=== PATIENT | male | born 1940 | race Caucasian/White ===

== ENCOUNTER 2016-10-11 18:27 | Inpatient (IN) | payer MEDICARE ==
[~2016-10-11] VITALS: Ht 177.8 cm; Wt 103.2 kg
[~2016-10-11 18:27] MED LIST: AMLO5TAB2 PO; ATOR80TA77 PO; CALC0.257 PO; CITA40TA PO; COLC0.6C3 PO; FERR325C PO; FRSM80T PO; HYDR-3825 PO; HYDR-3940 PO; INSU100V7 SUBQ; ISOS30TA4 PO; METO25TA6 PO; NITR0.4T6 SL; POTA20TA16 PO; WARF5TAB PO
[2016-10-11] MEDS ORDERED: Ondansetron 2 mg/mL 2 mL Inj ONE ×3 (18:39→22:52)
[2016-10-11] MEDS ORDERED: HYDROmorphone 0.5 mg/0.5 mL iSecure Syringe ONE (18:40)
--- NOTE | 2016-10-11 18:42 | ED.REPORT ---
HPI-General Illness Date of Service Oct 11, 2016 ED Provider: Dr. Lynette Clemente M.D. A 75 year old male with a medical history including CHF, diabetes, hypertension , stroke, stage 4 kidney failure, and atrial fibrillation on Coumadin s/p umbilical hernia repair presents to the ED via EMS with severe upper abdominal pain onset four hours prior to arrival. The pain radiates to either side and around to his back. The patient also reports shortness of breath, shakiness, and vomiting secondary to his pain. He was given 200mcg Fentanyl and 4mg Morphine en route. The patient is not on dialysis. Nursing Notes Stated Complaint: UPPER ABDOMINAL PAIN Chief Complaint: Male Abdominal Pain Nursing Notes Reviewed: Yes Allergies: Coded Allergies: Sulfa (Sulfonamide Antibiotics) (Verified Allergy, Unknown, 07/02/16) spironolactone (Verified Allergy, Unknown, 07/02/16) bruising/skin discoloration of chest Scheduled Amlodipine (Amlodipine) 5 Mg Tablet 10 MG PO DAILY Atorvastatin Calcium (Atorvastatin Calcium) 80 Mg Tablet 80 MG PO DAILY Calcitriol (Rocaltrol) 0.25 Mcg Capsule 0.5 MCG PO every other day Citalopram Hydrobromide (Celexa) 40 Mg Tablet 40 MG PO HS Colchicine (Colchicine) 0.6 Mg Capsule 0.6 MG PO every 3 days Ferrous Sulfate (Iron) 325 Mg Capsule.er 325 MG PO TID Furosemide (Furosemide) 80 Mg Tab 80 MG PO BID Hydralazine (Hydralazine) 50 Mg Tablet 50 MG PO TID Insulin Glargine (Lantus U100 Insulin Vial) 100 Unit/Ml Vial 40 UNIT SUBQ AM Isosorbide MN ER (Isosorbide MN ER) 30 Mg Tab.er.24h 90 MG PO DAILY Metoprolol Tartrate (Metoprolol Tartrate) 25 Mg Tablet 12.5 MG PO BID Potassium Chloride (Potassium Chloride) 20 Meq Tab.er.prt 20 MEQ PO DAILYWM Warfarin Sodium (Coumadin) 5 Mg Tablet 5 MG PO DAILY@17 Scheduled PRN Nitroglycerin SL (Nitroglycerin SL) 0.4 Mg Tab.subl 0.4 MG SL PRN PRN PRN For Chest Pain General Time Seen by MD: 18:41 Chief Complaint Abdominal pain Hx Obtained From: Patient Arrived By: Ambulance Sudden in Onset?: Yes Onset Occurred: 1 - 4 hours ago Symptom Duration: Since onset Location: : Abdomen Quality: Painful Severity: Current: Moderate Severity: Maximum: Severe Associated with: Reports: Shortness of breath, Vomiting, Denies: Fever Pertinent Negative: Relieved by nothing Context Related History: Reports Diabetes mellitus Recent Healthcare: No recent doctor visit Past Medical History Past Medical History Alcoholism Stage 4 kidney failure, not on dialysis yet 10/2016 Pneumonia Gastrointestinal bleed Hypoglycemic seizure Sleep apnea Left eye blindness Reports: Congestive heart failure, Diabetes mellitus, Hypertension, Stroke Reports: Atrial fibrillation Past Surgical History R upper arm fistula umbilical hernia repair colonoscopyX2 Left tear duct cauterized for dry eye Reports: Cataract surgery Smoking History Former Smoker Social History Alcohol Use: In recovery Other Social History: Ambulatory Status Independent Review of Systems Full Review of Systems Constitutional: Denies: Fever Respiratory: Reports: Shortness of breath GI: Reports: Abdominal pain (Upper), Vomiting Musculoskeletal: Reports: Back pain Neurologic: Reports: Shaking Complete sys rev & neg: except as marked. Physical Exam Vital Signs Vital Signs Date Time Temp Pulse Resp B/P Pulse Ox O2 Delivery O2 Flow Rate FiO2 10/11/16 22:32 82 16 142/36 99 Nasal Cannula 4 10/11/16 20:00 36.4 72 23 144/64 99 Room Air 10/11/16 18:48 36.3 62 20 173/73 100 Room Air Initial VS: Reviewed Head / Eyes: Atraumatic, Normocephalic ENT: Conjunctiva normal, No scleral icterus Neck: Supple, Full range of motion Neurologic: Alert, Oriented, Nonfocal Psychiatric: Mood/affect normal, Behavior normal, Normal thought content General/Constitutional: Awake, Alert Distress / Hydration: Positive: Distress severe Appearance / Presentation: Positive: In pain (Severely, despite being given 200mcg Fentanyl and 4mg Morphine en route), Pale Respiratory / Chest: Breath sounds NL, Breath sounds = bilat, No respiratory distress Tachypneic Cardiovascular: Heart rate NL, Regular rhythm, Heart sounds NL, No murmurs Abdomen: Atraumatic Tenderness/Guarding/Rebound: Positive: Tender LUQ... (Worst), Tender RUQ... ( Worst), Tender diffuse (Significantly) Bowel Sounds / Distention: Positive: Distention moderate Tympanitic and peritoneal signs Interpretation & Diagnostics Lab Results Interpretation Result Diagram: 10/13/1644910/13/16449 Test 10/11/16 04:50 10/11/16 19:10 10/11/16 19:14 Hemoglobin A1c 5.9% (4.8-5.6) Pro-B-Type Natriuretic Peptide 4360pg/mL (0-376) Prealbumin 28mg/dL (20-40) Urine Color Yellow (YELLOW) Urine Appearance Clear (CLEAR,HAZY) Urine pH 7.0 (5.0-8.0) Urine Specific May 1.025 (1.003-1.035) Urine Protein 100mg/dL (NEG,TRACE) Urine Glucose (UA) Negativemg/dL (NEGATIVE) Urine Ketones Negativemg/dL (NEGATIVE) Urine Occult Blood Trace (NEGATIVE) Urine Nitrite Negative (NEGATIVE) Urine Bilirubin Negative (NEGATIVE) Urine Urobilinogen Normalmg/dL (NORMAL) Urine Leukocyte Esterase Negative (NEGATIVE) Urine RBC 0-2/hpf (0-2) Urine WBC 0-5/hpf (0-5) Urine Epithelial Cells Occasional/hpf (NONE-MOD) Urine Crystals None seen (NONE SEEN) Urine Bacteria None/hpf (NONE-FEW) Urine Hyaline Casts Rare/lpf (NONE) Urine Granular Casts None seen (NONE SEEN) Urine Waxy Casts None seen (NONE SEEN) Urine Red Blood Cell Casts None seen (NONE SEEN) Urine White Blood Cell Casts None seen (NONE SEEN) Urine Mucus None seen (None Seen) Urine Trichomonas None seen (NONE SEEN) Urine Yeast None (NONE SEEN) Urinalysis Comment None Urine Culture Reflexed Not indicated ECG Interpretation ECG Interpretation: Atrial fibrillation new from 06/28/16 Rate 68 Prolonged QT interval Time: 19:06 Interpreted by: ED physician X-Ray Chest Interpretation Chest Xray Interpretation: IMPRESSION: 1. Moderate cardiomegaly as before, without pulmonary edema to suggest diana congestive heart failure. 2. Persistent trace basal right pleural effusion versus basal pleural thickening. Dictated by: Matthias Roach M.D. on 10/11/2016 at 20:14 View: Portable, 1 view Interpretation / Wet Read by: Interpret - Radiologist Chest Xray Interpretation: Central line in place View: Portable, 1 view Interpretation / Wet Read by: Wet read ED physician CT Abd / Pelvis Interpretation IMPRESSION: 1. Constellation of findings suspicious for a closed-loop mid small bowel obstruction, secondary to localized volvulus or internal hernia. Mesenteric fat stranding as well as patchy small bowel wall thickening would be concerning for evolving bowel ischemia. 2. Small right and trace left mobile dependent pleural effusions are of uncertain etiology. 3. 1.4 cm partially exophytic anteromedial right renal cortical lesion is too dense to represent a simple cyst, and may therefore represent complex cyst versus solid mass. When clinically feasible, consider further evaluation with renal ultrasound, or pre- and post-contrast renal protocol CT or MRI to distinguish between these possibilities. Dictated by: Matthias Roach M.D. on 10/11/2016 at 20:32 Study type: Abdominal CT no contrast Interpretation / Wet Read by: Interpret - Radiologist Procedures Central Line Placement Time: 21:55 Procedure Performed by: ED physician Consent / Setup / Site Prep: Consent from patient, Time-out performed, Needle aspirate performed, Oxygen administered, Pulse oximeter applied, bus driver/monitor applied, Hand hygiene observed, Standard surgical scrub, Sterile drapes applied, Position Trendelenburg Skin Preparation Agent: Hibiclens - Chlorhexidine Local Anesthesia: Lidocaine 1% Procedural Sedation/Analgesia: Analgesia: Dilaudid Side / Location / Ultrasound: Internal jugular right, Ultrasound assisted Catheter / Lumen / Technique: Triple lumen, Seldinger technique, Good blood return, Secured w catheter device Post-Procedure / Complications: CXR neg for pneumothorax, Condition improved , Tolerated procedure well, Patient stable Re-Eval/Medical Decision Med Decision/Clinical Course presents with severe abd pain, 4 hr onset with clinical exam consistent with an acute surgical abdomen. STEMI, dissection and AAA were all entertained as diagnoses with severity of presenting exam. central line placed for monitoring and venous access Dr Rosales contacted after CT exam, to OR Source of Hx: Old records Time of Eval: 21:20 Patient Status: Condition improved, Pain improved Re-Evaluation/Progress Note: Discussed with patient and his CT, x-ray, and lab results, diagnosis, and plan for central line placement then admit. Patient agrees with plan for care and all questions were addressed. Time of Eval: 21:55 Patient Status: Condition improved Re-Evaluation/Progress Note: Performed central line placement. Consultation #1: Referral / Consult Name: Dada Rosales MD Consulted With: Trauma surgeon Call Returned at: 20:50 Mountain Bike Guide: Agrees with eval, Agrees with plan Note: Recommends checking INR and admitting to hospitalist Consultation #2: Referral / Consult Name: Dada Rosales MD Consulted With: Trauma surgeon Call Returned at: 22:20 Mountain Bike Guide: Will see patient, Agrees with eval, Agrees with plan, Accepts admit Counseled Regarding: Diagnosis, Lab results, Need for admission Discharge & Departure Primary Impression: Acute abdomen Disposition: ADMITTED TO HOSPITAL Discharge Condition All VS Reviewed: Yes Condition: Stable Referrals: Bacilio Eckert DO (PCP) Crit Care Except Billable Proc Time Spent: 30-74 minutes Services Performed: Patient management by me, Time spent at bedside, Reviewing test results, Reviewing imaging, Discussing patient care, Documentation in record, Time with fam/surrogate Scribe Attestation Portions of this note were transcribed by Carol Scott. I, Dr. Clemente, personally performed the history, physical exam, and medical decision-making; I reviewed and confirmed the accuracy of the information in the transcribed note. Signed by: Dari Alves, 10/12/2016, 00:02 copies to: Bacilio Eckert Shawna L MD Oct 11, 2016 18:42 CAROL SCOTT Oct 11, 2016 18:55 None seen (None Seen) Urine Trichomonas None seen (NONE SEEN) Urine Yeast None (NONE SEEN) Urinalysis Comment None Urine Culture Reflexed Not indicated Prothrombin Time 18.0sec (8.1-12.5) Prothromb Time International Ratio 1.66ratio ECG Interpretation ECG Interpretation: Atrial fibrillation new from 06/28/16 Rate 68 Prolonged QT interval Time: 19:06 Interpreted by: ED physician X-Ray Chest Interpretation Chest Xray Interpretation: IMPRESSION: 1. Moderate cardiomegaly as before, without pulmonary edema to suggest diana congestive heart failure. 2. Persistent trace basal right pleural effusion versus basal pleural thickening. Dictated by: Matthias Roach M.D. on 10/11/2016 at 20:14 View: Portable, 1 view Interpretation / Wet Read by: Interpret - Radiologist Chest Xray Interpretation: Central line in place View: Portable, 1 view Interpretation / Wet Read by: Wet read ED physician CT Abd / Pelvis Interpretation IMPRESSION: 1. Constellation of findings suspicious for a closed-loop mid small bowel obstruction, secondary to localized volvulus or internal hernia. Mesenteric fat stranding as well as patchy small bowel wall thickening would be concerning for evolving bowel ischemia. 2. Small right and trace left mobile dependent pleural effusions are of uncertain etiology. 3. 1.4 cm partially exophytic anteromedial right renal cortical lesion is too dense to represent a simple cyst, and may therefore represent complex cyst versus solid mass. When clinically feasible, consider further evaluation with renal ultrasound, or pre- and post-contrast renal protocol CT or MRI to distinguish between these possibilities. Dictated by: Matthias Roach M.D. on 10/11/2016 at 20:32 Study type: Abdominal CT no contrast Interpretation / Wet Read by: Interpret - Radiologist Procedures Central Line Placement Time: 21:55 Procedure Performed by: ED physician Consent / Setup / Site Prep: Consent from patient, Time-out performed, Needle aspirate performed, Oxygen administered, Pulse oximeter applied, bus driver/monitor applied, Hand hygiene observed, Standard surgical scrub, Sterile drapes applied, Position Trendelenburg Skin Preparation Agent: Hibiclens - Chlorhexidine Local Anesthesia: Lidocaine 1% Procedural Sedation/Analgesia: Analgesia: Dilaudid Side / Location / Ultrasound: Internal jugular right, Ultrasound assisted Catheter / Lumen / Technique: Triple lumen, Seldinger technique, Good blood return, Secured w catheter device Post-Procedure / Complications: CXR neg for pneumothorax, Condition improved , Tolerated procedure well, Patient stable Re-Eval/Medical Decision Source of Hx: Old records Time of Eval: 21:20 Patient Status: Condition improved, Pain improved Re-Evaluation/Progress Note: Discussed with patient and his CT, x-ray, and lab results, diagnosis, and plan for central line placement then admit. Patient agrees with plan for care and all questions were addressed. Time of Eval: 21:55 Patient Status: Condition improved Re-Evaluation/Progress Note: Performed central line placement. Consultation #1: Referral / Consult Name: Dada Rosales MD Consulted With: Trauma surgeon Call Returned at: 20:50 Mountain Bike Guide: Agrees with eval, Agrees with plan Note: Recommends checking INR and admitting to hospitalist Consultation #2: Referral / Consult Name: Dada Rosales MD Consulted With: Trauma surgeon Call Returned at: 22:20 Mountain Bike Guide: Will see patient, Agrees with eval, Agrees with plan, Accepts admit Counseled Regarding: Diagnosis, Lab results, Need for admission Discharge & Departure Primary Impression: Acute abdomen Disposition: ADMITTED TO HOSPITAL Discharge Condition All VS Reviewed: Yes Condition: Stable Referrals: PicsarithaBacilio DO (PCP) Crit Care Except Billable Proc Time Spent: 30-74 minutes Services Performed: Patient management by me, Time spent at bedside, Reviewing test results, Reviewing imaging, Discussing patient care, Documentation in record, Time with fam/surrogate Scribe Attestation Portions of this note were transcribed by Carol Scott. I, Dr. Clemente, personally performed the history, physical exam, and medical decision-making; I reviewed and confirmed the accuracy of the information in the transcribed note. Signed by: Dari Alves, 10/12/2016, 00:02 copies to: Bacilio Eckert Shawna L MD Oct 11, 2016 18:42 CAROL SCOTT Oct 11, 2016 18:55
[2016-10-11 18:48] VITALS: BP 173/73; PULSE 62; RESP 20; O2SAT 100
[2016-10-11] MEDS ORDERED: Ondansetron 2 mg/mL 2 mL Inj IVPUSH PRN ×2 (18:50→23:15)
[2016-10-11] MEDS ORDERED: HYDROmorphone 1 mg/mL Inj IVPUSH ONE ×2 (18:50→21:30)
[2016-10-11] MEDS ORDERED: HYDROmorphone 0.5 mg/0.5 mL iSecure Syringe IVPUSH PRN (18:50)
[2016-10-11 19:20] LABS: BASOPHILS % (AUTO) 0.2 % (0-3); EOSINOPHILS % (AUTO) 1.3 % (0-5); MONOCYTES % (AUTO) 4.9 % (4-12); Mean Corpuscular Hemoglobin 26.9 pg (27.0-35.0); Mean Corpuscular Volume 83.3 fL (81-100); NEUTROPHILS % (AUTO) 80.2 % (40-74); Platelet Count 152 bil/L (150-400)
[2016-10-11] MEDS: HYDROmorphone 1 mg/mL Inj IVPUSH PRN ×2 (19:21→20:01)
[2016-10-11 20:00] VITALS: BP 144/64; PULSE 72; RESP 23; O2SAT 99
[2016-10-11 20:01] LABS: TROPONIN T < 0.010 ug/L (0.0-0.011)
--- NOTE | 2016-10-11 20:16 | DRSVH ---
PROCEDURE: X-RAY CHEST ONE VIEW, PORTABLE ([id number]) INDICATIONS: 75 year-old male with chest pain. TECHNIQUE: One view of the chest was acquired. COMPARISON: [facility], CR, XR CHEST 1VW (PORTABLE), 06/28/2016, 11:48. [facility], CR, XR CHEST 2VW, 03/12/2016, 10:54. [facility], CR, CHEST 2VW, 01/27/2015, 10:5 7. FINDINGS: Surgical changes and devices: None. Lungs and pleura: There is persistent blunting of the right costophrenic angle. No pneumothorax. Lung s are clear. Mediastinum: Mediastinal contours appear normal. Moderate cardiomegaly is unchanged. Bones and chest wall: No suspicious bony lesions. Overlying soft tissues appear unremarkable. IMPRESSION: 1. Moderate cardiomegaly as before, without pulmonary edema to suggest diana congestive heart failure . 2. Persistent trace basal right pleural effusion versus basal pleural thickening. Dictated by: Matthias Roach M.D. on 10/11/2016 at 20:14 Approved by: Matthias Roach M.D. on 10/11/2016 at 20:14
--- NOTE | 2016-10-11 20:34 | DRSVH ---
PROCEDURE: CT ABDOMEN AND PELVIS WITHOUT CONTRAST ([id number]) INDICATIONS: 75-year-old male with acute abdominal pain. TECHNIQUE: Intravenous contrast was not administered, due to renal insufficiency. After the administration of or al contrast, 5 mm thick sections acquired from the diaphragms to the symphysis. 5 mm coronal and sag ittal reformats were performed. For radiation dose reduction, the following was used: automated exp osure control, adjustment of mA and/or kV according to patient size. COMPARISON: None. FINDINGS: Image quality: Excellent. ABDOMEN: Lung bases: Small right and trace left mobile dependent pleural effusions are present. There is mild cardiomegaly. Solid organs: Liver and spleen are normal in size. Gallbladder wall thickness is normal. Pancreas is normal in size, with moderate fatty atrophy. No adrenal nodules. Both kidneys are normal in size , without hydronephrosis or nephrolithiasis. On axial image 42, 1.4 cm partially exophytic anteromedi al right renal cortical lesion measures 35 Hounsfield units and noncontrast density, greater than exp ected for a cyst. Peritoneum and bowel: Several loops of moderately dilated small bowel are present, with correspondin g localized mesenteric fat stranding and patchy wall thickening. No pneumatosis. Distal small bowel l oops are decompressed, and proximal small bowel loops are also normal in caliber. Stool filled colon loops appear normal in caliber, with scattered descending and sigmoid colon diverticulosis. There is trace free pelvic fluid. No pneumoperitoneum. Nodes and vessels: No retroperitoneal or mesenteric adenopathy by size criteria. Aorta and inferior vena cava are normal in size, with moderate aortoiliac atherosclerosis. Miscellaneous: No ventral hernias. PELVIS: Genitourinary: Bladder wall thickness is normal. Prostate gland is normal in size. Miscellaneous: No inguinal hernias or adenopathy. Bones: No suspicious bony lesions. No vertebral body compression fractures. There is lower thoracic spine disc degeneration. IMPRESSION: 1. Constellation of findings suspicious for a closed-loop mid small bowel obstruction, secondary to l ocalized volvulus or internal hernia. Mesenteric fat stranding as well as patchy small bowel wall thi ckening would be concerning for evolving bowel ischemia. 2. Small right and trace left mobile dependent pleural effusions are of uncertain etiology. 3. 1.4 cm partially exophytic anteromedial right renal cortical lesion is too dense to represent a si mple cyst, and may therefore represent complex cyst versus solid mass. When clinically feasible, cons ider further evaluation with renal ultrasound, or pre- and post-contrast renal protocol CT or MRI to distinguish between these possibilities. Dictated by: Matthias Roach M.D. on 10/11/2016 at 20:32 Approved by: Matthias Roach M.D. on 10/11/2016 at 20:32
[2016-10-11] MEDS ORDERED: Phytonadione (Adult) 10 mg/1 mL Inj PO ONE (20:55)
[2016-10-11 21:27] LABS: APPEARANCE,URINE CLEAR (CLEAR,HAZY); COLOR,URINE YELLOW (YELLOW); OCCULT BLOOD,URINE TRACE (NEGATIVE); UROBILINOGEN,URINE NORMAL (NORMAL)
[2016-10-11] MEDS ORDERED: HYDROmorphone 1 mg/mL Inj IVPUSH PRN ×2 (21:30→23:15)
[2016-10-11 21:44] LABS: INR 1.66 ratio
[2016-10-11 22:32] VITALS: BP 142/36; PULSE 82; RESP 16; O2SAT 99
[2016-10-11] MEDS ORDERED: 0.9% Sodium Chloride 250 ML ONE (22:44)
[2016-10-11] MEDS ORDERED: Phenylephrine 10,000 mCg/mL Inj ONE (22:52)
[2016-10-11] MEDS ORDERED: EPHEDrine/NS 5 mg/mL 5 mL Syringe ONE (22:52)
[2016-10-11] MEDS ORDERED: Lidocaine PF 1% 30 mL Inj ONE (22:52)
[2016-10-11] MEDS ORDERED: Propofol 10,000 mCg/mL 20 mL Inj ONE (22:52)
[2016-10-11] MEDS ORDERED: Phenylephrine/NS 100 mCg/mL 10 mL Syringe IVPUSH ONE (22:52)
[2016-10-11] MEDS ORDERED: Succinylcholine Chloride 20 mg/mL 5 mL Inj ONE (22:52)
[2016-10-11] MEDS ORDERED: Cisatracurium 2,000 mCg/mL 10 mL Inj ONE (22:52)
[2016-10-11] MEDS ORDERED: 0.9% Sodium Chloride 500 mL Bag ONE (22:52)
--- NOTE | 2016-10-11 22:58 | PCM.HPANE ---
Patient Data Surgeon Admitting Provider: Attending Provider: Primary Care Physician:Jaya Flores MD Other Provider: Reason for Visit Upper Abdominal Pain Ht/WT & BMI Height (Feet): 5 Height (Inches): 10 Weight (Kilograms): 100 Body Mass Index Allergies Coded Allergies: Sulfa (Sulfonamide Antibiotics) (Verified Allergy, Unknown, 07/02/16) spironolactone (Verified Allergy, Unknown, 07/02/16) bruising/skin discoloration of chest Past Anesthesia History Anesthesia History: Denies:: Abnormal Airway, Anesthesia Reactions, Difficult Intubation, Fam Anesthesia Reaction, Fam Malignant Hypertherm, Malignant Hyperthermia Diabetes History Hx Diabetes?: Yes MRSA MRSA: Yes (positive nasal) Medications Blood Thinner: Aspirin Active Scripts Hydrocodone-Acetaminophen 7.5-325 mg 1 Each Tablet1 Tablet PO Q4H PRN For Pain # 20 TABLET Ref 0 Prov:Susan Ferrari MD 07/02/16 Potassium Chloride 20 Meq Tab.er.prt20 Meq PO DAILYWM #30 Prov:Sohan Rodrigues MD 07/02/16 Furosemide 80 Mg Tab80 Mg PO BID #60 TAB Prov:Sohan Rodrigues MD 07/02/16 Amlodipine 5 Mg Psvxbf97 Mg PO DAILY #30 TABLET Prov:Sohan Rodrigues MD 07/02/16 Hydrocodone-Acetaminophen 7.5-325 mg 1 Each Tablet1 Tablet PO Q6H PRN For Pain # 20 TABLET Ref 0 Prov:Susan Ferrari MD 06/21/16 Warfarin Sodium (Coumadin)5 Mg Tablet5 Mg PO DAILY@17 #14 TABLET Ref 0 Prov:Betty Roberson DO 02/04/16 Reported Medications Colchicine 0.6 Mg Capsule0.6 Mg PO every 3 days #30 06/28/16 Ferrous Sulfate (Iron)325 Mg Capsule.er325 Mg PO TID 06/28/16 Calcitriol (Rocaltrol)0.25 Mcg Capsule0.5 Mcg PO every other day 06/28/16 Metoprolol Tartrate 25 Mg Lmeeeu63.5 Mg PO BID 30 Days Ref 0 03/05/16 Hydralazine 50 Mg Kntpip64 Mg PO TID Ref 0 02/01/16 Isosorbide MN ER 30 Mg Tab.er.24h90 Mg PO DAILY 06/25/15 Citalopram Hydrobromide (Celexa)40 Mg Vnxupl43 Mg PO HS 30 Days Ref 0 04/17/15 Insulin Glargine (Lantus U100 Insulin Vial)100 Unit/Ml Vial40 Unit SUBQ AM #1 VIAL Ref 0 09/22/14 Atorvastatin Calcium 80 Mg Fpszjs90 Mg PO DAILY 30 Days Ref 0 09/22/14 Nitroglycerin SL 0.4 Mg Tab.subl0.4 Mg SL PRN PRN For Chest Pain 07/02/14 Last Time Dose Received took amlodipine, isosorbide, hydralazine, iron, metoprolol and lantus Usually takes 40 u lantus q am. Took this am History History of ENT Problems?: Yes HEENT History: Positive for:: Cataracts (s/p extraction bilaterally) Denies:: Abnormal Airway Difficult Intubation Dysphagia Hearing Problem Sinus Problem Hx of Heart Problems?: Yes Cardiovascular History: Positive for:: Chest Pain Congestive Heart Failure Edema Hypertension Irregular Heartbeat (a fib) Denies:: AICD Atrial Fibrillation Cardiac Surgery Heart Murmur Pacemaker Thrombophlebitis Valvular Heart Disease Other History/Comments cardiac records reviewed Hx of Respiratory Problem?: Yes Respiratory History: Positive for:: Dyspnea Pneumonia Use of C-PAP Machine Denies:: Asthma COPD Chest Surgery Cough Emphysema Hemoptysis Tuberculosis Other History/Comment Denies SOB currently Hx Neurologic Problems?: Yes Neurological History: Positive for:: CVA (02/01/16, tpa given) Seizures (hx hypoglycemic seizures) Denies:: Alzheimer's Disease Dementia Dizziness Headaches Parkinson's Disease Other History/Comments No neurodefecits from the stroke Currently - Ox3. Slightly sed after pain meds Hx CVA related to A-fib - on chronic coumadin States a little pain, but improved Hx of GI Problems?: Yes Gastrointestinal History: Positive for:: Gastrointestinal Bleeding (07/2015 with colonoscopy ) Denies:: Diverticulitis Gastroesphageal Reflux Heartburn Hepatitis Hiatal Hernia (hx of umbilical hernia repair ) Rectal Bleeding Other History/Comment signs of volvulus and ischemia on ab CT. Sx's started around 8 hours ago with abdominal bloating, pain, nausea. He's not hungry. Last ate noon - hamburger. Hx of Problems?: Yes (CKD 4 - has not started dialysis yet) Genitourinary History: Denies:: HX of Hemodialysis (right arm fistula not being used) Kidney Stones Urinary Tract Infection HX of Peritoneal Dialysis: No Male Hx: Positive for:: Testicular Surgery (vasectomy ) Denies:: Prostate Problems Scrotal Mass Hx Musculoskeletal Problems?: Yes Musculoskeletal History: Positive for:: Musculoskeletal Trauma (broken wrist and ribs) Denies:: Back Injury Joint Replacement Hx of Psycho/Social Problems?: Yes Psycho Social History: Positive for:: Hx Depression Denies:: Anxiety Bipolar Disorder Suicide Attempt Hx Surgeries?: Yes Hx Any Other Health Problems?: Yes Other History: Positive for:: Hospitalization Denies:: Cancer Endocrine Disease Thyroid Disease History Blood Transfusions: Positive for:: Blood Transfusions Denies:: Blood Transfuse Reaction Hx Diabetes: Yes Hx Alcohol Use: Yes (QUIT MONTHS AGO, DRANK VODKA "A LOT" QD)Hx Substance Use: No Smoking Status: Former Smoker Have You Smoked inLast 12 mo: No (QUIT 40 +YEARS AGO) Stop/Bang Risk Assessment Category Category 1A: Patient has history of documented sleep apnea, and HAS NOT received any narcotic, sedative or anesthesia administration during this stay. Category 1B: Patient has history of documented sleep apnea, and HAS received any narcotic , sedative or anesthesia administration during this stay Category 2: Patient has SUSPECTED Obstructive Sleep Apnea, and HAS received any narcotic , sedative or anesthesia administration during this stay. Category 3: Patient has SUSPECTED Obstructive Sleep Apnea and HAS NOT received narcotic, sedative or anesthesia administration during this stay. Category 4: Outpatient in Procedural Areas with known sleep apnea or who screen positive for High Risk via the STOP/BANG questionnaire. Exam Exam Vital Signs Vital Signs Date Time Temp Pulse Resp B/P Pulse Ox O2 Delivery O2 Flow Rate FiO2 10/11/16 22:32 82 16 142/36 99 Nasal Cannula 4 10/11/16 20:00 36.4 72 23 144/64 99 Room Air 10/11/16 18:48 36.3 62 20 173/73 100 Room Air General Appearance: Alert, Oriented X3 HEENT/AIRWAY: MP 2, Neck Movement (FROM) Lungs: Clear to Auscultation, Clear to Percussion Heart: Exam Unremarkable, Regular Rate/Rhythm Meds/Labs/Diagnostics Admission Meds Current Medications Hydromorphone HCl (Dilaudid Inj) 1 mg Q15MIN ONCE IVPUSH Last administered on 10/11/16t 19:04; Start 10/11/16 at 18:50; Stop 10/11/16 at 18:52; Status DC Phytonadione (Vitamin K (Adult)) 10 mg ONCE ONCE PO Last administered on 22:15; Start 10/11/16 at 20:55; Stop 10/11/16 at 20:56; Status DC Hydromorphone HCl (Dilaudid Inj) 1 mg Q15MIN ONCE IVPUSH Last administered on 10/11/16 21:41; Start 10/11/16 at 21:30; Stop 10/11/16 at 21:31; Status DC Labs Test 10/11/16 19:10 10/11/16 19:14 10/11/16 21:05 White Blood Count 10.4th/mm3 (3.8-10.1) Red Blood Count 4.38mil/mm3 (4.40-5.80) Hemoglobin 11.8g/dL (13.8-17.2) Hematocrit 36.5% (41.0-50.0) Mean Corpuscular Volume 83.3fL (81-100) Mean Corpuscular Hemoglobin 26.9pg (27.0-35.0) Mean Corpuscular Hemoglobin Concent 32.3% (32.0-37.0) Red Cell Distribution Width 15.4% (12.3-15.4) Platelet Count 152bil/L (150-400) Neutrophils (%) (Auto) 80.2% (40-74) Lymphocytes (%) (Auto) 13.2% (14-46) Monocytes (%) (Auto) 4.9% (4-12) Eosinophils (%) (Auto) 1.3% (0-5) Basophils (%) (Auto) 0.2% (0-3) Sodium Level 139mEq/L (134-144) Potassium Level 3.9mEq/L (3.5-5.2) Chloride Level 97mEq/L (97-108) Carbon Dioxide Level 20mmol/L (18-29) Blood Urea Nitrogen 64mg/dL (8-27) Creatinine 3.38mg/dL (0.76-1.27) Estimat Glomerular Filtration Rate 19mL/min (>59) Glucose Level 141mg/dL (60-99) Lactic Acid Level 2.6mmol/L (0.4-2.0) Calcium Level 9.7mg/dL (8.5-10.1) Total Bilirubin 0.7mg/dL (0.0-1.2) Aspartate Amino Transf (AST/SGOT) 16U/L (0-50) Alanine Aminotransferase (ALT/SGPT) 13U/L (0-44) Alkaline Phosphatase 83U/L (25-160) Troponin T < 0.010ug/L (0.0-0.011) Pro-B-Type Natriuretic Peptide 4360pg/mL (0-376) Total Protein 7.8g/dL (6.4-8.4) Albumin 3.8g/dL (3.4-5.0) Procalcitonin 0.09ng/mL (See Comment) Urine Color Yellow (YELLOW) Urine Appearance Clear (CLEAR,HAZY) Urine pH 7.0 (5.0-8.0) Urine Specific Floweree 1.025 (1.003-1.035) Urine Protein 100mg/dL (NEG,TRACE) Urine Glucose (UA) Negativemg/dL (NEGATIVE) Urine Ketones Negativemg/dL (NEGATIVE) Urine Occult Blood Trace (NEGATIVE) Urine Nitrite Negative (NEGATIVE) Urine Bilirubin Negative (NEGATIVE) Urine Urobilinogen Normalmg/dL (NORMAL) Urine Leukocyte Esterase Negative (NEGATIVE) Urine RBC 0-2/hpf (0-2) Urine WBC 0-5/hpf (0-5) Urine Epithelial Cells Occasional/hpf (NONE-MOD) Urine Crystals None seen (NONE SEEN) Urine Bacteria None/hpf (NONE-FEW) Urine Hyaline Casts Rare/lpf (NONE) Urine Granular Casts None seen (NONE SEEN) Urine Waxy Casts None seen (NONE SEEN) Urine Red Blood Cell Casts None seen (NONE SEEN) Urine White Blood Cell Casts None seen (NONE SEEN) Urine Mucus None seen (None Seen) Urine Trichomonas None seen (NONE SEEN) Urine Yeast None (NONE SEEN) Urinalysis Comment None Urine Culture Reflexed Not indicated Prothrombin Time 18.0sec (8.1-12.5) Prothromb Time International Ratio 1.66ratio Plan Impression Patient chart reviewed, patient interviewed and anesthestic plan with risks, benefits, and alternatives discussed, and informed consent obtained. NPO Status: water at 0630 ASA Physical Status: ASA4 Plus Emergency Anesthetic Support Modalities: [place] Scope, Arterial Line Anesthetic Plan: GA Bene/Risks/Altern/Consents: Yes HP Complete Prior to Induction: Yes Other Dr. Thornton cleared the central line for use. Plan for a-line pre-induction Discussed the patient's increased risk of morbidity and mortality based on multiple co-morbidities. They understand that he may remain intubated at the end of the surgery. Abdulaziz Mead MD Oct 11, 2016 22:36
[2016-10-11 23:04] VITALS: BP 136/69; PULSE 77; RESP 13; O2SAT 96
[2016-10-11] MEDS ORDERED: EPHEDrine Sulfate 50 mg/mL Inj IVPUSH PRN (23:15)
[2016-10-11] MEDS ORDERED: Labetalol 5 mg/mL 4 mL Inj IV PRN (23:15)
[2016-10-11] MEDS ORDERED: MetoCLOpramide 5 mg/mL 2 mL Inj IVPUSH PRN (23:15)
[2016-10-11] MEDS ORDERED: Lactated Ringer's 1,000 ML IV SCH (23:15)
[2016-10-11] MEDS ORDERED: Phenylephrine 10,000 mCg/mL Inj IVPUSH PRN (23:15)
[2016-10-11] MEDS ORDERED: fentaNYL-PF 50 mCg/mL 2 mL Inj IVPUSH PRN (23:15)
[2016-10-11] MEDS ORDERED: Atropine 0.4 mg/mL Inj IVPUSH PRN (23:15)
[2016-10-11] MEDS ORDERED: 0.9% Sodium Chloride 500 ML IV ONE (23:26)
[2016-10-12] VITALS (15 sets, daily range): BP systolic 81–165; BP diastolic 38–74; PULSE 55–96; RESP 16–20; O2SAT 91–100
--- NOTE | 2016-10-12 00:18 | CONS ---
[address] [address] CONSULTATION REPORT PATIENT: VLAD VARGAS : 1940 MR#: [id number] ADMIT: 10/11/2016 JOB ID: [id number] DATE OF SERVICE: 10/11/2016 CHIEF COMPLAINT: Small bowel volvulus. HISTORY OF PRESENT ILLNESS: The patient is a 75-year-old male who presented to the emergency department [facility] due to abdominal pain. The patient started to have upper abdominal discomfort around 2 p.m. today. This is described to be pressure-like and he has never had this pain before. The patient had some dry heaves, but no vomiting. He had a normal bowel movement today. The patient has had prior colonoscopies. Patient is on Coumadin. The patient's pain was rated 10/10. Patient underwent a CT scan of the abdomen and pelvis which shows findings suspicious for a closed-loop mid small bowel obstruction secondary to either volvulus or internal hernia. Patient so far has been given vitamin K and has received a central line. His INR came back as 1.66. PAST MEDICAL HISTORY: CHF, history of stroke, stage IV kidney failure, not on hemodialysis, sleep apnea, diabetes, hypertension, atrial fibrillation, right upper arm fistula, ventral hernia repair by Dr. Aston Zelaya in 2014, cataract surgery, and left eye procedure today. MEDICATIONS AT HOME: Include: 1. Amlodipine. 2. Atorvastatin. 3. Rocaltrol. 4. Celexa. 5. Iron. 6. Lasix. 7. Hydralazine. 8. Insulin. 9. Isosorbide. 10. Metoprolol. 11. Nitroglycerin. 12. Potassium. 13. Coumadin. ALLERGIES: 1. SULFA. 2. SPIRONOLACTONE. SOCIAL HISTORY: The patient is . He has two sons and a daughter. He lives on [address]. 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 FAMILY HISTORY: Positive for CHF and renal failure in his mother. His father of heart attack. REVIEW OF SYSTEMS: Positive for the upper abdominal pain and dry heaving. He denies fever or diarrhea. All other systems reviewed were negative. PHYSICAL EXAMINATION: The patient is currently in the emergency department [facility] in no acute distress. He was just given some Dilaudid for the central line placement. His BMI is 31.6. Temperature is 36.4, blood pressure 144/64, pulse 72, respirations 23. Head is normocephalic, atraumatic. There is no scleral icterus. Neck is supple. Heart is irregularly irregular. Lungs are clear bilaterally. Abdomen is obese and protuberant. There is a well-healed supraumbilical transverse scar. There is suggestion of a mass effect cephalad to the umbilicus in the mid abdomen. There are no peritoneal signs at this time, however, patient was just given Dilaudid not too long ago. Extremities show no clubbing and no cyanosis. Neurologically, patient is awake, alert, conversant and follows directions. LABORATORY EXAMINATION: Today shows a white blood count of 10.4, hematocrit 36.5, platelet count is 152. Sodium is 139, potassium 3.9, BUN of 64, creatinine 3.38, lactate of 2.6. His INR is 1.66. The CT scan report from [facility] suggests closed-loop small-bowel obstruction. ASSESSMENT: This is a 75-year-old male with diabetes, hypertension, history of stroke, CHF, atrial fibrillation on Coumadin, chronic renal insufficiency, who has acute abdominal pain likely due to a closed-loop small bowel obstruction either due to volvulus or internal hernia. The patient has been given oral vitamin K and we will start giving him 1 unit of fresh frozen plasma. The patient will be taken to the operating room [facility] for exploratory laparotomy, possible small bowel resection, possible ostomy. The risks of the operation were explained to the patient and his , and they understand and wish to proceed. Hospitalist will be involved in his care in the hospital. DIDI
[2016-10-12] MEDS ORDERED: Phenylephrine 20 mg/250 mL D5W IV SCH ×2 (00:25)
[2016-10-12] MEDS ORDERED: 0.9% Sodium Chloride 500 ML IV ONE (00:45)
[2016-10-12] MEDS ORDERED: Lactated Ringer's 1,000 ML IV SCH (01:12)
[2016-10-12] MEDS ORDERED: Ondansetron 2 mg/mL 2 mL Inj IVPUSH PRN ×2 (01:15→03:10)
[2016-10-12] MEDS ORDERED: HYDROmorphone 1 mg/mL Inj IVPUSH PRN (01:15)
--- NOTE | 2016-10-12 02:00 | NUR ---
Admit/Post-op 0200 - Patient transferred from OR to room 2011, vented and sedated, with patient and knows patients history well, sedation and pain med gtts started, Phenylephrine continued at 0.3mcg/kg/min, states patients resting HR is usually in the 30's and A-Fib at times in the 70's no distress noted, midline incision intact, no drainage noted and dressing clean and dry, no incision observation done at this time, Admission screening and med rec done. 0400 - Patient continues to rest on vent, NG flushed with only 20ml clear contents removed, no distress noted. 0530 - CVP line connected to patient, CVP's 8-12 and good waveform noted. 0600 - SBP 160's, Phenylephrine titrated down to 0.2mcg/kg/min, SBP decreased to 130's, no distress noted, tolerating vent well.
--- NOTE | 2016-10-12 02:10 | OP ---
[address] [address] OPERATIVE REPORT PATIENT: VLAD VARGAS : 1940 MR#: [id number] ADMIT: 10/11/2016 JOB ID: [id number] DATE OF SURGERY: 10/12/2016 SURGEON: Dada Rosales MD ACCOUNT TECHNICIAN: Ce Ray PA-C ANESTHESIA: General. PREOPERATIVE DIAGNOSIS(ES): Acute abdomen, possible small bowel volvulus. POSTOPERATIVE DIAGNOSIS(ES): Acute abdomen, possible small bowel volvulus. PROCEDURE: 1. Exploratory laparotomy. 2. Small-bowel resection x1 with primary anastomosis. INDICATION FOR PROCEDURE: The patient is a 75-year-old male with acute onset of abdominal pain this afternoon, with a CT scan finding concerning for a closed loop small bowel obstruction due to volvulus or internal hernia. PRINCIPAL FINDING: Definite purple, infarcted and compromised ischemic bowel due to volvulus and internal hernia due to adhesive band. Approximately 45 inches of mid small bowel was removed and a primary anastomoses was achieved. The assistance from a surgical PA was integral in completion of the case. PROCEDURE COURSE: The patient was brought to the operating table and was provided with general anesthesia. The patient was given IV antibiotics and SCDs, and also an A line. A central line and a Chin catheter were placed in the emergency department. A time-out was performed. The patient's abdomen was then prepped and draped in the usual sterile fashion. Next, an upper midline incision was made using the scalpel and subcutaneous tissue was entered using cautery. The peritoneum was entered without incident. We did quickly identify purple, black-looking small bowel that was directly beneath the incision. We extended the incision to just above the umbilicus. There was a tight adhesive band in the low central abdomen that was causing a twist and internal hernia to occur, which caused the small bowel compromise. This tight adhesive band was taken down using energy device. We were able to now release the entire small bowel, and it was run from the ligament of Treitz all the way distally to the colon. The ischemic portion of the small bowel was at mid jejunum and ileum, and it was quite a distance away from the cecum. Using CORINNE stapler, the proximal and distal ends of the specimen was divided and the mesentery was then taken using the Impact device. The specimen was sent to Pathology. The two healthy ends of the small bowel were then placed side to side and a functional end-to-end anastomosis was achieved using a CORINNE stapler. The common SB opening was closed using another firing of a CORINNE stapler. The common channel staple line was also imbricated using Lembert stitches. Given the ischemic nature of the small bowel, some portion were infarcted and near necrotic, so there was some intra-abdominal hematomas that were present. I would estimate approximately a total of 150 cc of blood was lost surgically and also from the intra-abdominal hematomas. Next, the abdomen was then irrigated with saline. There was no other pathology noted. An OG tube was then placed into the gastric lumen and was palpated. Next, a piece of Seprafilm was then placed directly underneath the midline incision on the omentum and small bowel. Next, the fascia was then closed from both ends of the incision using #1 PDS suture, and the two sutures were then tied at the midline. The subcu was then irrigated and the skin was closed using a running absorbable suture. A sterile dressing was then placed over the wound. By the end of procedure, needle counts and sponge counts were correct. The patient remains intubated and will be transported to the intensive care unit. DIDI
--- NOTE | 2016-10-12 02:12 | PCM.ANEP2 ---
Post Anesthesia Evaluation ASA/CMS Post Anesthesia VS in Patient's Normal Range?: Yes Resp Stable; Airway Patent?: Yes CV Function & Hydration Stable: Yes Mental Status Recovered?: Yes Pain control Satisfactory?: Yes N/V Control Satisfactory?: Yes Abdulaziz Mead MD Oct 12, 2016 02:12
--- NOTE | 2016-10-12 02:12 | PCM.ANEP1 ---
Post Anesthesia Phase 1 PACU Phase 1 Assessment Vital Signs Vital Signs Date Time Temp Pulse Resp B/P Pulse Ox O2 Delivery O2 Flow Rate FiO2 10/11/16 23:04 36.5 77 13 136/69 96 Nasal Cannula 2 10/11/16 22:32 82 16 142/36 99 Nasal Cannula 4 10/11/16 20:00 36.4 72 23 144/64 99 Room Air 10/11/16 18:48 36.3 62 20 173/73 100 Room Air Level of Alertness: Awake, talking KEARNEY's with Equal Strength: Yes Pain: No Pain Scale Score: 7 Nausea or Vomiting: No Airway Device: Endotrachial Tube Lungs: Clear to Auscultation, Clear to Percussion Summary See anesth record for PACU VS. PACU VSS Sign out given to CCU RN and CCU hospitalist Patient left intubated due to multiple co-morbidities, degree of bowel ischemia , and his requiring vasoactive meds (phenyphrine gtt) Patient transferred to CCU in stable but critical condition Abdulaziz Mead MD Oct 12, 2016 02:12
[2016-10-12] MEDS ORDERED: Propofol 10,000 mCg/mL 100 mL Inj ONE (02:20)
[2016-10-12] MEDS ORDERED: fentaNYL 2,500 mCg/250 mL Premix IV ONE (02:28)
[2016-10-12] MEDS ORDERED: fentaNYL-PF 50 mCg/mL 2 mL Inj IV PRN (02:30)
[2016-10-12] MEDS: Propofol Inj 1,000,000 MCG in IV Premix 1 EACH IV SCH ×4 (03:06→19:49)
--- NOTE | 2016-10-12 03:07 | ABG ---
DateTimeAnalyzed 03:02:00 -_ pH ____7.316 - 7.350 7.450 pCO2 ___40.6__ -mmHg 35.0 45.0 pO2 372 -mmHg 69.0 116 HCO3- ___20.1__ -mmol/L 22.0 26.0 ABE ___-5.1__ -mmol/L -2.0 2.0 tHb ____9.7__ -g/dL O2Hb ___97.7__ -% COHb ____0.9__ -% MetHb ____1.0__ -% sO2 ___99.6__ -% 25.0 FIO2 __100.0__ -% PRVC 20 - PEEP ____5.0__ -cmH2O Vt __510.0__ -L Drawn By blf - Date/Time Notified____ 03:06:00 -_ Spontaneous_RR ___20.0__ -b/min Oxygen Device 1 VENTILATOR - Notified By BLF - Notified Whom ___DR. KUBISTY - B 749 -mmHg tO2 ___14.3__ -Vol% Alberto test N/A -
[2016-10-12] MEDS ORDERED: Acetaminophen IV 1,000 MG in IV Premix 1 EACH IV PRN (03:10)
[2016-10-12] MEDS ORDERED: fentaNYL-PF 50 mCg/mL 2 mL Inj IVPUSH PRN (03:10)
[2016-10-12 04:01] LABS: Magnesium 2.2 mg/dL (1.6-2.6)
[2016-10-12] MEDS: Pantoprazole 4 mg/mL 10 mL Inj IVPUSH SCH ×2 (04:19→08:29)
[2016-10-12] MEDS: Lactated Ringer's 1,000 ML IV SCH ×3 (04:19→19:48)
[2016-10-12] MEDS: Chlorhexidine 0.12% 15 mL Oral Solution MT SCH ×6 (04:20→23:37)
[2016-10-12 05:06] LABS: BASOPHILS % (AUTO) 0.1 % (0-3); EOSINOPHILS % (AUTO) 0 % (0-5); MONOCYTES % (AUTO) 8.1 % (4-12); Mean Corpuscular Hemoglobin 27.4 pg (27.0-35.0); Mean Corpuscular Volume 84.3 fL (81-100); NEUTROPHILS % (AUTO) 84.7 % (40-74); Platelet Count 178 bil/L (150-400)
[2016-10-12] MEDS ORDERED: 0.9% Sodium Chloride 500 ML ONE ×2 (05:06→15:38)
--- NOTE | 2016-10-12 05:21 | PCM.HPMED ---
Subjective Date of Service Oct 12, 2016 Primary Provider: Admitting Physician: Dada Rosales MD Primary Care Physician: Jaya Flores MD Attending Physician: Dada Rosales MD Admit Status: From the Emergency Department, Full Admit, Critical Care Chief Complaint: Acute abdominal pain starting October 11 History of Present Illness: Patient is a 75-year-old male who presented to the emergency room with acute onset of abdominal pain the afternoon of October 11. Patient was seen in the emergency room and CT of abdomen and pelvis revealed findings suspicious for a closed loop small bowel obstruction, secondary to localized volvulus or internal hernia. There was Fat stranding as well as patchy small bowel wall thickening concerning for evolving both bowel ischemia. Labs showed a lactic acid level II.6 with bicarbonate of 20 white count of 10.4 patient was taken to the OR after a year M.D. notified Dr. Rosales regarding the need to see the patient in the ER and potentially go directly to the OR. Will note reveals spelled finding of definite purple, compromised ischemic bowel due to volvulus and internal hernia due to adhesive band. We 45 inches above mid small bowel was removed and a primary reanastomosis was achieved. She was sent from the PACU to the CCU for continuing care. Patient remained intubated and was on low-dose IV phenylephrine drip for postoperative hypotension. Review of Systems: Unobtainable due to patient is currently intubated Allergies Coded Allergies: Sulfa (Sulfonamide Antibiotics) (Verified Allergy, Unknown, 07/02/16) spironolactone (Verified Allergy, Unknown, 07/02/16) bruising/skin discoloration of chest Home Medications Scheduled Amlodipine (Amlodipine) 5 Mg Tablet 10 MG PO DAILY Atorvastatin Calcium (Atorvastatin Calcium) 80 Mg Tablet 80 MG PO DAILY Calcitriol (Rocaltrol) 0.25 Mcg Capsule 0.5 MCG PO every other day Citalopram Hydrobromide (Celexa) 40 Mg Tablet 40 MG PO HS Colchicine (Colchicine) 0.6 Mg Capsule 0.6 MG PO every 3 days Ferrous Sulfate (Iron) 325 Mg Capsule.er 325 MG PO TID Furosemide (Furosemide) 80 Mg Tab 80 MG PO BID Hydralazine (Hydralazine) 50 Mg Tablet 50 MG PO TID Insulin Glargine (Lantus U100 Insulin Vial) 100 Unit/Ml Vial 40 UNIT SUBQ AM Isosorbide MN ER (Isosorbide MN ER) 30 Mg Tab.er.24h 90 MG PO DAILY Metoprolol Tartrate (Metoprolol Tartrate) 25 Mg Tablet 12.5 MG PO BID Potassium Chloride (Potassium Chloride) 20 Meq Tab.er.prt 20 MEQ PO DAILYWM Warfarin Sodium (Coumadin) 5 Mg Tablet 5 MG PO DAILY@17 Scheduled PRN Hydrocodone-Acetaminophen 7.5-325 mg (Hydrocodone-Acetaminophen 7.5-325 mg) 1 Each Tablet 1 TABLET PO Q6H PRN PRN For Pain Hydrocodone-Acetaminophen 7.5-325 mg (Hydrocodone-Acetaminophen 7.5-325 mg) 1 Each Tablet 1 TABLET PO Q4H PRN PRN For Pain Nitroglycerin SL (Nitroglycerin SL) 0.4 Mg Tab.subl 0.4 MG SL PRN PRN PRN For Chest Pain PMH Past Medical History Alcoholism,Hx Stage 4 kidney failure, not on dialysis yet 10/2016 Pneumonia Gastrointestinal bleed Hypoglycemic seizure Sleep apnea Left eye blindness Reports: Congestive heart failure, Diabetes mellitus, Hypertension, Stroke Reports: Atrial fibrillation Past Surgical History R upper arm fistula umbilical hernia repair colonoscopyX2 Left tear duct cauterized for dry eye Reports: Cataract surgery Social History Hx Alcohol Use: Yes (QUIT 2 y AGO, DRANK VODKA "A LOT" QD) Hx Substance Use: No Hx Tobacco Use: Yes Smoking Status: Former Smoker Living Arrangement: with Family Exam Vital Signs Vital Sign - Last Date Time Temp Pulse Resp B/P Pulse Ox O2 Delivery O2 Flow Rate FiO2 10/12/16 03:30 36.6 69 20 124/67 100 Mechanical Ventilator 100 10/11/16 23:04 2 Intake and Output 10/11/16 10/11/16 10/12/16 Cumulative From/Thru 15:00 23:00 07:00 10/11/16 18:48 - 10/12/16 03:30 Intake Total 800 ml 800 ml Output Total 575 ml 575 ml Balance 225 ml 225 ml Intake IV Total 800 ml 800 ml Output Urine Total 425 ml 425 ml Estimated Blood Loss 150 ml 150 ml Exam Constitutional: Intubated obese male Head: Normocephalic atraumatic Eyes: PERRLA DC EOMI Mouth: Endotracheal tube present Neck: No adenopathy Chest: Clear to auscultation Cor: Regular rate and rhythm S1 and S2 Abdomen: Soft, bowel sounds absent, midline surgical dressing Extremities: Trace bilateral pedal edema Skin: No rashes Psych: Unable to assess Neuro: He is sedated on ventilator does move all extremities to painful stimuli Lab and Diagnostics Labs Laboratory Tests 72 Hours Test 10/11/16 04:50 10/11/16 19:10 10/11/16 19:14 10/11/16 21:05 White Blood Count 10.4th/mm3 (3.8-10.1) Red Blood Count 4.38mil/mm3 (4.40-5.80) Hemoglobin 11.8g/dL (13.8-17.2) Hematocrit 36.5% (41.0-50.0) Mean Corpuscular Volume 83.3fL (81-100) Mean Corpuscular Hemoglobin 26.9pg (27.0-35.0) Mean Corpuscular Hemoglobin Concent 32.3% (32.0-37.0) Red Cell Distribution Width 15.4% (12.3-15.4) Platelet Count 152bil/L (150-400) Neutrophils (%) (Auto) 80.2% (40-74) Lymphocytes (%) (Auto) 13.2% (14-46) Monocytes (%) (Auto) 4.9% (4-12) Eosinophils (%) (Auto) 1.3% (0-5) Basophils (%) (Auto) 0.2% (0-3) Sodium Level 139mEq/L (134-144) Potassium Level 3.9mEq/L (3.5-5.2) Chloride Level 97mEq/L (97-108) Carbon Dioxide Level 20mmol/L (18-29) Blood Urea Nitrogen 64mg/dL (8-27) Creatinine 3.38mg/dL (0.76-1.27) Estimat Glomerular Filtration Rate 19mL/min (>59) Glucose Level 141mg/dL (60-99) Lactic Acid Level 2.6mmol/L (0.4-2.0) Calcium Level 9.7mg/dL (8.5-10.1) Magnesium Level 2.2mg/dL (1.6-2.6) Total Bilirubin 0.7mg/dL (0.0-1.2) Aspartate Amino Transf (AST/SGOT) 16U/L (0-50) Alanine Aminotransferase (ALT/SGPT) 13U/L (0-44) Alkaline Phosphatase 83U/L (25-160) Troponin T < 0.010ug/L (0.0-0.011) Pro-B-Type Natriuretic Peptide 4360pg/mL (0-376) Total Protein 7.8g/dL (6.4-8.4) Albumin 3.8g/dL (3.4-5.0) Prealbumin 28mg/dL (20-40) Procalcitonin 0.09ng/mL (See Comment) Urine Color Yellow (YELLOW) Urine Appearance Clear (CLEAR,HAZY) Urine pH 7.0 (5.0-8.0) Urine Specific [place] 1.025 (1.003-1.035) Urine Protein 100mg/dL (NEG,TRACE) Urine Glucose (UA) Negativemg/dL (NEGATIVE) Urine Ketones Negativemg/dL (NEGATIVE) Urine Occult Blood Trace (NEGATIVE) Urine Nitrite Negative (NEGATIVE) Urine Bilirubin Negative (NEGATIVE) Urine Urobilinogen Normalmg/dL (NORMAL) Urine Leukocyte Esterase Negative (NEGATIVE) Urine RBC 0-2/hpf (0-2) Urine WBC 0-5/hpf (0-5) Urine Epithelial Cells Occasional/hpf (NONE-MOD) Urine Crystals None seen (NONE SEEN) Urine Bacteria None/hpf (NONE-FEW) Urine Hyaline Casts Rare/lpf (NONE) Urine Granular Casts None seen (NONE SEEN) Urine Waxy Casts None seen (NONE SEEN) Urine Red Blood Cell Casts None seen (NONE SEEN) Urine White Blood Cell Casts None seen (NONE SEEN) Urine Mucus None seen (None Seen) Urine Trichomonas None seen (NONE SEEN) Urine Yeast None (NONE SEEN) Urinalysis Comment None Urine Culture Reflexed Not indicated Prothrombin Time 18.0sec (8.1-12.5) Prothromb Time International Ratio 1.66ratio Test 10/12/16 04:50 White Blood Count 12.0th/mm3 (3.8-10.1) Red Blood Count 3.25mil/mm3 (4.40-5.80) Hemoglobin 8.9g/dL (13.8-17.2) Hematocrit 27.4% (41.0-50.0) Mean Corpuscular Volume 84.3fL (81-100) Mean Corpuscular Hemoglobin 27.4pg (27.0-35.0) Mean Corpuscular Hemoglobin Concent 32.5% (32.0-37.0) Red Cell Distribution Width 15.6% (12.3-15.4) Platelet Count 178bil/L (150-400) Neutrophils (%) (Auto) 84.7% (40-74) Lymphocytes (%) (Auto) 6.9% (14-46) Monocytes (%) (Auto) 8.1% (4-12) Eosinophils (%) (Auto) 0% (0-5) Basophils (%) (Auto) 0.1% (0-3) Result Diagram: 10/11/16190910/11/161909 X-Rays, CTs and MRIs Patient Name: VLAD VARGAS MR#: [id number] [place] [facility] [place] Phys: Lynette Clemente MD Date of Service: 10/11/161844 PROCEDURE: CT ABDOMEN AND PELVIS WITHOUT CONTRAST ([id number]) INDICATIONS: 75-year-old male with acute abdominal pain. TECHNIQUE: Intravenous contrast was not administered, due to renal insufficiency. After the administration of oral contrast, 5 mm thick sections acquired from the diaphragms to the symphysis. 5 mm coronal and sagittal reformats were performed. For radiation dose reduction, the following was used: automated exposure control, adjustment of mA and/or kV according to patient size. COMPARISON: None. FINDINGS: Image quality: Excellent. ABDOMEN: Lung bases: Small right and trace left mobile dependent pleural effusions are present. There is mild cardiomegaly. Solid organs: Liver and spleen are normal in size. Gallbladder wall thickness is normal. Pancreas is normal in size, with moderate fatty atrophy. No adrenal nodules. Both kidneys are normal in size, without hydronephrosis or nephrolithiasis. On axial image 42, 1.4 cm partially exophytic anteromedial right renal cortical lesion measures 35 Hounsfield units and noncontrast density , greater than expected for a cyst. Peritoneum and bowel: Several loops of moderately dilated small bowel are present, with corresponding localized mesenteric fat stranding and patchy wall thickening. No pneumatosis. Distal small bowel loops are decompressed, and proximal small bowel loops are also normal in caliber. Stool filled colon loops appear normal in caliber, with scattered descending and sigmoid colon diverticulosis. There is trace free pelvic fluid. No pneumoperitoneum. Nodes and vessels: No retroperitoneal or mesenteric adenopathy by size criteria. Aorta and inferior vena cava are normal in size, with moderate aortoiliac atherosclerosis. Miscellaneous: No ventral hernias. PELVIS: Genitourinary: Bladder wall thickness is normal. Prostate gland is normal in size. Miscellaneous: No inguinal hernias or adenopathy. Bones: No suspicious bony lesions. No vertebral body compression fractures. There is lower thoracic spine disc degeneration. IMPRESSION: 1. Constellation of findings suspicious for a closed-loop mid small bowel obstruction, secondary to localized volvulus or internal hernia. Mesenteric fat stranding as well as patchy small bowel wall thickening would be concerning for evolving bowel ischemia. 2. Small right and trace left mobile dependent pleural effusions are of uncertain etiology. 3. 1.4 cm partially exophytic anteromedial right renal cortical lesion is too dense to represent a simple cyst, and may therefore represent complex cyst versus solid mass. When clinically feasible, consider further evaluation with renal ultrasound, or pre- and post-contrast renal protocol CT or MRI to distinguish between these possibilities. Dictated by: Matthias Roach M.D. on 10/11/2016 at 20:32 Approved by: Matthias Roach M.D. on 10/11/2016 at 20:32 Patient Name: VLAD VARGAS MR#: [id number] [place] [facility] [place] Phys: Lynette Clemente MD Date of Service: 10/11/16 1845 PROCEDURE: X-RAY CHEST ONE VIEW, PORTABLE ([id number]) INDICATIONS: 75 year-old male with chest pain. TECHNIQUE: One view of the chest was acquired. COMPARISON: [facility], CR, XR CHEST 1VW (PORTABLE), 06/28/2016, 11: 48. [facility], CR, XR CHEST 2VW, 03/12/2016, 10:54. [facility], CR, CHEST 2VW, 01/27/2015, 10:57. FINDINGS: Surgical changes and devices: None. Lungs and pleura: There is persistent blunting of the right costophrenic angle. No pneumothorax. Lungs are clear. Mediastinum: Mediastinal contours appear normal. Moderate cardiomegaly is unchanged. Bones and chest wall: No suspicious bony lesions. Overlying soft tissues appear unremarkable. IMPRESSION: 1. Moderate cardiomegaly as before, without pulmonary edema to suggest diana congestive heart failure. 2. Persistent trace basal right pleural effusion versus basal pleural thickening. Dictated by: Matthias Roach M.D. on 10/11/2016 at 20:14 Approved by: Matthias Roach M.D. on 10/11/2016 at 20:14 Cardiac Echo Impressions PATIENT NAME: VLAD VARGAS MR#: [id number] [place] [facility] [place] PHYS: Sohan Rodrigues MD DATE OF SERVICE: 06/29/[address] [place] [id number] Echocardiogram Report Name: VLAD VARGAS AStliliyajamie Date: 06/29/2016 Height: 70 in Hospital Exam Location: [facility] Weight: 226 lb Gender: Male BSA: 2.2 m2 : 1940 Age: 75 yrs BP: 180/77 mmHg Reason For Study: CHF Ordering Physician: Performed By: Brissa Franklin Referring Physician: Doyle Flores Interpretation Summary Left ventricular systolic function is normal. Left ventricular ejection fraction is estimated to be 55 +/- 5%. The right ventricle is mildly dilated. There is moderate biatrial enlargement. There is mild mitral annular calcification. There is trace mitral regurgitation. There is no hemodynamically significant valvular aortic stenosis. There is mild tricuspid regurgitation. The right ventricular systolic pressure is estimated at 60 mmHg assuming a right atrial pressure of 8 mm Hg. Compared to the prior echo exam, there has been no change in the severity of pulmonary hypertension. There is a small pericardial effusion noted. There are no echocardiographic indications of cardiac tamponade. The pericardial effusion has not changed since the prior exam. Assessment & Plan # Postoperative care status post ischemic bowel secondary to volvulus and internal hernia, acute, present on admission Continue with supportive ventilatory support and will try later today to wean off of ventilator Try to wean off phenylephrine drip which was used for postoperative hypotension IV lactated Ringer's and will monitor CVP readings Continue with IV propofol and IV fentanyl per protocol Surgical postoperative care per general surgery # Type II diabetes, chronic, present on admission Lipase on subcutaneous regular insulin protocol We will give half of his usual Lantus dose in the a.m. 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 Cecilia Pickens Suspect his heart failure was secondary to diastolic dysfunction given what his EF is on echo. # Stage IV chronic kidney disease, currently not on hemodialysis We will need to monitor renal function and avoid nephrotoxic agents We will also need to ensure proper hydration to ensure renal perfusion # DVT prophylaxis Discussed with general surgery as to when it is appropriate to start subcutaneous prophylactic anticoagulation # CODE STATUS Patient is full code Pain Evaluation: Adequate Pain Control GI Prophylaxis: Proton Pump Inhibitor VTE Prophylaxis: SCDs VTE Mechanical Devices: Intermittant Pneumatic CD Resuscitation Status: CPR: Attempt Resuscitation Time spent 60 minutes Erika Lim MD Oct 12, 2016 05:21
[2016-10-12 06:19] LABS: TROPONIN T 0.01 ug/L (0.0-0.011)
--- NOTE | 2016-10-12 08:23 | DRSVH ---
PROCEDURE: X-RAY CHEST ONE VIEW ([id number]) INDICATIONS: ET tube placement TECHNIQUE: One view of the chest was acquired. COMPARISON: [facility], CR, XR CHEST 1VW (PORTABLE), 10/11/2016, 22:03. FINDINGS: Surgical changes and devices: None. Lungs and pleura: No pneumothorax, and possible posterior layering right pleural effusion. Lungs ar e abnormal with what appears to be pneumonia left lower lobe and some degree of left hemithorax volum e loss. There may be a posterior layering pleural effusion on the right. Mediastinum: Mediastinal contours appear normal. Heart size is normal. Bones and chest wall: No suspicious bony lesions. Overlying soft tissues appear unremarkable. IMPRESSION: Endotracheal tube in normal position. Dense opacification left lower lobe with some degr ee of volume loss in the left hemithorax. Suspect right pleural effusion layering posteriorly. Dictated by: West Cerrato M.D. on 10/12/2016 at 8:21 Approved by: West Cerrato M.D. on 10/12/2016 at 8:21
--- NOTE | 2016-10-12 08:24 | PCM.PNSURG ---
Subjective Visit Information: Reason for Visit Acute Abdomin Surgery/Surgery Date Post-Op Day # Date of Admission: Oct 11, 2016 at 22:51 Hospital Day # Subjective: just had SB resection a few hrs ago, still intubated and sedated, on a low dose of pressor Objective Objective Sedated on the vent, not arousable Abd: dressing intact Vital Sign- Last 8 Hours Date Time Temp Pulse Resp B/P Pulse Ox O2 Delivery O2 Flow Rate FiO2 10/12/16 07:26 55 143/51 100 50 10/12/16 05:15 47 165/57 100 60 10/12/16 03:30 36.6 69 20 124/67 100 Mechanical Ventilator 100 10/12/16 03:30 Ventilator 10/12/16 03:10 71 122/60 100 100 10/12/16 01:50 68 97/40 96 100 Intake and Output- Last 8 Hour 10/12/16 Cumulative From/Thru 07:00 10/11/16 18:48 - 10/12/16 04:58 Intake Total 1301 ml 1301 ml Output Total 655 ml 655 ml Balance 646 ml 646 ml Intake Oral 0 ml 0 ml IV Total 1301 ml 1301 ml Output Urine Total 485 ml 485 ml Gastric Drainage Total 20 ml 20 ml Estimated Blood Loss 150 ml 150 ml # Bowel Movements 0 0 Result Diagram: 10/12/16 0450 10/12/16 0450 Assessment & Plan Impression POD #0 s/p laparotomy and SB resection due to ischemic bowel DM A fib on coumadin, held Problems: Plan Wean off sedation and extubate if possible Keep NPO Recheck INR this am Await bowel function return VTE Prophylaxis: Sub-Q Heparin (Unfractionated), SCDs Resuscitation Status: CPR: Attempt Resuscitation Dada oRsales MD Oct 12, 2016 08:24
[2016-10-12] MEDS: Insulin Human REGular 300 Unit/3 mL Inj SUBQ SCH ×3 (08:29→19:52)
[2016-10-12] MEDS: CeFAZolin Inj 2 GM in IV Premix 1 EACH IV SCH ×2 (08:29→17:32)
[2016-10-12] MEDS: Heparin 5,000 Unit/mL Inj SUBQ SCH ×2 (08:36→17:33)
--- NOTE | 2016-10-12 08:54 | DRSVH ---
PROCEDURE: X-RAY CHEST ONE VIEW, PORTABLE ([id number]) INDICATIONS: check ET tube TECHNIQUE: One view of the chest was acquired. COMPARISON: [facility], CR, XR CHEST 1VW (PORTABLE), 10/11/2016, 22:03. [facility], CR, XR CHEST 1VW, 10/12/2016, 2:06. FINDINGS: Surgical changes and devices: Endotracheal and nasogastric tubes in normal position.. Central line f rom right jugular approach appears normal also. Lungs and pleura: No pleural effusions or pneumothorax. Lungs are abnormal, with bibasilar alveolar opacification much greater on the left than the right to the degree that left lower lobe pneumonia i s likely present. Mediastinum: Mediastinal contours appear normal. Heart size is normal. Bones and chest wall: No suspicious bony lesions. Overlying soft tissues appear unremarkable. IMPRESSION: Left lower lobe pneumonia, previously present, endotracheal and nasogastric tubes in norm al position. No definite interval improvement or worsening from recent prior chest plain film 7, but this appears significantly worsened with some degree of volume loss compared to the study from 10/11/16. This can indicate presence of mucous plugging but rapid progression of pneumonia is statist ically more likely cause. Dictated by: West Cerrato M.D. on 10/12/2016 at 8:52 Approved by: West Cerrato M.D. on 10/12/2016 at 8:52
[2016-10-12 09:04] LABS: INR 1.55 ratio
--- NOTE | 2016-10-12 09:14 | DRSVH ---
PROCEDURE: X-RAY CHEST ONE VIEW, PORTABLE ([id number]) INDICATIONS: VENOUS ACCESS TECHNIQUE: One view of the chest was acquired. COMPARISON: [facility], CR, XR CHEST 1VW (PORTABLE), 10/11/2016, 19:48. FINDINGS: Surgical changes and devices: Central line from right internal jugular approach extends to superimpos e on the right mediastinum. Lungs and pleura: No pleural effusions or pneumothorax. Lungs are clear. Mediastinum: Mediastinal contours appear normal. Heart size is normal. Bones and chest wall: No suspicious bony lesions. Overlying soft tissues appear unremarkable. IMPRESSION: No pneumothorax after central line placement. The exact positioning of the central line is not established by plain film. It likely is within the superior vena cava, however. Dictated by: West Cerrato M.D. on 10/12/2016 at 9:12 Approved by: West Cerrato M.D. on 10/12/2016 at 9:12
[2016-10-12] MEDS ORDERED: 0.9% Sodium Chloride 1,000 ML IV ONE ×2 (10:20→15:25)
[2016-10-12] MEDS: Insulin GLARgine 100 Unit/mL Syringe SUBQ SCH (10:47)
--- NOTE | 2016-10-12 12:43 | ABG ---
DateTimeAnalyzed 12:38:00 -_ pH ____7.291 - 7.350 7.450 pCO2 ___49.3__ -mmHg 35.0 45.0 pO2 ___87.7__ -mmHg 69.0 116 HCO3- ___23.0__ -mmol/L 22.0 26.0 ABE ___-3.0__ -mmol/L -2.0 2.0 tHb ____8.4__ -g/dL O2Hb ___93.6__ -% COHb ____1.0__ -% MetHb ____1.0__ -% sO2 ___95.5__ -% 25.0 FIO2 ___30.0__ -% Pressure_Support ____5.0__ -cmH2O PEEP ____5.0__ -cmH2O Vt __510.0__ -L Drawn By jmw - Date/Time Notified____ 12:42:00 -_ Spontaneous_RR ___16.0__ -b/min Oxygen Device 1 VENTILATOR - Notified By jmw - Notified Whom DR JENNIFER - B 748 -mmHg tO2 ___11.2__ -Vol% Alberto test N/A -
--- NOTE | 2016-10-12 13:39 | NUR ---
NUTRITION ASSESSMENT: ASSESS: Pt is a 75yo M admitted to CCU s/p laparotomy and SB resection due to ischemic bowel. Pt is currently intubated. Possible he may be extubated soon. Currently NPO. PMHX: Alcoholism, stg 4 CKD, Pneumonia, GI bleed, CHF, T2DM, CVA, HTN, Afib LABS: Reviewed. Bun 65, Vice Investigator 3.8, Glu 149, ca 8.1, alb 3.0 MEDS: Reviewed. Insulin, propofol currently running @~5ml/hr to provide 132kcal/day GI: colostomy, 20ml output 10/12 SKIN: Bravo 9 CURRENT WTS: 101.5kg, BMI 32.1kg/m2 DIET: NPO EST. NEEDS: vent, CKD stg 4 Kcals: 2030-2235kcal/day (20-22kcal/kg) Pro: 70-90g/day (1.0-1.2g/kg) Fluid: ~2500cc/day (25cc/kg) NUTRITION DIAGNOSIS: 1.) Inadequate oral intake related to decreased ability to consume sufficient energy as evidenced by current NPO status. NUTRITION INTERVENTION: 1.) Will continue to monitor NPO/vent/GI status. If pt continues to be NPO in next 24-48hrs, recommend nutrition support be considered MONITOR / EVAL: NPO/vent, wt, GI, labs, POC, nutrition status. Will continue to monitor per high nutrition risk guidelines
--- NOTE | 2016-10-12 14:39 | PCM.PNMED ---
Subjective Date of Service Oct 12, 2016 Subjective The patient is intubated and sedated. ROS and subjective are not obtainable. Exam Vital Signs Vital Sign - Last Date Time Temp Pulse Resp B/P Pulse Ox O2 Delivery O2 Flow Rate FiO2 10/12/16 14:13 64 108/52 91 30 10/12/16 12:30 37.3 16 Mechanical Ventilator 10/11/16 23:04 2 Intake and Output 10/11/16 10/11/16 10/12/16 Cumulative From/Thru 15:00 23:00 07:00 10/11/16 18:48 - 10/12/16 04:58 Intake Total 1301 ml 1301 ml Output Total 655 ml 655 ml Balance 646 ml 646 ml Intake Oral 0 ml 0 ml IV Total 1301 ml 1301 ml Output Urine Total 485 ml 485 ml Gastric Drainage Total 20 ml 20 ml Estimated Blood Loss 150 ml 150 ml # Bowel Movements 0 0 Exam Intubated, sedated.. Neck is supple normal JVP. Lungs are normal. No evidence of wheezing. Heart is regular without murmur gallop or rub. Abdomen is soft with hypoactive bowel tones. Laparotomy incision is noted. Extremities are free of edema, good pedal and radial pulses Skin significant rash or lesions IVs and Medications Medications Reviewed: Medications were reviewed in detail Lab and Diagnostics Result Diagram: 10/12/1644910/12/16449 X-Rays, CTs and MRIs Patient Name: VLAD VARGAS MR#: [id number] [place] [facility] [place] Phys: Lynette Clemente MD Date of Service: 10/11/16 184 PROCEDURE: CT ABDOMEN AND PELVIS WITHOUT CONTRAST ([id number]) INDICATIONS: 75-year-old male with acute abdominal pain. TECHNIQUE: Intravenous contrast was not administered, due to renal insufficiency. After the administration of oral contrast, 5 mm thick sections acquired from the diaphragms to the symphysis. 5 mm coronal and sagittal reformats were performed. For radiation dose reduction, the following was used: automated exposure control, adjustment of mA and/or kV according to patient size. COMPARISON: None. FINDINGS: Image quality: Excellent. ABDOMEN: Lung bases: Small right and trace left mobile dependent pleural effusions are present. There is mild cardiomegaly. Solid organs: Liver and spleen are normal in size. Gallbladder wall thickness is normal. Pancreas is normal in size, with moderate fatty atrophy. No adrenal nodules. Both kidneys are normal in size, without hydronephrosis or nephrolithiasis. On axial image 42, 1.4 cm partially exophytic anteromedial right renal cortical lesion measures 35 Hounsfield units and noncontrast density , greater than expected for a cyst. Peritoneum and bowel: Several loops of moderately dilated small bowel are present, with corresponding localized mesenteric fat stranding and patchy wall thickening. No pneumatosis. Distal small bowel loops are decompressed, and proximal small bowel loops are also normal in caliber. Stool filled colon loops appear normal in caliber, with scattered descending and sigmoid colon diverticulosis. There is trace free pelvic fluid. No pneumoperitoneum. Nodes and vessels: No retroperitoneal or mesenteric adenopathy by size criteria. Aorta and inferior vena cava are normal in size, with moderate aortoiliac atherosclerosis. Miscellaneous: No ventral hernias. PELVIS: Genitourinary: Bladder wall thickness is normal. Prostate gland is normal in size. Miscellaneous: No inguinal hernias or adenopathy. Bones: No suspicious bony lesions. No vertebral body compression fractures. There is lower thoracic spine disc degeneration. IMPRESSION: 1. Constellation of findings suspicious for a closed-loop mid small bowel obstruction, secondary to localized volvulus or internal hernia. Mesenteric fat stranding as well as patchy small bowel wall thickening would be concerning for evolving bowel ischemia. 2. Small right and trace left mobile dependent pleural effusions are of uncertain etiology. 3. 1.4 cm partially exophytic anteromedial right renal cortical lesion is too dense to represent a simple cyst, and may therefore represent complex cyst versus solid mass. When clinically feasible, consider further evaluation with renal ultrasound, or pre- and post-contrast renal protocol CT or MRI to distinguish between these possibilities. Dictated by: Matthias Roach M.D. on 10/11/2016 at 20:32 Approved by: Matthias Roach M.D. on 10/11/2016 at 20:32 Patient Name: VLAD VARGAS MR#: [id number] [place] [facility] [place] Phys: Lynette Clemente MD Date of Service: 10/11/16 1864 PROCEDURE: X-RAY CHEST ONE VIEW, PORTABLE ([id number]) INDICATIONS: 75 year-old male with chest pain. TECHNIQUE: One view of the chest was acquired. COMPARISON: [facility], CR, XR CHEST 1VW (PORTABLE), 06/28/2016, 11: 48. [facility], CR, XR CHEST 2VW, 03/12/2016, 10:54. [facility], CR, CHEST 2VW, 01/27/2015, 10:57. FINDINGS: Surgical changes and devices: None. Lungs and pleura: There is persistent blunting of the right costophrenic angle. No pneumothorax. Lungs are clear. Mediastinum: Mediastinal contours appear normal. Moderate cardiomegaly is unchanged. Bones and chest wall: No suspicious bony lesions. Overlying soft tissues appear unremarkable. IMPRESSION: 1. Moderate cardiomegaly as before, without pulmonary edema to suggest diana congestive heart failure. 2. Persistent trace basal right pleural effusion versus basal pleural thickening. Dictated by: Matthias Roach M.D. on 10/11/2016 at 20:14 Approved by: Matthias Roach M.D. on 10/11/2016 at 20:14 Cardiac Echo Impressions PATIENT NAME: VLAD VARGAS MR#: [id number] LOCATION: [facility] [place] ORDERING PHYS: Sohan Rodrigues MD DATE OF SERVICE: 06/29/[address] [place] [id number] Echocardiogram Report Name: VLAD VARGAS AStudy Date: 06/29/2016 Height: 70 in Hospital Exam Location: [facility] Weight: 226 lb Gender: Male BSA: 2.2 m2 : 1940 Age: 75 yrs BP: 180/77 mmHg Reason For Study: CHF Ordering Physician: Performed By: Brissa Franklin Referring Physician: Doyle Flores Interpretation Summary Left ventricular systolic function is normal. Left ventricular ejection fraction is estimated to be 55 +/- 5%. The right ventricle is mildly dilated. There is moderate biatrial enlargement. There is mild mitral annular calcification. There is trace mitral regurgitation. There is no hemodynamically significant valvular aortic stenosis. There is mild tricuspid regurgitation. The right ventricular systolic pressure is estimated at 60 mmHg assuming a right atrial pressure of 8 mm Hg. Compared to the prior echo exam, there has been no change in the severity of pulmonary hypertension. There is a small pericardial effusion noted. There are no echocardiographic indications of cardiac tamponade. The pericardial effusion has not changed since the prior exam. Assessment & Plan # Postoperative care status post ischemic bowel secondary to volvulus and internal hernia, acute, present on admission Continue with supportive ventilatory support and will try later today to wean off of ventilator Try to wean off phenylephrine drip which was used for postoperative hypotension IV lactated Ringer's and will monitor CVP readings Continue with IV propofol and IV fentanyl per protocol Surgical postoperative care per general surgery 1. Ischemic bowel, POA. Status post laparotomy with partial resection of small bowel. The patient is currently being treated for possible sepsis and/or peritonitis. He was weaned off from phenylephrine overnight and fluid resuscitated. The patient continues to be on IV propofol and fentanyl. He has low CVP and a low urine output. 2. Probable sepsis. The patient currently is evidence of a leukocytosis with hypotension. No fevers or chills overnight. We will continue to fluid resuscitate check lactic acids morning. 3. Type II diabetes, chronic, present on admission Lipase on subcutaneous regular insulin protocol We will give half of his usual Lantus dose in the a.m. daily since he will be nothing by mouth Check hemoglobin A1c, the patient appears to be uncontrollable using insulin drip. 4. Hypertension, chronic, present on admission We will monitor blood pressure and initiate IV hydralazine when necessary 5. History of atrial fibrillation, chronic, present on admission Been on warfarin therapy as an outpatient., This is currently on hold Place on quality assurance monitor body for rate control. Considering bridging heparin drip after 48 hours of postoperative time, the labs. 8. Chronic diastolic heart failure. The patient appears to be currently compensated. No change to clinical care at this point. 9. Stage IV chronic kidney disease, currently not on hemodialysis We will need to monitor renal function and avoid nephrotoxic agents We will also need to ensure proper hydration to ensure renal perfusion 10. DVT prophylaxis We will start subcutaneous heparin for DVT prophylaxis today. # CODE STATUS Patient is full code Pain Evaluation: Adequate Pain Control GI Prophylaxis: Proton Pump Inhibitor VTE Prophylaxis: Sub-Q Heparin (Unfractionated), SCDs VTE Mechanical Devices: Intermittant Pneumatic CD Resuscitation Status: CPR: Attempt Resuscitation Time spent 25 minutes Alberto Zelaya MD Oct 12, 2016 14:39
--- NOTE | 2016-10-12 16:31 | PCM.CHPMED ---
Subjective Date of Service: Oct 12, 2016 Provider requesting consult: Alberto Zelaya MD Primary Physician: Admitting Physician: Dada Rosales MD Primary Care Physician: Jaya Flores MD Attending Physician: Dada Rosales MD Chief Complaint: Chief Complaint: Hypoxic respiratory failure requiring mechanical ventilation following abdominal surgery. History of Present Illness: Pulmonary critical care consultation note: Problems: Acute hypoxic respiratory failure. Intubated early a.m. 10/12/16 for perioperative management. 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 Status post removal of approximately 45 inches of mid small bowel with primary anastomosis. Sleep apnea on CPAP AG Metabolic acidosis with a primary respiratory acidosis. Heart failure with preserved ejection fraction Diabetes mellitus type II Atrial fibrillation Chronic kidney disease, stage IV Farooq is a 75-year-old obese gentleman with history of stage IV chronic kidney disease, sleep apnea on CPAP, diastolic heart failure, diabetes, hypertension who presented to the [facility] ER on 10/11/2016 with complaint of abdominal pain since 2 PM that day. Patient's and daughter provides the history at this time. He reports that the patient was getting over an upper respiratory infection that had been going around the family. They report that he started to complain of abdominal pain and discomfort in about 2 PM on the , and this continued to worsen throughout the afternoon and evening prompting presentation at the ER. They report that he otherwise had no issues of which she was complaining. He had reportedly had some dry heaves, but no vomiting. His bowel movement that day was reportedly "normal." He is on Coumadin for A. fib. In the ER, a noncontrast CT of the abdomen and pelvis demonstrated findings suspicious for a closed loop mid small bowel obstruction secondary to localized volvulus or internal hernia, and mesenteric fat stranding and bowel wall thickening concerning for ischemia. Surgery was consult it, and the patient was taken to the OR following administration of oral vitamin K and one unit fresh frozen plasma. Following completion of the surgery, he was sent from the PACU to the CCU for continuing care. Patient remained intubated and was on low- dose IV phenylephrine drip for postoperative hypotension. Today, attempts were made at weaning off of sedation with concomitant pressure support trials to assess for appropriateness of extubation. Unfortunately, the patient despite being off of sedation continued to be quite sedate. He was also noted by respiratory therapy and he was not able to tolerate pressure support. Hospitalist service consult in the pulmonary critical care team for management of mechanical ventilation. His reports that he will occasionally use an albuterol inhaler ("maybe every 4 months") since he is this report of several pneumonias over the last couple of years. She denies antibiotics in the last 6 months. When questioned, the patient shakes his head "no" regarding pain. Review of Systems: Review of systems is otherwise not obtained due to patient's status. H Past Medical History Chronic kidney disease stage IV presumed due to diabetes mellitus type 2 and hypertension, followed by Dr. Velasco. Heart failure with preserved ejection fraction, chronic, diastolic dysfunction. Echo (06/2016): LVEF 50-60% without focal wall motion abnormalities. Obstructive sleep apnea on CPAP. History of CVA (02/2016) at which time he received tPA History of lower GI bleed Pulmonary hypertension with an RVSP of 60 (echo 06/2016) Diabetes mellitus type 2, insulin requiring. Left eye blindness Hypertension. Coronary artery disease with abnormal stress test in 06/2014, medical management recommended by cardiology. 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 Paroxysmal atrial fibrillation, on Coumadin Morbid obesity Hyperlipidemia. Depression. History of recurrent syncope. Alcohol dependence, in remission. Colonic polyposis s/p colonoscopic removals, last on 06/26/15. Bedside Blood Glucose: 87 Surgical History R upper arm fistula umbilical hernia repair colonoscopyX2 Left tear duct cauterized for dry eye (10/11/2016) Cataract surgery Home Medications Amlodipine 10 mg daily Atorvastatin 80 mg by mouth daily. Calcitriol 0.25 mcg by mouth daily. Citalopram 40 mg by mouth at bedtime. Colchicine 0.6 mg every 3 days Hydralazine 50 mg 3 times a day Furosemide 80 mg by mouth twice a day. Potassium chloride 20 mEq daily Ferrous sulfate 325 mg 3 times a day Lantus 40 units subcutaneous every morning. Isosorbide mononitrate 90 mg by mouth daily. Metoprolol tartrate 12.5 mg twice a day Nitroglycerin 0.4 mg sublingually when necessary for chest pain. Warfarin 5 mg by mouth each bedtime. Allergies: Coded Allergies: Sulfa (Sulfonamide Antibiotics) (Verified Allergy, Unknown, 07/02/16) spironolactone (Verified Allergy, Unknown, 07/02/16) bruising/skin discoloration of chest Family History Family History Positive for CHF and renal failure in his mother. His father of heart attack. Social History Hx Alcohol Use: Yes (QUIT 2 y AGO, DRANK VODKA "A LOT" QD)Hx Substance Use: No Hx Tobacco Use: Yes Smoking Status: Former Smoker (smoked in his 20s) Living Arrangement: with Family Additional Information The patient is . He has two sons and a daughter. He [place]. 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 He called "everything" according to his , but no livestock. No hobbies to suggest exposures. They have a dog, but no history of keeping birds. He was in the , specifically the [employer], and completed his basic training in [facility]. 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 His service was based mainly in [place]. He was born in [place]. His is a retired ICU nurse. He is UTD with Flu and PNA vaccines. Exam Vital Signs Vital Sign - Last Date Time Temp Pulse Resp B/P Pulse Ox O2 Delivery O2 Flow Rate FiO2 10/12/16 14:13 64 108/52 91 30 10/12/16 12:30 37.3 16 Mechanical Ventilator 10/11/16 23:04 2 Intake and Output 10/11/16 10/11/16 10/12/16 Cumulative From/Thru 15:00 23:00 07:00 10/11/16 18:48 - 10/12/16 04:58 Intake Total 1301 ml 1301 ml Output Total 655 ml 655 ml Balance 646 ml 646 ml Intake Oral 0 ml 0 ml IV Total 1301 ml 1301 ml Output Urine Total 485 ml 485 ml Gastric Drainage Total 20 ml 20 ml Estimated Blood Loss 150 ml 150 ml # Bowel Movements 0 0 Additional Information: Gen.: Obese gentleman lying in hospital bed, intubated, sedated. He appears to be in mild distress, and will occasionally move about in bed with a wince on his face. HEENT: Pupils are equal and reactive to light bilaterally, mucous membranes are moist, ET tube and OG tube in place. Chest: scattered rales throughout, without significant rhonchi or wheeze. Cardiovascular: Regular rate and rhythm, normal S1 and S2, no appreciable murmur. Radial pulses are 2+ bilaterally as are posterior tibials. Abdomen: Soft, normal but infrequent bowel tones, there is an approximately 30 cm vertical surgical incision that is well approximated and the midabdomen with the superior portion almost to the level of the xiphoid process. Extremities: no edema Lines: Right IJ for central venous access, Chin catheter, and left radial arterial line. Vent settings: PEEP 5, FiO2 0.40, respiratory rate 16, tidal volume 510 mL Lab and Diagnostics Labs 84.7% neutrophils (consistent with left shift). Lactic acid with serial labs as normalized with most recent being 1.0. Troponins negative 4. Calcium 8.1 ( corrects to 8.9), magnesium 2.2 (yesterday), LFT normal, pro-BNP 4360 (yesterday ), total protein 5.4, albumin 3.0, pre-albumin 28, pro calcitonin 0.09 ( yesterday). INR is 1.55 this morning. Urinalysis is unremarkable (with the exception of urine protein being present). Micro: Blood cultures drawn 10/11/16 negative to date. Sputum culture performed (Shows few polys, few epithelial cells, few mixed normal cleo.). MRSA screen is pending Result Diagram: 10/12/16 0450 10/12/16 0450 X-Rays, CTs and MRIs Noncontrast CT of the abdomen and pelvis demonstrated a closed-loop obstruction secondary to localized volvulus and internal hernia. Mesenteric fat stranding with small patchy bowel wall thickening consistent with evolving ischemia. Small right and trace left mobile dependent pleural effusions were noted. A 1.4 cm partially exophytic anteromedial right renal cortical lesion was noted ( possibly a complex cyst versus solid mass likely requiring follow-up imaging). Chest x-ray on presentation (10/11/16) demonstrated cardiomegaly and overall fluid overload. Chest x-rays consistent with central line placement and intubation show line placements consistent with those procedures. Of note, a chest x-ray early this a.m. demonstrated a dense appearing opacification of the left lower lobe, and this was redemonstrated on a repeat chest x-ray just 8 hours later. Additional Diagnostics: ABG performed following surgery demonstrated pH 7.32, PCO2 40.6, PO2 372, with a sat of 100% (FiO2 1.00, PEEP 5). ABG performed approximately 9 hours later demonstrated pH 7.29, PCO2 49.3, PaO2 87.7, with a sat of 95.5% (FiO2 0.30, PEEP 5). Assessment & Plan Assessment Assessment: 1. Acute hypoxic respiratory failure. Intubated early a.m. 10/12/16 for perioperative management. Several attempts today at weaning off of sedation and pressure support trials have not been successful. This is likely secondary to the patient's major abdominal surgery with significant ventral abdominal incision coming close to the level of the diaphragm. Given his postop abdomen and his current requirements for pain medication, will not pursue any further attempts at extubation or weaning tonight. Rather, we will pursue appropriate pain control and follow-up with surgery regarding postop management of the surgical incision and abdomen. This will be complicated somewhat by his overlying sleep apnea. However, that should not affect our immediate goals of pain and ventilator management. Certainly we want to keep an eye on him and optimize his ventilator settings to avoid any pulmonary infectious process such as pneumonia. 2. 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 Status post removal of approximately 45 inches of mid small bowel with primary anastomosis. His lactic acids of normalized, and we will continue to follow them once daily with a.m. labs. This is most likely the reason for his elevated white count and left shift (with negative pro-calcitonin). However, there is the high likelihood that given the ischemic nature of his bowel at the time of presentation, he could (and likely does) have some degree of peritonitis. We will watch this closely overnight (especially for any signs of developing infection). Please note, he received cefazolin as part of his perioperative management. We will check an intraabdominal pressure today to assess for IAH. 3. AG Metabolic acidosis (AG 18) with a primary respiratory acidosis. The metabolic acidosis is likely secondary to the bowel ischemia with elevated lactic acid and a very likely strong contribution from his chronic kidney failure. The primary respiratory acidosis that we see on the ABG is likely secondary to the attempts at pressure support, and subsequent failure to maintain respiratory rate. We will repeat an ABG in the morning, and follow metabolic labs. 3. Sleep apnea on CPAP. Family brought in his CPAP today. There is a high possibility that if/when he is extubated he will need some time on BiPAP, but this remains to be seen. 4. Heart failure with preserved ejection fraction. He is currently on LR at 125 mL an hour. We will need to proceed cautiously as he has this underlying heart failure and has chronic kidney disease, so fluid status may become an issue. Currently, he is using the additional fluid to some degree for blood pressure support. 5. Postop hypotension. He was on phenylephrine, but this is since been discontinued. He remains on IV fluid as noted above in #4. We will monitor with arterial line. If we find that he needs to go back on pressor support, we should strongly consider antibiotics and management for sepsis. Plan: -Continue on mechanical ventilation with focus on optimizing settings for patient comfort given his postop abdomen. Will reassess tomorrow regarding sedation vacation and pressure support trial. -Pain management with IV fentanyl, and sedation with IV propofol -Check an IAP via the Chin -We will follow closely his labs and vital signs for any indication of active infection. If this becomes a concern, would be reasonable to initiate empiric broad-spectrum antibiotics given his abdominal presentation. -The ABG in the morning -Chest x-ray in the morning GI prophylaxis with IV Protonix. DVT prophylaxis with subcutaneous heparin. Patient is full code. Problems: Time spent Critical care time spent: 45 minutes. Attending Statement The patient was seen and examined together with Dr. Hanson on 10/12/2016 and I agree with the history, exam and plan as outlined in the note above. Baldomero Hanson DO Oct 12, 2016 16:31 Sid Rueda MD Nov 03, 2016 17:27
[2016-10-12] MEDS ORDERED: Furosemide 10 mg/mL 2 mL Inj IVPUSH ONE (17:45)
--- NOTE | 2016-10-12 18:43 | NUR ---
Respiratory/Abd Pressure support trials x2 today. Initially pt did not initiate a breath, decreased sedation further; second trial, pt pH 7.2. To remain intubated overnight. Vent settings: FiO2 40% (desat 85-89% on 30%), PEEP 5, Vt 510. Pt is able to respond to questions by nodding/shaking head, denies pain. Sedation: Propofol at 25mcg/kg/min, fentanyl 25mcg/hr. GI Surgeon removed abd dsg this morning, incision [employer], c/d/i, no drainage. Hypoactive BT. Per Pulm IAP obtained, 13.
[2016-10-12] MEDS: Dextrose 5% Lactated Ringer's 1,000 ML IV SCH (23:37)
[2016-10-13] VITALS (22 sets, daily range): BP systolic 129–166; BP diastolic 47–71; PULSE 42–57; RESP 9–16; O2SAT 89–100
[2016-10-13] MEDS: Heparin 5,000 Unit/mL Inj SUBQ SCH ×4 (00:09→23:31)
[2016-10-13] MEDS: fentaNYL 2,500 mCg/250 mL 2,500 MCG in IV Premix 1 EACH IV PRN ×2 (00:10→23:29)
[2016-10-13] MEDS: Insulin Human REGular 300 Unit/3 mL Inj SUBQ SCH ×4 (00:12→20:04)
[2016-10-13] MEDS: Propofol Inj 1,000,000 MCG in IV Premix 1 EACH IV SCH ×5 (01:06→22:37)
[2016-10-13] MEDS: Chlorhexidine 0.12% 15 mL Oral Solution MT SCH ×6 (04:42→23:32)
[2016-10-13 05:05] LABS: BASOPHILS % (AUTO) 0.4 % (0-3); EOSINOPHILS % (AUTO) 1.3 % (0-5); MONOCYTES % (AUTO) 10.1 % (4-12); Mean Corpuscular Hemoglobin 27.3 pg (27.0-35.0); Mean Corpuscular Volume 86.3 fL (81-100); NEUTROPHILS % (AUTO) 68.3 % (40-74); Platelet Count 105 bil/L (150-400)
--- NOTE | 2016-10-13 05:08 | NUR ---
Cardiac/Resp/GI/ Patient remains on vent, sedated and resting, no distress noted, Propofol and Fentanyl for sedation and pain control, HR 50's SA with PAC's and A-Fib at times, occasionally HR goes into the 70-80's for short periods of time, AM labs drawn and HGB resulted at 6.8, verified HBG with AM blood gas resulted 6.7, Dr. Lim notified and orders to transfuse 1 unit PRBC's, no s/sx bleeding noted, BP stable 120's/40's with MAP of 70, bright green bile in NG and 450ml stomach contents out this shift, no blood noted from NG either, no BM this shift and no rectal bleeding or melena noted, urinary catheter had good urine output, incision clean dry and intact, well approximated and no oozing noted, open to air, will continue to monitor, awaiting 1 unit of PRBC's to be checked in blood bank.
--- NOTE | 2016-10-13 05:16 | ABG ---
DateTimeAnalyzed 05:09:00 -_ pH ____7.498 - 7.350 7.450 pCO2 ___29.3__ -mmHg 35.0 45.0 pO2 ___89.9__ -mmHg 69.0 116 HCO3- ___22.5__ -mmol/L 22.0 26.0 ABE ___-0.1__ -mmol/L -2.0 2.0 tHb ____6.7__ -g/dL O2Hb ___95.7__ -% COHb ____1.5__ -% MetHb ____1.0__ -% sO2 ___98.2__ -% 25.0 FIO2 ___40.0__ -% Pressure_Support ____5.0__ -cmH2O PEEP ____5.0__ -cmH2O Vt __510.0__ -L Drawn By jh - Date/Time Notified____ 05:16:00 -_ Spontaneous_RR ___16.0__ -b/min Oxygen Device 1 VENTILATOR - Notified By jh - Notified Whom _r n rosie - B 749 -mmHg tO2 ____9.2__ -Vol% Alberto test N/A -
[2016-10-13 05:33] LABS: Phosphorus 4.1 mg/dL (2.5-4.9)
[2016-10-13] MEDS: Insulin GLARgine 100 Unit/mL Syringe SUBQ SCH (08:30)
--- NOTE | 2016-10-13 09:14 | DRSVH ---
PROCEDURE: US ABDOMEN ([id number]) INDICATIONS: anemia TECHNIQUE: Real-time scanning was performed of the abdominal and retroperitoneal organs, with image documentatio n. COMPARISON: None. FINDINGS: Liver: Liver is normal in size and homogeneous in echotexture. Liver has a diffusely increased echot exture which typically represents fatty infiltration; however, finding is nonspecific and other etiol ogies including hepatic cirrhosis can have a similar appearance. Please correlate with clinical and l aboratory findings. Gallbladder: Gallbladder is sonographically normal. No gallstones. No gallbladder wall thickening. N o pericholecystic fluid. No sonographic Brown sign. Biliary ducts: Intrahepatic bile ducts are non-dilated. Extrahepatic bile duct caliber measures 5.3 mm. Normal is 6-7 mm or less in diameter, or 10 mm or less post-cholecystectomy. Pancreas: Not visualized due to bowel gas and cannot be evaluated. Spleen: Not visualized due to bowel gas and cannot be evaluated. Kidneys: Kidneys are normal in size and echotexture. Right kidney measures 10.0 cm long; left kidne y measures 9.8 cm long. No hydronephrosis or nephrolithiasis. No solid masses. Aorta: Not visualized due to bowel gas and cannot be evaluated. Iliacs: Not visualized due to bowel gas and cannot be evaluated. IVC: Intrahepatic inferior vena cava is patent. Miscellaneous: No free abdominal fluid. IMPRESSION: 1. Echogenic liver. Finding typically represents fatty infiltration; however, finding is nonspecific and correlation with clinical and laboratory findings is recommended to exclude other etiologies incl uding hepatic cirrhosis. 2. Nonvisualization of the pancreas, spleen, aorta and iliac vasculature. 3. Otherwise, normal abdominal sonogram. Dictated by: Tasha Barrera MD, PhD on 10/13/2016 at 9:12 Approved by: Tasha Barrera MD, PhD on 10/13/2016 at 9:12
[2016-10-13] MEDS: Pantoprazole 4 mg/mL 10 mL Inj IVPUSH SCH (09:50)
[2016-10-13] MEDS: Dextrose 5% Lactated Ringer's 1,000 ML IV SCH ×2 (09:54→19:15)
--- NOTE | 2016-10-13 10:29 | DRSVH ---
PROCEDURE: X-RAY CHEST ONE VIEW, PORTABLE ([id number]) INDICATIONS: hypoxia TECHNIQUE: One view of the chest was acquired. COMPARISON: [facility], CR, XR CHEST 1VW (PORTABLE), 10/12/2016, 5:34. FINDINGS: Surgical changes and devices: ET tube, NG tube and central venous catheter are stable compared to corinne or examination.. Lungs and pleura: Trace right-sided and small left-sided pleural fluid collections are noted. Consoli dation noted in the left lung base which is increased in size compared to prior examination and suspi cious for progression of left lower lobe pneumonia.. Mediastinum: Mediastinal contours appear normal. Heart size is normal. Bones and chest wall: No suspicious bony lesions. Overlying soft tissues appear unremarkable. IMPRESSION: Enlarging left basilar consolidation suspicious for progression of pneumonia. Dictated by: Tasha Barrera MD, PhD on 10/13/2016 at 10:28 Approved by: Tasha Barrera MD, PhD on 10/13/2016 at 10:28
--- NOTE | 2016-10-13 11:13 | PCM.PNSURG ---
Subjective Date of Service: Oct 13, 2016 Date of Service: Oct 13, 2016 Visit Information: Reason for Visit: Postop Care POSTOPERATIVE DIAGNOSIS(ES): Acute abdomen, possible small bowel volvulus. PROCEDURE: 10/12/2016 1. Exploratory laparotomy. 2. Small-bowel resection x1 with primary anastomosis Post-Op Day # 1 Date of Admission: Oct 11, 2016 at 22:51 Subjective: The patient is sedated, intubated, and ventilated. Opens eyes to his name. Is not following commands. 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 [employer] Pain Management: IV Push (Dilaudid), Other (IV propofol for sedation and fentanyl) Objective Vital Sign- Last 8 Hours Date Time Temp Pulse Resp B/P Pulse Ox O2 Delivery O2 Flow Rate FiO2 10/13/16 08:00 47 134/48 98 40 10/13/16 05:47 54 139/47 98 40 10/13/16 04:00 Ventilator 10/13/16 04:00 37.0 55 16 144/53 100 Mechanical Ventilator 40 Intake and Output- Last 8 Hour 10/13/16 Cumulative From/Thru 07:00 10/11/16 18:48 - 10/13/16 04:47 Intake Total 1641 ml 2942 ml Output Total 1150 ml 1805 ml Balance 491 ml 1137 ml Intake Oral 0 ml 0 ml IV Total 1641 ml 2942 ml Output Urine Total 700 ml 1185 ml Gastric Drainage Total 450 ml 470 ml Estimated Blood Loss 150 ml # Bowel Movements 0 0 General: Other (intubated ventilated and sedated) Heart: Other (irregular rate) Abdomen: Firm, Appropriately tender (midline), Distended (slightly) SURGICAL WOUND : Wound General Appearence: Intact, Well Approximated, No Erythema, No Discharge Extremities: Warm, Edema Generalized Catheters: Urethral 2 Way Chin Result Diagram: 10/13/16 0450 10/13/16 0450 Diagnostics: Ultrasound Abdomen 10/13/16 IMPRESSION: 1. Echogenic liver. Finding typically represents fatty infiltration; however, finding is nonspecific and correlation with clinical and laboratory findings is recommended to exclude other etiologies including hepatic cirrhosis. 2. Nonvisualization of the pancreas, spleen, aorta and iliac vasculature. 3. Otherwise, normal abdominal sonogram CXR 10/12/16 IMPRESSION: Left lower lobe pneumonia, previously present, endotracheal and nasogastric tubes in normal position. No definite interval improvement or worsening from recent prior chest plain film 10/12/16, but this appears significantly worsened with some degree of volume loss compared to the study from 10/11/16. This can indicate presence of mucous plugging but rapid progression of pneumonia is statistically more likely cause. CT Abdomen & Pelvis 10/11/16 IMPRESSION: 1. Constellation of findings suspicious for a closed-loop mid small bowel obstruction, secondary to localized volvulus or internal hernia. Mesenteric fat stranding as well as patchy small bowel wall thickening would be concerning for evolving bowel ischemia. 2. Small right and trace left mobile dependent pleural effusions are of uncertain etiology. 3. 1.4 cm partially exophytic anteromedial right renal cortical lesion is too dense to represent a simple cyst, and may therefore represent complex cyst versus solid mass. When clinically feasible, consider further evaluation with renal ultrasound, or pre- and post-contrast renal protocol CT or MRI to distinguish between these possibilities. Assessment & Plan Impression 75-year-old obese male with diabetes, hypertension, history of stroke, CHF, atrial fibrillation on Coumadin, chronic renal insufficiency, who presented with acute abdominal pain due to infarcted and compromised ischemic bowel from volvulus and internal hernia due to adhesive band. Problems: Plan 1. Acute hypoxic respiratory failure. Intubated early a.m. 10/12/16 for perioperative management. Several attempts today at weaning off of sedation and pressure support trials have not been successful. The patient continues to be on IV propofol and fentanyl. Continue with spontaneous breathing trials per pulmonary critical care -Vent settings: FiO2 40% (desat 85-89% on 30%), PEEP 5, Vt 510 - History of Sleep apnea and uses CPAP at home 2. 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 Status post removal of approximately 45 inches of mid small bowel with primary anastomosis. Surgical stable at this point -Nothing by mouth while intubated and until bowel function returns 3. Postop hypotension. Required Phenylephrine but has been discontinued. 4 . Chronic kidney disease, stage IV. Currently not on hemodialysis but has dialysis access right upper arm - Low urinary output. - BUN 67 creatinine 4.05. - Undergoing ultrasound of kidneys 5. Acute on chronic anemia Admit hematocrit 36.5 treated with home medication ferrous sulfate 325 mg 3 times a day Current hematocrit 21.5. Transfuse 1 unit packed red blood cells 6. Diabetes mellitus type II. Insulin-dependent. - HGBA1c pending - Glargine and regular insulin ordered 7. Chronic diastolic heart failure. BNP on admit 4360 Preserved EF. Home med Lasix and potassium 8. History of atrial fibrillation, chronic, present on admission. Been on warfarin therapy as an outpatient., This is currently on hold Current INR 1.55. 9. Hypertension, chronic, present on admission - Preop meds hydralazine 50 mg 3 times a day Metoprolol 12.5 mg 2 times a day Isosorbide 30 mg a day 10. DVT prophylaxis - heparin 5000 unit subcutaneous every 8 hours Pain Management: Propofol and fentanyl for sedation IV Dilaudid for pain Resuscitation Status: CPR: Attempt Resuscitation Kate Hugo PA-C Oct 13, 2016 11:13 Kate Hugo PA-C Oct 13, 2016 11:13
--- NOTE | 2016-10-13 12:16 | PCM.PNMED ---
Subjective Date of Service Oct 13, 2016 Subjective Pulmonary critical care note: Problems: Acute hypoxic respiratory failure. Intubated early a.m. 10/12/16 for perioperative management. 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 Status post removal of approximately 45 inches of mid small bowel with primary anastomosis. Sleep apnea on CPAP AG Metabolic acidosis with a primary respiratory acidosis. Heart failure with preserved ejection fraction Diabetes mellitus type II Atrial fibrillation Chronic kidney disease, stage IV Subjective: Patient did well overnight without any acute problems. He continues to be sedated on the ventilator. ABG drawn early this morning demonstrated what looks like respiratory alkalosis, and RT reduced his tidal volume from 510 to 480cc. ROS not obtainable Exam Vital Signs Vital Sign - Last Date Time Temp Pulse Resp B/P Pulse Ox O2 Delivery O2 Flow Rate FiO2 10/13/16 10:50 89 10/13/16 10:50 9 40 10/13/16 08:00 47 134/48 10/13/16 04:00 Ventilator 10/13/16 04:00 37.0 10/11/16 23:04 2 Intake and Output 10/12/16 10/12/16 10/13/16 Cumulative From/Thru 15:00 23:00 07:00 10/11/16 18:48 - 10/13/16 04:47 Intake Total 1641 ml 2942 ml Output Total 1150 ml 1805 ml Balance 491 ml 1137 ml Intake Oral 0 ml 0 ml IV Total 1641 ml 2942 ml Output Urine Total 700 ml 1185 ml Gastric Drainage Total 450 ml 470 ml Estimated Blood Loss 150 ml # Bowel Movements 0 0 Exam Gen.: Obese gentleman lying in hospital bed, intubated, sedated. He appears to be in no acute distress. He will open his right eye and make eye contact, is also squeezing his hands bilaterally, and wiggling his toes bilaterally. HEENT : Pupils are equal and reactive to light bilaterally (difficult on the left as he had that recent surgery), mucous membranes are moist, ET tube and OG tube in place. OG tube suctioning bilious appearing fluid. Chest: scattered rales throughout, but minimal, without significant rhonchi or wheeze. Cardiovascular : Regular rate and rhythm, normal S1 and S2, no appreciable murmur. Radial pulses are 2+ bilaterally as are posterior tibials. Abdomen: Soft, I do not appreciate bowel sounds, there is an approximately 30 cm vertical surgical incision that is well approximated and the midabdomen with the superior portion almost to the level of the xiphoid process. Extremities: no edema, there is a right upper extremity AV fistula with good thrill. Lines: Right IJ for central venous access, Chin catheter, and left radial arterial line. Vent settings: PEEP 5, FiO2 0.40, respiratory rate 16, tidal volume 480 mL. Peaks and plateaus are about equal at 22. Measured PEEP equal to set PEEP. IVs and Medications IV Fluids D5LR running at 100 mL's per hour Medications Reviewed: Medications were reviewed in detail Medications IV fentanyl at 50 IV propofol at 20 Lab and Diagnostics 68.3 % neutrophils. Lactic acid with serial labs as normalized with most recent being 0.7. Troponins negative 4. Calcium 7.6 (corrects to 8.6), magnesium 2.0, LFT normal, total protein 4.9, albumin 2.6, pro calcitonin 0.79, 0.09 (yesterday). INR is 1.55 yesterday. Urinalysis yesterday was unremarkable (with the exception of urine protein being present). Result Diagram: 10/13/16 0450 10/13/16 0450 Microbiology Micro: Blood cultures drawn 10/11/16 negative to date. Sputum culture performed (Shows few polys, few epithelial cells, few mixed normal cleo.). MRSA screen is negative. X-Rays, CTs and MRIs Chest x-ray this a.m. is somewhat concerning for progressing pneumonia given its increase in size from yesterday. This is in the left lower lobe. Abdominal ultrasound performed this a.m. only showed some fatty infiltration of the liver (most likely), and other structures were poorly or not visualized. Additional Diagnostics DateTimeAnalyzed 05:09:00 -_ pH ____7.498 - 7.350 7.450 pCO2 ___29.3__ -mmHg 35.0 45.0 pO2 ___89.9__ -mmHg 69.0 116 HCO3- ___22.5__ -mmol/L 22.0 26.0 sO2 ___98.2__ -% Following this blood gas the tidal volume was reduced by 30 mL Assessment & Plan Assessment: 1. Acute hypoxic respiratory failure. Intubated early a.m. 10/12/16 for perioperative management. Several attempts at weaning off of sedation and pressure support trials had not been successful yesterday. Sedation vacation and pressure support trial today was not successful secondary to inappropriate slowing or lack of respiratory rate, and increased complaints of pain. This is likely secondary to the patient's major abdominal surgery with significant ventral abdominal incision coming close to the level of the diaphragm. Given his postop abdomen and his current requirements for pain medication, will not pursue any further attempts at extubation or weaning tonight. Rather, we will pursue appropriate pain control and follow-up with surgery regarding postop management of the surgical incision and abdomen. This will be complicated somewhat by his underlying sleep apnea. However, that should not affect our immediate goals of pain and ventilator management. Certainly we want to keep an eye on him and optimize his ventilator settings to avoid any pulmonary infectious process such as pneumonia (we will repeat chest x-ray in the morning to keep an eye on that left lower lobe, but not currently any indicators of an active ongoing infection). 2. 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 Status post removal of approximately 45 inches of mid small bowel with primary anastomosis. His lactic acids had normalized, and we will not continue to follow them at this time. This is most likely the reason for his elevated white count and left shift (the drop in white blood cell count today is likely secondary to dilution as all of his blood cell lines decreased significantly today). However, there is the high likelihood that given the ischemic nature of his bowel at the time of presentation, he could (and likely does) have some degree of peritonitis. We will watch this closely overnight (especially for any signs of developing infection). Please note, he received cefazolin as part of his perioperative management. Intraabdominal pressure yesterday was 13, and today's 15 (there is some indication that his intra-abdominal pressures will be chronically elevated secondary to his obesity, but we will continue to follow this). 3. AG Metabolic acidosis has improved with the gap closing. This morning's ABG demonstrated a primary respiratory alkalosis. The metabolic acidosis was likely secondary to the bowel ischemia with elevated lactic acid and a very likely strong contribution from his chronic kidney failure. The primary respiratory alkalosis that we see on the ABG is likely secondary to the tidal volume and respiratory rate settings on the ventilator, and and his tidal volume was subsequently decreased this morning. We will repeat an ABG in the morning, and follow metabolic labs. 3. Sleep apnea on CPAP. Family brought in his CPAP today. There is a high possibility that if/when he is extubated he will need some time on BiPAP, but this remains to be seen. 4. Heart failure with preserved ejection fraction. He is currently on D5LR at 100 mL an hour. We will need to proceed cautiously as he has this underlying heart failure and has chronic kidney disease, so fluid status may become an issue. We discussed with the primary hospitalist team consulting nephrology for ongoing inpatient management of this complicated patient. 5. Postop hypotension, resolved. He remains on IV fluid as noted above in #4. We will continue to monitor with arterial line. Plan: -Continue on mechanical ventilation with focus on optimizing settings for patient comfort given his postop abdomen. Will reassess tomorrow regarding sedation vacation and pressure support trial. -Pain management with IV fentanyl, and sedation with IV propofol -Continue to check an IAP daily via the Chin -We will follow closely his labs and vital signs for any indication of active infection. If this becomes a concern, would be reasonable to initiate empiric broad-spectrum antibiotics given his abdominal presentation. -Check ABG in the morning -Chest x-ray in the morning -Primary team consult to nephrology. GI prophylaxis with IV Protonix. DVT prophylaxis with subcutaneous heparin. Patient is full code. Critical care time spent: 45 minutes. Attending Statement The patient was seen and examined together with Dr. Hanson on 10/13/2016 and I agree with the history, exam and plan as outlined in the note above. Baldomero Hanson DO Oct 13, 2016 12:16 Sid Rueda MD Nov 03, 2016 17:34
--- NOTE | 2016-10-13 12:33 | PCM.PNMED ---
Subjective Date of Service Oct 13, 2016 Subjective Patient is intubated and sedated. ROS and subjective are not obtainable. Medical with patient's at bedside. Exam Vital Signs Vital Sign - Last Date Time Temp Pulse Resp B/P Pulse Ox O2 Delivery O2 Flow Rate FiO2 10/13/16 10:50 89 10/13/16 10:50 9 40 10/13/16 08:00 47 134/48 10/13/16 04:00 Ventilator 10/13/16 04:00 37.0 10/11/16 23:04 2 Intake and Output 10/12/16 10/12/16 10/13/16 Cumulative From/Thru 15:00 23:00 07:00 10/11/16 18:48 - 10/13/16 04:47 Intake Total 1641 ml 2942 ml Output Total 1150 ml 1805 ml Balance 491 ml 1137 ml Intake Oral 0 ml 0 ml IV Total 1641 ml 2942 ml Output Urine Total 700 ml 1185 ml Gastric Drainage Total 450 ml 470 ml Estimated Blood Loss 150 ml # Bowel Movements 0 0 Exam Intubated and sedated. Normal scalp. Neck supple Lungs with normal air movement. Symmetric breath sounds. No wheezing. Heart is regular without murmur gallop or rub Abdomen is distended but nontender. It is not rigid. The incisional wound is unremarkable. Extremities are free of edema good pedal pulses. Skin is free of rash or ecchymosis. IVs and Medications Medications Reviewed: Medications were reviewed in detail Lab and Diagnostics Result Diagram: 10/13/16 0450 10/13/16 0450 X-Rays, CTs and MRIs Chest x-ray this a.m. is somewhat concerning for progressing pneumonia given its increase in size from yesterday. This is in the left lower lobe. Abdominal ultrasound performed this a.m. only showed some fatty infiltration of the liver (most likely), and other structures were poorly or not visualized. Additional Diagnostics DateTimeAnalyzed 05:09:00 -_ pH ____7.498 - 7.350 7.450 pCO2 ___29.3__ -mmHg 35.0 45.0 pO2 ___89.9__ -mmHg 69.0 116 HCO3- ___22.5__ -mmol/L 22.0 26.0 sO2 ___98.2__ -% Following this blood gas the tidal volume was reduced by 30 mL Assessment & Plan # Postoperative care status post ischemic bowel secondary to volvulus and internal hernia, acute, present on admission Continue with supportive ventilatory support and will try later today to wean off of ventilator Try to wean off phenylephrine drip which was used for postoperative hypotension IV lactated Ringer's and will monitor CVP readings Continue with IV propofol and IV fentanyl per protocol Surgical postoperative care per general surgery 1. Ischemic bowel, POA. Status post laparotomy with partial resection of small bowel. The patient is currently being treated for possible sepsis and/or peritonitis. He was weaned off from phenylephrine overnight and fluid resuscitated. The patient continues to be on IV propofol and fentanyl. He has low CVP and a low urine output. There is no evidence of intra-abdominal bleeding by ultrasound today. The patient has no fevers or white count. 2. Probable sepsis/possible LLL pneumonia. The patient currently is evidence of a leukocytosis with hypotension. Chest x-ray indicates an evolving infiltrate which may represent a source of sepsis. We will start empiric antibiotics today. Blood cultures have been negative. 3. Acute hypoxic respiratory failure. The patient continues to have difficulty weaning off from the ventilator. Yesterday he became hypoxic and appeared to also hypoventilatory. We will again bring him down with sedation and try another breathing trial. Suspect that fluid overload from his chronic systolic heart failure as well as a possible pneumonia and they may be contributing. 4. Acute kidney injury, in context of chronic kidney disease stage IV. Creatinine today is over 4. His baseline GFR is about 18. His urine output is down. Nephrology is consulted today. He has ongoing IV fluids and was given Lasix 10 IV 1 yesterday to encourage urine output. 5. Chronic systolic heart failure. POA. The patient is having a poor output and continues to receive IV fluids. Overall he is not having anasarca. We will continue to give daily IV Lasix to encourage urine output and aim towards better volume status. 6. Type II diabetes, chronic, present on admission Continue with correctional lispro and Lantus insulin. 7. Hypertension, chronic, present on admission We will monitor blood pressure and initiate IV hydralazine when necessary 8. History of atrial fibrillation, chronic, present on admission Been on warfarin therapy as an outpatient., This is currently on hold We will hold on heparin bridge today given his relative anemia. There is no obvious source for anemia. This may be partially dilutional and related also to blood loss from his perioperative period. There is no evidence of blood in the abdomen based on ultrasound today. No rectal bleeding. The patient is typed for blood but is having crossmatch and difficulties due to an antibody. One unit of cells to packed cells today is ordered. 9. DVT prophylaxis We will start subcutaneous heparin for DVT prophylaxis today. # CODE STATUS Patient is full code Pain Evaluation: Adequate Pain Control GI Prophylaxis: Proton Pump Inhibitor VTE Prophylaxis: Sub-Q Heparin (Unfractionated), SCDs VTE Mechanical Devices: Intermittant Pneumatic CD Resuscitation Status: CPR: Attempt Resuscitation Pain Evaluation: Adequate Pain Control Resuscitation Status: CPR: Attempt Resuscitation Time spent 25 minutes Alberto Zelaya MD Oct 13, 2016 12:33
[2016-10-13 14:44] LABS: INR 1.46 ratio
[2016-10-13] MEDS ORDERED: 0.9% Sodium Chloride 250 ML ONE (15:08)
--- NOTE | 2016-10-13 16:28 | NUR ---
RBC Blood lab informed RN that there was an antibody in the blood and that it will be delayed for further testing. H&H=6.8/21.5. Blood started at 1516 with 2nd RN check. Consent signed from his OR visit. Family at bedside. Pt failed SBT today with the Propofol dropped to 10mcg and Fentanyl at 25mcg prior to trial. Vent remains at 40% 5/16/480. D5 LR dropped to 50ml/hr for hypertension.
--- NOTE | 2016-10-13 17:14 | CONS ---
[address] [address] CONSULTATION REPORT PATIENT: VLAD VARGAS : 1940 MR#: [id number] ADMIT: 10/11/2016 JOB ID: [id number] DATE OF SERVICE: 10/13/2016 REQUESTING PHYSICIAN: Dr. Alberto Zelaya. REASON FOR CONSULTATION: Management of abnormal kidney function test. CHIEF COMPLAINT: Acute abdominal pain. PRESENT ILLNESS: This is a 75-year-old, male with extensive past medical history including chronic kidney disease stage 4, type 2 diabetes with renal manifestation, hypertension, congestive heart failure, atrial fibrillation, gout, dyslipidemia, coronary artery disease, alcohol dependence presented to the hospital due to acute abdominal pain. Apparently, the patient was found to have a closed loop small bowel obstruction. She underwent exploratory laparotomy. Ischemic bowel was identified. He had approximately 45 inches of mid small bowel resection with primary anastomosis. The patient also developed acute hypoxic respiratory failure and was intubated yesterday for perioperative management. The patient was also started on to maintain his mean arterial pressure. His current serum creatinine is 4.05. Renal service was consulted to manage chronic kidney disease. 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 He has history of nephrotic syndrome. The patient was seen by Dr. Galvez. According to our records, the last followup with Dr. Galvez was in August 2016. His creatinine was 2.9. Patient had right upper extremity AV fistula creation in the beginning of last year. It has not been used. His urine output over the past 24 hours was about 700 cc. He has required FiO2 40%. The patient has not received any IV contrast over the past 24 hours. PAST MEDICAL HISTORY: 1. Chronic kidney disease stage 4 secondary to diabetic nephropathy, status post AV fistula creation, has not been used. 2. Chronic diastolic heart failure. 3. Type 2 diabetes with renal manifestation. 4. Hypertension with hypertensive nephrosclerosis. 5. Coronary artery disease. 6. Paroxysmal atrial fibrillation. 7. Dyslipidemia. 8. Depression. 9. Alcohol dependence. 10. Sleep apnea on CPAP. 11. History of CVA status post tPA administration. 12. Lower GI bleed. 13. Gout. SURGICAL HISTORY: 1. Status post right upper extremity AV fistula creation. 2. Colonic polyps status post polypectomy. 3. Umbilical hernia repair. 4. Cataract surgery. FAMILY HISTORY: Positive for heart disease in the family. SOCIAL HISTORY: Patient had history of alcohol dependence. Last drink was two years ago. ALLERGIES: SULFA and SPIRONOLACTONE. MEDICATIONS: Reviewed. REVIEW OF SYSTEMS: Unable to obtain due to respiratory status. PHYSICAL EXAMINATION: Vitals: Temperature 37.0, pulse 54, respiratory rate 16, blood pressure 139/47. General appearance: Intubated, sedated. Responsive to painful stimuli. HEENT: Mild pallor. No jaundice. No JVD. No lymphadenopathy. No thyroid enlargement. Atraumatic. Moist mucous membranes. ET tube and OG tube in place. Triple lumen on the right IJ. Lungs: Equal breath sounds bilaterally. Decreased breath sounds at bases. No wheezing. No rhonchi. No . Heart: Regular rhythm. Normal S1, S2. No murmurs, rubs, or gallops. Abdomen: Soft. Decreased bowel sounds. Midline surgical incision noted, dry, clean and intact. Extremity: No edema, cyanosis or clubbing of the fingers. Right arm AV fistula with good thrill and bruit. ASSESSMENT: 1. Acute kidney injury on chronic kidney disease, stage 4. The etiology of acute kidney injury is rather due to sepsis and acute tubular necrosis. At this point, I will continue only supportive treatment. Continue IV fluids. Currently, the patient is on lactated Ringer's 100 cc/hour. Currently patient is on dextrose 5% lactated Ringer's 100 cc/hour. Recommend to keep mean arterial pressure above 65 mmHg. I do not think the patient needs urgent dialysis at this moment. We will continue to monitor his kidney functions and volume status on a daily basis. Please avoid nephrotoxins, adjust medication according to GFR. 2. Resolved hyperkalemia. 3. Resolved metabolic acidosis. 4. Acute hypoxic respiratory failure. 5. 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 6. History of chronic diastolic heart failure. 7. Sleep apnea. 8. 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 9. History of hypertension with hypertensive nephrosclerosis. 10. At this point, will continue supportive treatment. I agree with the primary team to continue current IV fluid to restore intravascular volume. We will reassess his volume status and kidney function on a daily basis. If his output has been poor by tomorrow, I will give him high-dose loop diuretics. Thank you for the consultation. We will monitor along with you.
[2016-10-13] MEDS ORDERED: Erythromycin 0.5% 1 Gm Ophthalmic Ointment LEFT_EYE SCH (17:15)
[2016-10-13] MEDS ORDERED: Sodium Chloride LOK Flush 10 mL Syringe IVFLUSH PRN ×2 (17:40)
--- NOTE | 2016-10-13 17:44 | NUR ---
Social Work Note: Initial Assessment Data& Assessment: Pt remains on the vent. SW met with pt at bedside to discuss discharge planning, SW role explained. Farooq Gonzales is a 75 year old male admitted on 10/11/2016 for acute abdomi. Pt has [employer] Medicare insurance. Pt is a but not service connected. Pt does not have any LTC insurance. Pt does not have SNF or HH hx. Pt has DPOA paperwork completed, SW requested a copy when possible. Pt lives with his on [address] and is independent at baseline with all ADL's although pt does manage his medications. Pt does not require any DME at baseline but they do have a commode and walker in the home. Pt does where a CPAP machine at night. Pt drives normally. Pt sees Jaya Flores MD for primary care. Pt denies any needs at this time. SW to continue to follow for MD and PT recommendations and evaluation. SW to continue to follow. Plan: Pt remains on the vent at this time. Pt denies any needs at this time. SW to continue to follow for MD and PT recommendations and evaluation. SW to continue to follow. DARRON Lr Addendum: 10/13/16 at 1747 by ASHLEY REYES Amended: Links added.
[2016-10-13] MEDS: Erythromycin 0.5% 3.5 Gm Ophthalmic Ointment LEFT_EYE SCH (20:04)
[2016-10-14] VITALS (12 sets, daily range): BP systolic 137–179; BP diastolic 47–68; PULSE 43–100; RESP 10–20; O2SAT 96–100
[2016-10-14] MEDS: Insulin Human REGular 300 Unit/3 mL Inj SUBQ SCH ×4 (01:58→20:30)
[2016-10-14] MEDS: Chlorhexidine 0.12% 15 mL Oral Solution MT SCH ×5 (03:30→21:02)
--- NOTE | 2016-10-14 03:35 | NUR ---
Cardiac/Resp/GI Patient remains on vent, sedated and resting, no distress noted, Fentanyl increased to keep patient comfortable, Propofol for sedation, HR 30-80's CVP 9-11, BP 146/49, on 40% FIO2, no vent setting changed this shift so far, midline abdominal incision healing and open to air, no bleeding noted, uneventful shift, will continue to monitor. Addendum: 10/14/16 at 0339 by JOHN ALY RN Amended: Links added.
[2016-10-14] MEDS: Propofol Inj 1,000,000 MCG in IV Premix 1 EACH IV SCH ×4 (03:48→20:25)
[2016-10-14] MEDS: Dextrose 5% Lactated Ringer's 1,000 ML IV SCH (03:53)
[2016-10-14 05:57] LABS: BASOPHILS % (AUTO) 0.5 % (0-3); EOSINOPHILS % (AUTO) 5.3 % (0-5); MONOCYTES % (AUTO) 10.4 % (4-12); Mean Corpuscular Hemoglobin 27.4 pg (27.0-35.0); Mean Corpuscular Volume 86.3 fL (81-100); NEUTROPHILS % (AUTO) 63.5 % (40-74); Platelet Count 104 bil/L (150-400)
[2016-10-14] MEDS: Erythromycin 0.5% 3.5 Gm Ophthalmic Ointment LEFT_EYE SCH ×4 (06:06→21:02)
--- NOTE | 2016-10-14 07:44 | PCM.PNMED ---
Subjective Date of Service Oct 14, 2016 Subjective Pulmonary critical care note: Problems: Acute hypoxic respiratory failure. Intubated early a.m. 10/12/16 for perioperative management. 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 Status post removal of approximately 45 inches of mid small bowel with primary anastomosis. Sleep apnea on CPAP AG Metabolic acidosis (improved) with a primary respiratory alkalosis. Heart failure with preserved ejection fraction Diabetes mellitus type II Atrial fibrillation Chronic kidney disease, stage IV Subjective: Patient did well overnight without any acute problems. He continues to be sedated on the ventilator. ABG drawn early this morning demonstrated what continues to look like respiratory alkalosis, but no changes on the vent yet. His Fentanyl was titrated to 125 due to pain and BP. ROS not obtainable Exam Vital Signs Vital Sign - Last Date Time Temp Pulse Resp B/P Pulse Ox O2 Delivery O2 Flow Rate FiO2 10/14/16 04:33 51 156/56 100 40 10/14/16 03:32 Ventilator 10/14/16 03:32 37.0 16 10/13/16 16:30 2.00 Intake and Output 10/13/16 10/13/16 10/14/16 Cumulative From/Thru 15:00 23:00 07:00 10/11/16 18:48 - 10/14/16 06:01 Intake Total 1307 ml 984 ml 5253 ml Output Total 600 ml 775 ml 3180 ml Balance 707 ml 209 ml 2073 ml Intake Oral 0 ml 0 ml IV Total 1307 ml 984 ml 5253 ml Output Urine Total 600 ml 750 ml 2535 ml Gastric Drainage Total 25 ml 495 ml Estimated Blood Loss 150 ml # Bowel Movements 0 Exam Gen.: Obese gentleman lying in hospital bed, intubated, sedated. He appears to be in no acute distress. HEENT: Pupils are equal and reactive to light on R (L is postsurg and has gel in place), mucous membranes are moist, ET tube and OG tube in place. OG tube suctioning bilious appearing fluid. Chest: Clear bilaterally. Cardiovascular: Regular rate and rhythm, normal S1 and S2, no appreciable murmur. Radial pulses are 2+ bilaterally as are posterior tibials. Abdomen: Soft, I do not appreciate bowel sounds, there is an approximately 30 cm vertical surgical incision that is well approximated and the midabdomen with the superior portion almost to the level of the xiphoid process. Extremities: no edema, there is a right upper extremity AV fistula with good thrill. Lines: Right IJ for central venous access, Chin catheter, and left radial arterial line. Vent settings: PEEP 5, FiO2 0.40, respiratory rate 16, tidal volume 480 mL. Peaks and plateaus are about equal at 22/20. Measured PEEP equal to set PEEP. IVs and Medications IV Fluids D5LR at 50cc/hr Medications Reviewed: Medications were reviewed in detail Medications Fent 125 Prop 30 Lab and Diagnostics Result Diagram: 10/14/16 0545 10/14/16 0545 Microbiology Micro: Blood cultures drawn 10/11/16 negative to date. Sputum culture performed (Shows few polys, few epithelial cells, few mixed normal cleo.). MRSA screen is negative. X-Rays, CTs and MRIs Chest x-ray this a.m. is somewhat concerning for progressing pneumonia given its increase in size from yesterday. This is in the left lower lobe. Abdominal ultrasound performed this a.m. only showed some fatty infiltration of the liver (most likely), and other structures were poorly or not visualized. Additional Diagnostics DateTimeAnalyzed 05:58:00 -_ pH ____7.49 - 7.350 7.450 pCO2 ___29.3__ -mmHg 35.0 45.0 pO2 ___91__ -mmHg 69.0 116 sO2 ___98.2__ -% Assessment & Plan Assessment: 1. Acute hypoxic respiratory failure. Intubated early a.m. 10/12/16 for perioperative management. Several attempts at weaning off of sedation and pressure support trials have not been successful. Sedation vacation and pressure support trial will be attempted again today. This difficulty is likely secondary to the patient's major abdominal surgery with significant ventral abdominal incision coming close to the level of the diaphragm. We will continue appropriate pain control and follow-up with surgery regarding postop management of the surgical incision and abdomen. This will be complicated somewhat by his underlying sleep apnea. However, that should not affect our immediate goals of pain and ventilator management. Certainly we want to keep an eye on him and optimize his ventilator settings to avoid any pulmonary infectious process such as pneumonia. 2. 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 Status post removal of approximately 45 inches of mid small bowel with primary anastomosis. His lactic acids had normalized, and we will not continue to follow them at this time. This is most likely the reason for his elevated white count and left shift (the drop in white blood cell count today is likely secondary to dilution as all of his blood cell lines decreased significantly today). However, there is the high likelihood that given the ischemic nature of his bowel at the time of presentation, he could (and likely does) have some degree of peritonitis. We will watch this closely (especially for any signs of developing infection). Please note, he received cefazolin as part of his perioperative management. Intraabdominal pressures of 13 and 15 (there is some indication that his intra-abdominal pressures will be chronically elevated secondary to his obesity). 3. AG Metabolic acidosis has improved with the gap closing. This morning's ABG re-demonstrated a primary respiratory alkalosis. The metabolic acidosis was likely secondary to the bowel ischemia with elevated lactic acid and a very likely strong contribution from his chronic kidney failure. The primary respiratory alkalosis that we see on the ABG is likely secondary to the tidal volume and respiratory rate settings on the ventilator, and we will discuss adjusting those during rounds. We will repeat an ABG in the morning, and follow metabolic labs. 3. Sleep apnea on CPAP. Family brought in his CPAP. There is a high possibility that if/when he is extubated he will need some time on BiPAP, but this remains to be seen. 4. Heart failure with preserved ejection fraction. He is currently on D5LR at 50 mL an hour. We will need to proceed cautiously as he has this underlying heart failure and has chronic kidney disease, so fluid status may become an issue. We discussed with the primary hospitalist team consulting nephrology for ongoing inpatient management of this complicated patient. 5. Postop hypotension, resolved. He remains on IV fluid as noted above in #4. We will continue to monitor with arterial line. He has actually been hypertensive. His pain medication was titrated for this last night. Will discuss during rounds with primary team. 6. Bradycardia, chronic. reports that his baseline HR is approx 40's. Will continue to monitor on tele. Plan: -Continue on mechanical ventilation with focus on optimizing settings for patient comfort given his postop abdomen. Will reassess today regarding sedation vacation and pressure support trial. -Pain management with IV fentanyl, and sedation with IV propofol -We will follow closely his labs and vital signs for any indication of active infection. If this becomes a concern, would be reasonable to initiate empiric broad-spectrum antibiotics given his abdominal presentation. -Will give a dose of Hydralazine (10mg IV once) to assess for response to BP, and facilitate possible sedation lightening and SBT today. -Check ABG in the morning -Chest x-ray in the morning -Mini lavage by RT to assess for possible mucus plugging suspected per CXR -Checked with surgery regarding Relastor and trickle feeds, and it was decided that would not be appropriate at this time (given elevated OGT residuals - 450cc yesterday, and 25cc so far today). GI prophylaxis with IV Protonix. DVT prophylaxis with subcutaneous heparin. Patient is full code. Critical care time spent: 30 minutes. Attending Statement The patient was seen and examined together with Dr. Hanson on 10/14/2016 and I agree with the history, exam and plan as outlined in the note above. Baldomero Hasnon DO Oct 14, 2016 07:44 Sid Rueda MD Nov 03, 2016 17:39
--- NOTE | 2016-10-14 08:22 | PCM.PNSURG ---
Subjective Visit Information: Reason for Visit Acute Abdomin Surgery/Surgery Date Post-Op Day # Date of Admission: Oct 11, 2016 at 22:51 Hospital Day # Subjective: still intubated on vent, received 1 u PRBC yesterday, OGT in place --> bilious Objective Objective Intubated and sedated on vent Abd: round and mildly protuberant, soft, incision clean. OGT --> bilious output Vital Sign- Last 8 Hours Date Time Temp Pulse Resp B/P Pulse Ox O2 Delivery O2 Flow Rate FiO2 10/14/16 04:33 51 156/56 100 40 10/14/16 03:32 Ventilator 10/14/16 03:32 37.0 52 16 159/57 100 Mechanical Ventilator 40 10/14/16 00:17 52 165/61 100 40 Intake and Output- Last 8 Hour 10/14/16 Cumulative From/Thru 07:00 10/11/16 18:48 - 10/14/16 06:01 Intake Total 984 ml 5253 ml Output Total 775 ml 3180 ml Balance 209 ml 2073 ml Intake Oral 0 ml 0 ml IV Total 984 ml 5253 ml Output Urine Total 750 ml 2535 ml Gastric Drainage Total 25 ml 495 ml Estimated Blood Loss 150 ml # Bowel Movements 0 Result Diagram: 10/14/16 0545 10/14/16 0545 Assessment & Plan Impression POD #2 s/p laparotomy and resection of SB due to closed loop ischemic bowel DM A fib on coumadin (held) Problems: Plan Wean off ventilator and extubate if possible Await bowel function return DVT prophylaxis Blood sugar control VTE Prophylaxis: Sub-Q Heparin (Unfractionated) Dada Rosales MD Oct 14, 2016 08:22
[2016-10-14] MEDS: Insulin GLARgine 100 Unit/mL Syringe SUBQ SCH (08:30)
[2016-10-14] MEDS: Heparin 5,000 Unit/mL Inj SUBQ SCH ×2 (08:52→16:14)
[2016-10-14] MEDS: Pantoprazole 4 mg/mL 10 mL Inj IVPUSH SCH (08:55)
--- NOTE | 2016-10-14 08:57 | DRSVH ---
PROCEDURE: X-RAY CHEST ONE VIEW, PORTABLE ([id number]) INDICATIONS: monitor LLL opacity TECHNIQUE: One view of the chest was acquired. COMPARISON: [facility], CR, XR CHEST 1VW (PORTABLE), 10/13/2016, 9:58. [facility], CR, XR CHEST 1VW (PORTABLE), 10/12/2016, 5:34. [facility], CR, XR CHEST 1VW (CRISTIAN BLE), 10/11/2016, 22:03. FINDINGS: Surgical changes and devices: Tubes and catheters are in stable and expected positions. Lungs and pleura: No pleural effusions or pneumothorax. No change in dense left lower lung opacifica tion and no change in moderate right basilar airspace opacity. Mediastinum: Mediastinal contours appear normal. Heart size is normal. Bones and chest wall: No suspicious bony lesions. Overlying soft tissues appear unremarkable. IMPRESSION: No change in bibasilar pneumonia. Continued plain film surveillance is recommended to ens ure resolution, and to exclude underlying or central malignancy. Dictated by: Roslyn Velasco M.D. on 10/14/2016 at 8:55 Approved by: Roslyn Velasco M.D. on 10/14/2016 at 8:55
--- NOTE | 2016-10-14 09:21 | PCM.PNMED ---
Subjective Date of Service Oct 14, 2016 Subjective 75-year-old man with diabetes, kidney disease, coronary artery disease, diastolic CHF and hypertension presented with acute abdominal pain. Now status post laparotomy with diagnosis of ischemic bowel. Intubated and sedated. The pressure increases when sedation is reduced. Now on FiO2 0.4 with PEEP 8. Exam Vital Signs Vital Sign - Last Date Time Temp Pulse Resp B/P Pulse Ox O2 Delivery O2 Flow Rate FiO2 10/14/16 08:00 43 141/47 99 40 10/14/16 03:32 Ventilator 10/14/16 03:32 37.0 16 10/13/16 16:30 2.00 Intake and Output 10/13/16 10/13/16 10/14/16 Cumulative From/Thru 15:00 23:00 07:00 10/11/16 18:48 - 10/14/16 06:01 Intake Total 1307 ml 984 ml 5253 ml Output Total 600 ml 775 ml 3180 ml Balance 707 ml 209 ml 2073 ml Intake Oral 0 ml 0 ml IV Total 1307 ml 984 ml 5253 ml Output Urine Total 600 ml 750 ml 2535 ml Gastric Drainage Total 25 ml 495 ml Estimated Blood Loss 150 ml # Bowel Movements 0 Exam General: Elderly man, sedated HEENT: sclerae anicteric, oral mucosa moist Neck: Difficult to assess JVD Chest: Generally clear to auscultation, right-sided CVC Cardiac: S1S2, no murmur Abdomen: BS normal, non-tender; Chin catheter present Extremities: No edema Neuro: No response to verbal stim, face appears symmetric, difficult to open eyes, Motor tone is symmetric IVs and Medications Medications Reviewed: Medications were reviewed in detail Lab and Diagnostics Result Diagram: 10/14/1645 10/14/1645 Microbiology Micro: Blood cultures drawn 10/11/16 negative to date. Sputum culture performed (Shows few polys, few epithelial cells, few mixed normal cleo.). MRSA screen is negative. X-Rays, CTs and MRIs PROCEDURE: X-RAY CHEST ONE VIEW, PORTABLE ([id number]) FINDINGS: Lungs and pleura: No pleural effusions or pneumothorax. No change in dense left lower lung opacification and no change in moderate right basilar airspace opacity. IMPRESSION: No change in bibasilar pneumonia. Continued plain film surveillance is recommended to ensure resolution, and to exclude underlying or central malignancy. Dictated by: Roslyn Velasco M.D. on 10/14/2016 at 8:55 . Additional Diagnostics DateTimeAnalyzed 05:58:00 -_ pH ____7.49 - 7.350 7.450 pCO2 ___29.3__ -mmHg 35.0 45.0 pO2 ___91__ -mmHg 69.0 116 sO2 ___98.2__ -% Assessment & Plan Acute active and high-risk problems: 1. Acute hypoxic respiratory failure. Intubated early a.m. 10/12/16 for perioperative management. Several attempts at weaning off of sedation and pressure support trials have not been successful. This difficulty is likely secondary to the patient's major abdominal surgery with significant ventral abdominal incision coming close to the level of the diaphragm. - Optimize his ventilator settings; continuing propofol and fentanyl for sedative management at present. - Sedation vacation and pressure support trial will be attempted again today. - We will continue pain control and follow-up with surgery regarding postop management of the surgical incision and abdomen, but may need to wean analgesics somewhat in order to extubate. 2. 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 Status post removal of approximately 45 inches of mid small bowel with primary anastomosis. He received cefazolin as part of his perioperative management. Intraabdominal pressures of 13 and 15 (there is some indication that his intra- abdominal pressures will be chronically elevated secondary to his obesity). - Surgery consult to advise on postoperative abdominal management - Fentanyl and when necessary hydromorphone for pain 3. AG Metabolic acidosis has improved with the gap closing. Metabolic acidosis was likely secondary to the bowel ischemia with elevated lactic acid and a very likely strong contribution from his chronic kidney failure. - We will repeat an ABG, and follow metabolic labs. 5. Heart failure with preserved ejection fraction. He is currently on D5LR at 50 mL an hour. - Continue minimal maintenance IV fluid strategy Stable, resolved and or chronic problems: # Atrial fibrillation on anticoagulation with warfarin - currently reversed, no bridging; resume warfarin when clinically stable # Type II diabetes mellitus # CK disease stage IV with baseline serum creatinine 2.9. # Bradycardia, chronic. reports that his baseline HR is approx 40's. Will continue to monitor on tele # Postop hypotension, resolved # Sleep apnea on CPAP. Family brought in his CPAP. There is a high possibility that if/when he is extubated he will need some time on BiPAP, but this remains to be seen. GI prophylaxis with IV Protonix. DVT prophylaxis with subcutaneous heparin. Patient is full code. Critical care time spent: 35 minutes. Pain Evaluation: Adequate Pain Control VTE Prophylaxis: Sub-Q Heparin (Unfractionated) Resuscitation Status: CPR: Attempt Resuscitation Time spent 35 minutes Maico Landaverde MD Oct 14, 2016 09:21
[2016-10-14] MEDS ORDERED: hydrALAZINE 20 mg/mL Inj IV ONE (09:30)
--- NOTE | 2016-10-14 11:36 | NUR ---
NUTRITION FOLLOW-UP: ASSESS: Pt is a 75yo M admitted to CCU s/p laparotomy and SB resection due to ischemic bowel. Pt is currently intubated. SBT planned for today. Pt receiving D5 and LR. Pt NPO x3 days. Pts states that his last full meal was Tuesday morning. Prior to that he had been eating normally. PMHX: Alcoholism, stg 4 CKD, Pneumonia, GI bleed, CHF, T2DM, CVA, HTN, Afib LABS: Reviewed. BUN 63, Cr 3.87, Ca 7.7, Albumin 2.5 MEDS: Reviewed. Insulin, propofol currently running @ 6 ml/hr to provide 160kcal/day GI: colostomy SKIN: Bravo 9 CURRENT WTS: 106.7 kg, BMI: 33.8 kg/m2, Admit Wt: 101.5 kg (BMI: 32.1 kg/m2) DIET: NPO EST. NEEDS: vent, CKD stg 4 (admit wt) Kcals: 2030-2235kcal/day (20-22kcal/kg) Pro: 70-90g/day (1.0-1.2g/kg) Fluid: ~2500cc/day (25cc/kg) NUTRITION DIAGNOSIS: 1.) Inadequate oral intake related to decreased ability to consume sufficient energy as evidenced by current NPO status.---PERSISTS NUTRITION INTERVENTION: 1.) Recommend consideration of enteral trickle feedings to stimulate blood flow and assist with healing 2.) Anticipate pt will not be appropriate for enteral nutrition at full rate for many days. Recommend consideration of TPN in next 1-2 days w/ initial macronutrients of 175 g dextrose, 45 g AA, and 10 g lipids. 3.) Goal TPN: 350 g dextrose, 85 g AA, and 50 g lipids (2030 kcal and 85 g protein, 100% of est needs) MONITOR / EVAL: NPO/vent, wt, GI, labs, POC, nutrition status. Will continue to monitor per high nutrition risk guidelines
--- NOTE | 2016-10-14 14:53 | PATH ---
SURGICAL PATHOLOGY Attending Physician:Dada Rosales M.D. CASE STATUS: Signed Out PATIENT NAME: VLAD VARGAS PID: [id number] : 1940 DATE COLLECTED:10/12/2016 00:00 SPECIMEN: Small Intestine, Non-Tumor Resection CLINICAL HISTORY: A: SMALL BOWEL FINAL DIAGNOSIS: A.SEGMENT OF SMALL BOWEL (73.5 CM): CHANGES CONSISTENT WITH ACUTE ISCHEMIC NECROSIS. RESECTION MARGINS APPEAR VIABLE. ICD10 CODE K55.069 GROSS DESCRIPTION: The specimen is received in formalin, labeled with the patient's name, and consists of an unoriented segment of small bowel (length-73.5 cm, resection margin #1 diameter-2.0 cm, resection margin #2 diameter-2.5 cm) with attached mesentery (up to 7.0 cm in depth). Approximately 80% of the segment is dark maroon and congested with flat smooth shiny mucosa and serosa. The remaining mucosa is simpson with normal folds. No nodules, masses, lesions, obstructions or constrictions are identified. Ink code: black-resection margin. Section code: (A) resection margin #1, longitudinally sectioned, food products sales representative; (B) resection margin #2, longitudinally sectioned, food products sales representative; (C-D) small bowel segment, serially sectioned from resection margin #1 to #2, food products sales representative. 10/13/16 MICRO DESCRIPTION: See diagnosis. ICD-9 CODES: CPT CODES: 1: 74469 Electronically Signed Out Jay Penn MD [facility] Pathology [facility] [address], [place] [address] Technical component performed at [facility], [facility] [address], [place], [address]
--- NOTE | 2016-10-14 16:36 | NUR ---
P: Agitation I: Pt agitated. Propofol increased to 25mcqs/kg/min with bolus given. BP down slightly and HR 40-70's instead of 120's. OGT LCS with green fluid 200cc output. Turned q 2 hours. SCD's on. Fentanyl 100mcqs/hr. Family at bedside. Turned q 2 hours. Abdominal incision intact with no dressing and is healing well. Chin patent and draining adequate urine output. Pt opens his eyes and shakes his head yes and no appropriately. Oral care done. D5LR infusing without difficulty. Family updated on pt's condition and plan of care. E: Stable S: Restraints on for pt safety. Pt does reach for tubes. Frequent rounding. Family at bedside.
[2016-10-14] MEDS: fentaNYL 2,500 mCg/250 mL 2,500 MCG in IV Premix 1 EACH IV PRN (17:44)
--- NOTE | 2016-10-14 19:25 | PCM.PNMED ---
Subjective Date of Service Oct 14, 2016 Subjective Nephrology Progress Note: Attending Dr. Chu Gonzales is a 75-year-old man with diabetes, kidney disease, coronary artery disease, diastolic CHF and hypertension presented with acute abdominal pain. Now status post laparotomy with diagnosis of ischemic bowel. Subjective exam and review of systems is unavailable as patient is intubated and sedated. Exam Vital Signs Vital Sign - Last Date Time Temp Pulse Resp B/P Pulse Ox O2 Delivery O2 Flow Rate FiO2 10/14/16 16:30 36.8 100 16 142/56 99 Mechanical Ventilator 40 10/14/16 12:30 2.00 Intake and Output 10/13/16 10/13/16 10/14/16 Cumulative From/Thru 15:00 23:00 07:00 10/11/16 18:48 - 10/14/16 06:01 Intake Total 1307 ml 984 ml 5253 ml Output Total 600 ml 775 ml 3180 ml Balance 707 ml 209 ml 2073 ml Intake Oral 0 ml 0 ml IV Total 1307 ml 984 ml 5253 ml Output Urine Total 600 ml 750 ml 2535 ml Gastric Drainage Total 25 ml 495 ml Estimated Blood Loss 150 ml # Bowel Movements 0 Exam General: Older male lying in bed and in no acute distress, intubated and sedated. HEENT: Normocephalic, atraumatic. External ears without defect. Pupils equal, round, and reactive to light. Anicteric sclerae. Scleral edema. ET tube and OG tube in place Neck: Supple with full range of motion. No jugular venous distension. No bruits. No lymphadenopathy or thyromegaly. Cardiovascular: Regular rate and rhythm with no murmurs, rubs, or gallops appreciated Pulmonary: Clear to auscultation bilaterally with no crackles, wheezes, or rhonchi. Normal respiratory effort with no use of accessory muscles. Abdomen: Soft, moderately distended and firm. Extremities: No clubbing, cyanosis, or edema. Skin: Normal temperature, turgor, and texture; no rash, ulcers, or subcutaneous nodules appreciated. Neurologic: Intubated and sedated. Ventilator settings: PRVC. Tidal volume 480. Respiratory rate 14. FiO2 40%. PEEP 5.0. IV drips and Sedatives: Fentanyl and Propofol IV Lines: Right IJ central line and left radial arterial line. IVs and Medications Medications Reviewed: Medications were reviewed in detail Lab and Diagnostics Item Value Date Time Lactic Acid Level 0.7 mmol/L 10/13/16 0900 Calcium Level 7.7 mg/dL L 10/14/16 0545 Total Bilirubin 0.4 mg/dL 10/14/16 0545 Aspartate Amino Transf (AST/SGOT) 13 U/L 10/14/16 0545 Alanine Aminotransferase (ALT/SGPT) 5 U/L 10/14/16 0545 Alkaline Phosphatase 58 U/L 10/14/16 0545 Total Protein 4.8 g/dL L 10/14/16 0545 Albumin 2.5 g/dL L 10/14/16 0545 Procalcitonin 0.45 ng/mL 10/14/16 0545 Parathyroid Hormone (Intact) 96 pg/mL H 10/14/16 0545 Result Diagram: 10/14/16 0545 10/14/16 05 Microbiology Blood cultures 2 shows no growth after 2 days. MRSA screen negative. Sputum culture pending. . X-Rays, CTs and MRIs X-RAY CHEST ONE VIEW, PORTABLE IMPRESSION: No change in bibasilar pneumonia. Continued plain film surveillance is recommended to ensure resolution, and to exclude underlying or central malignancy. Dictated by: Roslyn Velasco M.D. on 10/14/2016 at 8:55 Approved by: Roslyn Velasco M.D. on 10/14/2016 at 8:55 US ABDOMEN IMPRESSION: 1. Echogenic liver. Finding typically represents fatty infiltration; however, finding is nonspecific and correlation with clinical and laboratory findings is recommended to exclude other etiologies including hepatic cirrhosis. 2. Nonvisualization of the pancreas, spleen, aorta and iliac vasculature. 3. Otherwise, normal abdominal sonogram. Dictated by: Tasha Barrera MD, PhD on 10/13/2016 at 9:12 Approved by: Tasha Barrera MD, PhD on 10/13/2016 at 9:12 . Assessment & Plan Farooq Gonzales is a 75-year-old man with diabetes, kidney disease, coronary artery disease, diastolic CHF and hypertension presented with acute abdominal pain. Now status post laparotomy with diagnosis of ischemic bowel. 1. Acute kidney injury on chronic kidney disease, stage 4. The etiology of acute kidney injury is due to sepsis and acute tubular necrosis. - Continue only supportive treatment with IV fluids currently on lactated Ringer 's 50 mL/hour. - Recommend to keep mean arterial pressure above 65 mmHg. - Does not require CHUTE TAPPER at this moment. - Continue to monitor renal function and volume status on a daily basis. - Avoid nephrotoxins and adjust medication according to GFR. - At discretion of primary team but may diurese with Lasix 40 mg IV every 2-3 hours to keep urine output > 0.5 mL/kg/hr. 2. Resolved hyperkalemia. 3. Resolved metabolic acidosis. 4. Acute hypoxic respiratory failure. 5. 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 6. History of chronic diastolic heart failure. 7. Sleep apnea. 8. 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 9. History of hypertension with hypertensive nephrosclerosis. . VTE Prophylaxis: Sub-Q Heparin (Unfractionated) VTE Mechanical Devices: Intermittant Pneumatic CD Resuscitation Status: CPR: Attempt Resuscitation Betty Roberson DO Oct 14, 2016 19:24 Resuscitation Status: CPR: Attempt Resuscitation Betty Roberson DO Oct 14, 2016 19:24
[2016-10-14] MEDS ORDERED: 0.9% Sodium Chloride 500 ML ONE ×2 (19:49)
[2016-10-15] VITALS (15 sets, daily range): BP systolic 116–202; BP diastolic 41–74; PULSE 45–84; RESP 8–23; O2SAT 97–100
[2016-10-15] MEDS: Heparin 5,000 Unit/mL Inj SUBQ SCH ×3 (01:13→16:14)
[2016-10-15] MEDS: Chlorhexidine 0.12% 15 mL Oral Solution MT SCH ×6 (01:13→20:57)
[2016-10-15] MEDS: Insulin Human REGular 300 Unit/3 mL Inj SUBQ SCH ×4 (02:30→20:30)
[2016-10-15 04:38] LABS: BASOPHILS % (AUTO) 0.3 % (0-3); EOSINOPHILS % (AUTO) 7.4 % (0-5); MONOCYTES % (AUTO) 8.4 % (4-12); Mean Corpuscular Hemoglobin 28.2 pg (27.0-35.0); Mean Corpuscular Volume 88.3 fL (81-100); NEUTROPHILS % (AUTO) 67.8 % (40-74); Platelet Count 127 bil/L (150-400)
[2016-10-15] MEDS: Erythromycin 0.5% 3.5 Gm Ophthalmic Ointment LEFT_EYE SCH ×4 (06:56→20:57)
[2016-10-15] MEDS: Pantoprazole 4 mg/mL 10 mL Inj IVPUSH SCH (08:06)
[2016-10-15] MEDS: Insulin GLARgine 100 Unit/mL Syringe SUBQ SCH (08:07)
--- NOTE | 2016-10-15 08:08 | ABG ---
DateTimeAnalyzed 08:03:00 -_ pH ____7.400 - 7.350 7.450 pCO2 ___38.8__ -mmHg 35.0 45.0 pO2 ___94.5__ -mmHg 69.0 116 HCO3- ___23.5__ -mmol/L 22.0 26.0 ABE ___-0.6__ -mmol/L -2.0 2.0 tHb ____7.6__ -g/dL O2Hb ___95.4__ -% COHb ____1.4__ -% MetHb ____0.8__ -% sO2 ___97.5__ -% 25.0 FIO2 ___40.0__ -% PEEP ____5.0__ -cmH2O Set_RR ___14.0__ -b/min Vt __480.0__ -L Drawn By NB - Date/Time Notified____ 08:08:00 -_ Oxygen Device 1 VENTILATOR - Notified By NB - Notified Whom de [place] - B 768 -mmHg tO2 ___10.3__ -Vol% Alberto test N/A -
--- NOTE | 2016-10-15 09:05 | NUR ---
NUTRITION FOLLOW-UP: ASSESS: 75 YO male admitted to CCU s/p laparotomy and SB resection due to ischemic bowel, 45 inches with primary anastomosis. Pt is currently intubated. SBT's continue, not as well tolerated today as yesterday. Pt receiving D5 and LR, NPO x 4 D status. Spouse reports that his last full meal was Tuesday morning. Prior to that he had been eating normally. Surgery does not want to initiate trophic enteral feeding at this time. TPN initiation was discussed at rounds; however, the decision was made to hold off for several days while POC evolving. Code status: full. PMHX: Alcoholism, Stg 4 CKD, Pneumonia, GI bleed, CHF, T2DM, CVA, HTN, A-fib, EDUARDO / CPAP LABS: Reviewed. BUN 59, Cr 3.94, Ca 8.1, PAB 13. MEDS:Reviewed. Insulin, fentanyl. Propofol rate currently 12.6 ml, providing 333 lipid kcal. 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 SKIN: Bravo 9. There is no wound consult initiated. WT:107.4 kg, BMI: 33.0 kg/m2, Admit Wt: 101.5 kg (BMI: 32.1 kg/m2) DIET: NPO EST. NEEDS: vent, CKD stg 4 (admit wt) Kcals: 2030-2235kcal/day (20-22kcal/kg) Pro: 70-90g/day (1.0-1.2g/kg) Fluid: ~2500cc/day (25cc/kg) NUTRITION DIAGNOSIS: 1) Inadequate oral intake related to decreased ability to consume sufficient energy as evidenced by current NPO status - PERSISTS. NUTRITION INTERVENTION: 1) Recommend consideration of enteral trickle feedings to stimulate blood flow and assist with healing, pending authorization by surgery. 2) Anticipate pt will not be appropriate for enteral nutrition at full rate for many days. Recommend consideration of TPN in next 1-2 days w/ initial macronutrients of 175 g dextrose, 45 g AA, and 10 g lipids. 3) Goal TPN: 350 g dextrose, 85 g AA, and 50 g lipids (2030 kcal and 85 g protein, 100% of est needs) MONITOR / EVAL: NPO / vent status, wt, GI, labs, POC, nutrition status. Will continue to monitor per high nutrition risk guidelines.
--- NOTE | 2016-10-15 09:29 | PCM.PNSURG ---
Subjective Date of Service: Oct 15, 2016 Date of Service: Oct 15, 2016 Visit Information: Reason for Visit: Postop Care POSTOPERATIVE DIAGNOSIS(ES): Acute abdomen, possible small bowel volvulus. PROCEDURE: 10/12/2016 1. Exploratory laparotomy. 2. Small-bowel resection x1 with primary anastomosis Post-Op Day # 3 Date of Admission: Oct 11, 2016 at 22:51 Subjective: The patient is intubated and ventilated undergoing spontaneous breathing trial. , Fawn is at his bedside who is a nursing township supervisor at [employer] Pain Management: IV Push Objective Vital Sign- Last 8 Hours Date Time Temp Pulse Resp B/P Pulse Ox O2 Delivery O2 Flow Rate FiO2 10/15/16 08:24 80 10 185/61 97 40 10/15/16 08:10 42 173/58 100 40 10/15/16 05:12 42 144/46 100 40 10/15/16 04:25 Ventilator 10/15/16 04:23 36.8 73 14 163/57 98 Mechanical Ventilator 40 Intake and Output- Last 8 Hour 10/15/16 Cumulative From/Thru 07:00 10/11/16 18:48 - 10/15/16 05:20 Intake Total 857 ml 6962 ml Output Total 1000 ml 5230 ml Balance -143 ml 1732 ml Intake Oral 0 ml 0 ml IV Total 857 ml 6962 ml Output Urine Total 650 ml 4035 ml Gastric Drainage Total 350 ml 1045 ml Estimated Blood Loss 150 ml # Bowel Movements 0 0 General: Other (opens eyes to name, follows some commands) Lungs: Crackles (basis) Heart: Other (irregular rate) Abdomen: Firm (slightly), Appropriately tender, Distended (slightly) Extremities: Thigh&Calf Soft/Nontender Neuro: Other Catheters: Urethral 2 Way Chin Result Diagram: 10/15/16 0430 10/15/16 0430 Lab & Micro Results: Ventilator settings: PRVC. Tidal volume 480. Respiratory rate 14. FiO2 40%. PEEP 5.0. IV drips and Sedatives: Fentanyl and Propofol IV Lines: Right IJ central line and left radial arterial line. Diagnostics: Ultrasound Abdomen 10/13/16 IMPRESSION: 1. Echogenic liver. Finding typically represents fatty infiltration; however, finding is nonspecific and correlation with clinical and laboratory findings is recommended to exclude other etiologies including hepatic cirrhosis. 2. Nonvisualization of the pancreas, spleen, aorta and iliac vasculature. 3. Otherwise, normal abdominal sonogram CXR 10/14/16 IMPRESSION: No change in dense left lower lung opacification and no change in moderate right basilar airspace opacity. CT Abdomen & Pelvis 10/11/16 IMPRESSION: 1. Constellation of findings suspicious for a closed-loop mid small bowel obstruction, secondary to localized volvulus or internal hernia. Mesenteric fat stranding as well as patchy small bowel wall thickening would be concerning for evolving bowel ischemia. 2. Small right and trace left mobile dependent pleural effusions are of uncertain etiology. 3. 1.4 cm partially exophytic anteromedial right renal cortical lesion is too dense to represent a simple cyst, and may therefore represent complex cyst versus solid mass. When clinically feasible, consider further evaluation with renal ultrasound, or pre- and post-contrast renal protocol CT or MRI to distinguish between these possibilities. Assessment & Plan Impression Impression 75-year-old obese male with diabetes, hypertension, history of stroke, CHF, atrial fibrillation on Coumadin, chronic renal insufficiency, who presented with acute abdominal pain due to infarcted and compromised ischemic bowel from volvulus and internal hernia due to adhesive band. Problems: Plan Plan 1. Acute hypoxic respiratory failure. Intubated early a.m. 10/12/16 for perioperative management. Several attempts today at weaning off of sedation and pressure support trials have not been successful. The patient continues to be on IV propofol and fentanyl. Continue with spontaneous breathing trials per pulmonary critical care - Vent settings: FiO2 40% (desat 85-89% on 30%), PEEP 5, Vt 480 - History of Sleep apnea and uses CPAP at home - Hypertensive during SBT SBP's 205 2. 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 Status post removal of approximately 45 inches of mid small bowel with primary anastomosis. Surgical stable at this point - Nothing by mouth while intubated and until bowel function returns - NG 225 ml bilious output 3. Postop hypotension. Required Phenylephrine but has been discontinued. 4. Chronic kidney disease, stage IV. Currently not on hemodialysis but has dialysis access right upper arm - Urinary output 1600 ml/24 (66ml/hr) Weight 107.4 Kg - BUN/Creatinine trending down 67 - 59 and 4.05 - 3.94 5. Acute on chronic anemia Admit hematocrit 36.5 treated with home medication ferrous sulfate 325 mg 3 times a day Current hematocrit 24.1. Transfused 1 unit packed red blood cells 10/13/16 6. Diabetes mellitus type II. Insulin-dependent. - HGBA1c pending - Glargine and regular insulin ordered - Blood sugars 72-82-105 7. Chronic diastolic heart failure. BNP on admit 4360 Preserved EF. Home med Lasix and potassium 8. History of atrial fibrillation, chronic, present on admission. Been on warfarin therapy as an outpatient. This is currently on hold Current INR 1.46 9. Hypertension, chronic, present on admission - Preop meds Hydralazine 50 mg 3 times a day Metoprolol 12.5 mg 2 times a day Isosorbide 30 mg a day 10. DVT prophylaxis - heparin 5000 unit subcutaneous every 8 hours Pain Management: IV propofol and fentanyl VTE Prophylaxis: Sub-Q Heparin (Unfractionated) Resuscitation Status: CPR: Attempt Resuscitation Kate Hugo PA-C Oct 15, 2016 09:29
[2016-10-15] MEDS: Propofol Inj 1,000,000 MCG in IV Premix 1 EACH IV SCH ×2 (10:01→17:08)
--- NOTE | 2016-10-15 10:41 | DRSVH ---
PROCEDURE: X-RAY CHEST ONE VIEW, PORTABLE ([id number]) INDICATIONS: f/u LLL infiltrate TECHNIQUE: One view of the chest was acquired. COMPARISON: [facility], CR, CHEST 2VW, 10/18/2014, 11:04. [facility], CR, X R CHEST 1VW (PORTABLE), 10/14/2016, 6:07. FINDINGS: Surgical changes and devices: Endotracheal tube enteric tube and right internal jugular central venou s catheter grossly unchanged. Lungs and pleura: Redemonstration of dense retrocardiac and left basilar consolidation, cannot exclu de small left pleural effusion. There is also increasing hazy opacity with the right lung base since yesterday which could reflect increasing atelectasis versus layering pleural fluid Mediastinum: Cardiac silhouette and mediastinal contours are stable. Bones and chest wall: No suspicious bony lesions. Overlying soft tissues appear unremarkable. IMPRESSION: Persistent dense left basilar and retrocardiac consolidation. No interval change Mildly progressive hazy opacity within the right lung base suggesting mildly increased layering right pleural effusion and adjacent atelectasis. Stable support equipment. Dictated by: Madi Hou M.D. on 10/15/2016 at 10:39 Approved by: Madi Hou M.D. on 10/15/2016 at 10:39
[2016-10-15] MEDS: Dextrose 5% Lactated Ringer's 1,000 ML IV SCH (10:54)
[2016-10-15] MEDS ORDERED: Furosemide 10 mg/mL 4 mL Inj IVPUSH ONE (11:10)
--- NOTE | 2016-10-15 11:14 | PCM.PNMED ---
Subjective Date of Service Oct 15, 2016 Subjective Pulmonary critical care note: Problems: Acute hypoxic respiratory failure. Intubated early a.m. 10/12/16 for perioperative management. 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 Status post removal of approximately 45 inches of mid small bowel with primary anastomosis. Sleep apnea on CPAP AG Metabolic acidosis (improved) with a primary respiratory alkalosis. Heart failure with preserved ejection fraction Diabetes mellitus type II Atrial fibrillation Chronic kidney disease, stage IV Subjective: Patient did well overnight without any acute problems. He continues to be sedated on the ventilator. ROS not obtainable Exam Vital Signs Vital Sign - Last Date Time Temp Pulse Resp B/P Pulse Ox O2 Delivery O2 Flow Rate FiO2 10/15/16 08:30 Ventilator 10/15/16 08:30 36.6 84 14 202/65 100 40 10/14/16 12:30 2.00 Intake and Output 10/14/16 10/14/16 10/15/16 Cumulative From/Thru 15:00 23:00 07:00 10/11/16 18:48 - 10/15/16 05:20 Intake Total 852 ml 857 ml 6962 ml Output Total 1050 ml 1000 ml 5230 ml Balance -198 ml -143 ml 1732 ml Intake Oral 0 ml 0 ml IV Total 852 ml 857 ml 6962 ml Output Urine Total 850 ml 650 ml 4035 ml Gastric Drainage Total 200 ml 350 ml 1045 ml Estimated Blood Loss 150 ml # Bowel Movements 0 0 Exam Gen.: Obese gentleman lying in hospital bed, intubated, sedated. He appears to be in no acute distress. HEENT: Pupils are equal and reactive to light on R (L is postsurg and has gel in place), mucous membranes are moist, ET tube and OG tube in place. OG tube suctioning bilious appearing fluid. Chest: Clear bilaterally with decreased breath sounds in the L base. Cardiovascular: Bradycardic rate and rhythm, normal S1 and S2, no appreciable murmur. Radial pulses are 2+ bilaterally as are posterior tibials. Abdomen: Soft, I do not appreciate bowel sounds, there is an approximately 30 cm vertical surgical incision that is well approximated and the midabdomen with the superior portion almost to the level of the xiphoid process. Extremities: no edema, there is a right upper extremity AV fistula with good thrill. Lines: Right IJ for central venous access, Chin catheter, and left radial arterial line. Vent settings: PEEP 5, FiO2 0.40, respiratory rate 14, tidal volume 480 mL. Peaks and plateaus are about equal at 21/19. Measured PEEP equal to set PEEP. IVs and Medications IV Fluids D5LR at 50cc/hr Medications Reviewed: Medications were reviewed in detail Medications Propofol 20 Fentanyl 100 Lab and Diagnostics Result Diagram: 10/15/16 04310/15/16 0430 Microbiology Micro: Blood cultures drawn 10/11/16 negative to date. Sputum culture performed (Shows few polys, few epithelial cells, few mixed normal cleo.). MRSA screen is negative. X-Rays, CTs and MRIs CXR today shows no change in LLL questionable opacity. Additional Diagnostics DateTimeAnalyzed 08:03:00 -_ pH ____7.400 - 7.350 7.450 pCO2 ___38.8__ -mmHg 35.0 45.0 pO2 ___94.5__ -mmHg 69.0 116 HCO3- ___23.5__ -mmol/L 22.0 26.0 sO2 ___97.5__ -% Assessment & Plan Assessment: 1. Acute hypoxic respiratory failure. Intubated early a.m. 10/12/16 for perioperative management. Did fairly well yesterday on 02/04 pressure support ( approx 1.5hr pulling approx 500cc) until a coughing fit increased agitation and BP. That trial was initiated following a 10mg dose of IV Hydralazine (one the patient's home BP medications). SBT attempted this AM, but stopped due to increased SBP >200. This test was not performed with pre-test Hydralazine. Sedation vacation and pressure support trial will be attempted again this afternoon following dose of Hydralazine. This difficulty is likely secondary to the patient's major abdominal surgery with significant ventral abdominal incision coming close to the level of the diaphragm. We will continue appropriate pain control and follow-up with surgery regarding postop management of the surgical incision and abdomen. This will be complicated somewhat by his underlying sleep apnea. However, that should not affect our immediate goals of pain and ventilator management. Certainly we want to keep an eye on him and optimize his ventilator settings to avoid any pulmonary infectious process such as pneumonia. So far, no indication of acute infection. 2. 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 Status post removal of approximately 45 inches of mid small bowel with primary anastomosis. His lactic acids had normalized, and we will not continue to follow them at this time. However, there is the possibility that given the ischemic nature of his bowel at the time of presentation, he could have some degree of peritonitis. We will watch this closely (especially for any signs of developing infection). Please note, he received cefazolin as part of his perioperative management, but no further antimicrobial intervention. Intraabdominal pressures of 13 and 15 ( there is some indication that his intra-abdominal pressures will be chronically elevated secondary to his obesity). 3. AG Metabolic acidosis has improved with the gap closing. This morning's ABG demonstrated resolution of a primary respiratory alkalosis previously noted. The metabolic acidosis was likely secondary to the bowel ischemia with elevated lactic acid and a very likely strong contribution from his chronic kidney failure. Will continue to follow AM ABG from the arterial line. 3. Sleep apnea on CPAP. Family brought in his CPAP. There is a high possibility that if/when he is extubated he will need some time on BiPAP, but this remains to be seen. 4. Heart failure with preserved ejection fraction. He is currently on D5LR at 50 mL an hour. We will need to proceed cautiously as he has this underlying heart failure and has chronic kidney disease, so fluid status may become an issue. We discussed with the primary hospitalist team consulting nephrology for ongoing inpatient management of this complicated patient. 5. Postop hypotension, resolved. He remains on IV fluid as noted above in #4. We will continue to monitor with arterial line. He has actually been hypertensive. Will initiate Clonidine patch, and will start with Hydralazine this afternoon before SBT. Will consider continuing Hydralazine (as we cannot yet use the gut per surgery) scheduled for BP control. 6. Bradycardia, chronic. reports that his baseline HR is approx 30-40's. Will continue to monitor on tele. Hydralazine side effect is potential reflex tachycardia, so we may see some of that effect as noted in #5. Plan: -Continue on mechanical ventilation with focus on optimizing settings for patient comfort given his postop abdomen. Will reassess today regarding sedation vacation and pressure support trial. -Pain management with IV fentanyl, and sedation with IV propofol -We will follow closely his labs and vital signs for any indication of active infection. If this becomes a concern, would be reasonable to initiate empiric broad-spectrum antibiotics given his abdominal presentation. -Will start Clonidine patch 0.1mg to be changed every week. -Will consider Nitro ggt tomorrow if needed to control BP -Until we have the OK to proceed with PO administration, we will hold his other home medications. -Check ABG in the morning -Chest x-ray in the morning to follow that LLL infiltrate (no indication of mucus plugging - RT performed saline mini-BAL via the ETT 10/14/16 without concerning appearance of lavage fluid). -Checked with surgery regarding anything enteral (Relistor and tube feeds/ trickle), and it was decided that would not be appropriate at this time. GI prophylaxis with IV Protonix. DVT prophylaxis with subcutaneous heparin. Patient is full code. Critical care time spent: 30 minutes. Attending Statement The patient was seen and examined together with Dr. Hanson on 10/15/2016 and I agree with the history, exam and plan as outlined in the note above. Baldomero Hanson DO Oct 15, 2016 11:14 Sid Rueda MD Nov 03, 2016 17:44
--- NOTE | 2016-10-15 11:18 | PCM.PNMED ---
Subjective Date of Service Oct 15, 2016 Subjective weaning trial attempted. UOP relatively adequate. pt is able to follow simple commands. family at bedside. Exam Vital Signs Vital Sign - Last Date Time Temp Pulse Resp B/P Pulse Ox O2 Delivery O2 Flow Rate FiO2 10/15/16 08:30 Ventilator 10/15/16 08:30 36.6 84 14 202/65 100 40 10/14/16 12:30 2.00 Intake and Output 10/14/16 10/14/16 10/15/16 Cumulative From/Thru 15:00 23:00 07:00 10/11/16 18:48 - 10/15/16 05:20 Intake Total 852 ml 857 ml 6962 ml Output Total 1050 ml 1000 ml 5230 ml Balance -198 ml -143 ml 1732 ml Intake Oral 0 ml 0 ml IV Total 852 ml 857 ml 6962 ml Output Urine Total 850 ml 650 ml 4035 ml Gastric Drainage Total 200 ml 350 ml 1045 ml Estimated Blood Loss 150 ml # Bowel Movements 0 0 Exam General: Older male lying in bed and in no acute distress, intubated and sedated. HEENT: Normocephalic, atraumatic. External ears without defect. Pupils equal, round, and reactive to light. Anicteric sclerae. Scleral edema. ET tube and OG tube in place Neck: Supple with full range of motion. No jugular venous distension. No bruits. No lymphadenopathy or thyromegaly. Cardiovascular: Regular rate and rhythm with no murmurs, rubs, or gallops appreciated Pulmonary: Clear to auscultation bilaterally with no crackles, wheezes, or rhonchi. Normal respiratory effort with no use of accessory muscles. Abdomen: Soft, moderately distended and firm, decreased BS. Extremities: No clubbing, cyanosis, or edema, right AVF with good thrill. Lab and Diagnostics Result Diagram: 10/15/16 04310/15/16 043 Microbiology Blood cultures 2 shows no growth after 2 days. MRSA screen negative. Sputum culture pending. . X-Rays, CTs and MRIs X-RAY CHEST ONE VIEW, PORTABLE IMPRESSION: No change in bibasilar pneumonia. Continued plain film surveillance is recommended to ensure resolution, and to exclude underlying or central malignancy. Dictated by: Roslyn Velasco M.D. on 10/14/2016 at 8:55 Approved by: Roslyn Velasco M.D. on 10/14/2016 at 8:55 US ABDOMEN IMPRESSION: 1. Echogenic liver. Finding typically represents fatty infiltration; however, finding is nonspecific and correlation with clinical and laboratory findings is recommended to exclude other etiologies including hepatic cirrhosis. 2. Nonvisualization of the pancreas, spleen, aorta and iliac vasculature. 3. Otherwise, normal abdominal sonogram. Dictated by: Tasha Barrera MD, PhD on 10/13/2016 at 9:12 Approved by: Tasha Barrera MD, PhD on 10/13/2016 at 9:12 . Assessment & Plan Farooq Gonzales is a 75-year-old man with diabetes, kidney disease, coronary artery disease, diastolic CHF and hypertension presented with acute abdominal pain. Now status post laparotomy with diagnosis of ischemic bowel. 1. Acute kidney injury on chronic kidney disease, stage 4. The etiology of acute kidney injury is due to sepsis and acute tubular necrosis. 2. Resolved hyperkalemia. 3. Resolved metabolic acidosis. 4. Acute hypoxic respiratory failure. 5. 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 6. History of chronic diastolic heart failure. 7. Sleep apnea. 8. 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 9. History of hypertension with hypertensive nephrosclerosis. plan: - Continue only supportive treatment with IV fluids currently on lactated Ringer 's 50 mL/hour. - Does not require RECEPTION CLERK at this moment. - Continue to monitor renal function and volume status on a daily basis. - Avoid nephrotoxins and adjust medication according to GFR. - Lasix 40 mg IV PRN if urine output < 0.5 mL/kg/hr. VTE Prophylaxis: Sub-Q Heparin (Unfractionated) VTE Mechanical Devices: Intermittant Pneumatic CD Resuscitation Status: CPR: Attempt Resuscitation Jon Bejarano MD Oct 15, 2016 11:15
--- NOTE | 2016-10-15 14:55 | NUR ---
P: Alteration in respiratory Status I: Pt sedation decreased very slowly down to propofol 5 mcqs/kg/min and fentanyl down to 50 mcqs/hr. Clonidine patch on. Pt placed on PST but pt is not breathing without stimuli. Pt more awake but Bp creeping up to 194. Dr. Rueda at bedside and second PST dc'd and pt placed back on PRVC with sedation increased to fentanyl 100mcqs/hr and propofol 20 mcqs/kg/min. Pt SBP 124 at this time. NSR/SB with first degree heart block; with occasional PAC's/ CVP 14. OGT patent but pt coughed some bright green color in his ETT. OGT flushed with 30cc of H2O and 300cc immediate OGT output. At this time pt has 700cc out of his OGT for this shift. Trickle feed held per Dr. Rueda. Family at bedside. updated on pt's condition and plan of care. Turned q 2 hours. Left arterial line patent with good waveform. D5LR at 50cc/hr with blood sugars stable. Chin patent and draining light anton urine. Abdominal incision intact and healing well. Pt does reach for tubes and lines. On sedation pt can shake his head yes and no appropriately and can follow commands. E: Stable S: Restraints on for pt safety. Frequent rounding. Family at bedside.
--- NOTE | 2016-10-15 15:39 | PCM.PNMED ---
Subjective Date of Service Oct 15, 2016 Subjective 75-year-old man with diabetes, kidney disease, coronary artery disease, diastolic CHF and hypertension presented with acute abdominal pain. Now status post laparotomy with diagnosis of ischemic bowel. Intubated and sedated with propofol and fentanyl. Blood pressure and agitation have been problems limiting sedation vacation. Now on FiO2 0.4 with PEEP 5 this AM. Exam Vital Signs Vital Sign - Last Date Time Temp Pulse Resp B/P Pulse Ox O2 Delivery O2 Flow Rate FiO2 10/15/16 14:57 42 168/58 100 40 10/15/16 13:26 8 10/15/16 12:30 36.7 Mechanical Ventilator 10/14/16 12:30 2.00 Intake and Output 10/14/16 10/14/16 10/15/16 Cumulative From/Thru 15:00 23:00 07:00 10/11/16 18:48 - 10/15/16 05:20 Intake Total 852 ml 857 ml 6962 ml Output Total 1050 ml 1000 ml 5230 ml Balance -198 ml -143 ml 1732 ml Intake Oral 0 ml 0 ml IV Total 852 ml 857 ml 6962 ml Output Urine Total 850 ml 650 ml 4035 ml Gastric Drainage Total 200 ml 350 ml 1045 ml Estimated Blood Loss 150 ml # Bowel Movements 0 0 Exam General: Elderly man, sedated HEENT: sclerae anicteric Neck: Difficult to assess JVD Chest: Few rhonchi but generally clear, right-sided CVC Cardiac: S1S2, no murmur Abdomen: BS reduced, non-tender, ; Chin catheter present Extremities: No edema Neuro: No response to verbal stim, face appears symmetric, Motor tone is symmetric IVs and Medications Medications Reviewed: Medications were reviewed in detail Lab and Diagnostics Result Diagram: 10/15/1642910/15/16 043 Microbiology Blood cultures 2 shows no growth after 2 days. MRSA screen negative. Sputum culture pending. . X-Rays, CTs and MRIs X-RAY CHEST ONE VIEW, PORTABLE IMPRESSION: No change in bibasilar pneumonia. Continued plain film surveillance is recommended to ensure resolution, and to exclude underlying or central malignancy. Dictated by: Roslyn Velasco M.D. on 10/14/2016 at 8:55 Approved by: Roslyn Velasco M.D. on 10/14/2016 at 8:55 US ABDOMEN IMPRESSION: 1. Echogenic liver. Finding typically represents fatty infiltration; however, finding is nonspecific and correlation with clinical and laboratory findings is recommended to exclude other etiologies including hepatic cirrhosis. 2. Nonvisualization of the pancreas, spleen, aorta and iliac vasculature. 3. Otherwise, normal abdominal sonogram. Dictated by: Tasha Barrera MD, PhD on 10/13/2016 at 9:12 Approved by: Tasha Barrera MD, PhD on 10/13/2016 at 9:12 . Additional Diagnostics DateTimeAnalyzed 08:03:00 -_ pH ____7.400 - 7.350 7.450 pCO2 ___38.8__ -mmHg 35.0 45.0 pO2 ___94.5__ -mmHg 69.0 116 HCO3- ___23.5__ -mmol/L 22.0 26.0 sO2 ___97.5__ -% Assessment & Plan Acute active and high-risk problems: 1. Acute hypoxic respiratory failure. Intubated early a.m. 10/12/16 for perioperative management. Several attempts at weaning off of sedation and pressure support trials have not been successful. This difficulty is likely secondary to the patient's major abdominal surgery with significant ventral abdominal incision coming close to the level of the diaphragm. - Optimize his ventilator settings; continuing propofol and fentanyl for sedative management at present. - Sedation vacation and pressure support trial will be attempted again today. - We will continue pain control and follow-up with surgery regarding postop management of the surgical incision and abdomen, but may need to wean analgesics somewhat in order to extubate. 2. 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 Status post removal of approximately 45 inches of mid small bowel with primary anastomosis. He received cefazolin as part of his perioperative management. Intraabdominal pressures of 13 and 15 (there is some indication that his intra- abdominal pressures will be chronically elevated secondary to his obesity). - Surgery consult to advise on postoperative abdominal management - Fentanyl and when necessary hydromorphone for pain 3. AG Metabolic acidosis has improved with the gap closing. Metabolic acidosis was likely secondary to the bowel ischemia with elevated lactic acid and a very likely strong contribution from his chronic kidney failure. - We will repeat an ABG, and follow metabolic labs. 4. Heart failure with preserved ejection fraction. He is currently on D5LR at 50 mL an hour. - Continue minimal maintenance IV fluid strategy 5. Hypertension. Symptoms worsened by postoperative pain, ileus and possibly ventilator agitation. - Clonidine and IV hydralazine as needed Stable, resolved and or chronic problems: # Atrial fibrillation on anticoagulation with warfarin - currently reversed, no bridging; resume warfarin when clinically stable # Type II diabetes mellitus # CK disease stage IV with baseline serum creatinine 3.3 - 3.9. # Bradycardia, chronic. reports that his baseline HR is approx 40's. Will continue to monitor on tele # Postop hypotension, resolved # Sleep apnea on CPAP. Family has his CPAP. Currently intubated. VTE Prophylaxis: Sub-Q Heparin (Unfractionated) VTE Mechanical Devices: Intermittant Pneumatic CD Resuscitation Status: CPR: Attempt Resuscitation Time spent 35 minutes Maico Landaverde MD Oct 15, 2016 15:39
[2016-10-15] MEDS: fentaNYL 2,500 mCg/250 mL 2,500 MCG in IV Premix 1 EACH IV PRN (20:13)
[2016-10-16] VITALS (13 sets, daily range): BP systolic 148–207; BP diastolic 50–85; PULSE 68–95; RESP 10–24; O2SAT 98–100
[2016-10-16] MEDS: Chlorhexidine 0.12% 15 mL Oral Solution MT SCH ×6 (00:28→19:59)
[2016-10-16] MEDS: Heparin 5,000 Unit/mL Inj SUBQ SCH ×3 (00:29→16:07)
[2016-10-16] MEDS: Propofol Inj 1,000,000 MCG in IV Premix 1 EACH IV SCH (02:03)
[2016-10-16] MEDS: Insulin Human REGular 300 Unit/3 mL Inj SUBQ SCH ×4 (02:30→19:59)
--- NOTE | 2016-10-16 04:40 | ABG ---
DateTimeAnalyzed 04:34:00 -_ pH ____7.376 - 7.350 7.450 pCO2 ___40.4__ -mmHg 35.0 45.0 pO2 ___94.3__ -mmHg 69.0 116 HCO3- ___23.1__ -mmol/L 22.0 26.0 ABE ___-1.4__ -mmol/L -2.0 2.0 tHb ____7.9__ -g/dL O2Hb ___95.7__ -% COHb ____1.3__ -% MetHb ____0.9__ -% sO2 ___97.9__ -% 25.0 FIO2 ___40.0__ -% PEEP ____5.0__ -cmH2O Set_RR ___14.0__ -b/min Vt __480.0__ -L Drawn By MK - Date/Time Notified____ 04:39:00 -_ Oxygen Device 1 VENTILATOR - Notified By MK - B 768 -mmHg tO2 ___10.7__ -Vol% Alberto test N/A -
[2016-10-16 05:31] LABS: BASOPHILS % (AUTO) 0.2 % (0-3); EOSINOPHILS % (AUTO) 5.1 % (0-5); MONOCYTES % (AUTO) 9.3 % (4-12); Mean Corpuscular Hemoglobin 27.3 pg (27.0-35.0); Mean Corpuscular Volume 88.7 fL (81-100); NEUTROPHILS % (AUTO) 72.2 % (40-74); Platelet Count 130 bil/L (150-400)
[2016-10-16] MEDS: Erythromycin 0.5% 3.5 Gm Ophthalmic Ointment LEFT_EYE SCH ×4 (06:38→20:36)
[2016-10-16] MEDS: Dextrose 5% Lactated Ringer's 1,000 ML IV SCH (06:43)
--- NOTE | 2016-10-16 07:27 | PCM.PNSURG ---
Subjective Visit Information: Reason for Visit Acute Abdomin Surgery/Surgery Date Post-Op Day # Date of Admission: Oct 11, 2016 at 22:51 Hospital Day # Subjective: still intubated, OG --> 350 cc recorded, less sedation being given Objective Objective Intubated, eyes open Abd: soft, incision clean, no erythema Vital Sign- Last 8 Hours Date Time Temp Pulse Resp B/P Pulse Ox O2 Delivery O2 Flow Rate FiO2 10/16/16 04:43 92 207/71 100 40 10/16/16 04:30 Ventilator 10/16/16 04:30 36.9 68 24 168/57 99 Mechanical Ventilator 40 10/16/16 00:30 Ventilator 10/16/16 00:30 37.2 91 20 189/69 98 Mechanical Ventilator 40 10/16/16 00:07 79 187/69 99 40 Intake and Output- Last 8 Hour 10/16/16 Cumulative From/Thru 07:00 10/11/16 18:48 - 10/16/16 06:39 Intake Total 892 ml 8710 ml Output Total 1300 ml 7555 ml Balance -408 ml 1155 ml Intake Oral 0 ml IV Total 892 ml 8710 ml Output Urine Total 950 ml 5635 ml Gastric Drainage Total 350 ml 1770 ml Estimated Blood Loss 150 ml # Bowel Movements 0 0 Result Diagram: 10/16/16 0520 10/16/16 0520 Assessment & Plan Impression POD #4/5 s/p SB resection DM HTN Chronic renal failure A fib on coumadin (held) Problems: Plan Wean to extubate if possible Await bowel function return Need to consider nutrition support soon, trickle feed vs. TPN Discussed with hospitalist VTE Prophylaxis: Sub-Q Heparin (Unfractionated) Resuscitation Status: CPR: Attempt Resuscitation Dada Rosales MD Oct 16, 2016 07:27
[2016-10-16] MEDS: Pantoprazole 4 mg/mL 10 mL Inj IVPUSH SCH (08:06)
[2016-10-16] MEDS: Insulin GLARgine 100 Unit/mL Syringe SUBQ SCH (08:07)
[2016-10-16] MEDS: Labetalol 5 mg/mL 4 mL Inj IVPUSH PRN ×4 (08:15→22:42)
[2016-10-16] MEDS: Dextrose 5% 1,000 ML IV SCH (10:24)
--- NOTE | 2016-10-16 12:32 | NUR ---
NUTRITION FOLLOW-UP: ASSESS: 75 YO male admitted to CCU s/p laparotomy and SB resection due to ischemic bowel, 45 inches with primary anastomosis. Pt remains intubated. Pt placed on PST this morning but is not breathing without stimuli. Pt more awake but Bp increasing to 194. Second PST dc'd, and pt placed back on PRVC with sedation increased to fentanyl 100mcqs/hr and propofol 20 mcqs/kg/min. Pt SBP 124 at this time. NSR/SB with first degree heart block; with occasional PAC's/ CVP 14. OGT patent but pt coughed some bright green color in his ETT. OGT flushed with 30cc of H2O and 300cc immediate OGT output. At this time pt has 700cc out of his OGT for this shift. Patient not appropriate for trophic enteral feeding at this time, per Dr. Rueda. Code status: full. PMHX: Alcoholism, Stg 4 CKD, Pneumonia, GI bleed, CHF, T2DM, CVA, HTN, A-fib, EDUARDO / CPAP LABS: Reviewed. Na 146, BUN 52, Cr 3.74, Glu 107, Ca 8.3, PAB 13. MEDS:Reviewed. Insulin, fentanyl. Propofol rate increased to 12.6 ml, providing 333 lipid kcal. 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 Gastric drainage 725 ml yesterday. SKIN: Bravo 15. There is no wound consult initiated. WT:107.4 kg, BMI: 33.0 kg/m2, Admit Wt: 101.5 kg (BMI: 32.1 kg/m2) DIET: NPO EST. NEEDS: vent, CKD stg 4 (admit wt) Kcals: 2030-2235kcal/day (20-22kcal/kg) Pro: 70-90g/day (1.0-1.2g/kg) Fluid: ~2500cc/day (25cc/kg) NUTRITION DIAGNOSIS: 1) Inadequate oral intake related to decreased ability to consume sufficient energy as evidenced by current NPO status - PERSISTS. NUTRITION INTERVENTION: 1) Recommend consideration of enteral trickle feedings to stimulate blood flow and assist with healing, pending authorization by surgery. Recommendation is for Nepro renal formula for patient with stage IV renal disease. Recommend initiate at 10 ml/hr x 24 hr when appropriate. Once tolerance established, recommend advance 5 ml every 4 hr. to goal rate 45 ml/hr, which would provide 1782 kcal (2115 kcal with propofol at current rate), 80 g protein, sufficient to meet 100% nutrient needs. 2) Anticipate pt will not be appropriate for enteral nutrition at full rate for many days. Recommend consideration of TPN in next 1-2 days w/ initial macronutrients of 175 g dextrose, 45 g AA, and 10 g lipids. 3) Goal TPN: 350 g dextrose, 85 g AA, and 50 g lipids (2030 kcal and 85 g protein, 100% of est needs) MONITOR / EVAL: NPO / vent status, wt, GI, labs, POC, nutrition status. Will continue to monitor per high nutrition risk guidelines.
--- NOTE | 2016-10-16 12:37 | PCM.PNMED ---
Subjective Date of Service Oct 16, 2016 Subjective on low dose sedation. awake, follow commands, on weaning trial. Exam Vital Signs Vital Sign - Last Date Time Temp Pulse Resp B/P Pulse Ox O2 Delivery O2 Flow Rate FiO2 10/16/16 12:00 37.0 78 14 148/50 98 Mechanical Ventilator 40 10/14/16 12:30 2.00 Intake and Output 10/15/16 10/15/16 10/16/16 Cumulative From/Thru 15:00 23:00 07:00 10/11/16 18:48 - 10/16/16 06:39 Intake Total 856 ml 892 ml 8710 ml Output Total 1025 ml 1300 ml 7555 ml Balance -169 ml -408 ml 1155 ml Intake Oral 0 ml IV Total 856 ml 892 ml 8710 ml Output Urine Total 650 ml 950 ml 5635 ml Gastric Drainage Total 375 ml 350 ml 1770 ml Estimated Blood Loss 150 ml # Bowel Movements 0 0 Exam General: intubated, follow commands, awake. HEENT: Normocephalic, atraumatic. External ears without defect. Pupils equal, round, and reactive to light. Anicteric sclerae. Scleral edema. ET tube and OG tube in place Neck: Supple with full range of motion. No jugular venous distension. No bruits. No lymphadenopathy or thyromegaly. Cardiovascular: Regular rate and rhythm with no murmurs, rubs, or gallops appreciated Pulmonary: Clear to auscultation bilaterally with no crackles, wheezes, or rhonchi. Normal respiratory effort with no use of accessory muscles. Abdomen: Soft, moderately distended and firm, decreased BS. Extremities: No clubbing, cyanosis, or edema, right AVF with good thrill. Lab and Diagnostics Result Diagram: 10/16/16 0520 10/16/16 0520 Microbiology Blood cultures 2 shows no growth after 2 days. MRSA screen negative. Sputum culture pending. . X-Rays, CTs and MRIs X-RAY CHEST ONE VIEW, PORTABLE IMPRESSION: No change in bibasilar pneumonia. Continued plain film surveillance is recommended to ensure resolution, and to exclude underlying or central malignancy. Dictated by: Roslyn Velasco M.D. on 10/14/2016 at 8:55 Approved by: Roslyn Velasco M.D. on 10/14/2016 at 8:55 US ABDOMEN IMPRESSION: 1. Echogenic liver. Finding typically represents fatty infiltration; however, finding is nonspecific and correlation with clinical and laboratory findings is recommended to exclude other etiologies including hepatic cirrhosis. 2. Nonvisualization of the pancreas, spleen, aorta and iliac vasculature. 3. Otherwise, normal abdominal sonogram. Dictated by: Tasha Barrera MD, PhD on 10/13/2016 at 9:12 Approved by: Tasha Barrera MD, PhD on 10/13/2016 at 9:12 . Additional Diagnostics DateTimeAnalyzed 08:03:00 -_ pH ____7.400 - 7.350 7.450 pCO2 ___38.8__ -mmHg 35.0 45.0 pO2 ___94.5__ -mmHg 69.0 116 HCO3- ___23.5__ -mmol/L 22.0 26.0 sO2 ___97.5__ -% Assessment & Plan Farooq Gonzales is a 75-year-old man with diabetes, kidney disease, coronary artery disease, diastolic CHF and hypertension presented with acute abdominal pain. Now status post laparotomy with diagnosis of ischemic bowel. 1. Acute kidney injury on chronic kidney disease, stage 4. The etiology of acute kidney injury is due to sepsis and acute tubular necrosis. 2. Hypernatremia. 3. Acute hypoxic respiratory failure. 4. 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 5. History of chronic diastolic heart failure. 6. Sleep apnea. 7. 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 8. History of hypertension with hypertensive nephrosclerosis. plan: - start d5w 60 m/hr. - monitor UOP, give lasix as needed to keep I&O balanced. - no urgent renal replacement therapy indicated. - will follow along. VTE Prophylaxis: Sub-Q Heparin (Unfractionated) VTE Mechanical Devices: Intermittant Pneumatic CD Resuscitation Status: CPR: Attempt Resuscitation Jon Bejarano MD Oct 16, 2016 12:37
--- NOTE | 2016-10-16 12:40 | PROG NOTE ---
[address] [address] PROGRESS NOTE PATIENT: VLAD VARGAS : 1940 MR#: [id number] ADMIT: 10/11/2016 JOB ID: [id number] DATE: 10/16/2016 PULMONARY FOLLOWUP NOTE: PROBLEMS: 1. Acute respiratory failure. 2. Status post resection of necrotic bowel due to volvulus. 3. Obesity. 4. Bradycardia. 5. Hypertension. 6. Diabetes mellitus. 7. Chronic kidney disease, stage 4. 8. Atrial fibrillation. 9. Sleep apnea. SUBJECTIVE: Minimal abdominal pain. Breathing comfortably. Anxious to have the tube out. OBJECTIVE: Temperature 37, pulse 88, blood pressure 194/63, O2 sat on FiO2 of 40% is 98%. General appearance: A bit lethargic but remains awake during interaction. Nods appropriately. Reminds that he is anxious to get the endotracheal tube out. Chest shows fairly good breath sounds bilaterally. Diminished at the left lower lung field. Otherwise, a few scattered crackles. Heart: Irregular rhythm. Heart tones normal. Abdomen soft. Quiet. The patient just completing 90-minute pressure support trial. White cell count is 4500 with 72 polymorphonuclears, 13 lymphocytes, 9 monocytes, 5 eosinophils. Hemoglobin 7.7 and stable. Platelet count 130,000 and stable. Sodium 146, potassium 4, chloride 108, CO2 is 23, BUN 52 with a creatinine 3.7, calcium is 8.3. Albumin of 2.8. Transaminases normal. Arterial blood gases on an FiO2 of 40%, PEEP of 5, rate of 14, tidal volume of 480 shows a pO2 of 94, pCO2 of 40, pH 7.37. ASSESSMENT: Acute hypoxemic respiratory failure. Major impediment to extubation has been cardiac with episodes of significant hypertension when awake and bradycardia when sedated with rates as low as in the high 30s. In addition, his medications have been curtailed by the absence of good gastrointestinal function. With the decrease in sedation, however, his pulse was increased, and he was able to tolerate 10 mg of labetalol. Tolerating the withdrawal of sedatives fairly well. Currently not agitated on fentanyl 50 and propofol being used on a p.r.n. basis. A check for air leak was positive with leak around the tube. The patient has completed an hour and a half of pressure support trial. Did fairly well. Will assess the entire situation regarding extubation. Notify Anesthesia for their assistance in extubation, given that this is a Tuesday and personnel limited. Will try to dove tail extubation with Anesthesia availability while we concentrate on optimizing his status now. We will return him to the ventilator and sedate him with propofol while we figure this out. Hopefully, in another hour or two he can be extubated. Situation discussed with his . I spoke with Anesthesia who quite graciously will assist in airway management.
--- NOTE | 2016-10-16 12:54 | PCM.PNMED ---
Subjective Date of Service Oct 16, 2016 Subjective 75-year-old man with diabetes, kidney disease, coronary artery disease, diastolic CHF and hypertension presented with acute abdominal pain. Now status post laparotomy with diagnosis of ischemic bowel. Intubated and sedated. Now on FiO2 0.4 with PEEP 5. He tolerated reduce sedation last night, but still experiences hypertension and agitation. Exam Vital Signs Vital Sign - Last Date Time Temp Pulse Resp B/P Pulse Ox O2 Delivery O2 Flow Rate FiO2 10/16/16 12:00 37.0 78 14 148/50 98 Mechanical Ventilator 40 10/14/16 12:30 2.00 Intake and Output 10/15/16 10/15/16 10/16/16 Cumulative From/Thru 15:00 23:00 07:00 10/11/16 18:48 - 10/16/16 06:39 Intake Total 856 ml 892 ml 8710 ml Output Total 1025 ml 1300 ml 7555 ml Balance -169 ml -408 ml 1155 ml Intake Oral 0 ml IV Total 856 ml 892 ml 8710 ml Output Urine Total 650 ml 950 ml 5635 ml Gastric Drainage Total 375 ml 350 ml 1770 ml Estimated Blood Loss 150 ml # Bowel Movements 0 0 Exam General: Elderly man, Responding to Voice with Gestures HEENT: sclerae anicteric Neck: right-sided CVC; supple Chest: Few rhonchi but generally clear, Cardiac: S1S2, no murmur Abdomen: BS sent today, non-tender ; Chin catheter present Extremities: No edema Neuro: response to verbal stim, face appears symmetric, Motor tone is symmetric IVs and Medications Medications Reviewed: Medications were reviewed in detail Lab and Diagnostics Result Diagram: 10/16/1651910/16/16 0520 Microbiology Blood cultures 2 shows no growth after 2 days. MRSA screen negative. Sputum culture pending. . X-Rays, CTs and MRIs X-RAY CHEST ONE VIEW, PORTABLE IMPRESSION: No change in bibasilar pneumonia. Continued plain film surveillance is recommended to ensure resolution, and to exclude underlying or central malignancy. Dictated by: Roslyn Velasco M.D. on 10/14/2016 at 8:55 Approved by: Roslyn Velasco M.D. on 10/14/2016 at 8:55 US ABDOMEN IMPRESSION: 1. Echogenic liver. Finding typically represents fatty infiltration; however, finding is nonspecific and correlation with clinical and laboratory findings is recommended to exclude other etiologies including hepatic cirrhosis. 2. Nonvisualization of the pancreas, spleen, aorta and iliac vasculature. 3. Otherwise, normal abdominal sonogram. Dictated by: Tasha Barrera MD, PhD on 10/13/2016 at 9:12 Approved by: Tasha Barrera MD, PhD on 10/13/2016 at 9:12 . Additional Diagnostics DateTimeAnalyzed 04:34:00 -_ pH ____7.376 - 7.350 7.450 pCO2 ___40.4__ -mmHg 35.0 45.0 pO2 ___94.3__ -mmHg 69.0 116 HCO3- ___23.1__ -mmol/L 22.0 26.0 ABE ___-1.4__ -mmol/L -2.0 2.0 tHb ____7.9__ -g/dL O2Hb ___95.7__ -% COHb ____1.3__ -% MetHb ____0.9__ -% sO2 ___97.9__ -% 25.0 FIO2 ___40.0__ -% . Assessment & Plan Acute active and high-risk problems: 1. Acute hypoxic respiratory failure. Intubated early a.m. 10/12/16 for perioperative management. Several attempts at weaning off of sedation and pressure support trials have not been successful. This tolerated bone tenderness breathing trial today - Attempt to extubate today; tapering propofol and fentanyl for minimum sedative at time of extubation. - may need to wean analgesics somewhat in order to extubate. - We will continue pain control and follow-up with surgery regarding postop management of the surgical incision and abdomen, 2. 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 Status post removal of approximately 45 inches of mid small bowel with primary anastomosis. He received cefazolin as part of his perioperative management. Intraabdominal pressures of 13 and 15 (there is some indication that his intra- abdominal pressures will be chronically elevated secondary to his obesity). - Surgery to advise on postoperative abdominal management - Fentanyl and when necessary hydromorphone for pain - Try to initiate trickle feeds - Attempt to mobilize physically after extubation to stimulate gut activity - Consider Relistor 3. AG Metabolic acidosis has improved with the gap closing. Metabolic acidosis was likely secondary to the bowel ischemia with elevated lactic acid and a very likely strong contribution from his chronic kidney failure. Gap is normal now. - Resolved. 4. Heart failure with preserved ejection fraction. He is currently on D5LR at 50 mL an hour. - Continue minimal maintenance IV fluid strategy 5. Hypertension. Symptoms worsened by postoperative pain, ileus and possibly ventilator agitation. - Clonidine and labetalol - IV hydralazine as needed Stable, resolved and or chronic problems: # Atrial fibrillation on anticoagulation with warfarin - currently reversed, no bridging; resume warfarin when clinically stable # Type II diabetes mellitus # CK disease stage IV with baseline serum creatinine 3.3 - 3.9. # Bradycardia, chronic. reports that his baseline HR is approx 40's. Will continue to monitor on tele # Postop hypotension, resolved # Sleep apnea on CPAP. Family has his CPAP. Currently intubated. Pain Evaluation: Adequate Pain Control VTE Prophylaxis: Sub-Q Heparin (Unfractionated) VTE Mechanical Devices: Intermittant Pneumatic CD Resuscitation Status: CPR: Attempt Resuscitation Time spent 35 minutes Maico Landaverde MD Oct 16, 2016 12:54
--- NOTE | 2016-10-16 18:31 | NUR ---
BP/mentation/extubation Pt BP continued to be elevated when off sedation. Notified this AM, gave 10mg PRN labetolol which was effective (see CCU flow sheet) HR mostly afib with some runs of SR. Later in afternoon, pt BP back up systolic around 200. Gave 10mg of labetolol again with good effect. Pt did have a couple runs of bradycardia in the 30s and 40s but only lasted a few seconds. Mostly afib in the 60-80s. Pt extubated at 1345 on 5L NC, sats in the high 90s. 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 Pt A&O, but admits to knowing he has some hallucinations, but know he is having them. at bedside most of shift helping attending to his needs. Frequent rounding, oral care and q2h turns continue.
[2016-10-17] VITALS (10 sets, daily range): BP systolic 144–194; BP diastolic 42–62; PULSE 55–72; RESP 11–19; O2SAT 97–100
[2016-10-17] MEDS: Heparin 5,000 Unit/mL Inj SUBQ SCH ×3 (00:29→16:45)
[2016-10-17] MEDS: Insulin Human REGular 300 Unit/3 mL Inj SUBQ SCH ×4 (02:30→20:28)
[2016-10-17] MEDS: Labetalol 5 mg/mL 4 mL Inj IVPUSH PRN (02:35)
[2016-10-17] MEDS: Dextrose 5% 1,000 ML IV SCH ×2 (02:46→19:25)
--- NOTE | 2016-10-17 02:48 | NUR ---
P) Cardiac/LOC Pt. alert and oriented but c/o waking dreams/hallucinations, remains calm but states "it feels weird"'. Cardiac rhythm afib with an IVCD, often dips into the 30's for a second or two, then comes back up to the 50's, hypertension continues, have given labetelol 10mg x3 so far, it brings systolic BP down to the 170's for a short time, then systolic BP returns to the 190's-210 range. Pain well controlled on 20mcg fentanyl an hour, pt. tolerating bipap tonight fairly well but not sleeping. Low grade fever T-max 37.2c orally so far tonight. I) Consulted hospitalist re BP, will continue labatelol PRN and review in morning. E) Pt. resting quietly, states he is comfortable.
[2016-10-17 03:56] LABS: BASOPHILS % (AUTO) 0.3 % (0-3); EOSINOPHILS % (AUTO) 7.4 % (0-5); MONOCYTES % (AUTO) 10.9 % (4-12); Mean Corpuscular Hemoglobin 27.1 pg (27.0-35.0); Mean Corpuscular Volume 91.1 fL (81-100); NEUTROPHILS % (AUTO) 63.5 % (40-74); Platelet Count 123 bil/L (150-400)
--- NOTE | 2016-10-17 04:55 | ABG ---
DateTimeAnalyzed 04:51:00 -_ pH ____7.336 - 7.350 7.450 pCO2 ___45.7__ -mmHg 35.0 45.0 pO2 ___82.0__ -mmHg 69.0 116 HCO3- ___23.8__ -mmol/L 22.0 26.0 ABE ___-1.4__ -mmol/L -2.0 2.0 tHb ____7.4__ -g/dL O2Hb ___94.5__ -% COHb ____1.7__ -% MetHb ____0.9__ -% sO2 ___97.0__ -% 25.0 FIO2 ___30.0__ -% CPAP ___15.0__ -cmH2O PEEP ____7.0__ -cmH2O Set_RR ___14.0__ -b/min Drawn By MK - Date/Time Notified____ 04:54:00 -_ Oxygen Device 1 ____BIPAP - Notified By MK - B 765 -mmHg tO2 ____9.9__ -Vol% OrderingPhysicianInitials bak - Alberto test N/A -
[2016-10-17 04:58] LABS: Magnesium 2.1 mg/dL (1.6-2.6); Phosphorus 5.4 mg/dL (2.5-4.9)
[2016-10-17] MEDS: Erythromycin 0.5% 3.5 Gm Ophthalmic Ointment LEFT_EYE SCH ×4 (05:21→20:25)
--- NOTE | 2016-10-17 07:54 | DRSVH ---
PROCEDURE: X-RAY CHEST ONE VIEW, PORTABLE ([id number]) INDICATIONS: postop espiratory failure, LLL infiltrate (?fluid) TECHNIQUE: One view of the chest was acquired. COMPARISON: [facility], CR, XR CHEST 1VW (PORTABLE), 10/15/2016, 7:36. [facility], CR, XR CHEST 1VW (PORTABLE), 10/14/2016, 6:07. FINDINGS: Surgical changes and devices: Central line from right sided approach again noted, tip overlies the ri t mediastinum. Lungs and pleura: No pleural effusions or pneumothorax. Lungs are abnormal at the left lower lung w here alveolar consolidation is seen again, but slightly improved. Mediastinum: Mediastinal contours appear normal. Heart size is normal. Bones and chest wall: No suspicious bony lesions. Overlying soft tissues appear unremarkable. IMPRESSION: Slight improvement in left lower lobe dense pneumonia. Reduced inspiration. Central estiven e normal. Dictated by: West Cerrato M.D. on 10/17/2016 at 7:53 Approved by: West Cerrato M.D. on 10/17/2016 at 7:53
--- NOTE | 2016-10-17 08:10 | PCM.PNSURG ---
Subjective Visit Information: Reason for Visit Acute Abdomin Surgery/Surgery Date Post-Op Day # Date of Admission: Oct 11, 2016 at 22:51 Hospital Day # Subjective: pt was extubated yesterday, this morning responsive, denies flatus yet, some abd pain only with "pressing on it" Objective Objective Arousable and responsive, conversant Abd: protuberant, incision clean Vital Sign- Last 8 Hours Date Time Temp Pulse Resp B/P Pulse Ox O2 Delivery O2 Flow Rate FiO2 10/17/16 07:32 37.0 72 18 187/55 97 BiPAP 30 10/17/16 07:32 Supplement Oxygen CPAP/BIPAP 10/17/16 04:58 16 187/59 99 30 10/17/16 04:00 37.1 58 15 194/61 100 BiPAP 28 10/17/16 00:24 11 188/60 99 30 Intake and Output- Last 8 Hour 10/17/16 Cumulative From/Thru 07:00 10/11/16 18:48 - 10/17/16 06:29 Intake Total 753 ml 23540 ml Output Total 600 ml 8955 ml Balance 153 ml 1221 ml Intake Oral 0 ml IV Total 753 ml 66260 ml Output Urine Total 600 ml 7035 ml Gastric Drainage Total 1770 ml Estimated Blood Loss 150 ml # Bowel Movements 0 Result Diagram: 10/17/16 0350 10/17/16 0350 Assessment & Plan Impression POD #5/6 s/p SB resection DM HTN A fib on coumadin (held) Problems: Plan Stop fentanyl drip OOB to chair, physical therapy Swallow eval, keep NPO until bowel function returns Consider TPN soon if still NPO VTE Prophylaxis: Sub-Q Heparin (Unfractionated) Resuscitation Status: CPR: Attempt Resuscitation Dada Rosales MD Oct 17, 2016 08:10
[2016-10-17] MEDS: Insulin GLARgine 100 Unit/mL Syringe SUBQ SCH (08:30)
[2016-10-17] MEDS: Pantoprazole 4 mg/mL 10 mL Inj IVPUSH SCH (08:45)
[2016-10-17] MEDS: Furosemide 10 mg/mL 2 mL Inj IVPUSH SCH (08:45)
[2016-10-17] MEDS: NiCARdipine Inj 25 MG in Dextrose 5% 240 ML IV SCH ×5 (09:20→23:07)
--- NOTE | 2016-10-17 12:49 | PCM.PNMED ---
Subjective Date of Service Oct 17, 2016 Subjective 75-year-old man with diabetes, kidney disease, coronary artery disease, diastolic CHF and hypertension presented with acute abdominal pain. Now status post laparotomy with diagnosis of ischemic bowel. Extubated on 10/16. Patient now is alert and conversant voices no complaints. No signs of flatus or stool. Pain is manageable, and we are tapering off fentanyl Exam Vital Signs Vital Sign - Last Date Time Temp Pulse Resp B/P Pulse Ox O2 Delivery O2 Flow Rate FiO2 10/17/16 11:52 Supplement Oxygen CPAP/BIPAP 10/17/16 11:52 37.0 57 16 167/49 100 4.00 10/17/16 07:32 30 Intake and Output 10/16/16 10/16/16 10/17/16 Cumulative From/Thru 15:00 23:00 07:00 10/11/16 18:48 - 10/17/16 06:29 Intake Total 713 ml 753 ml 44554 ml Output Total 800 ml 600 ml 8955 ml Balance -87 ml 153 ml 1221 ml Intake Oral 0 ml IV Total 713 ml 753 ml 19618 ml Output Urine Total 800 ml 600 ml 7035 ml Gastric Drainage Total 1770 ml Estimated Blood Loss 150 ml # Bowel Movements 0 Exam General: Elderly man, alert and conversant HEENT: sclerae anicteric Neck: right-sided CVC; supple Chest: Generally clear, Cardiac: S1S2, no murmur Abdomen: BS present but diminished today, non-tender ; Chin catheter present Extremities: No edema Neuro: A and O, face appears symmetric, Motor tone is symmetric, normal strength and coordination IVs and Medications Medications Reviewed: Medications were reviewed in detail Lab and Diagnostics Result Diagram: 10/17/16 0350 10/17/16 0350 Microbiology Blood cultures 2 shows no growth after 2 days. MRSA screen negative. Sputum culture pending. . X-Rays, CTs and MRIs X-RAY CHEST ONE VIEW, PORTABLE IMPRESSION: No change in bibasilar pneumonia. Continued plain film surveillance is recommended to ensure resolution, and to exclude underlying or central malignancy. Dictated by: Roslyn Velasco M.D. on 10/14/2016 at 8:55 Approved by: Roslyn Velasco M.D. on 10/14/2016 at 8:55 US ABDOMEN IMPRESSION: 1. Echogenic liver. Finding typically represents fatty infiltration; however, finding is nonspecific and correlation with clinical and laboratory findings is recommended to exclude other etiologies including hepatic cirrhosis. 2. Nonvisualization of the pancreas, spleen, aorta and iliac vasculature. 3. Otherwise, normal abdominal sonogram. Dictated by: Tasha Barrera MD, PhD on 10/13/2016 at 9:12 Approved by: Tasha Barrera MD, PhD on 10/13/2016 at 9:12 . Additional Diagnostics DateTimeAnalyzed 04:34:00 -_ pH ____7.376 - 7.350 7.450 pCO2 ___40.4__ -mmHg 35.0 45.0 pO2 ___94.3__ -mmHg 69.0 116 HCO3- ___23.1__ -mmol/L 22.0 26.0 ABE ___-1.4__ -mmol/L -2.0 2.0 tHb ____7.9__ -g/dL O2Hb ___95.7__ -% COHb ____1.3__ -% MetHb ____0.9__ -% sO2 ___97.9__ -% 25.0 FIO2 ___40.0__ -% . Assessment & Plan Acute active and high-risk problems: #. 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 Status post laparotomy on 10/12, of approximately 45 inches of mid small bowel with primary anastomosis. Now with postoperative ileus. -Tapered off fentanyl, when necessary low-dose hydromorphone - Try to initiate trickle feeds when signs of bowel activity - Attempt to mobilize physically after extubation to stimulate gut activity #. Hypertension. Symptoms worsened by postoperative pain, ileus and possibly ventilator agitation. - Clonidine and labetalol, but has had episodes of bradycardia so we will stop these sympathomimetics - Manage with IV nicardipine at present, then will transition to oral CCB or other agents - IV hydralazine as needed for breakthrough #. Heart failure with preserved ejection fraction. He is currently on D5W at 60 mL an hour. - Continue minimal maintenance IV fluid strategy # Sleep apnea on CPAP. Continue home CPAP, or BiPAP when sleeping Stable, resolved and or chronic problems: #. Acute hypoxic respiratory failure. Intubated early a.m. 10/12/16 for perioperative management. Extubated successfully 10/16. Requiring minimal nasal cannula oxygen now. #. AG Metabolic acidosis has improved with the gap closing. Metabolic acidosis was likely secondary to the bowel ischemia with elevated lactic acid and a very likely strong contribution from his chronic kidney failure. Gap is normal now. # Atrial fibrillation on anticoagulation with warfarin - currently reversed, no bridging; resume warfarin when clinically stable # Type II diabetes mellitus - excellent BG control on inpatient basal bolus regimen # CKD stage IV with baseline serum creatinine 3.3 - 3.9. # Bradycardia, chronic. reports that his baseline HR is approx 40's. Currently minimizing saritha blockers and sympathomimetics. Will continue to monitor on tele # Postop hypotension, resolved VTE Prophylaxis: Sub-Q Heparin (Unfractionated) VTE Mechanical Devices: Intermittant Pneumatic CD Resuscitation Status: CPR: Attempt Resuscitation Time spent 35 minutes Maico Landaverde MD Oct 17, 2016 12:49
--- NOTE | 2016-10-17 13:11 | PCM.PNMED ---
Subjective Date of Service Oct 17, 2016 Subjective extubated, stable. became more hypertensive, bradycardic. NPO.on IV nicardipine for BP control. IV lasix 20 mg added by primary team. Exam Vital Signs Vital Sign - Last Date Time Temp Pulse Resp B/P Pulse Ox O2 Delivery O2 Flow Rate FiO2 10/17/16 11:52 Supplement Oxygen CPAP/BIPAP 10/17/16 11:52 37.0 57 16 167/49 100 4.00 10/17/16 07:32 30 Intake and Output 10/16/16 10/16/16 10/17/16 Cumulative From/Thru 15:00 23:00 07:00 10/11/16 18:48 - 10/17/16 06:29 Intake Total 713 ml 753 ml 48036 ml Output Total 800 ml 600 ml 8955 ml Balance -87 ml 153 ml 1221 ml Intake Oral 0 ml IV Total 713 ml 753 ml 29251 ml Output Urine Total 800 ml 600 ml 7035 ml Gastric Drainage Total 1770 ml Estimated Blood Loss 150 ml # Bowel Movements 0 Exam General: AAOx3, NAD. HEENT: Normocephalic, atraumatic. External ears without defect. Pupils equal, round, and reactive to light. Anicteric sclerae. Neck: Supple with full range of motion. No jugular venous distension. No bruits. No lymphadenopathy or thyromegaly. Cardiovascular: Regular rate and rhythm with no murmurs, rubs, or gallops appreciated Pulmonary: Clear to auscultation bilaterally with no crackles, wheezes, or rhonchi. Normal respiratory effort with no use of accessory muscles. Abdomen: Soft, moderately distended and firm, decreased BS. Extremities: No clubbing, cyanosis, or edema, right AVF with good thrill. Lab and Diagnostics Result Diagram: 10/17/16 0350 10/17/16 0350 Microbiology Blood cultures 2 shows no growth after 2 days. MRSA screen negative. Sputum culture pending. . X-Rays, CTs and MRIs X-RAY CHEST ONE VIEW, PORTABLE IMPRESSION: No change in bibasilar pneumonia. Continued plain film surveillance is recommended to ensure resolution, and to exclude underlying or central malignancy. Dictated by: Roslyn Velasco M.D. on 10/14/2016 at 8:55 Approved by: Roslyn Velasco M.D. on 10/14/2016 at 8:55 US ABDOMEN IMPRESSION: 1. Echogenic liver. Finding typically represents fatty infiltration; however, finding is nonspecific and correlation with clinical and laboratory findings is recommended to exclude other etiologies including hepatic cirrhosis. 2. Nonvisualization of the pancreas, spleen, aorta and iliac vasculature. 3. Otherwise, normal abdominal sonogram. Dictated by: Tasha Barrera MD, PhD on 10/13/2016 at 9:12 Approved by: Tasha Barrera MD, PhD on 10/13/2016 at 9:12 . Additional Diagnostics DateTimeAnalyzed 04:34:00 -_ pH ____7.376 - 7.350 7.450 pCO2 ___40.4__ -mmHg 35.0 45.0 pO2 ___94.3__ -mmHg 69.0 116 HCO3- ___23.1__ -mmol/L 22.0 26.0 ABE ___-1.4__ -mmol/L -2.0 2.0 tHb ____7.9__ -g/dL O2Hb ___95.7__ -% COHb ____1.3__ -% MetHb ____0.9__ -% sO2 ___97.9__ -% 25.0 FIO2 ___40.0__ -% . Assessment & Plan Farooq Gonzales is a 75-year-old man with diabetes, kidney disease, coronary artery disease, diastolic CHF and hypertension presented with acute abdominal pain. Now status post laparotomy with diagnosis of ischemic bowel. 1. Acute kidney injury on chronic kidney disease, stage 4. The etiology of acute kidney injury is due to sepsis and acute tubular necrosis. 2. Hypernatremia, resolved. 3. Acute hypoxic respiratory failure, resolved. 4. 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 5. Hypertension with hypertensive nephrosclerosis. 6. History of chronic diastolic heart failure. 7. Sleep apnea. 8. 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 plan: - continue d5w 60 m/hr as a caloric agent while being NPO. - no urgent renal replacement therapy indicated. - may start PO lasix and CCB once oral intake allowed. - continue current BP meds. VTE Prophylaxis: Sub-Q Heparin (Unfractionated) VTE Mechanical Devices: Intermittant Pneumatic CD Resuscitation Status: CPR: Attempt Resuscitation Jon Bejarano MD Oct 17, 2016 13:11
--- NOTE | 2016-10-17 13:45 | NUR ---
Evaluation completed. Please go to "Notes" then click on "Assessments and Notes" (bottom left corner of screen). Then select appropriate discipline tab on top of screen.
--- NOTE | 2016-10-17 13:47 | PROG NOTE ---
[address] [address] PROGRESS NOTE PATIENT: VLAD VARGAS : 1940 MR#: [id number] ADMIT: 10/11/2016 JOB ID: [id number] DATE: 10/17/2016 PULMONARY FOLLOWUP NOTE: PROBLEM LIST: 1. Acute respiratory failure. 2. Status post resection of necrotic bowel due to volvulus. 3. Obesity. 4. Bradycardia. 5. Hypertension. 6. Diabetes mellitus. 7. Chronic kidney disease. 8. Atrial fibrillation. 9. Sleep apnea. 10. Hypernatremia. SUBJECTIVE: Mild abdominal pain. Only hurts if you push on it. Has not passed gas or had a bowel movement. Breathing comfortably. Nemo the BiPAP was a little "too strong." However did fairly well with it. Somewhat hungry. Thirsty. OBJECTIVE: Temperature 37, pulse high 50s to low 70s, respiratory rate 16, blood pressure 167/49 on a nicardipine drip. O2 sat on BiPAP of 15/7 with 4 liters of oxygen is 100%. I and O shows 1.6 liters in, 2.1 liters out. General appearance: No acute distress. Moves a bit slowly. Speaking a little bit slowly but appropriate, accurate, and insightful. Chest: Fairly good breath sounds bilaterally. Somewhat diminished at the left base laterally. No use of accessory muscles. Heart: Irregular rhythm. Heart tones seem normal. Abdomen: Soft. Quiet. Extremities: No pretibial edema. LABORATORY DATA: Shows a white count of 3900 with 63 polymorphonuclears, 17 lymphs, 10 monos, 7 eosinophils. Hemoglobin stable at 7.3. Platelet count stable at 123,000. Sodium 144, potassium 4, chloride 108, CO2 is 25, BUN 48. Creatinine 3.4, slowly improving. Calcium is 8.5 with an albumin of 2.9. Phosphorus mildly elevated at 5.4. Magnesium normal at 2.1. Transaminases normal, as is alkaline phosphatase. Chest x-ray shows slight improvement in the left lower lung field. ASSESSMENT: 1. Acute respiratory failure strike that acute hypoxemic respiratory failure. Doing reasonably well. Has tolerated extubation quite well. Can probably try using his home on CPAP tonight instead of the BiPAP. If he fails that, we can always resume the BiPAP, though I suspect he will not particularly need it. 2. Hypernatremia. Resolving. Getting free water. Will need to continue to watch this carefully as, with the free water and the presumed elevated ADH due to surgery and pain, he would be at risk for developing hyponatremia. Daily lytes have been ordered. 3. Ileus. No bowel tones. Not passing gas nor has he had a bowel movement. He was up in a chair earlier today. Will continue with increasing his mobility. 4. Would also like to get a speech involved so that we can start on oral medications once his GI function returns and avoid all the IV medications with their short duration of action. PLAN: 1. Morning bloods to consist of a CBC and a BMP. 2. Consider CPAP tonight for his sleep apnea. If ineffective can return to noninvasive positive pressure ventilation at 15/7 (CPAP is set at 7) with 4 L bleed. 3. Increase mobility. Up in chair again this afternoon. 4. Swallow eval.
--- NOTE | 2016-10-17 18:22 | NUR ---
Pain/activity/hypertension Fentanyl drip was discontinued this morning- morning infusion was 20mcg/h- patient denied having any pain or discomfort at the time and throughout the shift. Patient was informed about his PRN pain medication and verbalized understanding but did not asked for pain medications throughout the shift as well. PT evaluation today- patient was able to stand up at the bedside with two persona assist with getting up from his bed for a short time only. He appeared to be motivated to increase his strength and activity level and appeared to be looking forward to his next PT visit, he stated I do not want to be disable and end up in a jail. Patient continued to be hypertensive earlier today with SBP 180-200s- MD was aware and ordered Nicardipine drip to be started per protocol. SBP goal of 150 was achieved with nicardipine drip at 10mg/h- unable to titrate drip down to recommended baseline/maintenance dose of 3mg/h without SBP quickly increasing above 170- consulted with MD continue drip at 10mg/h, may attempt to titrated drip maribell if able- continue assessment.
[2016-10-18] VITALS (8 sets, daily range): BP systolic 130–165; BP diastolic 49–63; PULSE 56–73; RESP 14–21; O2SAT 93–99
[2016-10-18] MEDS: Heparin 5,000 Unit/mL Inj SUBQ SCH ×3 (01:20→16:27)
[2016-10-18] MEDS: NiCARdipine Inj 25 MG in Dextrose 5% 240 ML IV SCH ×9 (01:21→23:25)
[2016-10-18] MEDS: Insulin Human REGular 300 Unit/3 mL Inj SUBQ SCH ×4 (02:30→20:30)
[2016-10-18 04:16] LABS: BASOPHILS % (AUTO) 0.4 % (0-3); EOSINOPHILS % (AUTO) 7.1 % (0-5); MONOCYTES % (AUTO) 11.9 % (4-12); Mean Corpuscular Hemoglobin 27.3 pg (27.0-35.0); NEUTROPHILS % (AUTO) 69.9 % (40-74); Platelet Count 133 bil/L (150-400)
--- NOTE | 2016-10-18 04:50 | NUR ---
Hypertension/Respiratory Nicardipine gtt @ 10mg/hr, SBP 150's resting, low 160's when pt is awake, unable to taper down gtt; 02 @ 2L via NC when awake, on cpap with 2L at bedtime, sp02 >96%, denies any pain.
[2016-10-18] MEDS ORDERED: 0.9% Sodium Chloride 500 ML ONE (04:57)
[2016-10-18] MEDS: Erythromycin 0.5% 3.5 Gm Ophthalmic Ointment LEFT_EYE SCH ×4 (05:15→21:31)
[2016-10-18 05:17] LABS: Unsaturated Iron Binding 157.4 ug/dL
--- NOTE | 2016-10-18 07:28 | PROG NOTE ---
[address] [address] PROGRESS NOTE PATIENT: VLAD VARGAS : 1940 MR#: [id number] ADMIT: 10/11/2016 JOB ID: [id number] PULMONARY FOLLOWUP ADDENDUM NOTE: DATE: 10/16/2016 PROBLEM: Acute respiratory failure. The patient breathing comfortably on pressure support. Chest showed somewhat decreased breath sounds at the left base laterally, but the remainder of lung mcdermott were clear. He tolerated 90 minutes of pressure support of 10/5. Had some problem with hypertension that was controlled with IV labetalol. Exam showed a pulse of about 101, blood pressure was 180/59. O2 sat on FiO2 of 40%, PEEP of 5 was 99%. The patient checked for cuff leak and it was present. Discussed extubation availability with Anesthesia. They were graciously available. Proceeded with extubation. Patient tolerated well. Post extubation, he had good breath sounds. Reasonable cough. No evidence of stridor. Oxygenating well on 5 L supplemental oxygen by nasal prongs. Mental status was clear. Rechecked about 2 hours later and was comfortable. Still oxygenating well. Mental status clear. No use of accessory muscles. No tracheal tug. ASSESSMENT: The patient liberated from the ventilator without incident. Given his history of obstructive sleep apnea, will utilize BiPAP tonight considering the levels of about 15/7 as his home CPAP is at 7. He is still a bit lethargic from the pain medications and sedatives he received, so I am not sure he would tolerate CPAP alone, but can see how he does. PLAN: Nocturnal BiPAP considering pressures of 15/7 with FiO2 to maintain O2 sat in the range of 93%. Additional 40 minutes of critical care time.
[2016-10-18] MEDS: Pantoprazole 4 mg/mL 10 mL Inj IVPUSH SCH (08:07)
[2016-10-18] MEDS: Insulin GLARgine 100 Unit/mL Syringe SUBQ SCH (08:29)
[2016-10-18] MEDS: Furosemide 10 mg/mL 2 mL Inj IVPUSH SCH (08:29)
--- NOTE | 2016-10-18 09:11 | PCM.PNMED ---
Subjective Date of Service Oct 18, 2016 Subjective Pulmonary critical care note: Problems: Acute hypoxic respiratory failure. Intubated early a.m. 10/12/16 for perioperative management. Extubated 10/16/16. 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 Status post removal 10/11/16 of approximately 45 inches of mid small bowel with primary anastomosis. Sleep apnea on CPAP Heart failure with preserved ejection fraction Diabetes mellitus type II Atrial fibrillation Chronic kidney disease, stage IV Subjective: Patient did well overnight without any acute problems on CPAP. Denies flatus, n/ v, pain (except for coughing and moving in bed). He was able to get up with PT yesterday. He has some phlegm with cough. ROS otherwise negative except as noted above. Exam Vital Signs Vital Sign - Last Date Time Temp Pulse Resp B/P Pulse Ox O2 Delivery O2 Flow Rate FiO2 10/18/16 07:58 Supplement Oxygen CPAP/BIPAP 10/18/16 07:55 37.0 64 14 165/50 98 2.00 10/17/16 15:42 30 Intake and Output 10/17/16 10/17/16 10/18/16 Cumulative From/Thru 15:00 23:00 07:00 10/11/16 18:48 - 10/18/16 05:24 Intake Total 1096 ml 1986 ml 95299 ml Output Total 950 ml 550 ml 42011 ml Balance 146 ml 1436 ml 2803 ml Intake Oral 0 ml IV Total 1096 ml 1986 ml 67250 ml Output Urine Total 950 ml 550 ml 8535 ml Gastric Drainage Total 1770 ml Estimated Blood Loss 150 ml # Bowel Movements 0 0 Exam Gen.: Obese gentleman lying in hospital bed, on CPAP in no acute distress. HEENT: Pupils are equal and reactive to light, mucous membranes are moist, CPAP in place. Chest: Clear bilaterally with decreased breath sounds in the L base. Cardiovascular: Unremarkable rate and rhythm, normal S1 and S2, no appreciable murmur. Radial pulses are 2+ bilaterally as are posterior tibials. Abdomen: Soft, I do appreciate minimal scattered bowel sounds, there is an approximately 30 cm vertical surgical incision that is well approximated and healing and the midabdomen with the superior portion almost to the level of the xiphoid process. Extremities: no edema, there is a right upper extremity AV fistula with good thrill. Lines: Right IJ for central venous access, Chin catheter, and left radial arterial line. IVs and Medications IV Fluids D5W at 60cc/hr Medications Reviewed: Medications were reviewed in detail Medications Nicardipine ggt at 13.5 Lab and Diagnostics Result Diagram: 10/18/1640910/18/16409 Microbiology Blood cultures drawn 10/11/16 negative to date. Sputum culture performed 10/12/16 (Shows few polys, few epithelial cells, few mixed normal cleo.). MRSA screen is negative. X-Rays, CTs and MRIs CXR 10/17/16 showed some mild improvement of the LLL infiltrate. Assessment & Plan Assessment: 1. Acute hypoxic respiratory failure. Intubated early a.m. 10/12/16 for perioperative management. Successfully extubated 10/16/16 to BiPAP. Now on home CPAP at night with 2L by NC during the day. So far, no indication of acute infection. 2. 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 Status post removal of approximately 45 inches of mid small bowel with primary anastomosis. Pain well- controlled with PRN Fentanyl pushes (minimal so far). Surgery continues to follow. No significant return of bowel function yet. We will focus on getting him up and moving, and will have Speech see him again to assess swallow safety. 3. Sleep apnea on CPAP. Family brought in his CPAP. Will continue with home CPAP at night and during naps. 4. Heart failure with preserved ejection fraction. He is currently on D5W at 60 mL an hour for hypernatremia. We will need to proceed cautiously as he has this underlying heart failure and has chronic kidney disease, so fluid status may become an issue. Will defer further management decisions to the primary team. 5. Hypertension. Currently managed with Nicardipine ggt as we are not able to pursue any PO administration of his home anti-hypertensives due to his current bowel function, or lack thereof. Hopefully, we can get some bowel function back , and restart his home medications. Plan: -Get him up and moving. This is likely the most important factor to waking up his bowels. If not able to advance diet in a few days, we will need to seriously consider TPN. -CPAP at night and with naps. -PRN pain control as already ordered. -We will continue to follow along with you in this patient's care. GI prophylaxis with IV Protonix. DVT prophylaxis with subcutaneous heparin. Patient is full code. Critical care time spent: 30 minutes. Baldomero Hanson DO Oct 18, 2016 09:11
--- NOTE | 2016-10-18 09:19 | NUR ---
Evaluation completed. Rec: Thin/Soft diet when cleared by MD. Spoke with MD/RN regarding recommendation. Please go to "Notes" then click on "Assessments and Notes" (bottom left corner of screen). Then select appropriate discipline tab on top of screen.
--- NOTE | 2016-10-18 09:28 | PCM.PNMED ---
Subjective Date of Service Oct 18, 2016 Subjective 75 yo morbidly obese man with HTN, EDUARDO, dyslipidemia and A. fib admitted with abdominal pain and found to have volvulus with SB infarct. Now s/p SB resection and primary anastomosis. POD #6 Awake Alert.Wearing nasal CPAP Restless night but denies SOB, abd pain, nausea Hungry No flatus yet Exam Vital Signs Vital Sign - Last Date Time Temp Pulse Resp B/P Pulse Ox O2 Delivery O2 Flow Rate FiO2 10/18/16 07:58 Supplement Oxygen CPAP/BIPAP 10/18/16 07:55 37.0 64 14 165/50 98 2.00 10/17/16 15:42 30 Intake and Output 10/17/16 10/17/16 10/18/16 Cumulative From/Thru 15:00 23:00 07:00 10/11/16 18:48 - 10/18/16 05:24 Intake Total 1096 ml 1986 ml 13643 ml Output Total 950 ml 550 ml 17239 ml Balance 146 ml 1436 ml 2803 ml Intake Oral 0 ml IV Total 1096 ml 1986 ml 44880 ml Output Urine Total 950 ml 550 ml 8535 ml Gastric Drainage Total 1770 ml Estimated Blood Loss 150 ml # Bowel Movements 0 0 Exam Lungs coarse crackles all mcdermott, partly clear with cough, NO wheezes CV RRR, soft S1S2, no m/g/r Abd Soft, rare BTs, nontender, no HSM Ext Warm, pulses 2+, no edema Lab and Diagnostics Result Diagram: 10/18/16 0410 10/18/16 0410 Microbiology Blood cultures drawn 10/11/16 negative to date. Sputum culture performed 10/12/16 (Shows few polys, few epithelial cells, few mixed normal cleo.). MRSA screen is negative. X-Rays, CTs and MRIs CXR 10/17/16 showed some mild improvement of the LLL infiltrate. Assessment & Plan Assessment: 1. Acute Post op respiratory failure, resolved 2. Status post resection of necrotic bowel due to volvulus, POD 6 3. Obesity. 4. Bradycardia. 5. Hypertension. 6. Diabetes mellitus. 7. Chronic kidney disease, stage 4. 8. Atrial fibrillation, on OAC as outpatient. 9. Sleep apnea on home CPAP PLAN Mobilize, OOB, PT Pulm toilet Resume PO anti HTN meds once taking PO VTE Mechanical Devices: Intermittant Pneumatic CD Resuscitation Status: CPR: Attempt Resuscitation Saman Taylor MD Oct 18, 2016 09:28
--- NOTE | 2016-10-18 10:01 | NUR ---
[facility] Signed
--- NOTE | 2016-10-18 10:16 | NUR ---
NUTRITION FOLLOW-UP: ASSESS: 75 YO male admitted to CCU s/p laparotomy and SB resection due to ischemic bowel. Pt extubated on 10/16. Pt has been NPO X 7 days. Diet ok to advance per speech therapy; MD awaiting return of bowel function. Possible consideration of TPN if bowel function unable to return per CCU rounds. PMHX: Alcoholism, Stg 4 CKD, Pneumonia, GI bleed, CHF, T2DM, CVA, HTN, A-fib, EDUARDO / CPAP LABS: Reviewed. BUN 42, Cr 3.03, Ca 8.0, (10/17): Alb 2.9 MEDS: Reviewed. Lasix. GI: No stool via colostomy. SKIN: Bravo 15. There is no wound consult initiated. WT: 109.8 kg, BMI: 34.7 kg/m2, Admit Wt: 101.5 kg (BMI: 32.1 kg/m2) DIET: NPO ESTIMATED NEEDS: CKD stg 4 (admit wt) Calories: 0920-5963 kcal/day (20-25 kcal/kg BW) Protein: 75-90 g/day (1.0-1.2 g/kg IBW) Fluid: ~2500 cc/day (25cc/kg) NUTRITION DIAGNOSIS: 1) Inadequate oral intake related to decreased ability to consume sufficient energy as evidenced by current NPO status - PERSISTS. NUTRITION INTERVENTION: 1) Diet texture per speech therapy. 2) If unable to advance diet recommend consideration of enteral trickle feedings to stimulate blood flow and assist with healing, pending authorization by surgery. Recommendation is for Nepro renal formula for patient with stage IV renal disease. Recommend initiate at 10 ml/hr x 24 hr when appropriate. Once tolerance established, recommend advance 5 ml every 4 hr. to goal rate 55 ml/hr. At goal TF will provide 2178 kcal, 98 g protein; meeting 100% calorie/protein needs. 3) If TPN to be started recommend starting with 200 g dextrose, 60 g AA, 25 g lipids providing 1170 kcal, 60 g protein. Once tolerance established advance to goal TPN of 350 g dextrose, 85 g AA, and 50 g lipids (2030 kcal and 85 g protein, 100% of estimated needs) MONITOR/EVALUATE: NPO status, diet advance, wt, GI, labs, POC, nutrition status. Follow per high nutrition risk guidelines.
--- NOTE | 2016-10-18 11:30 | PCM.PNSURG ---
Subjective Date of Service: Oct 18, 2016 Date of Service: Oct 18, 2016 Visit Information: Reason for Visit: Postop Care POSTOPERATIVE DIAGNOSIS(ES): Acute abdomen, possible small bowel volvulus. PROCEDURE: 10/12/2016 1. Exploratory laparotomy. 2. Small-bowel resection x1 with primary anastomosis Post-Op Day # 6 Date of Admission: Oct 11, 2016 at 22:51 Subjective: The patient is sitting up in chair, oriented to time and place, happy to have the breathing tube out, denies nausea, is not passing flatus or had a bowel movement, pain is controlled. He states he passed a swallow evaluation this morning, but is not really hungry Postop General: No Complaints Gastrointestinal: No N/V Pain Management: IV Push Postop Activity: Ambulating in Room Only (To chair with assistance) Objective Vital Sign- Last 8 Hours Date Time Temp Pulse Resp B/P Pulse Ox O2 Delivery O2 Flow Rate FiO2 10/18/16 07:58 Supplement Oxygen CPAP/BIPAP 10/18/16 07:55 37.0 64 14 165/50 98 CPAP 2.00 10/18/16 03:41 Supplement Oxygen CPAP/BIPAP 10/18/16 03:41 36.8 60 21 161/51 98 CPAP 2.00 Intake and Output- Last 8 Hour 10/18/16 Cumulative From/Thru 07:00 10/11/16 18:48 - 10/18/16 05:24 Intake Total 1986 ml 98495 ml Output Total 550 ml 93112 ml Balance 1436 ml 2803 ml Intake Oral 0 ml IV Total 1986 ml 69534 ml Output Urine Total 550 ml 8535 ml Gastric Drainage Total 1770 ml Estimated Blood Loss 150 ml # Bowel Movements 0 0 General: Alert, No Acute Distress Lungs: Clear to Auscultation Heart: Other (irregular rhythm) Abdomen: Firm (slightly), Appropriately tender, Non-distended, Other (bowel tones X 4) Extremities: Thigh&Calf Soft/Nontender Neuro: Grossly Neurologically Intact Catheters: Urethral 2 Way Chin Result Diagram: 10/18/1640910/18/16409 Diagnostics: Ultrasound Abdomen 10/13/16 IMPRESSION: 1. Echogenic liver. Finding typically represents fatty infiltration; however, finding is nonspecific and correlation with clinical and laboratory findings is recommended to exclude other etiologies including hepatic cirrhosis. 2. Nonvisualization of the pancreas, spleen, aorta and iliac vasculature. 3. Otherwise, normal abdominal sonogram CXR 10/17/16 IMPRESSION: Slight improvement in left lower lobe dense pneumonia. Reduced inspiration. Central line normal. CT Abdomen & Pelvis 10/11/16 IMPRESSION: 1. Constellation of findings suspicious for a closed-loop mid small bowel obstruction, secondary to localized volvulus or internal hernia. Mesenteric fat stranding as well as patchy small bowel wall thickening would be concerning for evolving bowel ischemia. 2. Small right and trace left mobile dependent pleural effusions are of uncertain etiology. 3. 1.4 cm partially exophytic anteromedial right renal cortical lesion is too dense to represent a simple cyst, and may therefore represent complex cyst versus solid mass. When clinically feasible, consider further evaluation with renal ultrasound, or pre- and post-contrast renal protocol CT or MRI to distinguish between these possibilities. Assessment & Plan Impression Impression 75-year-old obese male with diabetes, hypertension, history of stroke, CHF, atrial fibrillation on Coumadin, chronic renal insufficiency, who presented with acute abdominal pain due to infarcted and compromised ischemic bowel from volvulus and internal hernia due to adhesive band. Problems: Plan Plan 1. Acute hypoxic respiratory failure. Intubated early a.m. 10/12/16 for perioperative management. Several attempts today at weaning off of sedation and pressure support trials have not been successful. The patient continues to be on IV propofol and fentanyl. Continue with spontaneous breathing trials per pulmonary critical care - Vent settings: FiO2 40% (desat 85-89% on 30%), PEEP 5, Vt 480 - History of Sleep apnea and uses CPAP at home - Hypertensive during SBT SBP's 205 - Extubated 10/16/15, now on NC 2. 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 Status post removal of approximately 45 inches of mid small bowel with primary anastomosis. Surgical stable at this point - Nothing by mouth until bowel function returns (May take Bp meds with sips of water) Passed Swallow Evaluation - NG 225 ml bilious output, removed 10/17/16 3. Postop hypotension. Required Phenylephrine but has been discontinued. 4. Chronic kidney disease, stage IV. Currently not on hemodialysis but has dialysis access right upper arm - Urinary output 1550 ml/24 (64ml/hr) Weight 107.4 Kg - BUN/Creatinine trending down 67 - 59- 42 and 4.05 - 3.94 - 3.03 5. Acute on chronic anemia -Admit hematocrit 36.5 treated with home medication ferrous sulfate 325 mg 3 times a day -Current hematocrit 23.5. Transfused 1 unit packed red blood cells 10/13/16 6. Diabetes mellitus type II. Insulin-dependent. - HGBA1c pending - Glargine and regular insulin ordered - Blood sugars 107 - 113 7. Chronic diastolic heart failure. BNP on admit 4360 Preserved EF. Home med Lasix and potassium 8. History of atrial fibrillation, chronic, present on admission. Been on warfarin therapy as an outpatient. This is currently on hold Current INR 1.46 (10/13/16) 9. Hypertension, chronic, present on admission - Preop meds Hydralazine 50 mg 3 times a day Metoprolol 12.5 mg 2 times a day Isosorbide 30 mg a day 10. DVT prophylaxis - heparin 5000 unit subcutaneous every 8 hours Pain Management: IV and PO VTE Prophylaxis: Sub-Q Heparin (Unfractionated) Resuscitation Status: CPR: Attempt Resuscitation Kate Hugo PA-C Oct 18, 2016 11:30
--- NOTE | 2016-10-18 11:43 | NUR ---
Cardiac/GI SB/SR per quality assurance monitor final. Cardene gtt off. Normotensive, 130/63. Denies pain. Bowel sounds throughout, denies flatus. Cleared for oral intake by ST. Surgery agreed to pills with sips of H20. With the exception of medications, pt to remains npo until bowel fxn returns. Dr Zurita updated on changes in cardiac status, no new orders at this time.
[2016-10-18] MEDS: Dextrose 5% 1,000 ML IV SCH (12:52)
--- NOTE | 2016-10-18 13:02 | NUR ---
Hypertension/GI Hypertensive, 157/50. Cardene gtt off since 10:30 this AM. SA per monitor tech, HR 60s. Pt up to BSC, passing flatus. Dr Zurita contacted and updated on pt status. Plan to restart po antihypertensives, d/c de la cruz and advance diet if surgery agreeable.
--- NOTE | 2016-10-18 14:15 | PCM.PNMED ---
Subjective Date of Service Oct 18, 2016 Subjective Nephrology Progress Note: Attending Dr. Nigel Trivedi Christian is a 75-year-old man with diabetes, chronic kidney disease stage IV status post AVF, coronary artery disease, diastolic CHF and hypertension presented with acute abdominal pain who was found to have ischemic bowel due to volvulus internal hernia status post mid small bowel resection with primary anastomosis status post extubation and is being treated for ATN. Hospital day # 8. Overnight: Nicardipine gtt at 10 mL/hr. Patient resting comfortably on CPAP. Telemetry overnight: Sinus rhythm, heart rate 50s to 70s, without ectopy. The patient is resting in bed comfortably and in no acute distress. The patient reports that he feels well. He continues to endorse productive cough. He has no other complaints. He denies headache, chest pain, palpitations, shortness of breath, abdominal pain, nausea, vomiting, fever, chills, dysuria, diarrhea or constipation. Nicardipine drip was turned off today as blood pressure has been controlled. . Exam Vital Signs Vital Sign - Last Date Time Temp Pulse Resp B/P Pulse Ox O2 Delivery O2 Flow Rate FiO2 10/18/16 12:53 Supplement Oxygen CPAP/BIPAP 10/18/16 11:44 37.2 60 130/63 99 2.00 10/18/16 07:55 14 10/17/16 15:42 30 Intake and Output 10/17/16 10/17/16 10/18/16 Cumulative From/Thru 15:00 23:00 07:00 10/11/16 18:48 - 10/18/16 05:24 Intake Total 1096 ml 1986 ml 45716 ml Output Total 950 ml 550 ml 85935 ml Balance 146 ml 1436 ml 2803 ml Intake Oral 0 ml IV Total 1096 ml 1986 ml 63858 ml Output Urine Total 950 ml 550 ml 8535 ml Gastric Drainage Total 1770 ml Estimated Blood Loss 150 ml # Bowel Movements 0 0 Exam General: Older male lying in bed and in no acute distress, well-developed, well- nourished, appropriately interactive. HEENT: Normocephalic, atraumatic. External ears without defect. Pupils equal, round, and reactive to light. Anicteric sclerae, moist conjunctivae, and no lid lag. Neck: Supple with full range of motion. No jugular venous distension. No bruits. No lymphadenopathy or thyromegaly. Cardiovascular: Regular rate and rhythm with no murmurs, rubs, or gallops appreciated Pulmonary: Clear to auscultation bilaterally with no crackles, wheezes, or rhonchi. Normal respiratory effort with no use of accessory muscles. Abdomen: Soft, moderately distended and firm. Extremities: No clubbing, cyanosis, or edema. Skin: Normal temperature, turgor, and texture; no rash, ulcers, or subcutaneous nodules appreciated. Neurological: Cranial nerves grossly intact. . IVs and Medications Medications Reviewed: Medications were reviewed in detail Lab and Diagnostics Item Value Date Time Iron Level 34 ug/dL L 10/18/16409 Total Iron Binding Capacity 191 ug/dL L 10/18/16409 Percent Iron Saturation 18 %sat 10/18/16409 Unsaturated Iron Binding 157.4 ug/dL 10/18/16409 Ferritin 320 ng/mL 10/18/16409 Result Diagram: 10/18/1640910/18/16409 Microbiology Blood cultures drawn show no growth after 5 days. MRSA screen negative. Sputum culture shows no growth. . X-Rays, CTs and MRIs X-RAY CHEST ONE VIEW, PORTABLE IMPRESSION: Slight improvement in left lower lobe dense pneumonia. Reduced inspiration. Central line normal. Dictated by: West Cerrato M.D. on 10/17/2016 at 7:53 Approved by: West Cerrato M.D. on 10/17/2016 at 7:53 US ABDOMEN IMPRESSION: 1. Echogenic liver. Finding typically represents fatty infiltration; however, finding is nonspecific and correlation with clinical and laboratory findings is recommended to exclude other etiologies including hepatic cirrhosis. 2. Nonvisualization of the pancreas, spleen, aorta and iliac vasculature. 3. Otherwise, normal abdominal sonogram. Dictated by: Tasha Barrera MD, PhD on 10/13/2016 at 9:12 Approved by: Tasha Barrera MD, PhD on 10/13/2016 at 9:12 CT ABDOMEN AND PELVIS WITHOUT CONTRAST IMPRESSION: 1. Constellation of findings suspicious for a closed-loop mid small bowel obstruction, secondary to localized volvulus or internal hernia. Mesenteric fat stranding as well as patchy small bowel wall thickening would be concerning for evolving bowel ischemia. 2. Small right and trace left mobile dependent pleural effusions are of uncertain etiology. 3. 1.4 cm partially exophytic anteromedial right renal cortical lesion is too dense to represent a simple cyst, and may therefore represent complex cyst versus solid mass. When clinically feasible, consider further evaluation with renal ultrasound, or pre- and post-contrast renal protocol CT or MRI to distinguish between these possibilities. Dictated by: Matthias Roach M.D. on 10/11/2016 at 20:32 Approved by: Matthias Roach M.D. on 10/11/2016 at 20:32 . 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 Hospital day # 8. 1. Acute kidney injury on chronic kidney disease, stage 4. The etiology of acute kidney injury is due to sepsis and acute tubular necrosis. 2. Normocytic anemia secondary to iron deficiency and chronic kidney disease. - Will give one time dose of Venofer 100mg IV. 3. Acute hypoxic respiratory failure. Resolved. 4. 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 Resolved. 5. Hypertension with hypertensive nephrosclerosis. 6. History of chronic diastolic heart failure. 7. Sleep apnea. 8. 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 9. Hypernatremia. Resolved. Plan: - Renal function continues to improve. Continue to encourage PO intake. Monitor renal function and UOP closely. - No urgent renal replacement therapy indicated. - May start PO lasix and CCB now for HTN and CHF. . VTE Prophylaxis: Sub-Q Heparin (Unfractionated) VTE Mechanical Devices: Intermittant Pneumatic CD Resuscitation Status: CPR: Attempt Resuscitation Attending Statement Nephrology attending: Patient continues to improve however his blood pressure remains elevated motion part I feel maybe due to pain. His BUN and creatinine continued to improve to 42 and 3.03. I have seen and examined the patient along with the internal medicine resident and I have thoroughly reviewed her note. Betty Roberson DO Oct 18, 2016 14:15 Jerrell Manning DO Oct 18, 2016 16:34
[2016-10-18] MEDS: 0.9% Sodium Chloride 1,000 ML IV SCH (14:32)
--- NOTE | 2016-10-18 14:35 | NUR ---
Social Work Note: Continued Discharge Planning Data& Assessment: Per pt request, SW met with pt and pt at bedside to discuss discharge planning. 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 Pt also explained they have a wheelchair, walker, urinal, commode and any other DME that pt might require going home. Pt and pt emphasized the importance of pt returning home at discharge. Pt was agreeable to Home Health PT. SW provided list for preferences. Pt and pt did not have a preference and agreed to refer to the rotating calender. Referral made to [facility] for PT when medically ready. Pt and pt deny any other needs at this time. SW to continue to follow if any needs arise. Plan: Anticipated discharge home via POV when medically ready with [facility] PT to follow. Pt and pt deny any other needs at this time. SW to continue to follow if any needs arise. DARRON Lr
--- NOTE | 2016-10-18 14:48 | PCM.PNMED ---
Subjective Date of Service Oct 18, 2016 Subjective Farooq Gonzales is a 75-year-old male with diabetes, CKD stage IV, coronary artery disease, diastolic CHF, and hypertension who presented with acute abdominal pain. Admitted for ischemic bowel secondary to volvulus and internal hernia now day 8 status post laparotomy. Prolonged intubation after surgery extubated on 10/16. Hospital day 9. Overnight: Patient was maintained on a nicardipine drip and continued with CPAP. No acute events overnight. Today: Patient is sitting in bed comfortably with nasal cannula in place. He denies any pain, nausea, vomiting, dysuria. He states that he is starting to feel hungry and early this afternoon passed a large amount of flatus. He passed a speech evaluation and is cleared for mechanical dysphasia. The surgery team has cleared him for clear liquids. Nicardipine drip titrated off. Maintaining blood pressures. Remaining review of systems negative. Exam Vital Signs Vital Sign - Last Date Time Temp Pulse Resp B/P Pulse Ox O2 Delivery O2 Flow Rate FiO2 10/18/16 07:58 Supplement Oxygen CPAP/BIPAP 10/18/16 07:55 37.0 64 14 165/50 98 2.00 10/17/16 15:42 30 Intake and Output 10/17/16 10/17/16 10/18/16 Cumulative From/Thru 15:00 23:00 07:00 10/11/16 18:48 - 10/18/16 05:24 Intake Total 1096 ml 1986 ml 66228 ml Output Total 950 ml 550 ml 17297 ml Balance 146 ml 1436 ml 2803 ml Intake Oral 0 ml IV Total 1096 ml 1986 ml 82318 ml Output Urine Total 950 ml 550 ml 8535 ml Gastric Drainage Total 1770 ml Estimated Blood Loss 150 ml # Bowel Movements 0 0 Exam General: Obese gentleman lying in bed in no acute distress. HEENT: Pupils are equal and reactive to light, mucous membranes are moist, nasal cannula in place. Right IJ. Lungs: Clear to auscultation bilaterally with decreased breath sounds in the bases bilaterally. Cardiovascular: Regular rate and rhythm with no murmurs. Abdomen: Soft with hypoactive bowel sounds heard faintly. Vertical surgical incision present with appropriate pain to palpation. Extremities: No lower extremity edema, right AV fistula present with good thrill. Neurological: Cranial nerves grossly intact. Psychiatric: Normal mood and affect. Alert and oriented to person, place, and time. Lab and Diagnostics Result Diagram: 10/18/16 0410 10/18/16409 Microbiology Blood cultures 2 shows no growth after 2 days. MRSA screen negative. Sputum culture pending. . X-Rays, CTs and MRIs X-RAY CHEST ONE VIEW, PORTABLE IMPRESSION: No change in bibasilar pneumonia. Continued plain film surveillance is recommended to ensure resolution, and to exclude underlying or central malignancy. Dictated by: Roslyn Velasco M.D. on 10/14/2016 at 8:55 Approved by: Roslyn Velasco M.D. on 10/14/2016 at 8:55 US ABDOMEN IMPRESSION: 1. Echogenic liver. Finding typically represents fatty infiltration; however, finding is nonspecific and correlation with clinical and laboratory findings is recommended to exclude other etiologies including hepatic cirrhosis. 2. Nonvisualization of the pancreas, spleen, aorta and iliac vasculature. 3. Otherwise, normal abdominal sonogram. Dictated by: Tasha Barrera MD, PhD on 10/13/2016 at 9:12 Approved by: Tasha Barrera MD, PhD on 10/13/2016 at 9:12 . Assessment & Plan Farooq Gonzales is a 75-year-old male with diabetes, CKD stage IV, coronary artery disease, diastolic CHF, and hypertension who presented with acute abdominal pain. Admitted for ischemic bowel secondary to volvulus and internal hernia now day 8 status post laparotomy. Prolonged intubation after surgery extubated on 10/16. Hospital day 9. 1. Ischemic bowel status post laparotomy on 10/12, present on admission, improving. - Ischemic bowel secondary to volvulus and internal hernia. - Approximately 45 inches of mid small bowel were removed with primary anastomosis. 2. Postoperative ileus, not present on admission, active. - Flatus past today. No nausea or vomiting. - Patient started on clear liquids with surgeries permission. - Avoid narcotics as able. Fentanyl tapered and discontinued. Hydromorphone when necessary. - Aggressive physical therapy. 3. Hypertension, not present on admission, active. - Patient has chronic hypertension worsened by postoperative pain and ileus. - Nicardipine drip titrated off on 10/18. - Restarting home medications as patient is cleared for bolus. - Metoprolol 12.5 mg twice a day. - We will consider restarting amlodipine and Imdur if needed. - Continue to monitor on telemetry. 4. Heart failure with preserved ejection fraction, resonant on admission, presumed stable. - Echo from 06/29/16 revealed EF of 55% and significant aortic stenosis. - Normal saline at 60 mL an hour. Monitoring for fluid overload. 5. Sleep apnea on CPAP, present on admission, chronic. - CPAP used at night. 6. Acute hypoxic respiratory failure, not present on admission, resolved. - Intubated early a.m. 10/12/16 for perioperative management. Extubated successfully 10/16. - Requiring minimal nasal cannula oxygen now and CPAP at night. 7. Anion gap metabolic acidosis, as an on admission, resolved. - Secondary to bowel ischemia and elevated lactic acid. 8. Atrial fibrillation on anticoagulation with warfarin, present on admission, chronic. - Anticoagulation reversed prior to surgery. - Consider resuming warfarin when clinically stable. 9. Type II diabetes mellitus, present on admission, chronic. - Glargine 20 units daily. - Medium dose correctional scale with regular insulin. 10. CKD stage IV with baseline serum creatinine 3.3 - 3.9, was on admission, chronic. 11. Bradycardia, present on admission, chronic. - reports that his baseline HR is approx 40's. - Medication regimen does include metoprolol 12.5 mg twice a day. - Will continue to monitor on telemetry. Disposition: Patient's discharge pending return of bowel function, pain management, and progress with physical and speech therapy. Pain Evaluation: Adequate Pain Control GI Prophylaxis: H2 jackie VTE Prophylaxis: Sub-Q Heparin (Unfractionated) VTE Mechanical Devices: Intermittant Pneumatic CD Resuscitation Status: CPR: Attempt Resuscitation Attending Statement The patient was seen and examined together with Dr. Mcdaniel on 10-18-16 and I agree with the history, exam and plan as outlined in the note above. Patient is on IV prn dilaudid for pain if needed. JOSE MCDANIEL DO Oct 18, 2016 08:58 Payal Rm MD Oct 19, 2016 14:11
[2016-10-18] MEDS ORDERED: Iron Sucrose Inj 100 MG in 0.9% Sodium Chloride 100 ML IV ONE (16:35)
[2016-10-19] VITALS (8 sets, daily range): BP systolic 147–175; BP diastolic 52–72; PULSE 50–67; RESP 14–21; O2SAT 93–100
[2016-10-19] MEDS: Heparin 5,000 Unit/mL Inj SUBQ SCH ×4 (00:48→22:55)
[2016-10-19] MEDS: NiCARdipine Inj 25 MG in Dextrose 5% 240 ML IV SCH ×6 (01:55→14:25)
[2016-10-19] MEDS: Insulin Human REGular 300 Unit/3 mL Inj SUBQ SCH ×3 (02:30→15:15)
[2016-10-19 05:17] LABS: BASOPHILS % (AUTO) 0.2 % (0-3); EOSINOPHILS % (AUTO) 7.7 % (0-5); MONOCYTES % (AUTO) 11.3 % (4-12); Mean Corpuscular Hemoglobin 27.4 pg (27.0-35.0); Mean Corpuscular Volume 88.7 fL (81-100); NEUTROPHILS % (AUTO) 65.8 % (40-74); Platelet Count 135 bil/L (150-400)
[2016-10-19] MEDS: 0.9% Sodium Chloride 1,000 ML IV SCH (05:54)
[2016-10-19] MEDS: Erythromycin 0.5% 3.5 Gm Ophthalmic Ointment LEFT_EYE SCH ×4 (06:38→22:57)
[2016-10-19] MEDS: Pantoprazole 4 mg/mL 10 mL Inj IVPUSH SCH (08:09)
[2016-10-19] MEDS: Furosemide 10 mg/mL 2 mL Inj IVPUSH SCH (08:10)
[2016-10-19] MEDS: Insulin GLARgine 100 Unit/mL Syringe SUBQ SCH (08:13)
--- NOTE | 2016-10-19 11:00 | PCM.PNMED ---
Subjective Date of Service Oct 19, 2016 Subjective Pulmonary critical care consultation progress note: Patient no longer in the ICU Problems: Acute hypoxic respiratory failure. Intubated early a.m. 10/12/16 for perioperative management. Extubated 10/16/16. 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 Status post removal 10/11/16 of approximately 45 inches of mid small bowel with primary anastomosis. Sleep apnea on CPAP Heart failure with preserved ejection fraction Diabetes mellitus type II Atrial fibrillation Chronic kidney disease, stage IV Normocytic anemia Subjective: Yesterday the arterial line BP and the cuff BP were not equivalent. Her line was removed, and no monitoring cuff pressures. Nicardipine drip was discontinued. Patient did well overnight without any acute problems on CPAP. Reports flatus, and denies n/v and pain causing significant impairment (except for coughing and moving in bed). He was able to get up with PT and on his own yesterday. He has some phlegm with cough. Denies other complaints. Exam Vital Signs Vital Sign - Last Date Time Temp Pulse Resp B/P Pulse Ox O2 Delivery O2 Flow Rate FiO2 10/19/16 08:08 37.2 58 16 157/64 94 Room Air 10/18/16 20:30 2.00 10/17/16 15:42 30 Intake and Output 10/18/16 10/18/16 10/19/16 Cumulative From/Thru 15:00 23:00 07:00 10/11/16 18:48 - 10/19/16 06:07 Intake Total 1314 ml 1036 ml 46325 ml Output Total 550 ml 700 ml 16023 ml Balance 764 ml 336 ml 3903 ml Intake Oral 225 ml 250 ml 475 ml IV Total 1089 ml 786 ml 41889 ml Output Urine Total 550 ml 700 ml 9785 ml Gastric Drainage Total 1770 ml Estimated Blood Loss 150 ml # Bowel Movements 0 0 Exam Gen.: Obese gentleman lying in hospital bed, on CPAP in no acute distress. HEENT: Pupils are equal and reactive to light, mucous membranes are moist, CPAP in place. Chest: Clear bilaterally with decreased breath sounds in the L base. Cardiovascular: Unremarkable rate and rhythm, normal S1 and S2, no appreciable murmur. Radial pulses are 2+ bilaterally as are posterior tibials. Abdomen: Soft, I do appreciate minimal scattered bowel sounds, there is an approximately 30 cm vertical surgical incision that is well approximated and healing and the midabdomen with the superior portion almost to the level of the xiphoid process. Extremities: no edema, there is a right upper extremity AV fistula with good thrill. Lines: Right IJ for central venous access IVs and Medications IV Fluids NS at 60 Medications Reviewed: Medications were reviewed in detail Lab and Diagnostics Result Diagram: 10/19/16 0500 10/19/16 0500 Microbiology Blood cultures drawn 10/11/16 negative to date. Sputum culture performed 10/12/16 (Shows few polys, few epithelial cells, few mixed normal cleo.). MRSA screen is negative. Assessment & Plan Assessment: 1. Acute hypoxic respiratory failure. Intubated early a.m. 10/12/16 for perioperative management. Successfully extubated 10/16/16 to BiPAP. Now on home CPAP at night with 2L by NC during the day. So far, no indication of acute infection. 2. 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 Status post removal of approximately 45 inches of mid small bowel with primary anastomosis. Pain well- controlled with PRN Fentanyl pushes (minimal so far). Flatus reported today. Bowel tones present. Currently on stim diet with plans to advance as tolerated. 3. Sleep apnea on CPAP. Family brought in his CPAP. Will continue with home CPAP at night and during naps. 4. Continues to be acutely anemic with normocytic RBCs. Plan: -Get him up and moving. -CPAP at night and with naps. -PRN pain control as already ordered. Pulmonary critical care team will now sign off. Please do not hesitate to contact us with further questions or concerns. GI prophylaxis with IV Protonix. DVT prophylaxis with subcutaneous heparin. Patient is full code. Time spent: 25 minutes. Baldomero Hanson DO Oct 19, 2016 11:00
--- NOTE | 2016-10-19 12:17 | PCM.PNSURG ---
Subjective Date of Service: Oct 19, 2016 Date of Service: Oct 19, 2016 Visit Information: Reason for Visit: Postop Care POSTOPERATIVE DIAGNOSIS(ES): Acute abdomen, possible small bowel volvulus. PROCEDURE: 10/12/2016 1. Exploratory laparotomy. 2. Small-bowel resection x1 with primary anastomosis Post-Op Day # 7 Date of Admission: Oct 11, 2016 at 22:51 Hospital Day # 8 Postop General: No Complaints Gastrointestinal: No N/V, Passing Flatus Pain Management: IV Push Postop Activity: Ambulating in Room Only Objective Vital Sign- Last 8 Hours Date Time Temp Pulse Resp B/P Pulse Ox O2 Delivery O2 Flow Rate FiO2 10/19/16 08:30 Supplement Oxygen CPAP/BIPAP 10/19/16 08:08 37.2 58 16 157/64 94 Room Air 10/19/16 04:30 Supplement Oxygen CPAP/BIPAP Intake and Output- Last 8 Hour 10/19/16 Cumulative From/Thru 07:00 10/11/16 18:48 - 10/19/16 06:07 Intake Total 1036 ml 03863 ml Output Total 700 ml 08067 ml Balance 336 ml 3903 ml Intake Oral 250 ml 475 ml IV Total 786 ml 80476 ml Output Urine Total 700 ml 9785 ml Gastric Drainage Total 1770 ml Estimated Blood Loss 150 ml # Bowel Movements 0 0 General: Alert, Oriented X3 Lungs: Coarse (Scattered) Heart: Regular Rate/Rhythm Abdomen: Firm (slightly), Appropriately tender, Non-distended, Other (Positive bowel sounds X 4) SURGICAL WOUND : Wound General Appearence: Well Approximated, Incision Healing, No Erythema Extremities: Thigh&Calf Soft/Nontender Neuro: Grossly Neurologically Intact Catheters: Urethral 2 Way Chin Result Diagram: 10/19/16 0500 10/19/16 0500 Diagnostics: Ultrasound Abdomen 10/13/16 IMPRESSION: 1. Echogenic liver. Finding typically represents fatty infiltration; however, finding is nonspecific and correlation with clinical and laboratory findings is recommended to exclude other etiologies including hepatic cirrhosis. 2. Nonvisualization of the pancreas, spleen, aorta and iliac vasculature. 3. Otherwise, normal abdominal sonogram CXR 10/17/16 IMPRESSION: Slight improvement in left lower lobe dense pneumonia. Reduced inspiration. Central line normal. CT Abdomen & Pelvis 10/11/16 IMPRESSION: 1. Constellation of findings suspicious for a closed-loop mid small bowel obstruction, secondary to localized volvulus or internal hernia. Mesenteric fat stranding as well as patchy small bowel wall thickening would be concerning for evolving bowel ischemia. 2. Small right and trace left mobile dependent pleural effusions are of uncertain etiology. 3. 1.4 cm partially exophytic anteromedial right renal cortical lesion is too dense to represent a simple cyst, and may therefore represent complex cyst versus solid mass. When clinically feasible, consider further evaluation with renal ultrasound, or pre- and post-contrast renal protocol CT or MRI to distinguish between these possibilities. Assessment & Plan Impression Impression 75-year-old obese male with diabetes, hypertension, history of stroke, CHF, atrial fibrillation on Coumadin, chronic renal insufficiency, who presented with acute abdominal pain due to infarcted and compromised ischemic bowel from volvulus and internal hernia due to adhesive band. Problems: Plan 1. Acute hypoxic respiratory failure. Intubated early a.m. 10/12/16 for perioperative management. Several attempts today at weaning off of sedation and pressure support trials have not been successful. The patient continues to be on IV propofol and fentanyl. Continue with spontaneous breathing trials per pulmonary critical care - Vent settings: FiO2 40% (desat 85-89% on 30%), PEEP 5, Vt 480 - History of Sleep apnea and uses CPAP at home - Hypertensive during SBT SBP's 205 - Extubated 10/16/15, now on NC 2. 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 Status post removal of approximately 45 inches of mid small bowel with primary anastomosis. Surgical stable at this point - Passed Swallow Evaluation 10/18/16 advanced to Full liquid diet 10/19/16 ( discussed with Dr. Dupree) - NG 225 ml bilious output, removed 10/17/16 3. Postop hypotension. Required Phenylephrine but has been discontinued. 4. Chronic kidney disease, stage IV. Currently not on hemodialysis but has dialysis access right upper arm - Urinary output 1100 ml/24 (45ml/hr) Current Weight 109.2 Kg Admit 101.5 Kg - BUN/Creatinine trending down 67 - 59- 42 - 42 and 4.05 - 3.94 - 3.03 - 3.06 5. Acute on chronic anemia -Admit hematocrit 36.5 treated with home medication ferrous sulfate 325 mg 3 times a day -Current hematocrit 23.6. Transfused 1 unit packed red blood cells 10/13/16 - 1 X dose Venofer 100 mg IV (10/19/16) 6. Diabetes mellitus type II. Insulin-dependent. - HGBA1c pending - Glargine 20 unit @ bedtime and SS regular insulin - Blood sugars 94 - 106 7. Chronic diastolic heart failure. BNP on admit 4360 Preserved EF. Home med Lasix and potassium 8. History of atrial fibrillation, chronic, present on admission. Been on warfarin therapy as an outpatient. This is currently on hold Current INR 1.46 (10/13/16) 9. Hypertension, chronic, present on admission - Preop meds Hydralazine 50 mg 3 times a day Metoprolol 12.5 mg 2 times a day Restarted 10/19/15 Isosorbide 30 mg a day 10. DVT prophylaxis - heparin 5000 unit subcutaneous every 8 hoursPain Management: I Pain management: IV and PO VTE Prophylaxis: Sub-Q Heparin (Unfractionated) Resuscitation Status: CPR: Attempt Resuscitation Kate Hugo PA-C Oct 19, 2016 12:17
--- NOTE | 2016-10-19 14:29 | PCM.PNMED ---
Subjective Date of Service Oct 19, 2016 Subjective Nephrology Progress Note: Attending Dr. Nigel Trivedi Christian is a 75-year-old man with diabetes, chronic kidney disease stage IV status post AVF, coronary artery disease, diastolic CHF and hypertension presented with acute abdominal pain who was found to have ischemic bowel due to volvulus internal hernia status post mid small bowel resection with primary anastomosis status post extubation and is being treated for ATN. Hospital day # 9. Overnight: There were no acute events. Patient rested comfortably on CPAP. Telemetry overnight: Atrial fibrillation, heart rate 50s to 60s, without ectopy. The patient is resting in bed comfortably and in no acute distress. The patient reports that he feels well. He continues to endorse productive cough. He has no other complaints. He denies headache, chest pain, palpitations, shortness of breath, abdominal pain, nausea, vomiting, fever, chills, dysuria, diarrhea or constipation. The patient reports flatulence, however, he has not had a bowel movement since his operation. The patient is voiding without difficulty. . Exam Vital Signs Vital Sign - Last Date Time Temp Pulse Resp B/P Pulse Ox O2 Delivery O2 Flow Rate FiO2 10/19/16 12:27 36.6 50 21 161/55 93 Room Air 10/18/16 20:30 2.00 10/17/16 15:42 30 Intake and Output 10/18/16 10/18/16 10/19/16 Cumulative From/Thru 15:00 23:00 07:00 10/11/16 18:48 - 10/19/16 06:07 Intake Total 1314 ml 1036 ml 30119 ml Output Total 550 ml 700 ml 64370 ml Balance 764 ml 336 ml 3903 ml Intake Oral 225 ml 250 ml 475 ml IV Total 1089 ml 786 ml 57285 ml Output Urine Total 550 ml 700 ml 9785 ml Gastric Drainage Total 1770 ml Estimated Blood Loss 150 ml # Bowel Movements 0 0 Exam General: Older male lying in bed and in no acute distress, well-developed, well- nourished, appropriately interactive. HEENT: Normocephalic, atraumatic. External ears without defect. Pupils equal, round, and reactive to light. Anicteric sclerae, moist conjunctivae, and no lid lag. Neck: Supple with full range of motion. No jugular venous distension. No bruits. No lymphadenopathy or thyromegaly. Cardiovascular: Irregularly irregular with no murmurs, rubs, or gallops appreciated Pulmonary: Clear to auscultation bilaterally with no crackles, wheezes, or rhonchi. Normal respiratory effort with no use of accessory muscles. Abdomen: Soft, moderately distended, nontender, bowel sounds present. Extremities: No clubbing, cyanosis, or edema. Right AV fistula with good thrill. Skin: Normal temperature, turgor, and texture; no rash, ulcers, or subcutaneous nodules appreciated. Neurological: Cranial nerves grossly intact. . IVs and Medications Medications Reviewed: Medications were reviewed in detail Lab and Diagnostics Item Value Date Time Calcium Level 8.5 mg/dL 10/19/16 0500 Total Bilirubin 0.4 mg/dL 10/19/16 0500 Aspartate Amino Transf (AST/SGOT) 12 U/L 10/19/16 0500 Alanine Aminotransferase (ALT/SGPT) 5 U/L 10/19/16 0500 Alkaline Phosphatase 66 U/L 10/19/16 0500 Total Protein 5.6 g/dL L 10/19/16 0500 Albumin 2.9 g/dL L 10/19/16 0500 Result Diagram: 10/19/16 0500 10/19/16 0500 Microbiology Blood cultures drawn show no growth after 5 days. MRSA screen negative. Sputum culture shows no growth. . X-Rays, CTs and MRIs X-RAY CHEST ONE VIEW, PORTABLE IMPRESSION: Slight improvement in left lower lobe dense pneumonia. Reduced inspiration. Central line normal. Dictated by: West Cerrato M.D. on 10/17/2016 at 7:53 Approved by: West Cerrato M.D. on 10/17/2016 at 7:53 US ABDOMEN IMPRESSION: 1. Echogenic liver. Finding typically represents fatty infiltration; however, finding is nonspecific and correlation with clinical and laboratory findings is recommended to exclude other etiologies including hepatic cirrhosis. 2. Nonvisualization of the pancreas, spleen, aorta and iliac vasculature. 3. Otherwise, normal abdominal sonogram. Dictated by: Tasha Barrera MD, PhD on 10/13/2016 at 9:12 Approved by: Tasha Barrera MD, PhD on 10/13/2016 at 9:12 CT ABDOMEN AND PELVIS WITHOUT CONTRAST IMPRESSION: 1. Constellation of findings suspicious for a closed-loop mid small bowel obstruction, secondary to localized volvulus or internal hernia. Mesenteric fat stranding as well as patchy small bowel wall thickening would be concerning for evolving bowel ischemia. 2. Small right and trace left mobile dependent pleural effusions are of uncertain etiology. 3. 1.4 cm partially exophytic anteromedial right renal cortical lesion is too dense to represent a simple cyst, and may therefore represent complex cyst versus solid mass. When clinically feasible, consider further evaluation with renal ultrasound, or pre- and post-contrast renal protocol CT or MRI to distinguish between these possibilities. Dictated by: Matthias Roach M.D. on 10/11/2016 at 20:32 Approved by: Matthias Roach M.D. on 10/11/2016 at 20:32 . 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 Hospital day # 9. 1. Acute kidney injury on chronic kidney disease, stage 4. The etiology of acute kidney injury is due to sepsis and acute tubular necrosis. 2. Normocytic anemia secondary to iron deficiency and chronic kidney disease. - Will give one time dose of Venofer 100mg IV. 3. Acute hypoxic respiratory failure. Resolved. 4. 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 Resolved. 5. Hypertension with hypertensive nephrosclerosis. 6. History of chronic diastolic heart failure. 7. Sleep apnea. 8. 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 9. Hypernatremia. Resolved. Plan: - Renal function close to baseline. Continue to encourage PO intake. Monitor renal function and UOP closely. - No urgent renal replacement therapy indicated. - Take the liberty of restarting the patient's amlodipine 10 mg daily. In addition added torsemide 20 mg twice a day and hydralazine 25 mg twice a day for HTN and CHF. . VTE Prophylaxis: Sub-Q Heparin (Unfractionated) Resuscitation Status: CPR: Attempt Resuscitation Attending Statement Nephrology attending: The patient was seen and examined along with the internal medicine resident. Her note has been reviewed and I agree with the findings. Right now the biggest issue is trying get the patient's blood pressure under better control. We are going to restart amlodipine 10 mg daily along with torsemide 20 mg twice a day. Betty Roberson DO Oct 19, 2016 14:29 Jerrell Manning DO Oct 19, 2016 15:41
[2016-10-19 16:41] LABS: INR 1.12 ratio
--- NOTE | 2016-10-19 18:05 | PCM.PNMED ---
Subjective Date of Service Oct 19, 2016 Subjective Farooq Gonzales is a 75-year-old male with diabetes, CKD stage IV, coronary artery disease, diastolic CHF, and hypertension who presented with acute abdominal pain. Admitted for ischemic bowel secondary to volvulus and internal hernia now day 9 status post laparotomy. Prolonged intubation after surgery extubated on 10/16. Hospital day 10. Overnight: No acute events overnight. Today: Patient is sitting in bed comfortably with nasal cannula in place. He denies any pain, nausea, vomiting, dysuria. He is tolerating a full liquid diet. Patient passing large amount of flatus but no bowel movements as of yet. Patient walking with physical therapy. Remaining review of systems negative. Exam Vital Signs Vital Sign - Last Date Time Temp Pulse Resp B/P Pulse Ox O2 Delivery O2 Flow Rate FiO2 10/19/16 08:08 37.2 58 16 157/64 94 Room Air 10/18/16 20:30 2.00 10/17/16 15:42 30 Intake and Output 10/18/16 10/18/16 10/19/16 Cumulative From/Thru 15:00 23:00 07:00 10/11/16 18:48 - 10/19/16 06:07 Intake Total 1314 ml 1036 ml 93008 ml Output Total 550 ml 700 ml 61690 ml Balance 764 ml 336 ml 3903 ml Intake Oral 225 ml 250 ml 475 ml IV Total 1089 ml 786 ml 17099 ml Output Urine Total 550 ml 700 ml 9785 ml Gastric Drainage Total 1770 ml Estimated Blood Loss 150 ml # Bowel Movements 0 0 Exam General: Obese gentleman lying in bed in no acute distress. HEENT: Pupils are equal and reactive to light, mucous membranes are moist, nasal cannula in place. Right IJ. Lungs: Clear to auscultation bilaterally with decreased breath sounds in the bases bilaterally. Cardiovascular: Regular rate and rhythm with no murmurs. Abdomen: Soft with active bowel sounds. Vertical surgical incision present with appropriate pain to palpation. Extremities: No lower extremity edema, right AV fistula present with good thrill. Neurological: Cranial nerves grossly intact. Psychiatric: Normal mood and affect. Alert and oriented to person, place, and time. Lab and Diagnostics Result Diagram: 10/19/16 0500 10/19/16 0500 Microbiology Blood cultures 2 shows no growth after 2 days. MRSA screen negative. Sputum culture pending. . X-Rays, CTs and MRIs X-RAY CHEST ONE VIEW, PORTABLE IMPRESSION: No change in bibasilar pneumonia. Continued plain film surveillance is recommended to ensure resolution, and to exclude underlying or central malignancy. Dictated by: Roslyn Velasco M.D. on 10/14/2016 at 8:55 Approved by: Roslyn Velasco M.D. on 10/14/2016 at 8:55 US ABDOMEN IMPRESSION: 1. Echogenic liver. Finding typically represents fatty infiltration; however, finding is nonspecific and correlation with clinical and laboratory findings is recommended to exclude other etiologies including hepatic cirrhosis. 2. Nonvisualization of the pancreas, spleen, aorta and iliac vasculature. 3. Otherwise, normal abdominal sonogram. Dictated by: Tasha Barrera MD, PhD on 10/13/2016 at 9:12 Approved by: Tasha Barrera MD, PhD on 10/13/2016 at 9:12 . Assessment & Plan Farooq Gonzales is a 75-year-old male with diabetes, CKD stage IV, coronary artery disease, diastolic CHF, and hypertension who presented with acute abdominal pain. Admitted for ischemic bowel secondary to volvulus and internal hernia now day 9 status post laparotomy. Prolonged intubation after surgery extubated on 10/16. Hospital day 10. 1. Ischemic bowel status post laparotomy on 10/12, present on admission, improving. - Ischemic bowel secondary to volvulus and internal hernia. - Approximately 45 inches of mid small bowel were removed with primary anastomosis. 2. Postoperative ileus, not present on admission, active. - Flatus past today. No nausea or vomiting. - Patient started on full liquids with surgeries permission. - Avoid narcotics as able. Fentanyl tapered and discontinued. Hydromorphone when necessary. - Aggressive physical therapy. 3. Hypertension, not present on admission, active. - Patient has chronic hypertension worsened by postoperative pain and ileus. - Nicardipine drip titrated off on 10/18. - Metoprolol 12.5 mg twice a day. - Hydralazine 20 mg TID. - Amlodipine 10 mg. - Continue to monitor on telemetry. 4. Heart failure with preserved ejection fraction, resonant on admission, presumed stable. - Echo from 06/29/16 revealed EF of 55% and significant aortic stenosis. - Normal saline stopped as patient with PO intake. 5. Sleep apnea on CPAP, present on admission, chronic. - CPAP used at night. 6. Acute hypoxic respiratory failure, not present on admission, resolved. - Intubated early a.m. 10/12/16 for perioperative management. Extubated successfully 10/16. - Requiring minimal nasal cannula oxygen now and CPAP at night. 7. Anion gap metabolic acidosis, as an on admission, resolved. - Secondary to bowel ischemia and elevated lactic acid. 8. Atrial fibrillation on anticoagulation with warfarin, present on admission, chronic. - Anticoagulation reversed prior to surgery. - Consider resuming warfarin when clinically stable. 9. Type II diabetes mellitus, present on admission, chronic. - Glargine 20 units daily. - Medium dose correctional scale with regular insulin. 10. CKD stage IV with baseline serum creatinine 3.3 - 3.9, was on admission, chronic. 11. Bradycardia, present on admission, chronic. - reports that his baseline HR is approx 40's. - Medication regimen does include metoprolol 12.5 mg twice a day. - Will continue to monitor on telemetry. Disposition: Patient's discharge pending return of bowel function and progress with physical therapy. Possibly home or SNF depending on PT evaluation. Pain Evaluation: Adequate Pain Control GI Prophylaxis: H2 jackie VTE Prophylaxis: Sub-Q Heparin (Unfractionated) VTE Mechanical Devices: Intermittant Pneumatic CD Resuscitation Status: CPR: Attempt Resuscitation Attending Statement The patient was seen and examined together with Dr. Mcdaniel on 10-19-16 and I agree with the history, exam and plan as outlined in the note above. Patient's Coumadin dosing restarted today, monitor PT daily. JOSE MCDANIEL DO Oct 19, 2016 10:19 Payal Rm MD Oct 20, 2016 14:39
--- NOTE | 2016-10-19 18:35 | NUR ---
Hypertension Patient hypertensive with systolic pressure in the 150s-160s. MD notified and PO amlodipine and hydralazine started per MD orders. Patient still hypertensive with no noticeable change in BP. Addendum: 10/19/16 at 1839 by OBDULIO DOLAN RN MD aware of BP.
[2016-10-19] MEDS ORDERED: Glucose 40% Oral Gel 15 Gm Tube PO PRN (19:05)
--- NOTE | 2016-10-19 20:04 | PCM.CONPHA ---
Assessment/Plan Assessment/Plan ANTICOAGULATION MANAGEMENT BY PHARMACY -INDICATION: AFIB -HOME DOSE: 5 MG -CONCURRENT ANTICOAGULATION: HEPARIN 5K UNITS Q8H -CRCL: 22.2 ML/MIN -COAG TRENDS: Date INR 1.12 -[id number] SCORE: 4 PLAN: Now that patient is stable we will restart Warfarin therapy. Current INR is 1.12 with a goal of 2-3. Tonight we will restart patients home dose of 5 mg and continue to monitor INR trends Pharmacy will continue to monitor and adjust as appropriate. THANKS! Eda Whitney PharmD Oct 19, 2016 20:04
[2016-10-19] MEDS: Insulin LISPRO 300 Unit/3 mL Inj SUBQ SCH (22:00)
[2016-10-20] VITALS (7 sets, daily range): BP systolic 120–172; BP diastolic 57–90; PULSE 52–74; RESP 12–20; O2SAT 94–100
--- NOTE | 2016-10-20 04:45 | NUR ---
BM Pt assisted to the BSC with 1 staff and a FWW. Pt had 1 small BM this shift. Pt reports no pain. Midline abdomen incision approximated. Pt A&Ox3, KEARNEY, CMS in all extremities. Blood sugars stable and not requiring s/s insulin.
[2016-10-20] MEDS: Erythromycin 0.5% 3.5 Gm Ophthalmic Ointment LEFT_EYE SCH ×4 (06:30→20:33)
[2016-10-20] MEDS: Insulin LISPRO 300 Unit/3 mL Inj SUBQ SCH ×4 (08:00→20:34)
--- NOTE | 2016-10-20 08:48 | PCM.PNMED ---
Subjective Date of Service Oct 20, 2016 Subjective Nephrology Progress Note: Attending Dr. Nigel Trivedi Christian is a 75-year-old man with diabetes, chronic kidney disease stage IV status post AVF, coronary artery disease, diastolic CHF and hypertension presented with acute abdominal pain who was found to have ischemic bowel due to volvulus internal hernia status post mid small bowel resection with primary anastomosis status post extubation and is being treated for ATN. Hospital day # 10. Overnight: There were no acute events. Patient rested comfortably on CPAP. Telemetry overnight: Atrial fibrillation, heart rate 50s to 60s, with bradycardia and several 2 second pauses. The patient is resting in bed comfortably and in no acute distress. The patient reports that he feels well. He continues to endorse productive cough. He has no other complaints. He denies headache, chest pain, palpitations, shortness of breath, abdominal pain, nausea, vomiting, fever, chills, dysuria, diarrhea or constipation. The patient reports flatulence, however, he has not had a bowel movement since his operation. The patient is voiding without difficulty. . Exam Vital Signs Vital Sign - Last Date Time Temp Pulse Resp B/P Pulse Ox O2 Delivery O2 Flow Rate FiO2 10/20/16 03:38 36.2 52 20 155/58 100 Nasal Cannula 4.00 10/17/16 15:42 30 Intake and Output 10/19/16 10/19/16 10/20/16 Cumulative From/Thru 15:00 23:00 07:00 10/11/16 18:48 - 10/20/16 06:22 Intake Total 2772 ml 710 ml 53775 ml Output Total 650 ml 475 ml 98768 ml Balance 2122 ml 235 ml 6260 ml Intake Oral 1300 ml 710 ml 2485 ml IV Total 1472 ml 78093 ml Output Urine Total 650 ml 475 ml 90539 ml Gastric Drainage Total 1770 ml Estimated Blood Loss 150 ml # Bowel Movements 1 1 Exam General: Older male lying in bed and in no acute distress, well-developed, well- nourished, appropriately interactive. HEENT: Normocephalic, atraumatic. External ears without defect. Pupils equal, round, and reactive to light. Anicteric sclerae, moist conjunctivae, and no lid lag. Neck: Supple with full range of motion. No jugular venous distension. No bruits. No lymphadenopathy or thyromegaly. Cardiovascular: Irregularly irregular with no murmurs, rubs, or gallops appreciated Pulmonary: Clear to auscultation bilaterally with no crackles, wheezes, or rhonchi. Normal respiratory effort with no use of accessory muscles. Abdomen: Soft, moderately distended, nontender, bowel sounds present. Extremities: No clubbing, cyanosis, or edema. Right AV fistula with good thrill. Skin: Normal temperature, turgor, and texture; no rash, ulcers, or subcutaneous nodules appreciated. Neurological: Cranial nerves grossly intact. . IVs and Medications Medications Reviewed: Medications were reviewed in detail Lab and Diagnostics Item Value Date Time Calcium Level 8.5 mg/dL 10/19/16 0500 Total Bilirubin 0.4 mg/dL 10/19/16 0500 Aspartate Amino Transf (AST/SGOT) 12 U/L 10/19/16 0500 Alanine Aminotransferase (ALT/SGPT) 5 U/L 10/19/16 0500 Alkaline Phosphatase 66 U/L 10/19/16 0500 Total Protein 5.6 g/dL L 10/19/16 0500 Albumin 2.9 g/dL L 10/19/16 0500 Result Diagram: 10/19/16 0500 10/19/16 0500 Microbiology Blood cultures 2 shows no growth after 2 days. MRSA screen negative. Sputum culture pending. . X-Rays, CTs and MRIs X-RAY CHEST ONE VIEW, PORTABLE IMPRESSION: No change in bibasilar pneumonia. Continued plain film surveillance is recommended to ensure resolution, and to exclude underlying or central malignancy. Dictated by: Roslyn Velasco M.D. on 10/14/2016 at 8:55 Approved by: Roslyn Velasco M.D. on 10/14/2016 at 8:55 US ABDOMEN IMPRESSION: 1. Echogenic liver. Finding typically represents fatty infiltration; however, finding is nonspecific and correlation with clinical and laboratory findings is recommended to exclude other etiologies including hepatic cirrhosis. 2. Nonvisualization of the pancreas, spleen, aorta and iliac vasculature. 3. Otherwise, normal abdominal sonogram. Dictated by: Tasha Barrera MD, PhD on 10/13/2016 at 9:12 Approved by: Tasha Barrera MD, PhD on 10/13/2016 at 9:12 . 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 Hospital day # 10. 1. Acute kidney injury on chronic kidney disease, stage 4. The etiology of acute kidney injury is due to sepsis and acute tubular necrosis. 2. Normocytic anemia secondary to iron deficiency and chronic kidney disease. - Will give one time dose of Venofer 100mg IV. 3. Acute hypoxic respiratory failure. Resolved. 4. 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 Resolved. 5. Hypertension with hypertensive nephrosclerosis. 6. History of chronic diastolic heart failure. 7. Sleep apnea. 8. 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 9. Hypernatremia. Resolved. Plan: - Renal function close to baseline. Continue to encourage PO intake. Monitor renal function and UOP closely. - No urgent renal replacement therapy indicated. - Continue amlodipine 10 mg daily, torsemide 20 mg twice a day and hydralazine 50 mg three times a day for HTN and CHF. - Took the liberty of stopping metoprolol as patient has been bradycardic with frequent 2 second pauses. Recommend cardiology consult. . GI Prophylaxis: H2 jackie VTE Prophylaxis: Sub-Q Heparin (Unfractionated) VTE Mechanical Devices: Intermittant Pneumatic CD Resuscitation Status: CPR: Attempt Resuscitation Betty Roberson DO Oct 20, 2016 08:48
[2016-10-20] MEDS: Pantoprazole 4 mg/mL 10 mL Inj IVPUSH SCH (08:55)
[2016-10-20] MEDS: Heparin 5,000 Unit/mL Inj SUBQ SCH ×2 (08:55→16:07)
--- NOTE | 2016-10-20 09:19 | NUR ---
Verbal consent to yahir FADI
[2016-10-20] MEDS: Insulin GLARgine 100 Unit/mL Syringe SUBQ SCH (09:53)
[2016-10-20 10:51] LABS: Mean Corpuscular Hemoglobin 27.4 pg (27.0-35.0); Mean Corpuscular Volume 88.6 fL (81-100)
--- NOTE | 2016-10-20 10:54 | PCM.PNSURG ---
Subjective Date of Service: Oct 20, 2016 Date of Service: Oct 20, 2016 Visit Information: Reason for Visit Acute Abdomin Surgery/Surgery Date Post-Op Day # 8 Date of Admission: Oct 11, 2016 at 22:51 Subjective: Patient seen sitting up in bed, no complaints of pain. Still feels weak. Denies nausea or vomiting. He is tolerating full liquid diet with no increase in pain or nausea. Still lacks much appetite. Had a BM last night. Postop General: Other (as above) Gastrointestinal: Tolerating Oral Feedings, No N/V, Passing Flatus Pain Management: Other (none needed.) Postop Activity: Ambulating in [place] Objective Vital Sign- Last 8 Hours Date Time Temp Pulse Resp B/P Pulse Ox O2 Delivery O2 Flow Rate FiO2 10/20/16 10:18 62 10/20/16 08:55 36.4 62 18 172/74 94 Room Air 10/20/16 08:55 Supplement Oxygen CPAP/BIPAP 10/20/16 03:38 36.2 52 20 155/58 100 Nasal Cannula 4.00 Intake and Output- Last 8 Hour 10/20/16 Cumulative From/Thru 07:00 10/11/16 18:48 - 10/20/16 06:22 Intake Total 710 ml 83603 ml Output Total 475 ml 92706 ml Balance 235 ml 6260 ml Intake Oral 710 ml 2485 ml IV Total 77789 ml Output Urine Total 475 ml 58786 ml Gastric Drainage Total 1770 ml Estimated Blood Loss 150 ml # Bowel Movements 1 1 General: Alert, Oriented X3, Cooperative, No Acute Distress Lungs: Clear to Auscultation Heart: Other (regular rhythm) Abdomen: Soft, Appropriately tender, Non-distended SURGICAL WOUND : Wound General Appearence: Intact, Well Approximated, Incision Healing Extremities: Thigh&Calf Soft/Nontender Neuro: Normal Speech Catheters: None Result Diagram: 10/19/16 0500 10/19/16 0500 Assessment & Plan Impression Primary diagnosis: Postop day #8 status post exploratory laparotomy with small bowel resection with primary anastomosis. Other diagnoses: Normocytic anemia secondary to iron deficiency and chronic kidney disease. Diabetes, type II. Insulin-dependent, with diabetic nephropathy and nephrotic syndrome. Hypertension History of stroke Chronic diastolic heart failure. Sleep apnea. Atrial fibrillation Chronic renal insufficiency, stage IV. Acute kidney injury due to sepsis and acute tubular necrosis. Postop acute hypoxic respiratory failure, extubated 10/16/2015. Problems: Plan CBC and BMP pending today. We will advance to soft diet today. Patient encouraged to go slowly. Continue IS use. Continue ambulation. Pain Management: Not requiring pain medication currently. VTE Prophylaxis: Sub-Q Heparin (Unfractionated) Resuscitation Status: CPR: Attempt Resuscitation Ce Ray PA-C Oct 20, 2016 10:54
[2016-10-20 11:03] LABS: INR 1.21 ratio
--- NOTE | 2016-10-20 13:44 | NUR ---
Activity/central line Patient motivated to increase his activity level patient was transferring to chair for meals and bedside commode for toileting. He continued to require one persona assist and walker with transfers. Patient at the time was on room air and at rest oxygen saturation was 94-96% but with activity oxygen saturation was decreasing to 85-89%-oxygen per NC during activity was added. Will consult with MD regarding home O2 set up continue assessment. MD asked to remove right central line. Patient declined central line removal. Patient and his stated that I am a difficult stick and I do not wish to become a pin cushion. MD was made aware right upper subclavian central line with be remove at discharge- discharge was planned for tomorrow.
--- NOTE | 2016-10-20 15:30 | NUR ---
NUTRITION FOLLOW-UP: ASSESS: 75 YO male admitted to CCU s/p laparotomy and SB resection due to ischemic bowel. Pt extubated on 10/16. Pt tolerated a full liquid diet. Diet will advance today to soft. Pt's appetite is decreased but his is encouraging him to eat. PMHX: Alcoholism, Stg 4 CKD, Pneumonia, GI bleed, CHF, T2DM, CVA, HTN, A-fib, EDUARDO / CPAP LABS: Reviewed. BUN 43, Cr 2.89, Glu 140, Albumin 2.9 MEDS: Reviewed. Insulin, protonix GI: BM x1 10/20 SKIN: Bravo 17. WT: 109.6 kg, BMI: 34.7 kg/m2, Admit Wt: 101.5 kg (BMI: 32.1 kg/m2) DIET: Soft, PO 50-100% ESTIMATED NEEDS: CKD stg 4 (admit wt) Calories: 2511-6341 kcal/day (20-25 kcal/kg BW) Protein: 75-90 g/day (1.0-1.2 g/kg IBW) Fluid: ~2500 cc/day (25cc/kg) NUTRITION DIAGNOSIS: 1) Inadequate oral intake related to decreased ability to consume sufficient energy as evidenced by current NPO status - IMPROVED NUTRITION INTERVENTION: 1) Will send Glucerna BID 2) Discussed importance of adequate nutrition throughout recovery MONITOR/EVALUATE: PO intake, wt, GI, labs, POC, nutrition status. Follow per moderate nutrition risk guidelines.
--- NOTE | 2016-10-20 17:11 | PCM.PNMED ---
Subjective Date of Service Oct 20, 2016 Subjective Farooq Gonzales is a 75-year-old male with diabetes, CKD stage IV, coronary artery disease, diastolic CHF, and hypertension who presented with acute abdominal pain. Admitted for ischemic bowel secondary to volvulus and internal hernia now day 10 status post laparotomy. Prolonged intubation after surgery extubated on 10/16. Hospital day 11. Overnight: No acute events overnight. Patient had bowel movement. A few bradycardic episodes with 2-3 second pauses. Patient has history of bradycardia. Today: Patient is sitting in bed comfortably with nasal cannula in place. He denies any pain, nausea, vomiting, dysuria. He is tolerating a diet. Patient walking with physical therapy but desaturates into the 80s. Remaining review of systems negative. Exam Vital Signs Vital Sign - Last Date Time Temp Pulse Resp B/P Pulse Ox O2 Delivery O2 Flow Rate FiO2 10/20/16 16:03 37.0 59 17 168/67 95 Room Air 10/20/16 03:38 4.00 10/17/16 15:42 30 Intake and Output 10/19/16 10/19/16 10/20/16 Cumulative From/Thru 15:00 23:00 07:00 10/11/16 18:48 - 10/20/16 06:22 Intake Total 2772 ml 710 ml 26132 ml Output Total 650 ml 475 ml 09434 ml Balance 2122 ml 235 ml 6260 ml Intake Oral 1300 ml 710 ml 2485 ml IV Total 1472 ml 09464 ml Output Urine Total 650 ml 475 ml 78308 ml Gastric Drainage Total 1770 ml Estimated Blood Loss 150 ml # Bowel Movements 1 1 Exam General: Obese gentleman lying in bed in no acute distress. HEENT: Pupils are equal and reactive to light, mucous membranes are moist, nasal cannula in place. Right IJ. Lungs: Clear to auscultation bilaterally with decreased breath sounds in the bases bilaterally. Cardiovascular: Regular rate and rhythm with no murmurs. Abdomen: Soft with active bowel sounds. Vertical surgical incision present with appropriate pain to palpation. Extremities: No lower extremity edema, right AV fistula present with good thrill. Neurological: Cranial nerves grossly intact. Psychiatric: Normal mood and affect. Alert and oriented to person, place, and time. Lab and Diagnostics Result Diagram: 10/20/16 1035 10/20/16 1035 Microbiology Blood cultures 2 shows no growth after 2 days. MRSA screen negative. Sputum culture pending. . X-Rays, CTs and MRIs X-RAY CHEST ONE VIEW, PORTABLE IMPRESSION: No change in bibasilar pneumonia. Continued plain film surveillance is recommended to ensure resolution, and to exclude underlying or central malignancy. Dictated by: Roslyn Velasco M.D. on 10/14/2016 at 8:55 Approved by: Roslyn Velasco M.D. on 10/14/2016 at 8:55 US ABDOMEN IMPRESSION: 1. Echogenic liver. Finding typically represents fatty infiltration; however, finding is nonspecific and correlation with clinical and laboratory findings is recommended to exclude other etiologies including hepatic cirrhosis. 2. Nonvisualization of the pancreas, spleen, aorta and iliac vasculature. 3. Otherwise, normal abdominal sonogram. Dictated by: Tasha Barrera MD, PhD on 10/13/2016 at 9:12 Approved by: Tasha Barrera MD, PhD on 10/13/2016 at 9:12 . Assessment & Plan Farooq Gonzales is a 75-year-old male with diabetes, CKD stage IV, coronary artery disease, diastolic CHF, and hypertension who presented with acute abdominal pain. Admitted for ischemic bowel secondary to volvulus and internal hernia now day 10 status post laparotomy. Prolonged intubation after surgery extubated on 10/16. Hospital day 11. 1. Ischemic bowel status post laparotomy on 10/12, present on admission, improving. - Ischemic bowel secondary to volvulus and internal hernia. - Approximately 45 inches of mid small bowel were removed with primary anastomosis. 2. Postoperative ileus, not present on admission, resolved. - Bowel movement overnight. No nausea or vomiting. - Patient's diet advanced. - Avoid narcotics. - Aggressive physical therapy. 3. Hypertension, not present on admission, active. - Patient has chronic hypertension worsened by postoperative pain and ileus. - Nicardipine drip titrated off on 10/18. - Metoprolol 12.5 mg twice a day stopped due to bradycardia. - Hydralazine increased to 50 mg TID. - Amlodipine 10 mg. - Continue to monitor on telemetry. 4. Heart failure with preserved ejection fraction, resonant on admission, presumed stable. - Echo from 06/29/16 revealed EF of 55% and significant aortic stenosis. - Normal saline stopped as patient with PO intake. 5. Sleep apnea on CPAP, present on admission, chronic. - CPAP used at night. 6. Acute hypoxic respiratory failure, not present on admission, resolved. - Intubated early a.m. 10/12/16 for perioperative management. Extubated successfully 10/16. - Requiring minimal oxygen by nasal cannula and CPAP at night. 7. Anion gap metabolic acidosis, as an on admission, resolved. - Secondary to bowel ischemia and elevated lactic acid. 8. Atrial fibrillation on anticoagulation with warfarin, present on admission, chronic. - Anticoagulation reversed prior to surgery. - Consider resuming warfarin when clinically stable. 9. Type II diabetes mellitus, present on admission, chronic. - Glargine 20 units daily. - Medium dose correctional scale with regular insulin. 10. CKD stage IV with baseline serum creatinine 3.3 - 3.9, was on admission, chronic. 11. Bradycardia, present on admission, chronic. - reports that his baseline HR is approx 40's. - Medication regimen does include metoprolol 12.5 mg twice a day. - Will continue to monitor on telemetry. Disposition: Patient's discharge pending blood pressure control and decreased oxygen needs. Possibly home or SNF depending on PT evaluation. Pain Evaluation: Adequate Pain Control GI Prophylaxis: H2 jackie VTE Prophylaxis: Sub-Q Heparin (Unfractionated) VTE Mechanical Devices: Intermittant Pneumatic CD Resuscitation Status: CPR: Attempt Resuscitation Attending Statement The patient was seen and examined together with Dr. Mcdaniel on 10-20-16 and I agree with the history, exam and plan as outlined in the note above. JOSE MCDANIEL DO Oct 20, 2016 17:11 Payal Rm MD Oct 21, 2016 13:49
--- NOTE | 2016-10-20 17:32 | NUR ---
Social Work Note: Readiness for Discharge Data& Assessment: Per MD in morning rounds, pt is getting closer to being medically ready for discharge. SW met with pt at bedside to confirm discharge plan and assess for any unmet needs. Pt confirmed discharge plan of going home with his (who is an RN) and [facility] to follow. Pt able to transport. [facility] has already picked up signed F2F. All updated and agreeable to plan. Pt denies any other needs at this time. SW to continue to follow if any other needs arise. Plan: Anticipated discharge home with [facility] to follow via POV when medically ready. All updated and agreeable to plan. Pt denies any other needs at this time. SW to continue to follow if any other needs arise. DARRON Lr
[2016-10-21] VITALS (10 sets, daily range): BP systolic 148–200; BP diastolic 56–93; PULSE 53–84; RESP 18–20; O2SAT 92–98
[2016-10-21] MEDS: Heparin 5,000 Unit/mL Inj SUBQ SCH ×3 (01:12→17:57)
[2016-10-21 04:14] LABS: BASOPHILS % (AUTO) 0.9 % (0-3); EOSINOPHILS % (AUTO) 6.1 % (0-5); MONOCYTES % (AUTO) 10.9 % (4-12); Mean Corpuscular Hemoglobin 27.8 pg (27.0-35.0); Mean Corpuscular Volume 87.5 fL (81-100); NEUTROPHILS % (AUTO) 58.1 % (40-74); Platelet Count 186 bil/L (150-400)
[2016-10-21 04:27] LABS: INR 1.32 ratio
--- NOTE | 2016-10-21 06:05 | NUR ---
Bowel movement and activity. Patient is walking under his own power and reports that he feels a lot more stable. Patient is moving well with a one person assist and a front wheeled walker. Patient had two bowel movements while on my shift. Both were watery and the patient reports that he feels better after having a BM.
[2016-10-21] MEDS ORDERED: Potassium Chloride 20 mEq SR Tablet PO ONE (06:50)
[2016-10-21] MEDS: Insulin LISPRO 300 Unit/3 mL Inj SUBQ SCH ×4 (08:00→20:25)
--- NOTE | 2016-10-21 08:07 | PCM.PNSURG ---
Subjective Date of Service: Oct 21, 2016 Date of Service: Oct 21, 2016 Visit Information: Reason for Visit: Postop Care POSTOPERATIVE DIAGNOSIS(ES): Acute abdomen, possible small bowel volvulus. PROCEDURE: 10/12/2016 1. Exploratory laparotomy. 2. Small-bowel resection x1 with primary anastomosis Post-Op Day # 9 Date of Admission: Oct 11, 2016 at 22:51 Subjective: The patient is sitting up in bed resting comfortably. No complaints. Continues with flatus and loose stools. Tolerating advancement of diet to soft. Feels he is ready to go home and wants to be discharged Postop General: No Complaints Gastrointestinal: Passing Flatus, Abnormal Bowel Movement (loose stool) Pain Management: PO Postop Activity: Ambulates with Assist Device Objective Vital Sign- Last 8 Hours Date Time Temp Pulse Resp B/P Pulse Ox O2 Delivery O2 Flow Rate FiO2 10/21/16 05:28 53 10/21/16 03:50 36.3 84 18 200/93 98 Nasal Cannula 10/21/16 01:05 149/64 10/21/16 00:52 36.4 66 20 188/68 94 Room Air Intake and Output- Last 8 Hour 10/21/16 Cumulative From/Thru 07:00 10/11/16 18:48 - 10/21/16 06:35 Intake Total 675 ml 66121 ml Output Total 750 ml 28674 ml Balance -75 ml 6635 ml Intake Oral 675 ml 4610 ml IV Total 32654 ml Output Urine Total 750 ml 29779 ml Gastric Drainage Total 1770 ml Estimated Blood Loss 150 ml # Voids 5 # Bowel Movements 1 3 General: Alert, Oriented X3 Lungs: Diminished Heart: Other (irregualr rate and rhythm) Abdomen: Benign, Soft, Non-tender, Appropriately tender, Non-distended, Normoactive bowel tones Extremities: Warm, Thigh&Calf Soft/Nontender Neuro: Grossly Neurologically Intact Catheters: None Result Diagram: 10/21/16 0352 10/21/16 0352 Diagnostics: Ultrasound Abdomen 10/13/16 IMPRESSION: 1. Echogenic liver. Finding typically represents fatty infiltration; however, finding is nonspecific and correlation with clinical and laboratory findings is recommended to exclude other etiologies including hepatic cirrhosis. 2. Nonvisualization of the pancreas, spleen, aorta and iliac vasculature. 3. Otherwise, normal abdominal sonogram CXR 10/17/16 IMPRESSION: Slight improvement in left lower lobe dense pneumonia. Reduced inspiration. Central line normal. CT Abdomen & Pelvis 10/11/16 IMPRESSION: 1. Constellation of findings suspicious for a closed-loop mid small bowel obstruction, secondary to localized volvulus or internal hernia. Mesenteric fat stranding as well as patchy small bowel wall thickening would be concerning for evolving bowel ischemia. 2. Small right and trace left mobile dependent pleural effusions are of uncertain etiology. 3. 1.4 cm partially exophytic anteromedial right renal cortical lesion is too dense to represent a simple cyst, and may therefore represent complex cyst versus solid mass. When clinically feasible, consider further evaluation with renal ultrasound, or pre- and post-contrast renal protocol CT or MRI to distinguish between these possibilities. Assessment & Plan Impression 75-year-old obese male with diabetes, hypertension, history of stroke, CHF, atrial fibrillation on Coumadin, chronic renal insufficiency, who presented with acute abdominal pain due to infarcted and compromised ischemic bowel from volvulus and internal hernia due to adhesive band. Problems: Plan Plan 1. Acute hypoxic respiratory failure. Intubated early a.m. 10/12/16 for perioperative management. Several attempts today at weaning off of sedation and pressure support trials have not been successful. The patient continues to be on IV propofol and fentanyl. Continue with spontaneous breathing trials per pulmonary critical care - Vent settings: FiO2 40% (desat 85-89% on 30%), PEEP 5, Vt 480 - History of Sleep apnea and uses CPAP at home - Hypertensive during SBT SBP's 205 - Extubated 10/16/15, now on NC 2. 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 Status post removal of approximately 45 inches of mid small bowel with primary anastomosis. Surgical stable at this point - Passed Swallow Evaluation 10/18/16. Advanced to Full liquid diet 10/19/16 ( discussed with Dr. Dupree) Advanced to soft 10/20/16 and tolerating - NG 225 ml bilious output, removed 10/17/16 3. Postop hypotension. Required Phenylephrine but has been discontinued. 4. Chronic kidney disease, stage IV. Currently not on hemodialysis but has dialysis access right upper arm - Urinary output 1475 ml/24 (61ml/hr) Current Weight 109.2 Kg Admit 101.5 Kg - BUN/Creatinine trending down 67 - 59- 42 - 42 - 45 and 4.05 - 3.94 - 3.03 - 3.06 - 3.02 5. Acute on chronic anemia -Admit hematocrit 36.5 treated with home medication ferrous sulfate 325 mg 3 times a day -Current hematocrit 25.2. Transfused 1 unit packed red blood cells 10/13/16 - 1 X dose Venofer 100 mg IV (10/19/16) 6. Diabetes mellitus type II. Insulin-dependent. - HGBA1c pending - Glargine 20 unit @ bedtime and SS regular insulin - Blood sugars 112 - 140 7. Chronic diastolic heart failure. BNP on admit 4360 Preserved EF. Home med Lasix and potassium Started Torsemide 20 mg bid and chlorthalidone 20 mg daily 8. History of atrial fibrillation, chronic, present on admission. Been on warfarin therapy as an outpatient. This is currently on hold Current INR 1.46 (10/13/16) 9. Hypertension, chronic, present on admission - Preop meds Hydralazine 50 mg 3 times a day Restarted 10/20/16 Metoprolol 12.5 mg 2 times a day Restarted 10/19/15 Isosorbide 30 mg a day Amlodipine 10 mg daily (New med) Started 10/20/16 10. DVT prophylaxis - heparin 5000 unit subcutaneous every 8 hours Possibly Home Today Pain management: PO VTE Prophylaxis: Sub-Q Heparin (Unfractionated) Resuscitation Status: CPR: Attempt Resuscitation VTE Prophylaxis: Sub-Q Heparin (Unfractionated) Resuscitation Status: CPR: Attempt Resuscitation Kate Hugo PA-C Oct 21, 2016 08:07
--- NOTE | 2016-10-21 08:51 | PCM.PNMED ---
Subjective Date of Service Oct 21, 2016 Subjective Nephrology Progress Note: Attending Dr. Nigel Trivedi Christian is a 75-year-old man with diabetes, chronic kidney disease stage IV status post AVF, coronary artery disease, diastolic CHF and hypertension presented with acute abdominal pain who was found to have ischemic bowel due to volvulus internal hernia status post mid small bowel resection with primary anastomosis status post extubation and is being treated for ATN. Hospital day # 11. Overnight: There were no acute events. Patient rested comfortably on CPAP. Telemetry overnight: Sinus rhythm irregular, heart rate 50 to 70's, occasional PVC's, one 2 second sinus pause, and a run of V. tach x 6 beats at 7:28 this morning. The patient is resting in bed comfortably and in no acute distress. The patient reports that he feels well. He continues to endorse productive cough. He has no other complaints. He denies headache, chest pain, palpitations, shortness of breath, abdominal pain, nausea, vomiting, fever, chills, dysuria, diarrhea or constipation. The patient is voiding and eliminating without difficulty. . Exam Vital Signs Vital Sign - Last Date Time Temp Pulse Resp B/P Pulse Ox O2 Delivery O2 Flow Rate FiO2 10/21/16 05:28 53 10/21/16 03:50 36.3 18 200/93 98 Nasal Cannula 10/20/16 03:38 4.00 10/17/16 15:42 30 Intake and Output 10/20/16 10/20/16 10/21/16 Cumulative From/Thru 15:00 23:00 07:00 10/11/16 18:48 - 10/21/16 06:35 Intake Total 1450 ml 675 ml 25366 ml Output Total 1000 ml 750 ml 75066 ml Balance 450 ml -75 ml 6635 ml Intake Oral 1450 ml 675 ml 4610 ml IV Total 02536 ml Output Urine Total 1000 ml 750 ml 53427 ml Gastric Drainage Total 1770 ml Estimated Blood Loss 150 ml # Voids 5 5 # Bowel Movements 1 1 3 Exam General: Older male lying in bed and in no acute distress, well-developed, well- nourished, appropriately interactive. HEENT: Normocephalic, atraumatic. External ears without defect. Pupils equal, round, and reactive to light. Anicteric sclerae, moist conjunctivae, and no lid lag. Neck: Supple with full range of motion. No jugular venous distension. No bruits. No lymphadenopathy or thyromegaly. Cardiovascular: Regular rhythm irregular with no murmurs, rubs, or gallops appreciated Pulmonary: Clear to auscultation bilaterally with no crackles, wheezes, or rhonchi. Normal respiratory effort with no use of accessory muscles. Abdomen: Soft, obese, nondistended, nontender, bowel sounds present. Vertical surgical wound healing well no drainage. Extremities: No clubbing, cyanosis, or edema. Right AV fistula with good thrill. Skin: Normal temperature, turgor, and texture; no rash, ulcers, or subcutaneous nodules appreciated. Neurological: Cranial nerves grossly intact. . IVs and Medications Medications Reviewed: Medications were reviewed in detail Lab and Diagnostics Result Diagram: 10/21/1635110/21/16351 Microbiology Blood cultures 2 shows no growth after 2 days. MRSA screen negative. Sputum culture pending. . X-Rays, CTs and MRIs X-RAY CHEST ONE VIEW, PORTABLE IMPRESSION: No change in bibasilar pneumonia. Continued plain film surveillance is recommended to ensure resolution, and to exclude underlying or central malignancy. Dictated by: Roslyn Velasco M.D. on 10/14/2016 at 8:55 Approved by: Roslyn Velasco M.D. on 10/14/2016 at 8:55 US ABDOMEN IMPRESSION: 1. Echogenic liver. Finding typically represents fatty infiltration; however, finding is nonspecific and correlation with clinical and laboratory findings is recommended to exclude other etiologies including hepatic cirrhosis. 2. Nonvisualization of the pancreas, spleen, aorta and iliac vasculature. 3. Otherwise, normal abdominal sonogram. Dictated by: Tasha Barrera MD, PhD on 10/13/2016 at 9:12 Approved by: Tasha Barrera MD, PhD on 10/13/2016 at 9:12 . 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 Hospital day # 11. 1. Acute kidney injury on chronic kidney disease, stage 4. The etiology of acute kidney injury is due to sepsis and acute tubular necrosis. 2. Normocytic anemia secondary to iron deficiency and chronic kidney disease. - Given one time dose of Venofer 100mg IV. 3. Acute hypoxic respiratory failure. Resolved. 4. 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 Resolved. 5. Hypertension with hypertensive nephrosclerosis. 6. History of chronic diastolic heart failure. 7. Sleep apnea. 8. 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 9. Hypernatremia. Resolved. Plan: - Renal function slightly worsened but close to baseline. Continue to encourage PO intake. Monitor renal function and urine output closely. - Stop PPI as likely contributing to YUE. - No urgent renal replacement therapy indicated. - Continue amlodipine 10 mg daily, torsemide 20 mg twice a day, chlorthalidone 25 mg daily for HTN and CHF. Increased hydralazine from 50 mg three times a day to 75 mg three times a day. Added eplerenone 25 twice daily. - The patient has been bradycardic with frequent 2 second pauses. Recommend cardiology consult. . GI Prophylaxis: H2 jackie VTE Prophylaxis: Sub-Q Heparin (Unfractionated) VTE Mechanical Devices: Intermittant Pneumatic CD Resuscitation Status: CPR: Attempt Resuscitation Betty Roberson DO Oct 21, 2016 08:51
[2016-10-21] MEDS: Erythromycin 0.5% 3.5 Gm Ophthalmic Ointment LEFT_EYE SCH ×4 (09:16→20:23)
[2016-10-21] MEDS: Pantoprazole 4 mg/mL 10 mL Inj IVPUSH SCH (09:18)
[2016-10-21] MEDS: Insulin GLARgine 100 Unit/mL Syringe SUBQ SCH (09:34)
--- NOTE | 2016-10-21 13:16 | PCM.PNMED ---
Subjective Date of Service Oct 21, 2016 Subjective Farooq Gonzales is a 75-year-old male with diabetes, CKD stage IV, coronary artery disease, diastolic CHF, and hypertension who presented with acute abdominal pain. Admitted for ischemic bowel secondary to volvulus and internal hernia now day 10 status post laparotomy. Prolonged intubation after surgery extubated on 10/16. Hospital day 12. Overnight: Patient hypertensive overnight. No bradycardic episodes. No other acute events overnight. Today: Patient is sitting in bed comfortably with nasal cannula in place. He denies any pain, nausea, vomiting, dysuria. He is tolerating a diet. Patient walked with physical therapy but desaturated yesterday. Will reevaluate today. Blood pressure continues to be elevated optimizing medications at this time with nephrology's input. Remaining review of systems negative. Exam Vital Signs Vital Sign - Last Date Time Temp Pulse Resp B/P Pulse Ox O2 Delivery O2 Flow Rate FiO2 10/21/16 05:28 53 10/21/16 03:50 36.3 18 200/93 98 Nasal Cannula 10/20/16 03:38 4.00 10/17/16 15:42 30 Intake and Output 10/20/16 10/20/16 10/21/16 Cumulative From/Thru 15:00 23:00 07:00 10/11/16 18:48 - 10/21/16 06:35 Intake Total 1450 ml 675 ml 51379 ml Output Total 1000 ml 750 ml 83945 ml Balance 450 ml -75 ml 6635 ml Intake Oral 1450 ml 675 ml 4610 ml IV Total 84891 ml Output Urine Total 1000 ml 750 ml 26735 ml Gastric Drainage Total 1770 ml Estimated Blood Loss 150 ml # Voids 5 5 # Bowel Movements 1 1 3 Exam General: Obese gentleman lying in bed in no acute distress. HEENT: Pupils are equal and reactive to light, mucous membranes are moist, nasal cannula in place. Right IJ. Lungs: Clear to auscultation bilaterally with decreased breath sounds in the bases bilaterally. Cardiovascular: Regular rate and rhythm with no murmurs. Abdomen: Soft with active bowel sounds. Vertical surgical incision present with appropriate pain to palpation. Extremities: No lower extremity edema, right AV fistula present with good thrill. Neurological: Cranial nerves grossly intact. Psychiatric: Normal mood and affect. Alert and oriented to person, place, and time. Lab and Diagnostics Result Diagram: 10/21/16 0352 10/21/16 0352 Microbiology Blood cultures 2 shows no growth after 2 days. MRSA screen negative. Sputum culture pending. . X-Rays, CTs and MRIs X-RAY CHEST ONE VIEW, PORTABLE IMPRESSION: No change in bibasilar pneumonia. Continued plain film surveillance is recommended to ensure resolution, and to exclude underlying or central malignancy. Dictated by: Roslyn Velasco M.D. on 10/14/2016 at 8:55 Approved by: Roslyn Velasco M.D. on 10/14/2016 at 8:55 US ABDOMEN IMPRESSION: 1. Echogenic liver. Finding typically represents fatty infiltration; however, finding is nonspecific and correlation with clinical and laboratory findings is recommended to exclude other etiologies including hepatic cirrhosis. 2. Nonvisualization of the pancreas, spleen, aorta and iliac vasculature. 3. Otherwise, normal abdominal sonogram. Dictated by: Tasha Barrera MD, PhD on 10/13/2016 at 9:12 Approved by: Tasha Barrera MD, PhD on 10/13/2016 at 9:12 . Assessment & Plan Farooq Gonzales is a 75-year-old male with diabetes, CKD stage IV, coronary artery disease, diastolic CHF, and hypertension who presented with acute abdominal pain. Admitted for ischemic bowel secondary to volvulus and internal hernia now day 11 status post laparotomy. Prolonged intubation after surgery extubated on 10/16. Hospital day 12. 1. Ischemic bowel status post laparotomy on 10/12, present on admission, improving. - Ischemic bowel secondary to volvulus and internal hernia. - Approximately 45 inches of mid small bowel were removed with primary anastomosis. 2. Postoperative ileus, not present on admission, resolved. - Bowel movement overnight. No nausea or vomiting. - Patient's diet advanced. - Avoid narcotics. - Aggressive physical therapy. 3. Hypertension, not present on admission, active. - Patient has chronic hypertension worsened by postoperative pain and ileus. - Nicardipine drip titrated off on 10/18. - Metoprolol 12.5 mg twice a day stopped due to bradycardia. - Hydralazine increased to 75 mg TID. - Amlodipine 10 mg. - Eplerenone 25 mg BID added. - Continue to monitor on telemetry. 4. Heart failure with preserved ejection fraction, resonant on admission, presumed stable. - Echo from 06/29/16 revealed EF of 55% and significant aortic stenosis. - Normal saline stopped as patient with PO intake. 5. Sleep apnea on CPAP, present on admission, chronic. - CPAP used at night. 6. Acute hypoxic respiratory failure, not present on admission, resolved. - Intubated early a.m. 10/12/16 for perioperative management. Extubated successfully 10/16. - Requiring minimal oxygen by nasal cannula and CPAP at night. 7. Anion gap metabolic acidosis, as an on admission, resolved. - Secondary to bowel ischemia and elevated lactic acid. 8. Atrial fibrillation on anticoagulation with warfarin, present on admission, chronic. - Anticoagulation reversed prior to surgery. - Consider resuming warfarin when clinically stable. 9. Type II diabetes mellitus, present on admission, chronic. - Glargine 20 units daily. - Medium dose correctional scale with regular insulin. 10. CKD stage IV with baseline serum creatinine 3.3 - 3.9, was on admission, chronic. 11. Bradycardia, present on admission, chronic. - reports that his baseline HR is approx 40's. - Medication regimen does include metoprolol 12.5 mg twice a day. - Will continue to monitor on telemetry. Disposition: Patient's discharge pending blood pressure control and decreased oxygen needs. Possibly home or SNF depending on PT evaluation. GI Prophylaxis: H2 jackie VTE Prophylaxis: Sub-Q Heparin (Unfractionated) VTE Mechanical Devices: Intermittant Pneumatic CD Resuscitation Status: CPR: Attempt Resuscitation Attending Statement The patient was seen and examined together with Resident/House-staff on 10/21/16 and I agree with the history, exam and plan as outlined in the note above. JOSE MCDANIEL DO Oct 21, 2016 09:58 Andrea Wright Oct 22, 2016 17:15
[2016-10-21] MEDS ORDERED: 0.9% Sodium Chloride 250 ML ONE (15:38)
--- NOTE | 2016-10-21 16:17 | DRSVH ---
PROCEDURE: X-RAY CHEST, TWO VIEWS ([id number]) INDICATIONS: Short of breath TECHNIQUE: 2 views of the chest were acquired. COMPARISON: [facility], CR, XR CHEST 1VW (PORTABLE), 10/15/2016, 7:36. [facility], CR, XR CHEST 1VW (PORTABLE), 10/14/2016, 6:07. [facility], CR, XR CHEST 1VW (CRISTIAN BLE), 10/13/2016, 9:58. [facility], CR, XR CHEST 1VW (PORTABLE), 10/17/2016, 5:07. FINDINGS: Surgical changes and devices: There is a right-sided central line seen, the tip overlying the superio r aspect of the superior vena cava. Lungs and pleura: There is a small left-sided pleural effusion seen, with associated overlying presum ed atelectasis. No definite right-sided pleural effusion is seen. No pneumothorax is seen. Low lung volumes are noted. This causes a crowded appearance to the lung markings and limits evaluation. Mediastinum: Mediastinal contours are normal. Heart size is normal. Bones and chest wall: No suspicious bony abnormalities. Soft tissues appear unremarkable. IMPRESSION: Small left-sided pleural effusion, which is slightly improved compared to the 10/15/16 exa mination. Stable right-sided central line. Dictated by: Luis Alfredo Aleman M.D. on 10/21/2016 at 15:15 Approved by: Luis Alfredo Aleman M.D. on 10/21/2016 at 15:15
[2016-10-22] VITALS (17 sets, daily range): BP systolic 139–181; BP diastolic 54–72; PULSE 53–71; RESP 12–22; O2SAT 93–99
--- NOTE | 2016-10-22 01:00 | NUR ---
Blood Pressure. Patient blood pressure is elevate in the 170's-180's systolic taken manually. Patient denies C/P, SOB, N/V, headache, weakness ABD pain or pain in general. Patient's vitals stable otherwise. Doctor Dalia contact and informed about the elevated blood pressure. Orders to give 10mg IV labetalol was received and given. Patients blood pressure responded well to labetalol and the patient is free of complaints.
[2016-10-22] MEDS ORDERED: Labetalol 5 mg/mL 4 mL Inj IVPUSH ONE (01:05)
[2016-10-22] MEDS: Heparin 5,000 Unit/mL Inj SUBQ SCH ×3 (01:11→17:38)
[2016-10-22] MEDS: Erythromycin 0.5% 3.5 Gm Ophthalmic Ointment LEFT_EYE SCH ×4 (05:27→20:33)
[2016-10-22 05:48] LABS: Mean Corpuscular Hemoglobin 27.8 pg (27.0-35.0); Mean Corpuscular Volume 87.5 fL (81-100)
--- NOTE | 2016-10-22 06:07 | NUR ---
Critical H/H Lab informed me that the patients H/H had dropped to 6.9 and 21.7. Provider Dalia called and orders to repeated the H/H was received. Lab draw completed and sent to lab. Patient asystematic and vitals are stable.
[2016-10-22 06:09] LABS: INR 1.31 ratio
[2016-10-22] MEDS: Insulin LISPRO 300 Unit/3 mL Inj SUBQ SCH ×4 (08:00→20:33)
[2016-10-22] MEDS: Insulin GLARgine 100 Unit/mL Syringe SUBQ SCH (08:30)
[2016-10-22] MEDS: Potassium Chloride 20 mEq SR Tablet PO SCH ×2 (08:53→11:50)
--- NOTE | 2016-10-22 09:08 | PCM.PNSURG ---
Subjective Date of Service: Oct 22, 2016 Date of Service: Oct 22, 2016 Visit Information: Visit Information: Reason for Visit: Postop Care POSTOPERATIVE DIAGNOSIS(ES): Acute abdomen, possible small bowel volvulus. PROCEDURE: 10/12/2016 1. Exploratory laparotomy. 2. Small-bowel resection x1 with primary anastomosis Post-Op Day # 10 Date of Admission: Oct 11, 2016 at 22:51 Subjective: The patient is sitting up in bed resting comfortably. No complaints. Continues with flatus and loose stools. Tolerating advancement of diet from soft to Diabetic . Feels he is ready to go home and wants to be discharged Remains Hypertensive SBP's 150- 160 and requiring supplemental oxygen Postop General: No Complaints Gastrointestinal: Tolerating Oral Feedings, No N/V, Passing Flatus, Abnormal Bowel Movement (loose stools) Pain Management: Other (NONE) Postop Activity: Ambulates with Assist Device Objective Vital Sign- Last 8 Hours Date Time Temp Pulse Resp B/P Pulse Ox O2 Delivery O2 Flow Rate FiO2 10/22/16 08:28 36.7 56 19 151/61 96 Nasal Cannula 2.00 10/22/16 08:28 Supplement Oxygen 10/22/16 05:55 53 10/22/16 03:49 36.4 58 16 151/54 98 Nasal Cannula 5.00 10/22/16 01:18 60 12 140/60 96 Room Air Intake and Output- Last 8 Hour 10/22/16 Cumulative From/Thru 07:00 10/11/16 18:48 - 10/22/16 06:27 Intake Total 554 ml 30516 ml Output Total 1100 ml 13816 ml Balance -546 ml 6217 ml Intake Oral 400 ml 6166 ml IV Total 154 ml 68472 ml Output Urine Total 1100 ml 54516 ml Gastric Drainage Total 1770 ml Estimated Blood Loss 150 ml # Voids 5 # Bowel Movements 3 General: Alert, Oriented X3 Lungs: Clear to Auscultation (Anterior), Diminished (bases) Heart: Other (irregualar rate and rhythm ( Atrial Fib)) SURGICAL WOUND : Wound General Appearence: Well Approximated, Incision Healing Extremities: Warm, Thigh&Calf Soft/Nontender Neuro: Grossly Neurologically Intact Catheters: None Result Diagram: 10/22/16 0600 10/22/16 0505 Diagnostics: Ultrasound Abdomen 10/13/16 IMPRESSION: 1. Echogenic liver. Finding typically represents fatty infiltration; however, finding is nonspecific and correlation with clinical and laboratory findings is recommended to exclude other etiologies including hepatic cirrhosis. 2. Nonvisualization of the pancreas, spleen, aorta and iliac vasculature. 3. Otherwise, normal abdominal sonogram CXR 10/22/16 IMPRESSION: Small left-sided pleural effusion, which is slightly improved compared to the 10/15/16 examination. Stable right-sided central line. CT Abdomen & Pelvis 10/11/16 IMPRESSION: 1. Constellation of findings suspicious for a closed-loop mid small bowel obstruction, secondary to localized volvulus or internal hernia. Mesenteric fat stranding as well as patchy small bowel wall thickening would be concerning for evolving bowel ischemia. 2. Small right and trace left mobile dependent pleural effusions are of uncertain etiology. 3. 1.4 cm partially exophytic anteromedial right renal cortical lesion is too dense to represent a simple cyst, and may therefore represent complex cyst versus solid mass. When clinically feasible, consider further evaluation with renal ultrasound, or pre- and post-contrast renal protocol CT or MRI to distinguish between these possibilities. Assessment & Plan Impression 75-year-old obese male with diabetes, hypertension, history of stroke, CHF, atrial fibrillation on Coumadin, chronic renal insufficiency, who presented with acute abdominal pain due to infarcted and compromised ischemic bowel from volvulus and internal hernia due to adhesive band. Problems: Plan 1. Acute hypoxic respiratory failure. Intubated early a.m. 10/12/16 for perioperative management. Several attempts today at weaning off of sedation and pressure support trials have not been successful. The patient continues to be on IV propofol and fentanyl. Continue with spontaneous breathing trials per pulmonary critical care - Vent settings: FiO2 40% (desat 85-89% on 30%), PEEP 5, Vt 480 - History of Sleep apnea and uses CPAP at home - Hypertensive during SBT SBP's 205 - Extubated 10/16/15, now on NC - still requiring supplemental oxygen 2. 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 Status post removal of approximately 45 inches of mid small bowel with primary anastomosis. Surgical stable at this point - Passed Swallow Evaluation 10/18/16. Advanced to Full liquid diet 10/19/16 ( discussed with Dr. Dupree) Advanced to soft 10/20/16 and tolerating - NG 225 ml bilious output, removed 10/17/16 3. Postop hypotension. Required Phenylephrine but has been discontinued. No further episodes since immediate postop 4. Chronic kidney disease, stage IV. Currently not on hemodialysis but has dialysis access right upper arm - Urinary output 1900 ml/24 (79 ml/hr) Current Weight 109.2 Kg Admit 101.5 Kg - BUN/Creatinine trending down 67 - 59- 42 - 42 - 45 - 47 and 4.05 - 3.94 - 3.03 - 3.06 - 3.02 - 3.02 5. Acute on chronic anemia -Admit hematocrit 36.5 treated with home medication ferrous sulfate 325 mg 3 times a day -Current hematocrit 22.7. Transfused 1 unit packed red blood cells 10/13/16 - 1 X dose Venofer 100 mg IV (10/19/16) - Nephrology to address low Hgb/Hct 6. Diabetes mellitus type II. Insulin-dependent. - Hgb1c pending - Glargine 20 unit @ bedtime and SS regular insulin - Blood sugars 117 - 141 7. Chronic diastolic heart failure. BNP on admit 4360 Preserved EF. Home med Lasix and potassium Started Torsemide 20 mg bid and chlorthalidone 25 mg daily 8. History of atrial fibrillation, chronic, present on admission. Been on warfarin therapy as an outpatient. This is currently on hold Current INR 1.31 (10/22/16) 9. Hypertension, chronic, present on admission - Preop meds Hydralazine 50 mg 3 times a day Restarted 10/20/16 Increased to 75 mg 3X/day 10/21/16 Metoprolol 12.5 mg 2 times a day Restarted 10/19/15, then stopped for bradycardia with pauses Isosorbide 30 mg a day Amlodipine 10 mg daily (New med) Started 10/20/16 - One time dose labetalol 10 mg IV push for SBP 172 10/21/16 10. DVT prophylaxis - heparin 5000 unit subcutaneous every 8 hours VTE Prophylaxis: Sub-Q Heparin (Unfractionated) Resuscitation Status: CPR: Attempt Resuscitation Kate Hugo PA-C Oct 22, 2016 09:08
--- NOTE | 2016-10-22 09:38 | PCM.PNMED ---
Subjective Date of Service Oct 22, 2016 Subjective Nephrology Progress Note: Attending Dr. Nigel Trivedi Christian is a 75-year-old man with diabetes, chronic kidney disease stage IV status post AVF, coronary artery disease, diastolic CHF and hypertension presented with acute abdominal pain who was found to have ischemic bowel due to volvulus internal hernia status post mid small bowel resection with primary anastomosis status post extubation and is being treated for ATN. Hospital day # 12. Overnight: There were no acute events. Telemetry overnight: Sinus bradycardia, heart rate 30 to 50's, occasional 2 second sinus pause. The patient is resting in bed comfortably and in no acute distress. The patient reports that he feels well. He continues to endorse minimally productive cough. He has no other complaints. He denies headache, chest pain, palpitations, shortness of breath, abdominal pain, nausea, vomiting, fever, chills, dysuria, diarrhea or constipation. The patient is voiding and eliminating without difficulty. . Exam Vital Signs Vital Sign - Last Date Time Temp Pulse Resp B/P Pulse Ox O2 Delivery O2 Flow Rate FiO2 10/22/16 08:28 36.7 56 19 151/61 96 Nasal Cannula 2.00 10/17/16 15:42 30 Intake and Output 10/21/16 10/21/16 10/22/16 Cumulative From/Thru 15:00 23:00 07:00 10/11/16 18:48 - 10/22/16 06:27 Intake Total 1278 ml 554 ml 85817 ml Output Total 1150 ml 1100 ml 34588 ml Balance 128 ml -546 ml 6217 ml Intake Oral 1156 ml 400 ml 6166 ml IV Total 122 ml 154 ml 24762 ml Output Urine Total 1150 ml 1100 ml 77537 ml Gastric Drainage Total 1770 ml Estimated Blood Loss 150 ml # Voids 5 # Bowel Movements 3 Exam General: Older male lying in bed and in no acute distress, well-developed, well- nourished, appropriately interactive. HEENT: Normocephalic, atraumatic. External ears without defect. Pupils equal, round, and reactive to light. Anicteric sclerae, moist conjunctivae, and no lid lag. Neck: Supple with full range of motion. No jugular venous distension. No bruits. No lymphadenopathy or thyromegaly. Cardiovascular: Regular rhythm irregular with no murmurs, rubs, or gallops appreciated Pulmonary: Clear to auscultation bilaterally with no crackles, wheezes, or rhonchi. Normal respiratory effort with no use of accessory muscles. Abdomen: Soft, obese, nondistended, nontender, bowel sounds present. Vertical surgical wound healing well no drainage. Extremities: No clubbing, cyanosis, or edema. Right AV fistula with good thrill. Skin: Normal temperature, turgor, and texture; no rash, ulcers, or subcutaneous nodules appreciated. Neurological: Cranial nerves grossly intact. . IVs and Medications Medications Reviewed: Medications were reviewed in detail Lab and Diagnostics Result Diagram: 10/22/16 0600 10/22/16 0505 Microbiology Blood cultures 2 shows no growth after 5 days. MRSA screen negative. Sputum culture grew normal cleo. . X-Rays, CTs and MRIs X-RAY CHEST, TWO VIEWS IMPRESSION: Small left-sided pleural effusion, which is slightly improved compared to the 10/15/16 examination. Stable right-sided central line. Dictated by: Luis Alfredo Aleman M.D. on 10/21/2016 at 15:15 Approved by: Luis Alfredo Aleman M.D. on 10/21/2016 at 15:15 X-RAY CHEST ONE VIEW, PORTABLE IMPRESSION: No change in bibasilar pneumonia. Continued plain film surveillance is recommended to ensure resolution, and to exclude underlying or central malignancy. Dictated by: Roslyn Velasco M.D. on 10/14/2016 at 8:55 Approved by: Roslyn Velasco M.D. on 10/14/2016 at 8:55 US ABDOMEN IMPRESSION: 1. Echogenic liver. Finding typically represents fatty infiltration; however, finding is nonspecific and correlation with clinical and laboratory findings is recommended to exclude other etiologies including hepatic cirrhosis. 2. Nonvisualization of the pancreas, spleen, aorta and iliac vasculature. 3. Otherwise, normal abdominal sonogram. Dictated by: Tasha Barrera MD, PhD on 10/13/2016 at 9:12 Approved by: Tasha Barrera MD, PhD on 10/13/2016 at 9:12 . 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 Hospital day # 12. 1. Acute kidney injury on chronic kidney disease stage 4, acute portion secondary to acute tubular necrosis. 2. Normocytic anemia secondary to iron deficiency and chronic kidney disease. - Given one time dose of Venofer 100mg IV. 3. Acute hypoxic respiratory failure. Resolved. 4. 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 Resolved. 5. Hypertension with hypertensive nephrosclerosis. 6. History of chronic diastolic heart failure. 7. Sleep apnea. 8. 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 9. Hypernatremia. Resolved. Plan: - Started Lasix 80 every 8 hours for pulmonary edema. Discontinued torsemide. - Ordered Venofer 100 mg x 1 and receiving 2 U PRBC now for worsening anemia. - Renal function close to baseline. Continue to encourage PO intake. Monitor renal function and urine output closely. - Discontinued PPI as likely contributing to YUE. - No urgent renal replacement therapy indicated. - Continue amlodipine 10 mg daily, chlorthalidone 25 mg daily, and hydralazine 75 mg for HTN and CHF three times a day. Added eplerenone 25 twice daily ( pharmacy trying to acquire/order in). - The patient has been bradycardic with occasional 2 second pauses. Recommend cardiology consult. . GI Prophylaxis: H2 jackie VTE Prophylaxis: Sub-Q Heparin (Unfractionated) VTE Mechanical Devices: Intermittant Pneumatic CD Resuscitation Status: CPR: Attempt Resuscitation Attending Statement Nephrology attending: The patient was seen and examined along with the internal medicine resident. I reviewed the patient's therapeutic plan and with the resident and the floor staff. As detailed in our statement of Betty Roberson DO Oct 22, 2016 09:38 Jerrell Manning DO Oct 22, 2016 14:28
[2016-10-22] MEDS ORDERED: 0.9% Sodium Chloride 250 ML ONE (10:39)
[2016-10-22] MEDS: 0.9% Sodium Chloride 250 ML IV SCH (11:27)
[2016-10-22] MEDS ORDERED: Iron Sucrose Inj 100 MG in 0.9% Sodium Chloride 100 ML IV ONE (11:35)
[2016-10-22] MEDS ORDERED: Potassium Chloride 20 mEq SR Tablet PO ONE (11:35)
[2016-10-22] MEDS: Furosemide 10 mg/mL 10 mL Inj IVPUSH SCH ×2 (13:26→20:45)
--- NOTE | 2016-10-22 14:46 | PCM.PNMED ---
Subjective Date of Service Oct 22, 2016 Subjective Farooq Gonzales is a 75-year-old male with diabetes, CKD stage IV, coronary artery disease, diastolic CHF, and hypertension who presented with acute abdominal pain. Admitted for ischemic bowel secondary to volvulus and internal hernia now day 10/11 status post laparotomy. Prolonged intubation after surgery extubated on 10/16. Hospital day 13. Overnight: Patient hypertensive overnight. Given labetalol 10 mg IV overnight with appropriate response. No bradycardic episodes. No other acute events overnight. Today: Patient is sitting in bed comfortably. He denies any pain, nausea, vomiting, dysuria. He is tolerating a diet. Patient walked with physical therapy but desaturated yesterday. Blood pressure continues to be elevated optimizing medications at this time with nephrology's input. Patient's hemoglobin dropped overnight as well. No source of bleeding identified. 2 units PRBCs to be transfused. Remaining review of systems negative. Exam Vital Signs Vital Sign - Last Date Time Temp Pulse Resp B/P Pulse Ox O2 Delivery O2 Flow Rate FiO2 10/22/16 13:03 36.6 62 22 167/65 10/22/16 11:50 93 Room Air 10/22/16 08:28 2.00 10/17/16 15:42 30 Intake and Output 10/21/16 10/21/16 10/22/16 Cumulative From/Thru 15:00 23:00 07:00 10/11/16 18:48 - 10/22/16 06:27 Intake Total 1278 ml 554 ml 75231 ml Output Total 1150 ml 1100 ml 54675 ml Balance 128 ml -546 ml 6217 ml Intake Oral 1156 ml 400 ml 6166 ml IV Total 122 ml 154 ml 62240 ml Output Urine Total 1150 ml 1100 ml 08966 ml Gastric Drainage Total 1770 ml Estimated Blood Loss 150 ml # Voids 5 # Bowel Movements 3 Exam General: Obese gentleman lying in bed in no acute distress. HEENT: Pupils are equal and reactive to light, mucous membranes are moist, nasal cannula in place. Right IJ. Lungs: Clear to auscultation bilaterally with decreased breath sounds in the bases bilaterally. Cardiovascular: Regular rate and rhythm with no murmurs. Abdomen: Soft with active bowel sounds. Vertical surgical incision present with appropriate pain to palpation. Extremities: No lower extremity edema, right AV fistula present with good thrill. Neurological: Cranial nerves grossly intact. Psychiatric: Normal mood and affect. Alert and oriented to person, place, and time. Lab and Diagnostics Result Diagram: 10/22/16 0600 10/22/16 0505 Microbiology Blood cultures 2 shows no growth after 5 days. MRSA screen negative. Sputum culture grew normal cleo. . X-Rays, CTs and MRIs X-RAY CHEST, TWO VIEWS IMPRESSION: Small left-sided pleural effusion, which is slightly improved compared to the 10/15/16 examination. Stable right-sided central line. Dictated by: Luis Alfredo Aleman M.D. on 10/21/2016 at 15:15 Approved by: Luis Alfredo Aleman M.D. on 10/21/2016 at 15:15 X-RAY CHEST ONE VIEW, PORTABLE IMPRESSION: No change in bibasilar pneumonia. Continued plain film surveillance is recommended to ensure resolution, and to exclude underlying or central malignancy. Dictated by: Roslyn Velasco M.D. on 10/14/2016 at 8:55 Approved by: Roslyn Velasco M.D. on 10/14/2016 at 8:55 US ABDOMEN IMPRESSION: 1. Echogenic liver. Finding typically represents fatty infiltration; however, finding is nonspecific and correlation with clinical and laboratory findings is recommended to exclude other etiologies including hepatic cirrhosis. 2. Nonvisualization of the pancreas, spleen, aorta and iliac vasculature. 3. Otherwise, normal abdominal sonogram. Dictated by: Tasha Barrera MD, PhD on 10/13/2016 at 9:12 Approved by: Tasha Barrera MD, PhD on 10/13/2016 at 9:12 . Assessment & Plan Farooq Gonzales is a 75-year-old male with diabetes, CKD stage IV, coronary artery disease, diastolic CHF, and hypertension who presented with acute abdominal pain. Admitted for ischemic bowel secondary to volvulus and internal hernia now day 10/11 status post laparotomy. Prolonged intubation after surgery extubated on 10/16. Hospital day 13. 1. Ischemic bowel status post laparotomy on 10/12, present on admission, improving. - Ischemic bowel secondary to volvulus and internal hernia. - Approximately 45 inches of mid small bowel were removed with primary anastomosis. 2. Postoperative ileus, not present on admission, resolved. - Bowel movement overnight. No nausea or vomiting. - Patient's diet advanced. - Aggressive physical therapy. 3. Hypertension, not present on admission, active. - Patient has chronic hypertension worsened by postoperative pain and ileus. - Nicardipine drip titrated off on 10/18. - Metoprolol 12.5 mg twice a day stopped due to bradycardia. - Hydralazine increased to 75 mg TID. - Amlodipine 10 mg daily. - Chlorthalidone 25 mg daily. - Eplerenone 25 mg BID will be added 1 pharmacy acquires. - Continue to monitor on telemetry. 4. Heart failure with preserved ejection fraction, resonant on admission, presumed stable. - Echo from 06/29/16 revealed EF of 55% and significant aortic stenosis. - Normal saline stopped as patient with PO intake. - Lasix 80 mg Q8H. 5. Sleep apnea on CPAP, present on admission, chronic. - CPAP used at night. 6. Acute hypoxic respiratory failure, not present on admission, resolved. - Intubated early a.m. 10/12/16 for perioperative management. Extubated successfully 10/16. - Requiring minimal oxygen by nasal cannula and CPAP at night. 7. Anion gap metabolic acidosis, as an on admission, resolved. - Secondary to bowel ischemia and elevated lactic acid. 8. Atrial fibrillation on anticoagulation with warfarin, present on admission, chronic. - Anticoagulation reversed prior to surgery. - Consider resuming warfarin when clinically stable. 9. Type II diabetes mellitus, present on admission, chronic. - Glargine 20 units daily. - Medium dose correctional scale with regular insulin. 10. CKD stage IV with baseline serum creatinine 3.3 - 3.9, was on admission, chronic. 11. Bradycardia, present on admission, chronic. - reports that his baseline HR is approx 40's. - Medication regimen does include metoprolol 12.5 mg twice a day. - Will continue to monitor on telemetry. 12. Anemia, present on admission, worsening. - Hemoglobin 7.1 and hematocrit 22.7 this morning. - 2 units PRBCs transfusing on 10/22. - Followed by Lasix 80 mg. - Single dose of Venofer here given per nephrology. Disposition: Patient's discharge pending blood pressure control and decreased oxygen needs. Possibly home or SNF depending on PT evaluation. GI Prophylaxis: H2 jackie VTE Prophylaxis: Sub-Q Heparin (Unfractionated) VTE Mechanical Devices: Intermittant Pneumatic CD Resuscitation Status: CPR: Attempt Resuscitation Attending Statement The patient was seen and examined together with Resident/House-staff on 10/22/16 and I agree with the history, exam and plan as outlined in the note above. JOSE MCDANIEL DO Oct 22, 2016 14:46 Andrea Wright Oct 22, 2016 17:33
--- NOTE | 2016-10-22 15:02 | PCM.CONPHA ---
Subjective Date of Service: Oct 22, 2016 atrial fibrillation Reason for Pharmacy Consult: Anticoagulation Management Objective Vital Signs Date Time Temp Pulse Resp B/P Pulse Ox O2 Delivery O2 Flow Rate FiO2 10/22/16 14:52 36.5 68 21 158/64 10/22/16 14:36 36.9 63 18 160/62 10/22/16 13:03 36.6 62 22 167/65 10/22/16 11:50 36.8 63 19 158/62 93 Room Air 10/22/16 11:12 36.9 60 18 167/70 10/22/16 10:49 36.8 56 20 164/60 10/22/16 08:28 36.7 56 19 151/61 96 Nasal Cannula 2.00 10/22/16 08:28 Supplement Oxygen 10/22/16 05:55 53 10/22/16 03:49 36.4 58 16 151/54 98 Nasal Cannula 5.00 10/22/16 01:18 60 12 140/60 96 Room Air 10/22/16 00:24 36.7 71 12 172/67 96 Room Air 10/21/16 20:17 36.5 148/56 96 Room Air 10/21/16 20:15 60 10/21/16 16:29 36.5 72 18 178/68 92 Room Air Intake and Output 10/20/16 10/21/16 10/22/16 00:00 00:00 00:00 Intake Total 3808 ml 2160 ml 1953 ml Output Total 1350 ml 1475 ml 1900 ml Balance 2458 ml 685 ml 53 ml Weight (Kilograms): 106.900 Height (Feet): 5 Height (Inches): 10.00 Test 10/11/16 04:50 10/11/16 19:10 10/11/16 19:14 10/12/16 13:03 Hemoglobin A1c 5.9% (4.8-5.6) Pro-B-Type Natriuretic Peptide 4360pg/mL (0-376) Urine Color Yellow (YELLOW) Urine Appearance Clear (CLEAR,HAZY) Urine pH 7.0 (5.0-8.0) Urine Specific [place] 1.025 (1.003-1.035) Urine Protein 100mg/dL (NEG,TRACE) Urine Glucose (UA) Negativemg/dL (NEGATIVE) Urine Ketones Negativemg/dL (NEGATIVE) Urine Occult Blood Trace (NEGATIVE) Urine Nitrite Negative (NEGATIVE) Urine Bilirubin Negative (NEGATIVE) Urine Urobilinogen Normalmg/dL (NORMAL) Urine Leukocyte Esterase Negative (NEGATIVE) Urine RBC 0-2/hpf (0-2) Urine WBC 0-5/hpf (0-5) Urine Epithelial Cells Occasional/hpf (NONE-MOD) Urine Crystals None seen (NONE SEEN) Urine Bacteria None/hpf (NONE-FEW) Urine Hyaline Casts Rare/lpf (NONE) Urine Granular Casts None seen (NONE SEEN) Urine Waxy Casts None seen (NONE SEEN) Urine Red Blood Cell Casts None seen (NONE SEEN) Urine White Blood Cell Casts None seen (NONE SEEN) Urine Mucus None seen (None Seen) Urine Trichomonas None seen (NONE SEEN) Urine Yeast None (NONE SEEN) Urinalysis Comment None Urine Culture Reflexed Not indicated Troponin T < 0.010ug/L (0.0-0.011) Test 10/13/16 09:00 10/14/16 05:45 10/15/16 04:30 10/17/16 03:50 Lactic Acid Level 0.7mmol/L (0.4-2.0) Vitamin D 25-Hydroxy 31.2ng/mL (30.0-100.0) Procalcitonin 0.45ng/mL (See Comment) Parathyroid Hormone (Intact) 96pg/mL (15-65) Prealbumin 13mg/dL (20-40) Phosphorus Level 5.4mg/dL (2.5-4.9) Test 10/18/16 04:10 10/19/16 05:00 10/21/16 03:52 10/22/16 05:05 Iron Level 34ug/dL (35-150) Total Iron Binding Capacity 191ug/dL (250-450) Percent Iron Saturation 18%sat (15-50) Unsaturated Iron Binding 157.4ug/dL Ferritin 320ng/mL (30-400) Total Bilirubin 0.4mg/dL (0.0-1.2) Aspartate Amino Transf (AST/SGOT) 12U/L (0-50) Alanine Aminotransferase (ALT/SGPT) 5U/L (0-44) Alkaline Phosphatase 66U/L (25-160) Total Protein 5.6g/dL (6.4-8.4) Albumin 2.9g/dL (3.4-5.0) Neutrophils (%) (Auto) 58.1% (40-74) Lymphocytes (%) (Auto) 23.6% (14-46) Monocytes (%) (Auto) 10.9% (4-12) Eosinophils (%) (Auto) 6.1% (0-5) Basophils (%) (Auto) 0.9% (0-3) Magnesium Level 2.0mg/dL (1.6-2.6) White Blood Count 4.2th/mm3 (3.8-10.1) Red Blood Count 2.48mil/mm3 (4.40-5.80) Mean Corpuscular Volume 87.5fL (81-100) Mean Corpuscular Hemoglobin 27.8pg (27.0-35.0) Mean Corpuscular Hemoglobin Concent 31.8% (32.0-37.0) Red Cell Distribution Width 15.2% (12.3-15.4) Platelet Count 193bil/L (150-400) Prothrombin Time 14.1sec (8.1-12.5) Prothromb Time International Ratio 1.31ratio Sodium Level 144mEq/L (134-144) Potassium Level 3.3mEq/L (3.5-5.2) Chloride Level 105mEq/L (97-108) Carbon Dioxide Level 25mmol/L (18-29) Blood Urea Nitrogen 47mg/dL (8-27) Creatinine 3.02mg/dL (0.76-1.27) Estimat Glomerular Filtration Rate 22mL/min (>59) Glucose Level 92mg/dL (60-99) Uric Acid 10.2mg/dL (2.6-7.2) Calcium Level 8.6mg/dL (8.5-10.1) Test 10/22/16 06:00 Hemoglobin 7.1g/dL (13.8-17.2) Hematocrit 22.7% (41.0-50.0) Assessment/Plan Assessment/Plan Assessment: * Patient is needing warfarin management for atrial fibrillation. * Patient received warfarin 5 mg on 10/21/16 after the INR improved to 1.32. * Patient's INR goal range: 2-3 * Patient's INR on 10/22/16: 1.31 * Patient's INR dropped slightly after 3 doses. Plan: * Given that it is just a small decrease and the patient's home warfarin regimen is normally 5 mg per day, will give another warfarin 5 mg dose on and will reevaluate with the PT/INR on 10/23/16. * Patient's Hgb/Hct have been low and should be closely monitored as the INR improves to the goal range. * Will continue to follow. Saman Carlson Oct 22, 2016 15:01
--- NOTE | 2016-10-22 18:45 | NUR ---
Low HH/ oxygen Low HH this morning at 7.1 and 22.7-patient was T&C and given 2units PRBC. No blood product reaction was noted. Patient received 80mg IV Lasix between units and was urinating per urinal QS. HH rechecked following blood transfusion at 9.3 and 28.8- continue assessment. Patient off oxygen while awake with oxygen saturation 92-97% but continued to required 2-4L O2 per NC while asleep to maintain sat>92%.
[2016-10-22] MEDS ORDERED: Furosemide 10 mg/mL 10 mL Inj IVPUSH SCH (20:30)
[2016-10-23] VITALS (9 sets, daily range): BP systolic 131–154; BP diastolic 53–82; PULSE 50–63; RESP 16–22; O2SAT 97–99
[2016-10-23] MEDS: Heparin 5,000 Unit/mL Inj SUBQ SCH (01:04)
[2016-10-23 03:31] LABS: Mean Corpuscular Hemoglobin 28.1 pg (27.0-35.0); Mean Corpuscular Volume 86.5 fL (81-100)
[2016-10-23 03:48] LABS: INR 1.42 ratio
--- NOTE | 2016-10-23 06:50 | NUR ---
Out put and activity. Patient reported he has had increased urine output since he got started on lasix and that he has started to feel better now that some excess fluid is being removed from his system. Patient has been urinating approximally 200-300ml at a time. Patient reports that he feels much more stable on his feet and that he is more confidant in going home.
[2016-10-23] MEDS: Insulin LISPRO 300 Unit/3 mL Inj SUBQ SCH ×4 (08:00→20:31)
[2016-10-23] MEDS: Insulin GLARgine 100 Unit/mL Syringe SUBQ SCH (08:30)
[2016-10-23] MEDS: Furosemide 10 mg/mL 10 mL Inj IVPUSH SCH ×2 (08:50→20:30)
[2016-10-23] MEDS: Erythromycin 0.5% 3.5 Gm Ophthalmic Ointment LEFT_EYE SCH ×4 (08:51→20:31)
[2016-10-23] MEDS: Potassium Chloride 20 mEq SR Tablet PO SCH ×2 (08:51→13:06)
[2016-10-23] MEDS: 0.9% Sodium Chloride 250 ML IV SCH (11:00)
--- NOTE | 2016-10-23 11:44 | PCM.PNMED ---
Subjective Date of Service Oct 23, 2016 Subjective The patient's blood pressure and urine output has considerably improved with the diuretics and blood. His renal function is about the same with a BUN and creatinine this morning are 51 and 3.06 respectively. His hemoglobin following his blood transfusions is 9.4. The patient feels well and is continuing to cough with some productive sputum. Exam Vital Signs Vital Sign - Last Date Time Temp Pulse Resp B/P Pulse Ox O2 Delivery O2 Flow Rate FiO2 10/23/16 09:56 58 10/23/16 08:30 Supplement Oxygen 10/23/16 07:30 36.9 18 154/82 99 4.00 10/17/16 15:42 30 Intake and Output 10/22/16 10/22/16 10/23/16 Cumulative From/Thru 15:00 23:00 07:00 10/11/16 18:48 - 10/23/16 06:34 Intake Total 316 ml 1534 ml 400 ml 36275 ml Output Total 1650 ml 1250 ml 28715 ml Balance 316 ml -116 ml -850 ml 5567 ml Intake Oral 1110 ml 400 ml 7676 ml IV Total 30 ml 140 ml 78161 ml Packed Cells 286 ml 284 ml 570 ml Output Urine Total 1650 ml 1250 ml 50919 ml Gastric Drainage Total 1770 ml Estimated Blood Loss 150 ml # Voids 4 9 # Bowel Movements 3 Exam Neck is supple without adenopathy thyromegaly or jugular venous distention. Lungs continue to show some scattered rhonchi and end expiratory wheezes. This is improved significantly following diuretic therapy. She saw systolic murmur. Abdomen soft nontender rebound guarding masses or hepatosplenomegaly. Lab and Diagnostics Result Diagram: 10/23/16 0302 10/23/16 0302 Microbiology Blood cultures 2 shows no growth after 5 days. MRSA screen negative. Sputum culture grew normal cleo. . X-Rays, CTs and MRIs X-RAY CHEST, TWO VIEWS IMPRESSION: Small left-sided pleural effusion, which is slightly improved compared to the 10/15/16 examination. Stable right-sided central line. Dictated by: Luis Alfredo Aleman M.D. on 10/21/2016 at 15:15 Approved by: Luis Alfredo Aleman M.D. on 10/21/2016 at 15:15 X-RAY CHEST ONE VIEW, PORTABLE IMPRESSION: No change in bibasilar pneumonia. Continued plain film surveillance is recommended to ensure resolution, and to exclude underlying or central malignancy. Dictated by: Roslyn Velasco M.D. on 10/14/2016 at 8:55 Approved by: Roslyn Velasco M.D. on 10/14/2016 at 8:55 US ABDOMEN IMPRESSION: 1. Echogenic liver. Finding typically represents fatty infiltration; however, finding is nonspecific and correlation with clinical and laboratory findings is recommended to exclude other etiologies including hepatic cirrhosis. 2. Nonvisualization of the pancreas, spleen, aorta and iliac vasculature. 3. Otherwise, normal abdominal sonogram. Dictated by: Tasha Barrera MD, PhD on 10/13/2016 at 9:12 Approved by: Tasha Barrera MD, PhD on 10/13/2016 at 9:12 . Assessment & Plan Impression #1 acute on chronic kidney injury which is resolved #2 baseline chronic kidney disease stage IV #3 acute blood loss #4 hypertension with hypertensive heart disease and hypertensive nephrosclerosis Recommendations #1 I discussed the case with the ICU resident and would recommend continuing IV diuretics along with started him on dual nebs respiratory treatments to maximize his pulmonary toilet. Beginning tomorrow we can probably switch him over to torsemide orally from IV Lasix. GI Prophylaxis: H2 jackie VTE Prophylaxis: Sub-Q Heparin (Unfractionated) VTE Mechanical Devices: Intermittant Pneumatic CD Resuscitation Status: CPR: Attempt Resuscitation Jerrell Manning DO Oct 23, 2016 11:44
--- NOTE | 2016-10-23 12:10 | NUR ---
Telemetry Update: Afib Patient has been Sinus Rhythm 50-70s with PACs. At 01:20, patient converted to Afib 50-70s. Day shift RN Carlotta Alegre aware.
--- NOTE | 2016-10-23 12:13 | PCM.PNMED ---
Subjective Date of Service Oct 23, 2016 Subjective Farooq Gonzales is a 75-year-old male with diabetes, CKD stage IV, coronary artery disease, diastolic CHF, and hypertension who presented with acute abdominal pain. Admitted for ischemic bowel secondary to volvulus and internal hernia now day 10/11 status post laparotomy. Prolonged intubation after surgery extubated on 10/16. Hospital day 14. Overnight: Patient blood pressure better controlled overnight. No bradycardic episodes. No acute events overnight. Today: Patient is sitting in bed comfortably. He denies any pain, nausea, vomiting, dysuria. He is tolerating a diet. Patient worked with physical therapy today and was able to walk around the room. Patient actively being diuresed with IV lasix. Remaining review of systems negative. Exam Vital Signs Vital Sign - Last Date Time Temp Pulse Resp B/P Pulse Ox O2 Delivery O2 Flow Rate FiO2 10/23/16 09:56 58 10/23/16 08:30 Supplement Oxygen 10/23/16 07:30 36.9 18 154/82 99 4.00 10/17/16 15:42 30 Intake and Output 10/22/16 10/22/16 10/23/16 Cumulative From/Thru 15:00 23:00 07:00 10/11/16 18:48 - 10/23/16 06:34 Intake Total 316 ml 1534 ml 400 ml 35510 ml Output Total 1650 ml 1250 ml 11678 ml Balance 316 ml -116 ml -850 ml 5567 ml Intake Oral 1110 ml 400 ml 7676 ml IV Total 30 ml 140 ml 04328 ml Packed Cells 286 ml 284 ml 570 ml Output Urine Total 1650 ml 1250 ml 97114 ml Gastric Drainage Total 1770 ml Estimated Blood Loss 150 ml # Voids 4 9 # Bowel Movements 3 Exam General: Obese gentleman lying in bed in no acute distress. HEENT: Pupils are equal and reactive to light, mucous membranes are moist, nasal cannula in place. Right IJ. Lungs: Clear to auscultation bilaterally with decreased breath sounds in the bases bilaterally. Cardiovascular: Regular rate and rhythm with no murmurs. Abdomen: Soft with active bowel sounds. Vertical surgical incision present with appropriate pain to palpation. Extremities: No lower extremity edema, right AV fistula present with good thrill. Neurological: Cranial nerves grossly intact. Psychiatric: Normal mood and affect. Alert and oriented to person, place, and time. Lab and Diagnostics Result Diagram: 10/23/16 0302 10/23/16 0302 Microbiology Blood cultures 2 shows no growth after 5 days. MRSA screen negative. Sputum culture grew normal cleo. . X-Rays, CTs and MRIs X-RAY CHEST, TWO VIEWS IMPRESSION: Small left-sided pleural effusion, which is slightly improved compared to the 10/15/16 examination. Stable right-sided central line. Dictated by: Luis Alfredo Aleman M.D. on 10/21/2016 at 15:15 Approved by: Luis Alfredo Aleman M.D. on 10/21/2016 at 15:15 X-RAY CHEST ONE VIEW, PORTABLE IMPRESSION: No change in bibasilar pneumonia. Continued plain film surveillance is recommended to ensure resolution, and to exclude underlying or central malignancy. Dictated by: Roslyn Velasco M.D. on 10/14/2016 at 8:55 Approved by: Roslyn Velasco M.D. on 10/14/2016 at 8:55 US ABDOMEN IMPRESSION: 1. Echogenic liver. Finding typically represents fatty infiltration; however, finding is nonspecific and correlation with clinical and laboratory findings is recommended to exclude other etiologies including hepatic cirrhosis. 2. Nonvisualization of the pancreas, spleen, aorta and iliac vasculature. 3. Otherwise, normal abdominal sonogram. Dictated by: Tasha Barrera MD, PhD on 10/13/2016 at 9:12 Approved by: Tasha Barrera MD, PhD on 10/13/2016 at 9:12 . Assessment & Plan Farooq Gonzales is a 75-year-old male with diabetes, CKD stage IV, coronary artery disease, diastolic CHF, and hypertension who presented with acute abdominal pain. Admitted for ischemic bowel secondary to volvulus and internal hernia now day 10/11 status post laparotomy. Prolonged intubation after surgery extubated on 10/16. Hospital day 14. 1. Ischemic bowel status post laparotomy on 10/12, present on admission, improving. - Ischemic bowel secondary to volvulus and internal hernia. - Approximately 45 inches of mid small bowel were removed with primary anastomosis. 2. Postoperative ileus, not present on admission, resolved. - Bowel movement overnight. No nausea or vomiting. - Patient's diet advanced. - Aggressive physical therapy. 3. Hypertension, not present on admission, active. - Patient has chronic hypertension worsened by postoperative pain and ileus. - Metoprolol 12.5 mg twice a day stopped due to bradycardia. - Hydralazine increased to 75 mg TID. - Amlodipine 10 mg daily. - Chlorthalidone 25 mg daily. - Eplerenone 25 mg BID will be added when pharmacy acquires. - Continue to monitor on telemetry. 4. Heart failure with preserved ejection fraction, resonant on admission, active. - Echo from 06/29/16 revealed EF of 55% and significant aortic stenosis. - Patient being diuresed with Lasix 80 mg Q12H. - CXR showed some fluid overload. Repeat in the morning. 5. Sleep apnea on CPAP, present on admission, chronic. - CPAP used at night. 6. Acute hypoxic respiratory failure, not present on admission, resolved. - Intubated early a.m. 10/12/16 for perioperative management. Extubated successfully 10/16. - Requiring minimal oxygen by nasal cannula and CPAP at night. 7. Anion gap metabolic acidosis, as an on admission, resolved. - Secondary to bowel ischemia and elevated lactic acid. 8. Atrial fibrillation on anticoagulation with warfarin, present on admission, chronic. - Anticoagulation reversed prior to surgery. - Warfarin restarted. Lovenox until therapeutic. 9. Type II diabetes mellitus, present on admission, chronic. - Glargine 20 units daily. - Medium dose correctional scale with regular insulin. 10. CKD stage IV with baseline serum creatinine 3.3 - 3.9, was on admission, chronic. 11. Bradycardia, present on admission, chronic. - reports that his baseline HR is approx 40's. - Metoprolol discontinued. - Will continue to monitor on telemetry. 12. Anemia, present on admission, worsening. - Hemoglobin 7.1 and hematocrit 22.7 this morning. - 2 units PRBCs transfused on 10/22. - Followed by Lasix 80 mg. - Single dose of Venofer given per nephrology. Disposition: Patient's discharge pending blood pressure control and decreased oxygen needs. Likely home with home health. GI Prophylaxis: H2 jackie VTE Prophylaxis: Sub-Q Heparin (Unfractionated) VTE Mechanical Devices: Intermittant Pneumatic CD Resuscitation Status: CPR: Attempt Resuscitation Attending Statement The patient was seen and examined together with Resident/House-staff on 10/23/16 and I agree with the history, exam and plan as outlined in the note above. JOSE MCDANIEL DO Oct 23, 2016 12:13 Andrea Wright Oct 23, 2016 17:35
--- NOTE | 2016-10-23 13:59 | PROG NOTE ---
[address] [address] PROGRESS NOTE PATIENT: VLAD VARGAS : 1940 MR#: [id number] ADMIT: 10/11/2016 JOB ID: [id number] DATE: 10/23/2016 SUBJECTIVE: The patient is doing very well from a General Surgery point of view, tolerating a diet and passing gas and bowel movements. His abdominal examination is benign with a well-healing incision and no sign of hernias. His white count is 4.9, his hematocrit is 28.9. Creatinine is 3.06. Electrolytes are normal. IMPRESSION AND PLAN: Doing well from a General Surgery point of view and would be able to go home except for the fact that Dr. Manning would like to keep him in the hospital for another 24-48 hours for further diuresis due to concerns regarding his creatinine.
[2016-10-23] MEDS: Albuterol-Ipratropium 3 mL Inhalation Solution NEB SCH (17:27)
--- NOTE | 2016-10-23 17:47 | NUR ---
Activity: Pt a/o x3, moves all extremities, jokes with staff, responds appropriately. VSS, tele SB/SR, BP improving with multiple BP meds and IVP Lasix. Pt with large amount UOP, tolerating PO intake well, voiding independently. Completed PT, up at EOB, moves independently in bed. Care ongoing.
[2016-10-23] MEDS ORDERED: 0.9% Sodium Chloride 100 ML ONE (20:06)
[2016-10-24] VITALS (12 sets, daily range): BP systolic 125–158; BP diastolic 46–68; PULSE 54–65; RESP 16–22; O2SAT 96–99
[2016-10-24 05:47] LABS: Mean Corpuscular Hemoglobin 27.8 pg (27.0-35.0); Mean Corpuscular Volume 87.2 fL (81-100)
[2016-10-24] MEDS: Albuterol-Ipratropium 3 mL Inhalation Solution NEB SCH ×5 (06:00→19:54)
[2016-10-24 06:01] LABS: INR 1.67 ratio
--- NOTE | 2016-10-24 06:38 | NUR ---
Cardiac Rhythm/Rest/Lasix Pt remained in A-Fib throughout the shift. Pt's HR would go into the 40s-50s and pt was asymptomatic. Pt was able to rest easily through the shift. The IV pump in the room is set up for 80mg Lasix to be pushed over 20 minutes with a NS bag hanging to flush the line.
[2016-10-24] MEDS: Insulin LISPRO 300 Unit/3 mL Inj SUBQ SCH ×4 (08:00→21:09)
[2016-10-24] MEDS: Insulin GLARgine 100 Unit/mL Syringe SUBQ SCH (08:30)
[2016-10-24] MEDS: Erythromycin 0.5% 3.5 Gm Ophthalmic Ointment LEFT_EYE SCH ×4 (08:32→21:15)
--- NOTE | 2016-10-24 08:35 | DRSVH ---
PROCEDURE: X-RAY CHEST ONE VIEW, PORTABLE ([id number]) INDICATIONS: SHORTNESS OF BREATH TECHNIQUE: One view of the chest was acquired. COMPARISON: [facility], CR, XR CHEST 2VW, 10/21/2016, 15:36. FINDINGS: Surgical changes and devices: Right central venous catheter is unchanged. Lungs and pleura: Left basilar radiopacities and small pleural effusion are redemonstrated. Streaky o pacities at the right lung base suggest new atelectasis when compared with the study dated 10/21/16. T here is likely a small right pleural effusion as well. Mediastinum: Mediastinal contours appear normal. Heart size is mildly enlarged, as before. Bones and chest wall: No suspicious bony lesions. Overlying soft tissues appear unremarkable. IMPRESSION: 1. Persistent left basilar radiopacities and pleural effusion. 2. New right basilar radiopacities and small effusion. Dictated by: Sabrina Diaz M.D. on 10/24/2016 at 8:33 Approved by: Sabrina Diaz M.D. on 10/24/2016 at 8:33
[2016-10-24] MEDS: Potassium Chloride 20 mEq SR Tablet PO SCH ×2 (08:36→11:44)
[2016-10-24] MEDS: Furosemide 10 mg/mL 10 mL Inj IVPUSH SCH (08:36)
--- NOTE | 2016-10-24 10:55 | PROG NOTE ---
[address] [address] PROGRESS NOTE PATIENT: VLAD VARGAS : 1940 MR#: [id number] ADMIT: 10/11/2016 JOB ID: [id number] DATE: 10/24/2016 SUBJECTIVE: The patient is doing quite well from a general surgery point of view, in fact, he was eating a cheeseburger for breakfast when I came into see him. He is passing stool without problems, tolerating oral pain medicine. PHYSICAL EXAMINATION: His abdominal exam is benign. His incision shows no sign of infection. IMPRESSION AND PLAN: Doing well, remains in the hospital per Dr. Manning for further diuresis. He will likely be ready for discharge in the next day or two.
[2016-10-24] MEDS: 0.9% Sodium Chloride 250 ML IV SCH (11:00)
--- NOTE | 2016-10-24 12:12 | NUR ---
[facility] signed
--- NOTE | 2016-10-24 13:12 | PCM.PNMED ---
Subjective Date of Service Oct 24, 2016 Subjective Farooq Gonzales is a 75-year-old male with diabetes, CKD stage IV, coronary artery disease, diastolic CHF, and hypertension who presented with acute abdominal pain. Admitted for ischemic bowel secondary to volvulus and internal hernia now day 10/11 status post laparotomy. Prolonged intubation after surgery extubated on 10/16. Hospital day 15. Overnight: Patient blood pressure better controlled overnight. Patient was borderline bradycardic overnight. No acute events overnight. Today: Patient has no complaints today. He would like to be discharged however he understand the necessity of his stay and is compliant. He denies any pain, nausea, melena, chest pain or shortness of breath. Remaining review of systems negative. Exam Vital Signs Vital Sign - Last Date Time Temp Pulse Resp B/P Pulse Ox O2 Delivery O2 Flow Rate FiO2 10/24/16 12:03 36.8 63 16 140/46 98 Room Air 10/24/16 08:28 2.00 Intake and Output 10/23/16 10/23/16 10/24/16 Cumulative From/Thru 15:00 23:00 07:00 10/11/16 18:48 - 10/24/16 05:39 Intake Total 800 ml 454 ml 54161 ml Output Total 2300 ml 980 ml 05498 ml Balance -1500 ml -526 ml 3541 ml Intake Oral 800 ml 400 ml 8876 ml IV Total 54 ml 80541 ml Packed Cells 570 ml Output Urine Total 2300 ml 980 ml 06553 ml Gastric Drainage Total 1770 ml Estimated Blood Loss 150 ml # Voids 9 # Bowel Movements 0 0 3 Exam General: Obese gentleman lying in bed in no acute distress. HEENT: Pupils are equal and reactive to light, mucous membranes are moist, nasal cannula in place. Right IJ without signs of infection or bleeding. Lungs: Clear to auscultation bilaterally with decreased breath sounds in the bases bilaterally. Cardiovascular: Regular rate and rhythm with no murmurs. Abdomen: Soft with active bowel sounds. Vertical surgical incision present with appropriate pain to palpation. Extremities: No lower extremity edema, right AV fistula present with good thrill. Neurological: Cranial nerves grossly intact. Psychiatric: Normal mood and affect. Alert and oriented to person, place, and time. IVs and Medications Medications Reviewed: Medications were reviewed in detail Lab and Diagnostics Result Diagram: 10/24/1651410/24/16514 Microbiology Blood cultures 2 shows no growth after 5 days. MRSA screen negative. Sputum culture grew normal cleo. . X-Rays, CTs and MRIs X-RAY CHEST, TWO VIEWS IMPRESSION: Small left-sided pleural effusion, which is slightly improved compared to the 10/15/16 examination. Stable right-sided central line. Dictated by: Luis Alfredo Aleman M.D. on 10/21/2016 at 15:15 Approved by: Luis Alfredo Aleman M.D. on 10/21/2016 at 15:15 X-RAY CHEST ONE VIEW, PORTABLE IMPRESSION: No change in bibasilar pneumonia. Continued plain film surveillance is recommended to ensure resolution, and to exclude underlying or central malignancy. Dictated by: Roslyn Velasco M.D. on 10/14/2016 at 8:55 Approved by: Roslyn Velasco M.D. on 10/14/2016 at 8:55 US ABDOMEN IMPRESSION: 1. Echogenic liver. Finding typically represents fatty infiltration; however, finding is nonspecific and correlation with clinical and laboratory findings is recommended to exclude other etiologies including hepatic cirrhosis. 2. Nonvisualization of the pancreas, spleen, aorta and iliac vasculature. 3. Otherwise, normal abdominal sonogram. Dictated by: Tasha Barrera MD, PhD on 10/13/2016 at 9:12 Approved by: Tasha Barrera MD, PhD on 10/13/2016 at 9:12 . Assessment & Plan Farooq Gonzales is a 75-year-old male with diabetes, CKD stage IV, coronary artery disease, diastolic CHF, and hypertension who presented with acute abdominal pain. Admitted for ischemic bowel secondary to volvulus and internal hernia now day 10/11 status post laparotomy. Prolonged intubation after surgery extubated on 10/16. Hospital day 15. 1. Hypertension, present on admission, improving. - Patient has chronic hypertension worsened by postoperative pain and ileus. - Metoprolol 12.5 mg twice a day stopped due to bradycardia. - Hydralazine increased to 75 mg TID. - Amlodipine 10 mg daily. - Chlorthalidone 25 mg daily. - Eplerenone 25 mg BID added - Continue to monitor on telemetry. 2. Heart failure with preserved ejection fraction, resonant on admission, active. - Echo from 06/29/16 revealed EF of 55% and significant aortic stenosis. - Patient being diuresed with Lasix 80 mg Q12H, to be transitioned to PO torsemide per nephrology today. 3. Ischemic bowel status post laparotomy on 10/12, present on admission, resolved - Ischemic bowel secondary to volvulus and internal hernia. - Approximately 45 inches of mid small bowel were removed with primary anastomosis. - Patient able to tolerate full diet without issue. 4. Postoperative ileus, not present on admission, resolved. - Normal bowel movement. No nausea or vomiting. - Patient's diet advanced. - Aggressive physical therapy. 5. Sleep apnea on CPAP, present on admission, chronic. - CPAP used at night. 6. Acute hypoxic respiratory failure, not present on admission, resolved. - Intubated early a.m. 10/12/16 for perioperative management. Extubated successfully 10/16. - Requiring minimal oxygen by nasal cannula and CPAP at night. - Titrating O2 off, anticipate he will not need any O2 while awake. 7. Anion gap metabolic acidosis, as an on admission, resolved. - Secondary to bowel ischemia and elevated lactic acid. 8. Atrial fibrillation on anticoagulation with warfarin, present on admission, chronic. - Anticoagulation reversed prior to surgery. - Warfarin per pharmacy. Lovenox until therapeutic. 9. Type II diabetes mellitus, present on admission, chronic. - Glargine 15 units daily. - Medium dose correctional scale with Lispro. 10. CKD stage IV with baseline serum creatinine 3.3 - 3.9, was on admission, chronic. 11. Bradycardia, present on admission, chronic. - reports that his baseline HR is approx 40's. - Metoprolol discontinued. - Will continue to monitor on telemetry. 12. Anemia, present on admission, stable. - Hemoglobin 7.1 and hematocrit 22.7 on 10/22/16 - 2 units PRBCs transfused on 10/22. - Single dose of Venofer given per nephrology. Disposition: Patient likely to be discharged home tomorrow provided his BP is well controlled and he is off O2. GI Prophylaxis: H2 jackie VTE Prophylaxis: Sub-Q Heparin (Unfractionated) VTE Mechanical Devices: Intermittant Pneumatic CD Resuscitation Status: CPR: Attempt Resuscitation Attending Statement The patient was seen and examined together with Resident/House-staff on 10/24/16 and I agree with the history, exam and plan as outlined in the note above. Aisha Kapoor DO Oct 24, 2016 13:12 Anrdea Wright Oct 24, 2016 17:12
--- NOTE | 2016-10-24 13:36 | PCM.PNMED ---
Subjective Date of Service Oct 24, 2016 Subjective The patient continues to improve. He has had 3500 mL syrup urine output last 24 hours. His BUN and creatinine remained stable and back at his baseline. His blood pressure is still in the 140-150 range. The patient offers no complaints of chest pain, shortness of breath, vomiting, or diarrhea. Exam Vital Signs Vital Sign - Last Date Time Temp Pulse Resp B/P Pulse Ox O2 Delivery O2 Flow Rate FiO2 10/24/16 12:03 36.8 63 16 140/46 98 Room Air 10/24/16 08:28 2.00 Intake and Output 10/23/16 10/23/16 10/24/16 Cumulative From/Thru 15:00 23:00 07:00 10/11/16 18:48 - 10/24/16 05:39 Intake Total 800 ml 454 ml 11507 ml Output Total 2300 ml 980 ml 29067 ml Balance -1500 ml -526 ml 3541 ml Intake Oral 800 ml 400 ml 8876 ml IV Total 54 ml 87003 ml Packed Cells 570 ml Output Urine Total 2300 ml 980 ml 56224 ml Gastric Drainage Total 1770 ml Estimated Blood Loss 150 ml # Voids 9 # Bowel Movements 0 0 3 Exam HEENT examination is remarkable for pale sclera. Neck is supple without adenopathy thyromegaly or jugular venous distention at 90. Lungs still show some bibasilar rales but otherwise are clear. Heart is regular. Systolic murmur. Abdomen was soft. Distended with decreased bowel sounds. Extremities show some mild generalized edema. Lab and Diagnostics Result Diagram: 10/24/16 0515 10/24/16 0515 Microbiology Blood cultures 2 shows no growth after 5 days. MRSA screen negative. Sputum culture grew normal cleo. . X-Rays, CTs and MRIs X-RAY CHEST, TWO VIEWS IMPRESSION: Small left-sided pleural effusion, which is slightly improved compared to the 10/15/16 examination. Stable right-sided central line. Dictated by: Luis Alfredo Aleman M.D. on 10/21/2016 at 15:15 Approved by: Luis Alfredo Aleman M.D. on 10/21/2016 at 15:15 X-RAY CHEST ONE VIEW, PORTABLE IMPRESSION: No change in bibasilar pneumonia. Continued plain film surveillance is recommended to ensure resolution, and to exclude underlying or central malignancy. Dictated by: Roslyn Velasco M.D. on 10/14/2016 at 8:55 Approved by: Roslyn Velasco M.D. on 10/14/2016 at 8:55 US ABDOMEN IMPRESSION: 1. Echogenic liver. Finding typically represents fatty infiltration; however, finding is nonspecific and correlation with clinical and laboratory findings is recommended to exclude other etiologies including hepatic cirrhosis. 2. Nonvisualization of the pancreas, spleen, aorta and iliac vasculature. 3. Otherwise, normal abdominal sonogram. Dictated by: Tasha Barrera MD, PhD on 10/13/2016 at 9:12 Approved by: Tasha Barrera MD, PhD on 10/13/2016 at 9:12 . Assessment & Plan Impression #1 acute knee injury superimposed upon baseline stage IV chronic kidney disease which appears to have been resolved. Hypertension with hypertensive heart disease and hypertensive nephrosclerosis Recommendation #1 I will discontinue the intravenous furosemide and change him to torsemide 40 mg in the morning and 20 in the afternoon and I feel that he would benefit from eplerenone 25 mg daily and also to give him an additional dose of Aranesp 60 mg subcutaneous today and another dose of iron sucrose 100 mg IV. GI Prophylaxis: H2 jackie VTE Prophylaxis: Sub-Q Heparin (Unfractionated) VTE Mechanical Devices: Intermittant Pneumatic CD Resuscitation Status: CPR: Attempt Resuscitation Jerrell Manning DO Oct 24, 2016 13:35
[2016-10-24] MEDS ORDERED: Darbepoetin Alfa 60 mCg/0.3 mL Inj SUBQ ONE (13:40)
[2016-10-24] MEDS ORDERED: Iron Sucrose Inj 100 MG in 0.9% Sodium Chloride 100 ML IV ONE (13:40)
--- NOTE | 2016-10-24 16:23 | NUR ---
Respiratory Saw Pt for Tx, Pt stated he had no problems with breathing and did not need the Tx at this time. No Tx given per Pt refusal. No SOB, no adventatious BS.
--- NOTE | 2016-10-24 18:20 | NUR ---
Activity: Pt has been up ad rohith in room, no gait instability noted. Up in chair for meals. BM this shift. VSS, RA O2 sats 98%, tele Afib 50s-80s. Care ongoing.
[2016-10-25 03:31] VITALS: BP 135/72; PULSE 64; RESP 18; O2SAT 95
[2016-10-25 04:16] LABS: INR 1.75 ratio
--- NOTE | 2016-10-25 04:41 | NUR ---
Blood Pressure Pt's BP at HS was 125/60; MD humphrey, Inspra administered at HS and hydralazine held until post-administration assessment of Inspra in 2-3 hours. 0000 vitals showed BP of 140/68; hydralazine administered. BP remained stable throughout rest of shift with SBP of 130s. Pt on RA throughout day time, CPAP at night without O2 bleed. Tele afib 40s-60s.
[2016-10-25] MEDS: Erythromycin 0.5% 3.5 Gm Ophthalmic Ointment LEFT_EYE SCH (06:22)
[2016-10-25 07:43] VITALS: BP 138/69; PULSE 59; RESP 18; O2SAT 96
[2016-10-25] MEDS: Insulin LISPRO 300 Unit/3 mL Inj SUBQ SCH (07:48)
[2016-10-25] MEDS: Potassium Chloride 20 mEq SR Tablet PO SCH (07:56)
[2016-10-25] MEDS: Albuterol-Ipratropium 3 mL Inhalation Solution NEB SCH (08:27)
[2016-10-25] MEDS ORDERED: Insulin GLARgine 100 Unit/mL Syringe SUBQ SCH (08:30)
[2016-10-25] MEDS ORDERED: EPLE25TA3 PO (10:35)
[2016-10-25] MEDS ORDERED: LOV100 SUBQ (10:35)
[2016-10-25] MEDS ORDERED: TORS20TA PO (10:35)
[2016-10-25] MEDS ORDERED: HYDR-3940 PO (10:35)
--- NOTE | 2016-10-25 11:29 | PCM.PNMED ---
Subjective Date of Service Oct 25, 2016 Subjective Nephrology Progress Note: Attending Dr. Chu Galarzakner is a 75-year-old man with diabetes, chronic kidney disease stage IV status post AVF, coronary artery disease, diastolic CHF and hypertension presented with acute abdominal pain who was found to have ischemic bowel due to volvulus internal hernia status post mid small bowel resection with primary anastomosis status post extubation and is being treated for ATN. Hospital day # 15. Overnight: There were no acute events. Telemetry overnight: Sinus bradycardia, heart rate 50 to 60's, without ectopy. The patient is resting in bed comfortably and in no acute distress. The patient reports that he continues to feel well. His cough has resolved. He denies headache, chest pain, palpitations, shortness of breath, abdominal pain, nausea, vomiting, fever, chills, dysuria, diarrhea or constipation. The patient is voiding and eliminating without difficulty. The patient is ambulating with a walker without difficulty. . Exam Vital Signs Vital Sign - Last Date Time Temp Pulse Resp B/P Pulse Ox O2 Delivery O2 Flow Rate FiO2 10/25/16 07:43 36.5 59 18 138/69 96 Room Air 10/24/16 08:28 2.00 Intake and Output 10/24/16 10/24/16 10/25/16 Cumulative From/Thru 15:00 23:00 07:00 10/11/16 18:48 - 10/25/16 05:29 Intake Total 1167 ml 1150 ml 68945 ml Output Total 800 ml 1655 ml 22555 ml Balance 367 ml -505 ml 3403 ml Intake Oral 1037 ml 1150 ml 29311 ml IV Total 130 ml 73652 ml Packed Cells 570 ml Output Urine Total 800 ml 1655 ml 89684 ml Gastric Drainage Total 1770 ml Estimated Blood Loss 150 ml # Voids 9 # Bowel Movements 1 4 Exam General: Older male lying in bed and in no acute distress, well-developed, well- nourished, appropriately interactive. HEENT: Normocephalic, atraumatic. External ears without defect. Pupils equal, round, and reactive to light. Anicteric sclerae, moist conjunctivae, and no lid lag. Neck: Supple with full range of motion. No jugular venous distension. No bruits. No lymphadenopathy or thyromegaly. Cardiovascular: Regular rhythm irregular with no murmurs, rubs, or gallops appreciated Pulmonary: Clear to auscultation bilaterally with no crackles, wheezes, or rhonchi. Normal respiratory effort with no use of accessory muscles. Abdomen: Soft, obese, nondistended, nontender, bowel sounds present. Vertical surgical wound healing well without drainage. Extremities: No clubbing, cyanosis, or edema. Right AV fistula with good thrill. Skin: Normal temperature, turgor, and texture; no rash, ulcers, or subcutaneous nodules appreciated. Neurological: Cranial nerves grossly intact. . IVs and Medications Medications Reviewed: Medications were reviewed in detail Lab and Diagnostics Item Value Date Time Prothrombin Time 18.9 sec H 10/25/16344 Prothromb Time International Ratio 1.75 ratio 10/25/16344 Result Diagram: 10/24/1615 10/25/16344 Microbiology Blood cultures 2 shows no growth after 5 days. MRSA screen negative. Sputum culture grew normal cleo. . X-Rays, CTs and MRIs X-RAY CHEST ONE VIEW, PORTABLE IMPRESSION: 1. Persistent left basilar radiopacities and pleural effusion. 2. New right basilar radiopacities and small effusion. Dictated by: Sabrina Diaz M.D. on 10/24/2016 at 8:33 Approved by: Sabrina Diaz M.D. on 10/24/2016 at 8:33 X-RAY CHEST ONE VIEW, PORTABLE IMPRESSION: No change in bibasilar pneumonia. Continued plain film surveillance is recommended to ensure resolution, and to exclude underlying or central malignancy. Dictated by: Roslyn Velasco M.D. on 10/14/2016 at 8:55 Approved by: Roslyn Velasco M.D. on 10/14/2016 at 8:55 US ABDOMEN IMPRESSION: 1. Echogenic liver. Finding typically represents fatty infiltration; however, finding is nonspecific and correlation with clinical and laboratory findings is recommended to exclude other etiologies including hepatic cirrhosis. 2. Nonvisualization of the pancreas, spleen, aorta and iliac vasculature. 3. Otherwise, normal abdominal sonogram. Dictated by: Tasha Barrera MD, PhD on 10/13/2016 at 9:12 Approved by: Tasha Barrera MD, PhD on 10/13/2016 at 9:12 . 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 Hospital day # 15. 1. Acute kidney injury on chronic kidney disease stage 4. Acute portion secondary to acute tubular necrosis has resolved. 2. Normocytic anemia secondary to iron deficiency and chronic kidney disease. 3. Acute hypoxemic respiratory failure. Resolved. 4. 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 Resolved. 5. 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 6. History of chronic diastolic heart failure. 7. Sleep apnea on CPAP. 8. 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 9. Hypernatremia. Resolved. Plan: - Continue torsemide 40 mg daily, eplerenone 25 mg twice daily, amlodipine 10 mg daily, and hydralazine 75 mg 3 times a day. Discontinued chlorthalidone 25 mg daily. - Renal function close to baseline. Patient received Aranesp and Venofer several times throughout hospitalization. Plan going forward is to follow-up with his outpatient mitochondrial disorders counselor in the next 1-2 weeks with a BMP to follow. - Discontinued PPI as likely contributed to acute portion of kidney injury. - The patient has been bradycardic with periodic brief but frequent pauses and I would highly recommend that his PCP consider a cardiology referral as an outpatient. . GI Prophylaxis: H2 jackie VTE Prophylaxis: Sub-Q Heparin (Unfractionated) VTE Mechanical Devices: Intermittant Pneumatic CD Resuscitation Status: CPR: Attempt Resuscitation Betty Roberson DO Oct 25, 2016 11:29
--- NOTE | 2016-10-25 11:45 | PCM.DIMED ---
JOSE MCDANIEL DO 10/25/16 1010: Discharge Instructions Date of Service Oct 25, 2016 Dates of Hospitalization Oct 11, 2016 at 22:51 Discharge Diagnosis Discharge Diagnosis 1. Hypertension, present on admission, stable. 2. Heart failure with preserved ejection fraction, present on admission, stable. 3. Ischemic bowel status post laparotomy on 10/12, present on admission, resolved. 4. Postoperative ileus, not present on admission, resolved. 5. Sleep apnea on CPAP, present on admission, chronic. 6. Acute hypoxic respiratory failure, not present on admission, resolved. 7. Anion gap metabolic acidosis, as an on admission, resolved. 8. Atrial fibrillation on anticoagulation with warfarin, present on admission, chronic. 9. Type II diabetes mellitus, present on admission, chronic. 10. CKD stage IV with baseline serum creatinine 3.3 - 3.9, was on admission, chronic. 11. Bradycardia, present on admission, chronic. 12. Anemia, present on admission, stable. Medication Instructions During your hospitalization a number medications were changed or added. Please stop the following medications: - Furosemide 80 mg twice a day - Hydralazine 50 mg 3 times a day - Isosorbide mononitrate 90 mg daily - Metoprolol tartrate 12.5 mg twice a day New medications include the following: - Torsemide 40 mg daily - Eplerenone 25 mg twice a day - Hydralazine 75 mg 3 times a day - Lovenox 100 mg subcutaneous injection daily. This medication is to be used until your INR is above 2. Once your INR is above 2 you can stop the Lovenox and continue taking warfarin alone. Your remaining medications have not been changed during this hospitalization. Please continue to take as directed by their prescribers. Diet Heart Healthy, Diabetic Activity Home Health Phyical Therapy Call your provider Fever or Chills, Shortness of breath, Bleeding, Chest pain, Excessive diarrhea, Weakness (unilateral) Patient Instructions - During your hospitalization you were treated for ischemic bowel with laparotomy. Your surgical incision is healing well and you are having regular bowel movements at this time. - Please follow up with surgery, Dr. Rosales, in 1-2 weeks. - During your hospitalization a number of your medications were adjusted to better control your blood pressure and fluid status. Please make note of these changes and follow the directions above. - Please follow up with nephrology, Dr. Manning, in 1-2 weeks. Prior to this appointment please have labs drawn including a BMP. - Due to your surgery your warfarin was held for a period of time. Currently your INR is not therapeutic. Therefore, please take Lovenox and warfarin daily as directed above until your INR is greater than 2. Once your INR is greater than 2 you can continue with warfarin but stop the Lovenox. Please have your INR checked in 2-3 days. - Please follow up with your primary care provider, Dr. Flores, in 4-5 days to update him on your hospital course and medication changes. - You are being discharged with home health physical therapy. Please aggressively work with them to regain your strength and mobility. Follow-up Provider: Jaya Flores MD Follow-up with PCP in: Other (4-5 days) Provider: Jerrell Manning DO Follow-up in: Other (1-2 weeks) Mid-level Provider (F9): Dada Rosales MD Follow-up with Mid-level in: Other (1-2 weeks) Magnus Carmona MD 10/26/16 1550: Discharge Instructions Attending's Statement The patient was seen and examined together with Dr. Mcdaniel on 10/25/2016 and I agree with the history, exam and plan as outlined in the note above. . JOSE MCDANIEL DO Oct 25, 2016 10:10 Magnus Carmona MD Oct 26, 2016 15:50
--- NOTE | 2016-10-25 12:28 | NUR ---
Discharge of pt reviewed discharged instruction with patient and patient's . Pt verbalized understanding. Pt discharged via wheelchair with prescriptions and instructions. IV and Telemetry previously discontinued. Pt left hospital with to home self care.
--- NOTE | 2016-10-25 12:40 | NUR ---
Social Work Note: Discharge Data& Assessment: EMR reviewed. Per pt is medically ready to discharge home via POV with [facility], RN and OT to follow. Farooq Gonzales is a 75 year old male admitted on 10/11/2016 for acute abdominal pain. Per pt is medically improved and ready to discharge home via POV. SW met with pt and pt at bedside to confirm discharge plan and assess for any unmet needs. Pt confirmed she will be transporting pt home today. Pt and pt deny any other needs. SW notified Jonah from [facility] that pt is being discharged today. No other discharge needs identified. All updated and agreeable to plan. Plan: Per pt is medically improved and ready to discharge home via POV with [facility], RN and OT to follow. Pt and pt deny any other needs. No other discharge needs identified. All updated and agreeable to plan. DARRON Lr
--- NOTE | 2016-10-25 15:40 | PCM.DC.MED ---
Discharge Summary Date of Service Oct 25, 2016 Dates of Hospitalization Date of Hospital Admission Oct 11, 2016 at 22:51 Date of Discharge: Oct 25, 2016 Providers: Admitting Physician: Dada Rosales MD Primary Care Physician: Jaya Flores MD Attending Physician: Dada Rosales MD Diagnosis at Time of Discharge Diagnosis at Time of Discharge 1. Hypertension, present on admission, stable. 2. Heart failure with preserved ejection fraction, present on admission, stable. 3. Ischemic bowel status post laparotomy on 10/12, present on admission, resolved. 4. Postoperative ileus, not present on admission, resolved. 5. Sleep apnea on CPAP, present on admission, chronic. 6. Acute hypoxic respiratory failure, not present on admission, resolved. 7. Anion gap metabolic acidosis, as an on admission, resolved. 8. Atrial fibrillation on anticoagulation with warfarin, present on admission, chronic. 9. Type II diabetes mellitus, present on admission, chronic. 10. CKD stage IV with baseline serum creatinine 3.3 - 3.9, was on admission, chronic. 11. Bradycardia, present on admission, chronic. 12. Anemia, present on admission, stable. Consultations Surgery - Dr. Rosales and Dr. Dupree Nephrology - Dr. Manning and Dr. Bejarano Critical Care/Pulmonology - Dr. Taylor and Dr. Rueda Procedures XRay, CTs & MRIs X-RAY CHEST ONE VIEW, PORTABLE IMPRESSION: 1. Persistent left basilar radiopacities and pleural effusion. 2. New right basilar radiopacities and small effusion. Dictated by: Sabrina Diaz M.D. on 10/24/2016 at 8:33 Approved by: Sabrina Diaz M.D. on 10/24/2016 at 8:33 X-RAY CHEST ONE VIEW, PORTABLE IMPRESSION: No change in bibasilar pneumonia. Continued plain film surveillance is recommended to ensure resolution, and to exclude underlying or central malignancy. Dictated by: Roslyn Velasco M.D. on 10/14/2016 at 8:55 Approved by: Roslyn Velasco M.D. on 10/14/2016 at 8:55 US ABDOMEN IMPRESSION: 1. Echogenic liver. Finding typically represents fatty infiltration; however, finding is nonspecific and correlation with clinical and laboratory findings is recommended to exclude other etiologies including hepatic cirrhosis. 2. Nonvisualization of the pancreas, spleen, aorta and iliac vasculature. 3. Otherwise, normal abdominal sonogram. Dictated by: Tasha Barrera MD, PhD on 10/13/2016 at 9:12 Approved by: Tasha Barrera MD, PhD on 10/13/2016 at 9:12 . Brief History Per Dr. Lim's H&P: Patient is a 75-year-old male who presented to the emergency room with acute onset of abdominal pain the afternoon of October 11. Patient was seen in the emergency room and CT of abdomen and pelvis revealed findings suspicious for a closed loop small bowel obstruction, secondary to localized volvulus or internal hernia. There was Fat stranding as well as patchy small bowel wall thickening concerning for evolving both bowel ischemia. Labs showed a lactic acid level II.6 with bicarbonate of 20 white count of 10.4 patient was taken to the OR after a year M.D. notified Dr. Rosales regarding the need to see the patient in the ER and potentially go directly to the OR. Will note reveals spelled finding of definite purple, compromised ischemic bowel due to volvulus and internal hernia due to adhesive band. We 45 inches above mid small bowel was removed and a primary reanastomosis was achieved. She was sent from the PACU to the CCU for continuing care. Patient remained intubated and was on low-dose IV phenylephrine drip for postoperative hypotension. Hospital Course Farooq Gonzales is a 75-year-old male with diabetes, CKD stage IV, coronary artery disease, diastolic CHF, and hypertension who presented with acute abdominal pain. Admitted for ischemic bowel secondary to volvulus and internal hernia now day 10/11 status post laparotomy. Prolonged intubation after surgery extubated on 10/16. Hospital day 14. 1. Ischemic bowel status post laparotomy on 10/12, present on admission, stable. - Ischemic bowel secondary to volvulus and internal hernia. - Approximately 45 inches of mid small bowel were removed with primary anastomosis. 2. Postoperative ileus, not present on admission, resolved. - Bowel movement overnight. No nausea or vomiting. - Patient tolerated general diet. - Aggressive physical therapy. Patient discharge with home health physical therapy. 3. Hypertension, not present on admission, stable. - Patient has chronic hypertension worsened by postoperative pain and ileus. - Metoprolol 12.5 mg twice a day stopped due to bradycardia. - Hydralazine increased to 75 mg TID. - Amlodipine 10 mg daily. - Torsemide 40 mg daily. - Eplerenone 25 mg BID. - Continued upon discharge. 4. Heart failure with preserved ejection fraction, resonant on admission, stable. - Echo from 06/29/16 revealed EF of 55% and significant aortic stenosis. - Patient diuresed with Lasix 80 mg Q12H and switched to PO Torsemide. 5. Sleep apnea on CPAP, present on admission, chronic. - CPAP used at night. 6. Acute hypoxic respiratory failure, not present on admission, resolved. - Intubated early a.m. 10/12/16 for perioperative management. Extubated successfully 10/16. - Requiring minimal oxygen by nasal cannula and CPAP at night. 7. Anion gap metabolic acidosis, as an on admission, resolved. - Secondary to bowel ischemia and elevated lactic acid. 8. Atrial fibrillation on anticoagulation with warfarin, present on admission, chronic. - Anticoagulation reversed prior to surgery. - Warfarin restarted. Lovenox until therapeutic. 9. Type II diabetes mellitus, present on admission, chronic. - Glargine 20 units daily. - Medium dose correctional scale with regular insulin. 10. CKD stage IV with baseline serum creatinine 3.3 - 3.9, was on admission, chronic. 11. Bradycardia, present on admission, chronic. - reports that his baseline HR is approx 40's. - Metoprolol discontinued. 12. Anemia, present on admission, stable. - 2 units PRBCs transfused on 10/22. - Single dose of Venofer given per nephrology. Exam Vital Signs (Last) Date Time Temp Pulse Resp B/P Pulse Ox O2 Delivery O2 Flow Rate FiO2 10/25/16 07:43 36.5 59 18 138/69 96 Room Air 10/24/16 08:28 2.00 Exam General: Obese gentleman lying in bed in no acute distress. HEENT: Pupils are equal and reactive to light, mucous membranes are moist, nasal cannula in place. Right IJ. Lungs: Clear to auscultation bilaterally with decreased breath sounds in the bases bilaterally. Cardiovascular: Regular rate and rhythm with no murmurs. Abdomen: Soft with active bowel sounds. Vertical surgical incision present with appropriate pain to palpation. Extremities: No lower extremity edema, right AV fistula present with good thrill. Neurological: Cranial nerves grossly intact. Psychiatric: Normal mood and affect. Alert and oriented to person, place, and time. Test 10/11/16 04:50 10/11/16 19:10 10/11/16 19:14 10/12/16 13:03 Hemoglobin A1c 5.9% (4.8-5.6) Pro-B-Type Natriuretic Peptide 4360pg/mL (0-376) Urine Color Yellow (YELLOW) Urine Appearance Clear (CLEAR,HAZY) Urine pH 7.0 (5.0-8.0) Urine Specific [place] 1.025 (1.003-1.035) Urine Protein 100mg/dL (NEG,TRACE) Urine Glucose (UA) Negativemg/dL (NEGATIVE) Urine Ketones Negativemg/dL (NEGATIVE) Urine Occult Blood Trace (NEGATIVE) Urine Nitrite Negative (NEGATIVE) Urine Bilirubin Negative (NEGATIVE) Urine Urobilinogen Normalmg/dL (NORMAL) Urine Leukocyte Esterase Negative (NEGATIVE) Urine RBC 0-2/hpf (0-2) Urine WBC 0-5/hpf (0-5) Urine Epithelial Cells Occasional/hpf (NONE-MOD) Urine Crystals None seen (NONE SEEN) Urine Bacteria None/hpf (NONE-FEW) Urine Hyaline Casts Rare/lpf (NONE) Urine Granular Casts None seen (NONE SEEN) Urine Waxy Casts None seen (NONE SEEN) Urine Red Blood Cell Casts None seen (NONE SEEN) Urine White Blood Cell Casts None seen (NONE SEEN) Urine Mucus None seen (None Seen) Urine Trichomonas None seen (NONE SEEN) Urine Yeast None (NONE SEEN) Urinalysis Comment None Urine Culture Reflexed Not indicated Troponin T < 0.010ug/L (0.0-0.011) Test 10/13/16 09:00 10/14/16 05:45 10/15/16 04:30 10/17/16 03:50 Lactic Acid Level 0.7mmol/L (0.4-2.0) Vitamin D 25-Hydroxy 31.2ng/mL (30.0-100.0) Procalcitonin 0.45ng/mL (See Comment) Parathyroid Hormone (Intact) 96pg/mL (15-65) Prealbumin 13mg/dL (20-40) Phosphorus Level 5.4mg/dL (2.5-4.9) Test 10/18/16 04:10 10/21/16 03:52 10/22/16 05:05 10/23/16 03:02 Iron Level 34ug/dL (35-150) Total Iron Binding Capacity 191ug/dL (250-450) Percent Iron Saturation 18%sat (15-50) Unsaturated Iron Binding 157.4ug/dL Ferritin 320ng/mL (30-400) Neutrophils (%) (Auto) 58.1% (40-74) Lymphocytes (%) (Auto) 23.6% (14-46) Monocytes (%) (Auto) 10.9% (4-12) Eosinophils (%) (Auto) 6.1% (0-5) Basophils (%) (Auto) 0.9% (0-3) Magnesium Level 2.0mg/dL (1.6-2.6) Uric Acid 10.2mg/dL (2.6-7.2) Total Bilirubin 0.6mg/dL (0.0-1.2) Aspartate Amino Transf (AST/SGOT) 11U/L (0-50) Alanine Aminotransferase (ALT/SGPT) 5U/L (0-44) Alkaline Phosphatase 70U/L (25-160) Total Protein 6.5g/dL (6.4-8.4) Albumin 3.2g/dL (3.4-5.0) Test 10/24/16 05:15 10/25/16 03:45 White Blood Count 5.1th/mm3 (3.8-10.1) Red Blood Count 3.35mil/mm3 (4.40-5.80) Hemoglobin 9.3g/dL (13.8-17.2) Hematocrit 29.2% (41.0-50.0) Mean Corpuscular Volume 87.2fL (81-100) Mean Corpuscular Hemoglobin 27.8pg (27.0-35.0) Mean Corpuscular Hemoglobin Concent 31.8% (32.0-37.0) Red Cell Distribution Width 16.2% (12.3-15.4) Platelet Count 221bil/L (150-400) Prothrombin Time 18.9sec (8.1-12.5) Prothromb Time International Ratio 1.75ratio Sodium Level 138mEq/L (134-144) Potassium Level 3.9mEq/L (3.5-5.2) Chloride Level 98mEq/L (97-108) Carbon Dioxide Level 25mmol/L (18-29) Blood Urea Nitrogen 61mg/dL (8-27) Creatinine 3.34mg/dL (0.76-1.27) Estimat Glomerular Filtration Rate 19mL/min (>59) Glucose Level 114mg/dL (60-99) Calcium Level 8.6mg/dL (8.5-10.1) Microbiology Results Blood cultures 2 shows no growth after 5 days. MRSA screen negative. Sputum culture grew normal cleo. . Discharge Medications Discharge Medications Amlodipine (Amlodipine) 5 Mg Tablet 10 MG PO DAILY Prescribed by: SAMANTHA POLLOCK MD Atorvastatin Calcium (Atorvastatin Calcium) 80 Mg Tablet 80 MG PO DAILY ( Reported) Calcitriol (Rocaltrol) 0.25 Mcg Capsule 0.5 MCG PO every other day (Reported) Citalopram Hydrobromide (Celexa) 40 Mg Tablet 40 MG PO HS (Reported) Colchicine (Colchicine) 0.6 Mg Capsule 0.6 MG PO every 3 days (Reported) Enoxaparin (Lovenox) 100 Mg/Ml Syringe 100 MG SUBQ Q24H Prescribed by: JOSE MCDANIEL DO Eplerenone (Eplerenone) 25 Mg Tablet 25 MG PO BID Prescribed by: JOSE MCDANIEL DO Ferrous Sulfate (Iron) 325 Mg Capsule.er 325 MG PO TID (Reported) Hydralazine (Hydralazine) 50 Mg Tablet 75 MG PO TID Prescribed by: JOSE MCDANIEL DO Insulin Glargine (Lantus U100 Insulin Vial) 100 Unit/Ml Vial 40 UNIT SUBQ AM ( Reported) Potassium Chloride (Potassium Chloride) 20 Meq Tab.er.prt 20 MEQ PO DAILYWM Prescribed by: SAMANTHA POLLOCK MD Torsemide (Demadex) 20 Mg Tablet 40 MG PO DAILY Prescribed by: JOSE MCDANIEL DO Warfarin Sodium (Coumadin) 5 Mg Tablet 5 MG PO DAILY@17 Prescribed by: ERICK CHINCHILLA DO As needed Nitroglycerin SL (Nitroglycerin SL) 0.4 Mg Tab.subl 0.4 MG SL PRN PRN PRN For Chest Pain (Reported) Additional med instructions During your hospitalization a number medications were changed or added. Please stop the following medications: - Furosemide 80 mg twice a day - Hydralazine 50 mg 3 times a day - Isosorbide mononitrate 90 mg daily - Metoprolol tartrate 12.5 mg twice a day New medications include the following: - Torsemide 40 mg daily - Eplerenone 25 mg twice a day - Hydralazine 75 mg 3 times a day - Lovenox 100 mg subcutaneous injection daily. This medication is to be used until your INR is above 2. Once your INR is above 2 you can stop the Lovenox and continue taking warfarin alone. Your remaining medications have not been changed during this hospitalization. Please continue to take as directed by their prescribers. Followup Plan Discharge Diet: Heart Healthy, Diabetic Discharge Activity: Home Health Phyical Therapy Patient Instructions - During your hospitalization you were treated for ischemic bowel with laparotomy. Your surgical incision is healing well and you are having regular bowel movements at this time. - Please follow up with surgery, Dr. Rosales, in 1-2 weeks. - During your hospitalization a number of your medications were adjusted to better control your blood pressure and fluid status. Please make note of these changes and follow the directions above. - Please follow up with nephrology, Dr. Manning, in 1-2 weeks. Prior to this appointment please have labs drawn including a BMP. - Due to your surgery your warfarin was held for a period of time. Currently your INR is not therapeutic. Therefore, please take Lovenox and warfarin daily as directed above until your INR is greater than 2. Once your INR is greater than 2 you can continue with warfarin but stop the Lovenox. Please have your INR checked in 2-3 days. - Please follow up with your primary care provider, Dr. Flores, in 4-5 days to update him on your hospital course and medication changes. - You are being discharged with home health physical therapy. Please aggressively work with them to regain your strength and mobility. Follow-up Provider: Jyaa Flores MD Follow-up with PCP in: Other (4-5 days) Provider: Jerrell Manning DO Follow-up in: Other (1-2 weeks) Mid-level Provider: Dada Rosales MD Follow-up with Mid-level in: Other (1-2 weeks) Time spent Greater than 30 minutes was spent in preparation of discharge with greater than 50% of that time dedicated to patient counseling and coordination of care. . Attending Statement The patient was seen and examined together with Dr. Mcdaniel on 10/25/2016 and I agree with the history, exam and plan as outlined in the note above. . copies to: Jaya Flroes MD, BETHANY A DO Oct 25, 2016 15:40 Magnus Carmona MD Oct 26, 2016 15:51
== END 2016-10-25 12:44 | disposition home health service (06) | DRG 329 ==
LOC: SED 18:27 → CCU 22:51 → PCC 10-18 18:00
PROVIDERS: ADMIT Surgery; ATTEND Surgery
PROC: 0DB80ZZ Excision of Small Intestine, Open Approach (ICD-10-PCS; 2016-10-11)
PROC: 02HV33Z Insertion of Infusion Device into Superior Vena Cava, Percutaneous Approach (ICD-10-PCS; 2016-10-11)
PROC: 3E0M05Z Introduction of Adhesion Barrier into Peritoneal Cavity, Open Approach (ICD-10-PCS; 2016-10-11)
PROC: 5A1955Z Respiratory Ventilation, Greater than 96 Consecutive Hours (ICD-10-PCS; principal; 2016-10-11 23:00)
PROC: 4A033R1 Measurement of Arterial Saturation, Peripheral, Percutaneous Approach (ICD-10-PCS; 2016-10-12)
PROC: 30233N1 Transfusion of Nonautologous Red Blood Cells into Peripheral Vein, Percutaneous Approach (ICD-10-PCS; 2016-10-13)
PROC: 30233N1 Transfusion of Nonautologous Red Blood Cells into Peripheral Vein, Percutaneous Approach (ICD-10-PCS; 2016-10-22)
DX: K56.2 Volvulus (principal); K55.011 Focal (segmental) acute (reversible) ischemia of small intestine; J96.01 Acute respiratory failure with hypoxia; N17.0 Acute kidney failure with tubular necrosis; N18.4 Chronic kidney disease, stage 4 (severe); I50.32 Chronic diastolic (congestive) heart failure; E87.4 Mixed disorder of acid-base balance; I48.2 Chronic atrial fibrillation; K56.5 Intestinal adhesions [bands] with obstruction (postinfection); I12.9 Hypertensive chronic kidney disease with stage 1 through stage 4 chronic kidney disease, or unspecified chronic kidney disease; E11.22 Type 2 diabetes mellitus with diabetic chronic kidney disease; G47.33 Obstructive sleep apnea (adult) (pediatric); K56.7 Ileus, unspecified; Z79.01 Long term (current) use of anticoagulants; Z79.4 Long term (current) use of insulin; Z87.891 Personal history of nicotine dependence; Z86.73 Personal history of transient ischemic attack (TIA), and cerebral infarction without residual deficits; I95.81 Postprocedural hypotension; D50.9 Iron deficiency anemia, unspecified; D63.1 Anemia in chronic kidney disease; R00.1 Bradycardia, unspecified